=== PATIENT | female | born 1935 | race Caucasian/White ===

== ENCOUNTER 2016-09-25 11:18 | Emergency (ER) | payer MEDICARE, MEDICAID ==
--- NOTE | 2016-09-25 12:18 | ED Physician Chart ---
Chief Complaint/HPI - Patient Information Date Seen:: 09/25/16 Time Seen:: 12:34 Chief Complaint:: FALL WITH HEAD, LT SHOULDER, ARM AND ELBOW INJURY. History of Present Illness:: Patient was walking up stairs when she lost her balance and fell backwards striking the back of her head and sustaining injury to the left shoulder, left arm and left elbow regions. There was no loss of consciousness. The patient rates the severity of the head injury as mild and has 8/10 pain in the left shoulder region. Any movement of the left upper extremity causes increased pain. Allergies:: Allergies Allergy/AdvReac Type Severity Reaction Status Date / Time No Known Allergies Allergy Verified 05/24/16 10:44 Review of Systems - Review of Systems General/Constitutional: No fever, No chills, No weakness, No diaphoresis, No edema Skin: No skin lesions, No rash Head: No headache Eyes: No loss of vision, No diplopia ENT: No earache, No sore throat Neck: No neck pain, No stiffness, No mass noted Cardio Vascular: No chest pain, No edema Pulmonary: No SOB, No cough, No sputum, No wheezing GI: No nausea, No vomiting, No diarrhea, No pain G/U: No dysuria, No hematuria, No nacturia Manager Linux: No abnormal vaginal bleed Musculoskeletal: No back pain, No muscle pain Endocrine: No polyuria, No polydipsia Psychiatric: Prior psych history, No suicidal ideation Hematopoietic: No bruising, No lymphadenopathy Neurological: No syncope, No focal symptoms, No weakness, No paresthesia, No seizure, No dizziness, No confusion Family Medical History - Family Member Mother History Unknown: Yes Ethnicity: Living Status: Hx Family Cancer: Yes Physical Exam - Physical Examination General/Constitutional: Awake, Well-developed, well-nourished, Alert Other Gen/Cons comments:: Patient is in moderate distress from injuries to her left upper extremity. No gross deformities to be the shoulder or the elbow were obvious. Head: Atraumatic Eyes: Lids, conjuctiva normal, PERRL, EOMI Skin: Nl inspection, No skin lesions, No ecchymosis ENMT: External ears, nose nl, Nasal exam nl, Lips, teeth, gums nl, Oropharynx nl , Tonsils nl Neck: Full ROM w/o pain, No nuchal rigidity Other Neck comments:: There was mild tenderness on palpation over the mid C-spine. Respiratory: Nl effort/Exclusion, Clear to Auscultation, No Wheeze/Rhonchi/Rales Cardio Vascular: No murmur, gallop, rubs, NL S1 S2 Other Cardio Vascular comments:: Patient has adequate pulses in all four extremities. This includes the left upper extremity. GI: No tenderness/rebounding/guarding, No organomegaly, No hernia, Normal BS's, Nondistended, No McBurney tenderness : No CVA tenderness Other Extremities comments:: Patient's extremity injuries were isolated to the left upper extremity. There was significant tenderness on palpation over the shoulder and proximal humerus. Patient also had significant tenderness to palpation over the olecranon process. Patient was able to wiggle her fingers and lightly order detailer my fingers. Full range of motion in the major joints of the right upper extremity in both lower extremities. Neuro/Psych: Alert/oriented, Mood normal, No focal deficits Misc: Normal back, No paraspinal tenderness Other Misc comments:: no tenderness on palpation over any of the thoracic or lumbar spinal region. Labs/Radiology/EKG Results - Lab Results Results: CT scan of the head and neck were negative for any acute traumatic injury. To view x-ray study of the left shoulder shows minimally displaced fracture just below the humeral neck. 3 view x-ray of the elbow shows a significantly displaced electron fracture. Assessment - Assessment General Assessment: CASE SUMMARY: this 81-year-old female lost her balance walking upstairs and fell backward striking her occipital portion of the head and sustaining significant injury to her left upper extremity. There was no loss of consciousness at the time of the fall. Because of the patient's age CT scans of both ahead in the neck were obtained and were negative for any acute traumatic findings. Plain films of the left upper extremity showed a nondisplaced fracture of the proximal humoral shaft just below the neck. There was also a significantly displaced olecranon fracture in the left upper extremity. Pain was addressed with IV morphine. The patient had a shoulder immobilizer applied and a PM splint to stabilize the elbow. Patient was discharged with a prescription for Ponce with the usual precautions. Patient was advised to follow up with her primary care position on Tuesday in order to obtain orthopedic consultation. Indications for return to the emergency department were discussed with the patient's family. Patient was discharged in stable condition. MDM DDX for fall down stairs: NOT IC Bleed based on negative CT Scan of the head. NOT C-spine fracture base on neg CT scan of neck. NO open fractures based on examination. NO Hip fx based on history and physical exam. ED Septic Shock - . Is Septic Shock (SBP<90, OR Lactate>4 mmol\L) present?: No Reassessment (Disposition) - Reassessment Reassessment Condition:: Improved - Diagnosis Diagnosis:: 1. MECHANICAL FALL DOWN STAIRS. MINIMALLY DISPLACED FX OF THE LEFT PROXIMAL HUMERAL SHAFT. DISPLACED OLECRONON FX. ED Discharge Plan - Patient Disposition Admit/Discharge/Transfer: PT DISCHARGED HOME Condition at Disposition: Improved Instructions: Elbow Fracture, Distal Humerus with Rehab-Sports[facility] Additional Instructions: Follow up with Dr. Mann on Tuesday for further evaluation w/ CD of x-rays. If worse, return to Emergency Room. Accepting Physician: Zack Mann [Active] -
[2016-09-25] MEDS ORDERED: Morphine Sulfate 2 mg/mL 1mL Syr ONE (12:52)
[2016-09-25 13:15] LABS: % BASOPHILS 0.3 % (0.0-2.0); % EOSINOPHILS 0.9 % (0.0-5.0); % LYMPHOCYTES 15.5 % (20.0-50.0); % MONOCYTES 9.7 % (2.0-10.0); % NEUTROPHILS 73.6 % (40.0-80.0); HEMATOCRIT 27.4 % (35.0-45.0); HEMOGLOBIN 9.6 gm/dL (11.7-16.1); MEAN CELL VOLUME 88.7 fl (81-100); MEAN CORPUSCULAR HGB CONC 34.9 pg (28.0-36.0); MEAN PLATELET VOLUME 6.3 fl; NEUTROPHILE ABSOLUTE 4.4 Th/cmm (1.8-8.0); RED BLOOD COUNT 3.09 Mil/cmm (3.80-5.20); RED CELL DISTRIBUTION WIDTH 13.8 % (11.5-20.0)
[2016-09-25 13:21] LABS: PLATELET COUNT 257 Th/cmm (150-400)
[2016-09-25 13:33] LABS: ALB/GLOB RATIO 1.1 (1.0-1.8); ALKALINE PHOSPHATASE 55 U/L (34-104); ANION GAP 8.2 (7.0-16.0); BILIRUBIN,TOTAL 0.2 mg/dL (0.3-1.0); BUN - UREA NITROGEN 42 mg/dL (7-25); CALCIUM SERUM 9.1 mg/dL (8.6-10.3); CARBON DIOXIDE 18.6 mEq/L (21.0-31.0); CHLORIDE 110 mEq/L (98-107); CREATININE - SERUM 1.4 mg/dL (0.6-1.2); GLUCOSE 76 mg/dL (70-105); POTASSIUM SERUM 3.8 mEq/L (3.5-5.1); SGOT 21 U/L (13-39); SGPT/ALT 11 U/L (7-52); SODIUM SERUM 133 mEq/L (136-145)
--- NOTE | 2016-09-26 11:06 | Diagnostic Imaging Report ---
CT scan of the brain without intravenous contrast HISTORY: Headache, trauma Total DLP equals 611 CTDI equals 30.8 Axial sections were obtained from the base of the skull to the vertex. There is prominence/enlargement of the ventricular system size. Associated enlargement of cerebral sulci and subarachnoid cisterns. Findings are consistent with changes of generalized cerebral atrophy. No acute parenchymal abnormalities. No acute cerebral hemorrhage. Hypodensity is seen within the supratentorial white matter regions without mass effect. The findings may be associated with chronic small vessel ischemic disease. No extra-axial masses or abnormal fluid collections. IMPRESSION: 1. No acute abnormalities 2. Cerebral atrophy 3. Supratentorial white matter changes that may reflect chronic small vessel ischemic disease 4. Mucosal thickening through the ethmoid sinuses
--- NOTE | 2016-09-26 11:07 | Diagnostic Imaging Report ---
CT scan cervical spine HISTORY: Pain, trauma Total DLP equals 364 CTDI equals 18.5 Generalized osteopenia. There are diffuse degenerative changes with hypertrophic spur formation noted about the endplates of all vertebrae. Findings are more pronounced at the C5-6 and C6-7 levels. Slight retrolisthesis of C4 relative to C5. No acute abnormalities. No fractures. The margins of the cervical spinal cord cannot be clearly visualized. The prevertebral soft tissues appear normal. IMPRESSION: 1. No acute abnormalities 2. Diffuse degenerative changes
--- NOTE | 2016-09-26 11:28 | Diagnostic Imaging Report ---
Left humerus (3 views, portable) HISTORY: Pain, trauma Cortical irregularity that appears to be related to a minimally displaced fracture involving the proximal humeral shaft extending into the region of the humeral head. There is partial visualization of what appears to be displaced fracture of the olecranon process. IMPRESSION: 1. Findings consistent with minimally displaced fracture of the proximal humerus along with partial visualization of a displaced fracture of the olecranon process
--- NOTE | 2016-09-26 11:29 | Diagnostic Imaging Report ---
Left shoulder (2 views, portable) HISTORY: Pain On the internal rotation view, there appears to be cortical irregularity associated with a minimally displaced fracture of the proximal humerus. Additional views or CT scan would confirm. Hypertrophic degenerative changes noted about the acromioclavicular joint. IMPRESSION: 1. Findings consistent with a minimally displaced fracture of the proximal humeral shaft extending into the humeral neck region. If necessary, a CT scan would provide additional detail.
--- NOTE | 2016-09-27 12:20 | Diagnostic Imaging Report ---
Left elbow (3 views) HISTORY: Pain, trauma The exam demonstrates a displaced fracture of the olecranon process. IMPRESSION: 1. Displaced fracture of the olecranon process
== END 2016-09-25 15:50 | disposition home or self-care (01) ==
LOC: ER 11:18
DX: S42.212A Unspecified displaced fracture of surgical neck of left humerus, initial encounter for closed fracture (principal); S52.022A Displaced fracture of olecranon process without intraarticular extension of left ulna, initial encounter for closed fracture; W10.8XXA Fall (on) (from) other stairs and steps, initial encounter; Y93.01 Activity, walking, marching and hiking; Y92.89 Other specified places as the place of occurrence of the external cause; Y99.8 Other external cause status
CPT/HCPCS: 99285; 70450; 29105; 96374; 96375; 73030; 73060; 73080; 72125; 36415; 85025; 80053; J2270; J2405

== ENCOUNTER 2018-01-04 20:06 | Inpatient (IN) | payer MEDICARE, MEDICAID ==
[2018-01-04] MEDS ORDERED: cefTRIAXone 1 GM in Sodium Chloride 0.9% 50 ML IV ONE (20:17)
[2018-01-04] MEDS ORDERED: Sodium Chloride 0.9% 1,000 ML IV ONE (20:17)
--- NOTE | 2018-01-04 20:25 | ED Physician Chart ---
ED Chief Complaint/HPI - Patient Information Date Seen:: 01/04/18 Time Seen:: 20:10 Chief Complaint:: Abdominal Pain History of Present Illness:: onset x 3 days of intermittent, crampy epigastric pain; pt denies trauma, H/As, S/T, C/P, SOB, cough, A/N/V/D/C, fever, chills, or urinary s/s; pt also admits to facial redness x 3 days; pt's last tetanus shot: ,<5 years; UTD Allergies:: Allergies Allergy/AdvReac Type Severity Reaction Status Date / Time No Known Allergies Allergy Verified 05/24/16 10:44 Historian:: Patient, Family Member Review:: Nurse's Note Reviewed ED Review of Systems - Review of Systems General/Constitutional: No fever, No chills, No weight loss, No weakness, No diaphoresis, No edema, No loss of appetite Skin: No skin lesions, No rash, No bruising Head: No headache, No light-headedness Eyes: No loss of vision, No pain, No diplopia ENT: No earache, No nasal drainage, No sore throat, No tinnitus Neck: No neck pain, No swelling, No thyromegaly, No stiffness, No mass noted Cardio Vascular: No chest pain, No palpitations, No PND, No orthopnea, No edema Pulmonary: No SOB, No cough, No sputum, No wheezing GI: Nausea, Vomiting, Diarrhea, Pain, No melena, No hematochezia, No constipation, No hematemesis G/U: No dysuria, No frequency, No hematuria, No nacturia 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, No abnormal vaginal bleed, No contraction Musculoskeletal: No bone or joint pain, No back pain, No muscle pain Endocrine: No polyuria, No polydipsia Psychiatric: No prior psych history, No depression, No anxiety, No suicidal ideation, No homicidal ideation, No auditory hallucination, No visual hallucination Hematopoietic: No bruising, No lymphadenopathy Allergic/Immuno: No urticaria, No angioedema Neurological: No syncope, No focal symptoms, No weakness, No paresthesia, No headache, No seizure, No dizziness, No confusion, No vertigo ED Past Medical History - Past Medical History Obtainable: Yes Past Medical History: HTN, ESRD, Thyroid disorder Family History: HTN Social History: Non Smoker, No Alcohol, No Drug Use, Surgical History: None Psychiatricy History: None Medication: Reviewed Family Medical History - Family Member Mother History Unknown: Yes Ethnicity: Living Status: Hx Family Cancer: Yes ED Physical Exam - Physical Examination General/Constitutional: Awake, Well-developed, well-nourished, Alert, No distress, GCS 15, Non-toxic appearing, Ambulatory Head: Atraumatic Eyes: Lids, conjuctiva normal, PERRL, EOMI Skin: Nl inspection, No rash, No skin lesions, No ecchymosis, Well hydrated, No lymphadenopathy Other Skin comments:: + Facial Cellulitis ENMT: External ears, nose nl, TM canals nl, Nasal exam nl, Lips, teeth, gums nl , Oropharynx nl, Tonsils nl Neck: Nontender, Full ROM w/o pain, No JVD, No nuchal rigidity, No bruit, No mass, No stridor Respiratory: Nl effort/Exclusion, Clear to Auscultation, No Wheeze/Rhonchi/Rales Cardio Vascular: RRR, No murmur, gallop, rubs, NL S1 S2, Carotid/Femoral/Distal pulses equal bilaterally GI: No tenderness/rebounding/guarding, No organomegaly, No hernia, Normal BS's, Nondistended, No mass/bruits, No McBurney tenderness : No CVA tenderness Extremities: No tenderness or effusion, Full ROM, normal strength in all extremities, No edema, Normal digits & nails Neuro/Psych: Alert/oriented, DTR's symmetric, Normal sensory exam, Normal motor strength, Judgement/insight normal, Mood normal, Normal gait, No focal deficits Misc: Normal back, No paraspinal tenderness ED Labs/Radiology/EKG Results - Lab Results Comments:: H/H: 8.9/26.6; + Anemia; Na+: 130; BUN: 40; U/A: + Pyuria - Radiology Results Comments:: CXR: Patchy Infiltrates suggestive of ILD vs PNA - EKG Interpretations EKG Time:: 20:22 Rate & Rhythm: 96; NSR Comments:: non-specific st-t changes; PVCs; SA ED Septic Shock - . Is Septic Shock (SBP<90, OR Lactate>4 mmol\L) present?: No ED Reassessment (Disposition) - Reassessment Reassessment Condition:: Improved - Diagnosis Diagnosis:: Dx: Facial Cellulitis; Abdominal Pain; Dehydration; Hyponatremia; UTI; PNA; ILD ; Anemia - Aftercare/Follow up Instructions Aftercare/Follow-Up Instructions:: Counseled pt regarding lab results/diagnosis & need follow up, Counseled pt & family regarding lab results/diagnosis & need follow up - Patient Disposition Discharge/Transfer:: Acute Care w/in this hosp Accepting Physician:: Dr. Philip Time Called:: 2129 Time Responded:: 21:30 Admitted to:: Med/Surg Spoke to:: Dr. Philip Admitting Medical Physician:: Dr. Philip Condition at Disposition:: Stable, Improved
[2018-01-04 20:49] LABS: % BASOPHILS 0.9 % (0.0-2.0); % EOSINOPHILS 2.3 % (0.0-5.0); % LYMPHOCYTES 38.3 % (20.0-50.0); % MONOCYTES 10.6 % (2.0-10.0); % NEUTROPHILS 47.9 % (40.0-80.0); EOSINOPHILE ABSOLUTE 0.1 Th/cmm (0.1-0.4); HEMATOCRIT 26.6 % (41.0-60); HEMOGLOBIN 8.9 gm/dL (12-16); LYMPHOCYTE ABSOLUTE 2.1 Th/cmm (1.5-3.0); MEAN CELL VOLUME 83.1 fl (81-100); MEAN CORPUSCULAR HEMOGLOBIN 27.7 pg (27.0-31.0); MEAN CORPUSCULAR HGB CONC 33.3 pg (28.0-36.0); MEAN PLATELET VOLUME 6.7 fl; MONOCYTE ABSOLUTE 0.6 Th/cmm (0.3-1.0); NEUTROPHILE ABSOLUTE 2.7 Th/cmm (1.8-8.0); PLATELET COUNT 276 Th/cmm (150-400); RED BLOOD COUNT 3.21 Mil/cmm (3.80-5.20); RED CELL DISTRIBUTION WIDTH 15.9 % (11.5-20.0); WHITE BLOOD COUNT 5.5 Th/cmm (4.8-10.8)
[2018-01-04 20:56] LABS: INR 0.98 (0.5-1.4); PROTHROMBIN TIME (TEST) 10.2 SECONDS (9.5-11.5)
[2018-01-04 20:59] LABS: URINE MICROSCOPIC INDICATED? YES; URINE SOURCE CLEAN C
[2018-01-04 21:02] LABS: ALB/GLOB RATIO 1.1 (1.0-1.8); ALBUMIN 3.8 gm/dL (3.7-5.3); ALKALINE PHOSPHATASE 65 U/L (34-104); ANION GAP 15.7 (7.0-16.0); BILIRUBIN,TOTAL 0.3 mg/dL (0.3-1.0); BUN - UREA NITROGEN 40 mg/dL (7-25); CALCIUM SERUM 8.9 mg/dL (8.6-10.3); CARBON DIOXIDE 14.9 mEq/L (21.0-31.0); CHLORIDE 104 mEq/L (98-107); CHOLESTEROL 115 mg/dL (<200); CREATININE - SERUM 1.5 mg/dL (0.6-1.2); CREATININE KINASE 165 U/L (30-223); GLUCOSE 104 mg/dL (70-105); HDL -HIGH DENSITY LIPOPROTEIN 44 mg/dL (23-92); POTASSIUM SERUM 4.6 mEq/L (3.5-5.1); SGOT 16 U/L (13-39); SGPT/ALT 7 U/L (7-52); SODIUM SERUM 130 mEq/L (136-145); TOTAL PROTEIN,SERUM 7.2 gm/dL (6.0-8.3); TRIGLYCERIDES 68 mg/dL (<150)
[2018-01-04 21:02] LABS: URINE BILIRUBIN NEGATIVE (NEGATIVE); URINE BLOOD NEGATIVE (NEGATIVE); URINE GLUCOSE (UA) NEGATIVE (NEGATIVE); URINE KETONE NEGATIVE (NEGATIVE); URINE LEUKOCYTE ESTERASE TRACE (NEGATIVE); URINE NITRATE NEGATIVE (NEGATIVE); URINE PH 5.5 (4.6 - 8.0); URINE PROTEIN NEGATIVE (NEGATIVE); URINE UROBILINOGEN 0.2 E.U./dL (0.2 - 1.0)
[2018-01-04 21:03] LABS: AMYLASE SERUM 61 U/L (29-103); LIPASE 34 U/L (11-82)
[2018-01-04 21:03] LABS: URINE CLARITY CLEAR (CLEAR); URINE COLOR STRAW
[2018-01-04 21:04] LABS: URINE BACTERIA NONE SEEN /hpf (NONE SEEN); URINE EPITHELIAL CELLS NONE SEEN /lpf (FEW); URINE RBC NONE SEEN /hpf (0-5)
[2018-01-04] MEDS ORDERED: Sodium Chloride 0.9% 1,000 ML IV SCH (22:00)
[2018-01-05 03:27] VITALS: BP 130/65
--- NOTE | 2018-01-05 06:09 | History and Physical ---
History of Present Illness - HPI Chief Complaint: Abdominal Pain HPI: 82 y/o female who presents to [facility] for 3 day history for Abdominal Pain noted at the [facility] facility. Patient was sent for further evaluation and treatment. While in the ER, the ER physician states, "pt denies trauma, H/As, S/T, C/P, SOB, cough, A/N/V/D/C, fever, chills, or urinary s/s; pt also admits to facial redness x 3 days; pt's last tetanus shot: ,<5 years; UTD" Initial Labwork revealed ... WBC 5.5 H/H 8.9/26.6 plat 276 Na 130 K4.6 Bun/Cr 40/1.5 glu 104 ED Past Medical History - Past Medical History Obtainable: Yes Past Medical History: HTN, ESRD?, Thyroid disorder Family History: HTN Social History: Non Smoker, No Alcohol, No Drug Use, Surgical History: None Psychiatricy History: None Medication: Reviewed Family Medical History - Family Member Mother History Unknown: Yes Ethnicity: Living Status: Hx Family Cancer: Yes Patient was subsequently admitted for further evaluation and treatment. Vital Signs: Last Vital Signs Temp 99.2 F 01/05/18 04:00 Pulse 82 01/05/18 04:00 Resp 20 01/05/18 04:00 BP 136/61 01/05/18 04:00 Pulse Ox 98 01/05/18 04:00 Past Medical History Cardiovascular: Report: HTN Pulmonary: Report: No Pertinent Hx NEWS VIDEO EDITOR: Report: No Pertinent Hx GI: Report: No Pertinent Hx Psych: Report: No Pertinent Hx Musculoskeletal: Report: No Pertinent Hx Rheumatologic: Report: No pertinent Hx Infectious Disease: Report: No Pertinent Hx Renal/: Report: No Pertinent Hx Endocrine: Report: Hypothyroidism Dermatology: Report: No Pertinent Hx - Past Surgical History Past Surgical History: No pertinent Hx Family Medical History - Family Member Mother History Unknown: Yes Ethnicity: Living Status: Unknown Hx Family Cancer: Yes Hx Family Hypertension: Yes Social History Smoke: No Alcohol: None Drugs: None Lives: Alone - Medications Home Medications: Home Medication Medication Instructions Recorded Type Levothyroxine [Synthroid] 25 mcg PO QDAC 04/05/16 History Solifenacin Succinate [Vesicare] 5 mg PO HS 04/05/16 History Olmesartan [Benicar] 20 mg PO DAILY 05/24/16 History Sodium Chloride 1 gm PO DAILY 05/24/16 History amLODIPine Besylate [Norvasc] 5 mg PO DAILY 05/24/16 History Pantoprazole [Protonix] 40 mg PO DAILY 09/25/16 History - Allergies Allergies/Adverse Reactions: Allergies Allergy/AdvReac Type Severity Reaction Status Date / Time No Known Allergies Allergy Verified 05/24/16 10:44 Review of Systems - Review of Systems Constitutional: Report: No Significant Eyes: Report: No Significant ENT: Report: No Significant Respiratory: Report: No Significant Cardiovascular: Report: No Significant Gastrointestinal: Report: Abdominal Pain Genitourinary: Report: No Significant Musculoskeletal: Report: No Significant Skin: Report: No Significant Neurological: Report: No Significant Physical Exam - Physical Exam HEENT: Report: Ears Nose Throat within normal limits, Pharnyx within normal limits Neck: Report: Within normal limits Cardiovascular Systems: Report: +s1/s2 noted, Regular, Rate and Rhythm Respiratory: Report: Breath Sounds are within normal limits Abdomen: Report: Non-tender to palpation Back: Report: Inspection of back is within normal limits. Extremities: Report: Non-tender to palpation. Skin: Report: Color of skin is within normal limits Neuro/Psych: Report: Mood affect is within normal limits - Assessment Assessment: Abdominal Pain Facial Celluitis dehydration hyponatremia UTI PNA Anemia r/o GIB - Plan Plan: GI consult ... Dr. Whatley Nephrology consult ... repeat CBC,CMP resume home meds continue IV fluids Stool Occult PPI IV
[2018-01-05 06:11] LABS: % BASOPHILS 0.7 % (0.0-2.0); % EOSINOPHILS 2.8 % (0.0-5.0); % LYMPHOCYTES 31.9 % (20.0-50.0); % MONOCYTES 12.3 % (2.0-10.0); % NEUTROPHILS 52.3 % (40.0-80.0); EOSINOPHILE ABSOLUTE 0.1 Th/cmm (0.1-0.4); HEMATOCRIT 24.3 % (41.0-60); HEMOGLOBIN 8.1 gm/dL (12-16); LYMPHOCYTE ABSOLUTE 1.4 Th/cmm (1.5-3.0); MEAN CELL VOLUME 82.5 fl (81-100); MEAN CORPUSCULAR HEMOGLOBIN 27.6 pg (27.0-31.0); MEAN CORPUSCULAR HGB CONC 33.5 pg (28.0-36.0); MEAN PLATELET VOLUME 6.9 fl; MONOCYTE ABSOLUTE 0.5 Th/cmm (0.3-1.0); NEUTROPHILE ABSOLUTE 2.3 Th/cmm (1.8-8.0); PLATELET COUNT 259 Th/cmm (150-400); RED BLOOD COUNT 2.95 Mil/cmm (3.80-5.20); RED CELL DISTRIBUTION WIDTH 15.5 % (11.5-20.0)
[2018-01-05 06:21] LABS: WHITE BLOOD COUNT 4.3 Th/cmm (4.8-10.8)
[2018-01-05 06:28] LABS: ALB/GLOB RATIO 1.1 (1.0-1.8); ALBUMIN 3.2 gm/dL (3.7-5.3); ALKALINE PHOSPHATASE 54 U/L (34-104); ANION GAP 12.7 (7.0-16.0); BILIRUBIN,TOTAL 0.3 mg/dL (0.3-1.0); BUN - UREA NITROGEN 32 mg/dL (7-25); CALCIUM SERUM 8.5 mg/dL (8.6-10.3); CARBON DIOXIDE 15.9 mEq/L (21.0-31.0); CHLORIDE 112 mEq/L (98-107); CREATININE - SERUM 1.3 mg/dL (0.6-1.2); GLUCOSE 79 mg/dL (70-105); POTASSIUM SERUM 4.6 mEq/L (3.5-5.1); SGOT 15 U/L (13-39); SGPT/ALT 5 U/L (7-52); SODIUM SERUM 136 mEq/L (136-145)
[2018-01-05] MEDS: Levothyroxine 0.025 Mg Tab PO SCH (06:38)
[2018-01-05] MEDS: D5-0.9%NS 1,000 ML IV SCH (06:40)
--- NOTE | 2018-01-05 07:38 | Diagnostic Imaging Report ---
CHEST X-RAY: AP view INDICATION: pain COMPARISON: 08/09/2016 FINDINGS: Multiple pulmonary mass lesions are noted. No effusions. Heart size normal. Atherosclerosis is noted. Degenerative changes of the spine and shoulders are noted. IMPRESSION: Multiple pulmonary mass lesions most likely due to metastatic disease. Superimposed infectious process cannot be excluded. Please correlate with patient's clinical findings. CT chest would provide additional detail and assessment. Atherosclerotic vascular disease.
[2018-01-05] MEDS ORDERED: VTE Chemical Prophylaxis Screen/Admission MC PRN (08:15)
[2018-01-05] MEDS ORDERED: Pantoprazole 40 mg EC Tab PO SCH (09:00)
[2018-01-05] MEDS ORDERED: IOHEXOL 300mgI/mL 100 ML VIAL PO ONE (13:52)
--- NOTE | 2018-01-05 14:55 | Diagnostic Imaging Report ---
CT Chest with IV contrast HISTORY: Mass COMPARISON: Chest x-ray on 01/04/2018. Technique: Axial images were obtained from the base of the neck to the upper abdomen following administration of IV contrast. Coronal reconstructions were made. Total DLP 154, CTD I 4.9 Findings: No evidence of mediastinal lymphadenopathy. Heart size is normal. Mild atherosclerosis is noted. No evidence of an aortic aneurysm. A descending aorta measures up to 3 cm. The lung devries demonstrate numerous bilateral pulmonary nodules the largest within the left lung base measuring 2 cm. Atelectatic and hypoventilatory lung changes are also noted. No pleural effusions. Degenerative changes of the spine are noted. Osteopenia is noted. IMPRESSION: Numerous bilateral pulmonary nodules consistent with metastatic disease. Origin is uncertain. Clinical correlation and follow-up is recommended. Mild atherosclerosis.
--- NOTE | 2018-01-05 15:01 | Diagnostic Imaging Report ---
CT abdomen and pelvis with intravenous contrast Indication: Abdominal pain Comparison: CT chest the same day demonstrating numerous pulmonary nodules, Technique: Axial images were obtained from the lung bases to the bilateral proximal femurs with IV and oral contrast. Coronal reconstructions were made. total DLP: 415, CTDI9.5 FINDINGS: Subcentimeter low-density lesions of the liver are noted to small to characterize. No radiopaque gallstones identified. No focal splenic or pancreatic lesions. No focal adrenal lesions. Subcentimeter low-density lesion of the kidneys are noted to small to characterize. No hydronephrosis. Calcifications of the uterus are noted measuring up to 2 cm consistent with fibroid changes. Oral contrast seen within multiple bowel loops. There is ill-defined soft tissue density/mass along the right lower quadrant in the region of the cecum. This area measures 3.2 x 3 cm. Appendix is not visualized. There is are mildly prominent right lower quadrant lymph nodes. There is mild dilatation of the distal small bowel. Calcified right lower quadrant lymph nodes are noted. Mild inflammatory changes in right lower quadrant are noted. No free fluid or free air. Degenerative changes spine are noted. Osteopenia is noted. IMPRESSION: Ill-defined soft tissue density/probable mass lesion of the right lower quadrant in the region of the cecum. The appendix is also not visualized in this region. Mildly prominent right lower quadrant lymph nodes are noted. Distal small bowel stasis is also noted along the terminal ileum. There may be a mass lesion of the right lower quadrant and possibly an occult colonic mass/colonic malignancy. An appendiceal mass is considered less likely. Please correlate with clinical findings. Inflammatory processes also such as appendicitis also considered much less likely. Few prominent right lower quadrant lymph nodes. Neoplastic etiology cannot be excluded. Tiny low-density lesions of the liver too small to characterize. Tiny low-density left renal lesions, probably cysts. Uterine fibroid noted. Atherosclerotic vascular disease.
--- NOTE | 2018-01-05 19:35 | Consultation ---
DATE OF CONSULTATION: 01/05/2018 TYPE OF CONSULTATION: GASTROENTEROLOGY REQUESTING PHYSICIAN: Aaron Doherty D.O. REASON FOR CONSULTATION: Anemia and abdominal pain. HISTORY OF PRESENT ILLNESS: An 82-year-old female with history of chronic kidney disease, hypertension, hypothyroidism and possible gallstones, admitted for a 3-day history of epigastric pain. Chest x-ray here showed a lung nodule suggestive of metastatic disease. She denies lower abdominal pain. She does have some constipation. She denies nausea or vomiting. She has epigastric discomfort with radiation up to her chest. She had an endoscopy done in April of last year that was unremarkable. She sees Dr. Collins Washington our associate in clinic and she is due to see him again in March. It is unknown when her last colonoscopy was. She denies melena or hematochezia. PAST MEDICAL HISTORY: As above. MEDICATIONS: Here are Norvasc, Synthroid, Benicar, oxybutynin, and Protonix. ALLERGIES: No known drug allergies. SOCIAL HISTORY: No recent tobacco, alcohol, or drugs. FAMILY HISTORY: Noncontributory. REVIEW OF SYSTEMS: A comprehensive 12-point review of systems conducted and is only positive for those signs and symptoms present in the history of present illness. PHYSICAL EXAMINATION: VITAL SIGNS: Temperature of 97.4, blood pressure is 140/69, pulse is 85, respirations 18, O2 sat 97%. GENERAL: The patient is well-developed, well-nourished, thin female in no acute distress. HEENT: Sclerae nonicteric. Oropharynx is clear. CARDIOVASCULAR: Regular rate and rhythm. LUNGS: Clear to auscultation bilaterally. ABDOMEN: Soft, mild epigastric tenderness to palpation without rebound or guarding. No hepatosplenomegaly is appreciated. EXTREMITIES: No clubbing, cyanosis or edema. RECTAL: Deferred. LABORATORY/IMAGING DATA: WBC 4.3, hemoglobin 8.1, platelet count 259. Coagulation profile is normal. Creatinine is 1.3. Liver enzymes are normal. Albumin is 3.2. Urinalysis essentially clear. IMPRESSION: 1. Epigastric abdominal pain, rule out gastroesophageal reflux disease, gastritis, peptic ulcer disease, occult neoplasm, constipation, etc. The patient's last endoscopy was last April, reportedly negative. Unknown when last colonoscopy was. 2. Anemia, likely chronic. 3. Chest x-ray showing possible lung nodules. 4. History of chronic kidney disease, hypertension and hypothyroidism. 5. Possible history of gallstones. RECOMMENDATIONS: 1. Check CT of the chest, abdomen and pelvis. 2. Check anemia labs. 3. Check stool OB. 4. Protonix. 5. May need endoscopy and/or colonoscopy if the patient is iron deficient and/or stool is OB positive. Thank you Dr. Doherty for involving us in the care of your patient. If you have any further questions, please call us. JOB# [id number]
[2018-01-05] MEDS ORDERED: Non-Formulary Item 1 EA (Solifenacin Succinate [Vesicare] 5 MG) PO SCH (21:00)
[2018-01-05] MEDS: cefTRIAXone 1 GM in Sodium Chloride 0.9% 50 ML IV SCH (22:09)
--- NOTE | 2018-01-05 23:18 | Consultation ---
DATE OF CONSULTATION: 01/05/2018 ATTENDING: Aaron Doherty DO HEALTH MANAGER: Rogers Lowe M.D. REASON FOR CONSULTATION: Worsening kidney function, electrolyte imbalance and fluid management. HISTORY OF PRESENT ILLNESS: This is an 82-year-old female with past medical history of chronic kidney disease, who came in because of abdominal pain. Three days prior to admission, the patient developed abdominal pain. She did not eat at a restaurant or foods that were brought from outside. A few hours prior to admission, her abdominal pain became intolerable and she was brought to the Emergency Room. Her white count was 5.5 with a temperature of 98.5. Chest x-ray revealed multiple pulmonary nodules. This was confirmed by CT scan of the chest. She also had an abdominal/pelvic CT scan, which revealed right lower quadrant (cecal area) mass lesion, possibly occult colonic malignancy; a small liver lesion; and a small renal cyst. She was admitted with a sodium of 130 and a BUN/creatinine of 40/1.5. Her sodium improved to 136 with a BUN/creatinine of 32/1.3 after hydration. She did not have any nausea and vomiting, diarrhea, dysuria nor fevers/chills. PAST MEDICAL HISTORY: 1. Chronic kidney disease. 2. Essential hypertension. 3. Hypothyroidism. 4. Anemia of chronic disease. CURRENT MEDICATIONS: She is currently on amlodipine, ceftriaxone, levothyroxine, Benicar, Zofran, oxybutynin, pantoprazole, tamsulosin. ALLERGIES: No known drug allergies. SOCIAL AND FAMILY HISTORY: I was not able to obtain from the patient because of problems with communication. REVIEW OF SYSTEMS: Again, I was not able to decipher directly from the patient because of problems with communication and also poor mentation. PHYSICAL EXAMINATION: GENERAL: The patient is awake, unable to answer my questions, but not in any form of distress, denied any further abdominal pain. VITAL SIGNS: Blood pressure is 130/65, pulse 94, temperature is 98.8 degrees. SKIN: Poor turgor, warm, no rash, no jaundice appreciated. HEENT: Head normocephalic, atraumatic. Eyes: Extraocular muscles intact. Pupils equal, round, reactive to light and accommodates. Anicteric sclerae. Pale conjunctivae. Nose, midline nasal septum. Mouth: Dry mucosa with poor dentition. NECK: Supple, no adenopathy, no thyromegaly, no bruits. Trachea palpated in the midline. CHEST AND CVS: S1, S2. No rub, murmur nor gallop appreciated. Point of maximal impulse fifth intercostal space, left midclavicular line. No abdominal or femoral bruits appreciated. LUNGS: Equal expansion, no use of accessory muscles. No supraclavicular retractions. Decreased breath sounds, but clear to auscultation without any wheeze. Breast symmetrical without any discharge. ABDOMEN: Globular, soft, positive for bowel sounds. No tenderness on palpation. No rebound, no guarding. No bruits either diastolic or systolic. RECTAL: Lax sphincter tone. GENITOURINARY: Normal appearing female genitalia. MUSCULOSKELETAL: No effusions present in her joints with limited range of motion. EXTREMITIES: No evidence of edema, cyanosis nor clubbing with palpable femoral, popliteal and dorsalis pedis pulses. NEUROLOGIC: The patient is awake, able to respond to some of my inquiries, she was not able to follow my neuro commands, so I was not able to pursue further my neuro exam. LABORATORY DATA: Did reveal white count 4.3, hemoglobin 8.1, hematocrit 24.3, platelets 259, polys 52.3%. Sodium 136, potassium 3.6, chloride 112, CO2 of 15.9, BUN 32, creatinine 1.3, glucose 79, calcium 8.5. Troponin 0.02. BNP 197, albumin 3.2. IMPRESSION: 1. Acute kidney injury on chronic kidney disease. 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 Acute kidney injury in this case is initially prerenal. The patient's oral intake had diminished dramatically because of her abdominal pain. She was not able to replenish both sensible and insensible fluid losses. She was immediately started on IV fluids upon admission. Her kidney function improved as well as sodium after her initiation on hydration. Her prerenal azotemia may have progressed to acute tubular injury, which is now responding to IV fluids. 2. Hyponatremia. In this case, could also be due to increased sodium loss compared to free water loss. She responded well with sodium replacement as IV fluids. 3. Multiple pulmonary nodules, possible metastasis. 4. 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 5. Anemia secondary to gastrointestinal loss. 6. Essential hypertension with chronic kidney disease. 7. Hypothyroidism. 8. Anion gap metabolic acidosis. PLAN: 1. Continue IV fluids of D5 NS. 2. Urine sodium, eosinophils and creatinine. 3. Serum osmolality, uric acid. 4. Urine microalbumin to creatinine ratio. 5. Follow up stool for occult blood. 6. CEA. 7. Sodium bicarbonate. Thank you, Dr. Doherty for this consult. I will follow the patient closely with you. JOB# [id number]
[2018-01-06 06:28] LABS: % BASOPHILS 0.5 % (0.0-2.0); % EOSINOPHILS 3.3 % (0.0-5.0); % LYMPHOCYTES 32.9 % (20.0-50.0); % NEUTROPHILS 51.3 % (40.0-80.0); EOSINOPHILE ABSOLUTE 0.2 Th/cmm (0.1-0.4); HEMATOCRIT 26.4 % (41.0-60); HEMOGLOBIN 8.8 gm/dL (12-16); LYMPHOCYTE ABSOLUTE 1.8 Th/cmm (1.5-3.0); MEAN CORPUSCULAR HEMOGLOBIN 27.6 pg (27.0-31.0); MEAN CORPUSCULAR HGB CONC 33.3 pg (28.0-36.0); MEAN PLATELET VOLUME 6.6 fl; MONOCYTE ABSOLUTE 0.6 Th/cmm (0.3-1.0); NEUTROPHILE ABSOLUTE 2.8 Th/cmm (1.8-8.0); PLATELET COUNT 278 Th/cmm (150-400); RED BLOOD COUNT 3.18 Mil/cmm (3.80-5.20); RED CELL DISTRIBUTION WIDTH 15.5 % (11.5-20.0); WHITE BLOOD COUNT 5.4 Th/cmm (4.8-10.8)
[2018-01-06 06:30] LABS: AMYLASE SERUM 45 U/L (29-103); ANION GAP 13.9 (7.0-16.0); BUN - UREA NITROGEN 22 mg/dL (7-25); CALCIUM SERUM 8.5 mg/dL (8.6-10.3); CARBON DIOXIDE 15.2 mEq/L (21.0-31.0); CHLORIDE 107 mEq/L (98-107); CREATININE - SERUM 1.2 mg/dL (0.6-1.2); GLUCOSE 87 mg/dL (70-105); LIPASE 24 U/L (11-82); MAGNESIUM 1.6 mg/dL (1.9-2.7); PHOSPHOROUS 4.1 mg/dL (2.5-5.0); POTASSIUM SERUM 4.1 mEq/L (3.5-5.1); SODIUM SERUM 132 mEq/L (136-145); URIC ACID 6.5 mg/dL (2.3-6.6)
[2018-01-06] MEDS: Levothyroxine 0.025 Mg Tab PO SCH (06:53)
[2018-01-06] MEDS: D5-0.9%NS 1,000 ML IV SCH (06:54)
[2018-01-06 07:28] LABS: EOSINOPHIL SMEAR SOURCE URINE; EOSINOPHILS SMEAR COUNT NONE SEEN (NONE SEEN)
--- NOTE | 2018-01-06 13:38 | Consultation ---
DATE OF CONSULTATION: 01/05/2018 REFERRING PHYSICIAN: Aaron Doherty D.O. This is a consultation for Dr. Terrence Almendarez, covering him. HISTORY OF PRESENT ILLNESS: This is an 82-year-old female who presented with some abdominal pain. The patient denies fever or chills. No shortness of breath. No history of lung problems. We were called for consultation for abnormal CT of the chest. PAST MEDICAL HISTORY: Hypertension, hypothyroidism. SOCIAL HISTORY: Denies smoking, drinking. PHYSICAL EXAMINATION: GENERAL: Awake, alert, not in acute distress. VITAL SIGNS: Temperature is 98.6, pulse 72, respiration 18, blood pressure is 122/60, saturation 98%. HEENT: Atraumatic, normocephalic. Pupils react to light and accommodation. Ears, nose and throat normal. NECK: Supple. No JVD. CHEST: There is no wheezing, no crackles. Fair entry bilaterally. HEART: Regular rhythm. ABDOMEN: Soft. EXTREMITIES: No edema. LABORATORY DATA AND DIAGNOSTIC STUDIES: WBC is 4.3, hemoglobin 8.1, hematocrit 24.3, platelets are 259. Sodium 136, potassium 4.6, BUN is 32, creatinine 1.3. The CT abdomen showed a cecal mass. She has multiple lung nodules. IMPRESSION: An 82-year-old female, most likely with colon cancer with metastasis to the lung. PLAN: Pulmonary burks, the patient is to have a GI evaluation and a colonoscopy and biopsy and further workup accordingly, maybe a PET scan as an outpatient. Thank you very much for this consultation. We will follow the patient with you. JOB# [id number]
[2018-01-06] MEDS ORDERED: Magnesium Citrate 1.75 GM/300 mL Bottle PO ONE (14:06)
--- NOTE | 2018-01-06 15:08 | General Progress Note ---
Subjective - Review of Systems Service Date: 01/06/18 Subjective: still constipated but less abd pain Objective - Results Result Diagrams: 01/06/18 06:01 01/06/18 06:01 Recent Labs: Laboratory Last Values WBC 5.4 Th/cmm (4.8-10.8) 01/06/18 06:01 RBC 3.18 Mil/cmm (3.80-5.20) L 01/06/18 06:01 Hgb 8.8 gm/dL (12-16) L 01/06/18 06:01 Hct 26.4 % (41.0-60) L 01/06/18 06:01 MCV 83.0 fl (81-100) 01/06/18 06:01 MCH 27.6 pg (27.0-31.0) 01/06/18 06:01 MCHC Differential 33.3 pg (28.0-36.0) 01/06/18 06:01 RDW 15.5 % (11.5-20.0) 01/06/18 06:01 Plt Count 278 Th/cmm (150-400) 01/06/18 06:01 MPV 6.6 fl 01/06/18 06:01 Neutrophils % 51.3 % (40.0-80.0) 01/06/18 06:01 Lymphocytes % 32.9 % (20.0-50.0) 01/06/18 06:01 Monocytes % 12.0 % (2.0-10.0) H 01/06/18 06:01 Eosinophils % 3.3 % (0.0-5.0) 01/06/18 06:01 Basophils % 0.5 % (0.0-2.0) 01/06/18 06:01 Eos Smear Source URINE 01/06/18 05:25 Eos Smear Total Cells NONE SEEN (NONE SEEN) 01/06/18 05:25 PT 10.2 SECONDS (9.5-11.5) 01/04/18 20:35 INR 0.98 (0.5-1.4) 01/04/18 20:35 PTT (Actin FS) 25.1 SECONDS (26.0-38.0) L 01/06/18 06:01 Sodium 132 mEq/L (136-145) L 01/06/18 06:01 Potassium 4.1 mEq/L (3.5-5.1) 01/06/18 06:01 Chloride 107 mEq/L (98-107) 01/06/18 06:01 Carbon Dioxide 15.2 mEq/L (21.0-31.0) L 01/06/18 06:01 Anion Gap 13.9 (7.0-16.0) 01/06/18 06:01 BUN 22 mg/dL (7-25) 01/06/18 06:01 Creatinine 1.2 mg/dL (0.6-1.2) 01/06/18 06:01 Est GFR ( Amer) TNP 01/06/18 06:01 Est GFR (Non-Af Amer) TNP 01/06/18 06:01 BUN/Creatinine Ratio 18.3 01/06/18 06:01 Glucose 87 mg/dL (70-105) 01/06/18 06:01 Whole Bld Lactic Acid 1.72 mmol/L (0.60-1.99) 01/04/18 20:35 Uric Acid 6.5 mg/dL (2.3-6.6) 01/06/18 06:01 Calcium 8.5 mg/dL (8.6-10.3) L 01/06/18 06:01 Phosphorus 4.1 mg/dL (2.5-5.0) 01/06/18 06:01 Magnesium 1.6 mg/dL (1.9-2.7) L 01/06/18 06:01 Total Bilirubin 0.3 mg/dL (0.3-1.0) 01/05/18 05:36 AST 15 U/L (13-39) 01/05/18 05:36 ALT 5 U/L (7-52) L 01/05/18 05:36 Alkaline Phosphatase 54 U/L (34-104) 01/05/18 05:36 Creatine Kinase 165 U/L (30-223) 01/04/18 20:35 Troponin I 0.02 ng/mL (0.01-0.05) 01/04/18 20:35 B-Natriuretic Peptide 197.0 pg/mL (5.0-100.0) H 01/04/18 20:35 Total Protein 6.0 gm/dL (6.0-8.3) 01/05/18 05:36 Albumin 3.2 gm/dL (3.7-5.3) L 01/05/18 05:36 Globulin 2.8 gm/dL 01/05/18 05:36 Albumin/Globulin Ratio 1.1 (1.0-1.8) 01/05/18 05:36 Triglycerides 68 mg/dL (<150) 01/04/18 20:35 Cholesterol 115 mg/dL (<200) 01/04/18 20:35 LDL Cholesterol Direct 56 mg/dL (75-193) L 01/04/18 20:35 HDL Cholesterol 44 mg/dL (23-92) 01/04/18 20:35 Amylase 45 U/L (29-103) 01/06/18 06:01 Lipase 24 U/L (11-82) 01/06/18 06:01 TSH 4.28 uIU/ml (0.34-5.60) 01/05/18 05:36 Urine Source CLEAN C 01/04/18 20:20 Urine Color STRAW 01/04/18 20:20 Urine Clarity CLEAR (CLEAR) 01/04/18 20:20 Urine pH 5.5 (4.6 - 8.0) 01/04/18 20:20 Ur Specific [place] 1.015 (1.005-1.030) 01/04/18 20:20 Urine Protein NEGATIVE mg/dL (NEGATIVE) 01/04/18 20:20 Urine Glucose (UA) NEGATIVE mg/dL (NEGATIVE) 01/04/18 20:20 Urine Ketones NEGATIVE mg/dL (NEGATIVE) 01/04/18 20:20 Urine Blood NEGATIVE (NEGATIVE) 01/04/18 20:20 Urine Nitrate NEGATIVE (NEGATIVE) 01/04/18 20:20 Urine Bilirubin NEGATIVE (NEGATIVE) 01/04/18 20:20 Urine Urobilinogen 0.2 E.U./dL (0.2 - 1.0) 01/04/18 20:20 Ur Leukocyte Esterase TRACE (NEGATIVE) H 01/04/18 20:20 Urine RBC NONE SEEN /hpf (0-5) 01/04/18 20:20 Urine WBC 2-5 /hpf (0-5) 01/04/18 20:20 Ur Epithelial Cells NONE SEEN /lpf (FEW) 01/04/18 20:20 Urine Bacteria NONE SEEN /hpf (NONE SEEN) 01/04/18 20:20 Ur Random Sodium 99 mmol/L 01/06/18 05:25 Urine Creatinine 42.0 mg/dl (28.0-217.0) 01/06/18 05:25 - Physical Exam Vitals and I&O: Vital Signs Temp 97.7 F 01/06/18 11:23 Pulse 90 01/06/18 14:24 Resp 18 01/06/18 11:23 BP 120/70 01/06/18 14:24 Pulse Ox 99 01/06/18 11:23 Intake & Output 01/05/18 01/06/18 01/06/18 18:59 06:59 18:59 Intake Total 800 1000 Balance 800 1000 Weight (lbs) 58.06 kg 59.012 kg 59.012 kg Intake: Intake, IV Amount 1000 D5-0.9%Ns 1,000 ml @ 50 1000 mls/hr IV .Q20H [facility] Rx#: [id number] Oral 800 Other: # Voids 3 Weight Source Bedscale Bedscale Bedscale Active Medications: Current Medications Amlodipine Besylate (Norvasc) 5 mg PO DAILY ANTHONY Stop: 03/06/18 08:59 Last Admin: 01/06/18 09:00 Dose: 5 mg Ceftriaxone Sodium 1 gm/ (Sodium Chloride) 50 mls @ 100 mls/hr IV Q24HR ANTHONY Stop: 03/06/18 20:59 Last Admin: 01/05/18 22:09 Dose: 100 mls/hr Dextrose/Sodium Chloride (D5-0.9%Ns) 1,000 mls @ 50 mls/hr IV .Q20H ANTHONY Stop: 03/06/18 04:59 Last Admin: 01/06/18 06:54 Dose: 50 mls/hr Levothyroxine Sodium (Synthroid) 0.025 mg PO QDAC ANTHONY Stop: 03/06/18 07:29 Last Admin: 01/06/18 06:53 Dose: 0.025 mg Losartan Potassium (Cozaar) 100 mg PO DAILY ANTHONY Stop: 03/07/18 10:59 Last Admin: 01/06/18 14:24 Dose: 100 mg Miscellaneous (Vte Chemical Prophylaxis Screen/ Admission) 1 ea MC PRN PRN PRN Reason: PROTOCOL Stop: 03/06/18 08:14 Oxybutynin Chloride (Ditropan) 5 mg PO BID ANTHONY Stop: 03/06/18 16:59 Last Admin: 01/06/18 09:00 Dose: 5 mg Pantoprazole Sodium (Protonix) 40 mg IVP DAILY ANTHONY Stop: 03/06/18 08:59 Last Admin: 01/06/18 09:00 Dose: 40 mg Sodium Bicarbonate (Sodium Bicarbonate) 650 mg PO BID ANTHONY PRN Reason: Protocol Stop: 03/06/18 19:44 Last Admin: 01/06/18 09:00 Dose: 650 mg General: Alert, Cooperative, Mild distress HEENT: Atraumatic, PERRLA, EOMI, Mucous membr. moist/pink Neck: Supple, +2 carotid pulse wo bruit Cardiovascular: Regular rate, Normal S1, Normal S2 Lungs: Other (few rhonchi) Abdomen: Bowel sounds, Soft Extremities: no Edema Neurological: Sensation intact Skin: no Rash Psych/Mental Status: Mood NL Assessment/Plan - Assessment Assessment: PAULA on CKD Hyponatremia Multiple pulm nodules Right Lower Quad Mass Anemia of CKD Ess Htn Hypothyroid - Plan Plan: Lab - Result Diagrams 01/06/18 06:01 01/06/18 06:01 Current Medications Amlodipine Besylate (Norvasc) 5 mg PO DAILY ANTHONY Stop: 03/06/18 08:59 Last Admin: 01/06/18 09:00 Dose: 5 mg Ceftriaxone Sodium 1 gm/ (Sodium Chloride) 50 mls @ 100 mls/hr IV Q24HR ANTHONY Stop: 03/06/18 20:59 Last Admin: 01/05/18 22:09 Dose: 100 mls/hr Dextrose/Sodium Chloride (D5-0.9%Ns) 1,000 mls @ 50 mls/hr IV .Q20H ANTHONY Stop: 03/06/18 04:59 Last Admin: 01/06/18 06:54 Dose: 50 mls/hr Levothyroxine Sodium (Synthroid) 0.025 mg PO QDAC ANTHONY Stop: 03/06/18 07:29 Last Admin: 01/06/18 06:53 Dose: 0.025 mg Losartan Potassium (Cozaar) 100 mg PO DAILY ANTHONY Stop: 03/07/18 10:59 Last Admin: 01/06/18 14:24 Dose: 100 mg Miscellaneous (Vte Chemical Prophylaxis Screen/ Admission) 1 ea [facility] PRN PRN PRN Reason: PROTOCOL Stop: 03/06/18 08:14 Oxybutynin Chloride (Ditropan) 5 mg PO BID ANTHONY Stop: 03/06/18 16:59 Last Admin: 01/06/18 09:00 Dose: 5 mg Pantoprazole Sodium (Protonix) 40 mg IVP DAILY ANTHONY Stop: 03/06/18 08:59 Last Admin: 01/06/18 09:00 Dose: 40 mg Sodium Bicarbonate (Sodium Bicarbonate) 650 mg PO BID ANTHONY PRN Reason: Protocol Stop: 03/06/18 19:44 Last Admin: 01/06/18 09:00 Dose: 650 mg Lab - Result Diagrams 01/06/18 06:01 01/06/18 06:01 Kidney fnc better Na stable @ 132 Increase NaHC03 replace Mg agree w/ Laxatives Nutritional Asmnt/Malnutr-PDOC - Dietary Evaluation Malnutrition Findings (Please click <Entered> for more info): Nutritional Asmnt/Malnutrition Start: 01/05/18 14: 24 Text: Status: Complete Freq: Document 01/05/18 14:24 LCHENG (Rec: 01/05/18 14:55 [email or web address] [email or web address]) Nutritional Asmnt/Malnutrition Patient General Information Nutritional Screening High Risk Diagnosis dehydration, anemia, UTI, facial cellulitis Pertinent Medical Hx/Surgical Hx HTN, ESRD, thyroid disorder Subjective Information Pt seen lying in bed, awake and pleasant. Family at bedside feeding pt lunch. Family is able to speak little [place], denied pt has chewing/swallowing problem, stated pt eating ok. Pt has teeth noted. Per EMR, pt consumed 100% of breakfast in the morning. Current Diet Order/ Nutrition Support regular Pertinent Medications D5-0.9%ns, synthorid, protonix Pertinent Labs 01/05 cl 112, BUN 32, Cr 1.3, Ca 8.5 Nutritional Hx/Data Height 1.52 m Height (Calculated Centimeters) 152.4 Current Weight (lbs) 58.06 kg Weight (Calculated Kilograms) 58.1 Weight (Calculated Grams) 52461.8 [place] Body Weight 100 Body Mass Index (BMI) 25.0 Weight Status Approriate GI Symptoms GI Symptoms None Last BM not indicated Difficult in: None Skin Integrity/Comment: face reddened Current %PO Good (75-100%) Estimated Nutritional Goals BEE in Kcals: Using Current wt Calories/Kcals/Kg 25-30 Kcals Calculated 7718-7282 Protein: Using Current wt Protein g/k monitor renal labs Protein Calculated 58 Fluid: ml 1450-1740ml (1ml/kcal) Nutritional Problem 1. Problem Problem altered nutrition related labs Etiology electrolytes imbalance and hx of ESRD Signs/Symptoms: cl 112, BUN 32, Cr 1.3, Ca 8.5 Malnutrition Alert Protein-Calorie Malnutrition N/A Is there a minimum of two criteria No selected? Query Text:Check all the applicable criteria. A minimum of two criteria are recommended for diagnosis of either severe or non-severe malnutrition. Intervention/Recommendation Comments 1. Continue with regular diet as ordered. Assist pt with meals as needed. 2. If BUN/Cr not improved, will consider renal diet. 2. Monitor PO intake, wt, labs and skin integrity 3. F/U as moderate risk in 3-5 days, 01/08-01/10 Expected Outcomes/Goals Expected Outcomes/Goals 1. PO intake to meet at least 75% of nutritional needs. 2. Wt stability, skin to remain intact, labs to approach WNL.
[2018-01-06] MEDS ORDERED: Mag Sulfate 2gm/50mL Premix 2 GM/50 ML BAG IV ONE (15:11)
--- NOTE | 2018-01-06 20:39 | General Progress Note ---
Subjective - Review of Systems Service Date: 01/06/18 Subjective: patient seen and examined chart reviewed patient doing fine no new concern reported Objective - Results Result Diagrams: 01/06/18 06:01 01/06/18 06:01 Recent Labs: Laboratory Last Values WBC 5.4 Th/cmm (4.8-10.8) 01/06/18 06:01 RBC 3.18 Mil/cmm (3.80-5.20) L 01/06/18 06:01 Hgb 8.8 gm/dL (12-16) L 01/06/18 06:01 Hct 26.4 % (41.0-60) L 01/06/18 06:01 MCV 83.0 fl (81-100) 01/06/18 06:01 MCH 27.6 pg (27.0-31.0) 01/06/18 06:01 MCHC Differential 33.3 pg (28.0-36.0) 01/06/18 06:01 RDW 15.5 % (11.5-20.0) 01/06/18 06:01 Plt Count 278 Th/cmm (150-400) 01/06/18 06:01 MPV 6.6 fl 01/06/18 06:01 Neutrophils % 51.3 % (40.0-80.0) 01/06/18 06:01 Lymphocytes % 32.9 % (20.0-50.0) 01/06/18 06:01 Monocytes % 12.0 % (2.0-10.0) H 01/06/18 06:01 Eosinophils % 3.3 % (0.0-5.0) 01/06/18 06:01 Basophils % 0.5 % (0.0-2.0) 01/06/18 06:01 Eos Smear Source URINE 01/06/18 05:25 Eos Smear Total Cells NONE SEEN (NONE SEEN) 01/06/18 05:25 PT 10.2 SECONDS (9.5-11.5) 01/04/18 20:35 INR 0.98 (0.5-1.4) 01/04/18 20:35 PTT (Actin FS) 25.1 SECONDS (26.0-38.0) L 01/06/18 06:01 Sodium 132 mEq/L (136-145) L 01/06/18 06:01 Potassium 4.1 mEq/L (3.5-5.1) 01/06/18 06:01 Chloride 107 mEq/L (98-107) 01/06/18 06:01 Carbon Dioxide 15.2 mEq/L (21.0-31.0) L 01/06/18 06:01 Anion Gap 13.9 (7.0-16.0) 01/06/18 06:01 BUN 22 mg/dL (7-25) 01/06/18 06:01 Creatinine 1.2 mg/dL (0.6-1.2) 01/06/18 06:01 Est GFR ( Amer) TNP 01/06/18 06:01 Est GFR (Non-Af Amer) TNP 01/06/18 06:01 BUN/Creatinine Ratio 18.3 01/06/18 06:01 Glucose 87 mg/dL (70-105) 01/06/18 06:01 Whole Bld Lactic Acid 1.72 mmol/L (0.60-1.99) 01/04/18 20:35 Uric Acid 6.5 mg/dL (2.3-6.6) 01/06/18 06:01 Calcium 8.5 mg/dL (8.6-10.3) L 01/06/18 06:01 Phosphorus 4.1 mg/dL (2.5-5.0) 01/06/18 06:01 Magnesium 1.6 mg/dL (1.9-2.7) L 01/06/18 06:01 Total Bilirubin 0.3 mg/dL (0.3-1.0) 01/05/18 05:36 AST 15 U/L (13-39) 01/05/18 05:36 ALT 5 U/L (7-52) L 01/05/18 05:36 Alkaline Phosphatase 54 U/L (34-104) 01/05/18 05:36 Creatine Kinase 165 U/L (30-223) 01/04/18 20:35 Troponin I 0.02 ng/mL (0.01-0.05) 01/04/18 20:35 B-Natriuretic Peptide 197.0 pg/mL (5.0-100.0) H 01/04/18 20:35 Total Protein 6.0 gm/dL (6.0-8.3) 01/05/18 05:36 Albumin 3.2 gm/dL (3.7-5.3) L 01/05/18 05:36 Globulin 2.8 gm/dL 01/05/18 05:36 Albumin/Globulin Ratio 1.1 (1.0-1.8) 01/05/18 05:36 Triglycerides 68 mg/dL (<150) 01/04/18 20:35 Cholesterol 115 mg/dL (<200) 01/04/18 20:35 LDL Cholesterol Direct 56 mg/dL (75-193) L 01/04/18 20:35 HDL Cholesterol 44 mg/dL (23-92) 01/04/18 20:35 Amylase 45 U/L (29-103) 01/06/18 06:01 Lipase 24 U/L (11-82) 01/06/18 06:01 TSH 4.28 uIU/ml (0.34-5.60) 01/05/18 05:36 Urine Source CLEAN C 01/04/18 20:20 Urine Color STRAW 01/04/18 20:20 Urine Clarity CLEAR (CLEAR) 01/04/18 20:20 Urine pH 5.5 (4.6 - 8.0) 01/04/18 20:20 Ur Specific [place] 1.015 (1.005-1.030) 01/04/18 20:20 Urine Protein NEGATIVE mg/dL (NEGATIVE) 01/04/18 20:20 Urine Glucose (UA) NEGATIVE mg/dL (NEGATIVE) 01/04/18 20:20 Urine Ketones NEGATIVE mg/dL (NEGATIVE) 01/04/18 20:20 Urine Blood NEGATIVE (NEGATIVE) 01/04/18 20:20 Urine Nitrate NEGATIVE (NEGATIVE) 01/04/18 20:20 Urine Bilirubin NEGATIVE (NEGATIVE) 01/04/18 20:20 Urine Urobilinogen 0.2 E.U./dL (0.2 - 1.0) 01/04/18 20:20 Ur Leukocyte Esterase TRACE (NEGATIVE) H 01/04/18 20:20 Urine RBC NONE SEEN /hpf (0-5) 01/04/18 20:20 Urine WBC 2-5 /hpf (0-5) 01/04/18 20:20 Ur Epithelial Cells NONE SEEN /lpf (FEW) 01/04/18 20:20 Urine Bacteria NONE SEEN /hpf (NONE SEEN) 01/04/18 20:20 Ur Random Sodium 99 mmol/L 01/06/18 05:25 Urine Creatinine 42.0 mg/dl (28.0-217.0) 01/06/18 05:25 - Physical Exam Vitals and I&O: Vital Signs Temp 97.4 F 01/06/18 20:00 Pulse 84 01/06/18 20:00 Resp 18 01/06/18 20:00 BP 126/60 01/06/18 20:00 Pulse Ox 100 01/06/18 20:00 Intake & Output 01/06/18 01/06/18 01/07/18 06:59 18:59 06:59 Intake Total 1000 600 Balance 1000 600 Weight (lbs) 59.012 kg 58.967 kg Intake: Intake, IV Amount 1000 D5-0.9%Ns 1,000 ml @ 50 1000 mls/hr IV .Q20H [facility] Rx#: [id number] Oral 600 Other: # Voids 4 # Bowel Movements 1 Weight Source Bedscale Bedscale Active Medications: Current Medications Amlodipine Besylate (Norvasc) 5 mg PO DAILY ANTHONY Stop: 03/06/18 08:59 Last Admin: 01/06/18 09:00 Dose: 5 mg Ceftriaxone Sodium 1 gm/ (Sodium Chloride) 50 mls @ 100 mls/hr IV Q24HR ANTHONY Stop: 03/06/18 20:59 Last Admin: 01/05/18 22:09 Dose: 100 mls/hr Dextrose/Sodium Chloride (D5-0.9%Ns) 1,000 mls @ 50 mls/hr IV .Q20H ANTHONY Stop: 03/06/18 04:59 Last Admin: 01/06/18 06:54 Dose: 50 mls/hr Levothyroxine Sodium (Synthroid) 0.025 mg PO QDAC ANTHONY Stop: 03/06/18 07:29 Last Admin: 01/06/18 06:53 Dose: 0.025 mg Losartan Potassium (Cozaar) 100 mg PO DAILY ANTHONY Stop: 03/07/18 10:59 Last Admin: 01/06/18 14:24 Dose: 100 mg Miscellaneous (Vte Chemical Prophylaxis Screen/ Admission) [address] [facility] PRN PRN PRN Reason: PROTOCOL Stop: 03/06/18 08:14 Oxybutynin Chloride (Ditropan) 5 mg PO BID ANTHONY Stop: 03/06/18 16:59 Last Admin: 01/06/18 16:12 Dose: 5 mg Pantoprazole Sodium (Protonix) 40 mg IVP DAILY ANTHONY Stop: 03/06/18 08:59 Last Admin: 01/06/18 09:00 Dose: 40 mg Sodium Bicarbonate (Sodium Bicarbonate) 650 mg PO TID ANTHONY PRN Reason: Protocol Stop: 03/07/18 15:14 Last Admin: 01/06/18 16:11 Dose: 650 mg General: Alert, Cooperative Neck: Supple Cardiovascular: Regular rate Lungs: Clear to auscultation Abdomen: Bowel sounds, Soft, no Tender, no Distended Extremities: no Edema Neurological: Sensation intact Skin: no Rash Psych/Mental Status: Mood NL Assessment/Plan - Assessment Assessment: Colonic mass r/o malignancy Chronic hyponatremia Acute on CKD better Chronic constipation HTN CAD - Plan Plan: Case discussed with GI. Plan is to have colonoscopy further evaluation on Mass Laxative Monitor lytes and renal function Daughter was explained through new zealander interpretor She verbalized understanding Plan of care discussed with nursing staff Nutritional Asmnt/Malnutr-PDOC - Dietary Evaluation Malnutrition Findings (Please click <Entered> for more info): Nutritional Asmnt/Malnutrition Start: 01/05/18 14: 24 Text: Status: Complete Freq: Document 01/05/18 14:24 DANIEL (Rec: 01/05/18 14:55 GEORGE [email or web address]) Nutritional Asmnt/Malnutrition Patient General Information Nutritional Screening High Risk Diagnosis dehydration, anemia, UTI, facial cellulitis Pertinent Medical Hx/Surgical Hx HTN, ESRD, thyroid disorder Subjective Information Pt seen lying in bed, awake and pleasant. Family at bedside feeding pt lunch. Family is able to speak little [place], denied pt has chewing/swallowing problem, stated pt eating ok. Pt has teeth noted. Per EMR, pt consumed 100% of breakfast in the morning. Current Diet Order/ Nutrition Support regular Pertinent Medications D5-0.9%ns, synthorid, protonix Pertinent Labs 01/05 cl 112, BUN 32, Cr 1.3, Ca 8.5 Nutritional Hx/Data Height 1.52 m Height (Calculated Centimeters) 152.4 Current Weight (lbs) 58.06 kg Weight (Calculated Kilograms) 58.1 Weight (Calculated Grams) 16601.8 [place] Body Weight 100 Body Mass Index (BMI) 25.0 Weight Status Approriate GI Symptoms GI Symptoms None Last BM not indicated Difficult in: None Skin Integrity/Comment: face reddened Current %PO Good (75-100%) Estimated Nutritional Goals BEE in Kcals: Using Current wt Calories/Kcals/Kg 25-30 Kcals Calculated 4700-9691 Protein: Using Current wt Protein g/k monitor renal labs Protein Calculated 58 Fluid: ml 1450-1740ml (1ml/kcal) Nutritional Problem 1. Problem Problem altered nutrition related labs Etiology electrolytes imbalance and hx of ESRD Signs/Symptoms: cl 112, BUN 32, Cr 1.3, Ca 8.5 Malnutrition Alert Protein-Calorie Malnutrition N/A Is there a minimum of two criteria No selected? Query Text:Check all the applicable criteria. A minimum of two criteria are recommended for diagnosis of either severe or non-severe malnutrition. Intervention/Recommendation Comments 1. Continue with regular diet as ordered. Assist pt with meals as needed. 2. If BUN/Cr not improved, will consider renal diet. 2. Monitor PO intake, wt, labs and skin integrity 3. F/U as moderate risk in 3-5 days, 01/08-01/10 Expected Outcomes/Goals Expected Outcomes/Goals 1. PO intake to meet at least 75% of nutritional needs. 2. Wt stability, skin to remain intact, labs to approach WNL.
[2018-01-06] MEDS: cefTRIAXone 1 GM in Sodium Chloride 0.9% 50 ML IV SCH (21:42)
[2018-01-07] MEDS: D5-0.9%NS 1,000 ML IV SCH ×2 (05:39→21:42)
[2018-01-07 06:39] LABS: % EOSINOPHILS 3.6 % (0.0-5.0); % LYMPHOCYTES 28.8 % (20.0-50.0); % MONOCYTES 11.9 % (2.0-10.0); % NEUTROPHILS 54.7 % (40.0-80.0); EOSINOPHILE ABSOLUTE 0.2 Th/cmm (0.1-0.4); HEMATOCRIT 26.6 % (41.0-60); HEMOGLOBIN 8.9 gm/dL (12-16); LYMPHOCYTE ABSOLUTE 1.3 Th/cmm (1.5-3.0); MEAN CELL VOLUME 83.2 fl (81-100); MEAN CORPUSCULAR HEMOGLOBIN 27.8 pg (27.0-31.0); MEAN CORPUSCULAR HGB CONC 33.5 pg (28.0-36.0); MEAN PLATELET VOLUME 6.6 fl; MONOCYTE ABSOLUTE 0.5 Th/cmm (0.3-1.0); NEUTROPHILE ABSOLUTE 2.5 Th/cmm (1.8-8.0); PLATELET COUNT 273 Th/cmm (150-400); RED BLOOD COUNT 3.19 Mil/cmm (3.80-5.20); RED CELL DISTRIBUTION WIDTH 15.4 % (11.5-20.0); WHITE BLOOD COUNT 4.5 Th/cmm (4.8-10.8)
[2018-01-07 06:51] LABS: ANION GAP 10.8 (7.0-16.0); BUN - UREA NITROGEN 20 mg/dL (7-25); CALCIUM SERUM 8.3 mg/dL (8.6-10.3); CARBON DIOXIDE 20.9 mEq/L (21.0-31.0); CHLORIDE 108 mEq/L (98-107); CREATININE - SERUM 1.1 mg/dL (0.6-1.2); GLUCOSE 81 mg/dL (70-105); MAGNESIUM 2.5 mg/dL (1.9-2.7); POTASSIUM SERUM 3.7 mEq/L (3.5-5.1); SODIUM SERUM 136 mEq/L (136-145)
[2018-01-07] MEDS: Levothyroxine 0.025 Mg Tab PO SCH (06:59)
[2018-01-07] MEDS ORDERED: Magnesium Citrate 1.75 GM/300 mL Bottle PO ONE (08:12)
[2018-01-07] MEDS ORDERED: Albuterol/Ipratropium Neb 3 ML AERS HHN ONE (14:11)
[2018-01-07] MEDS: Albuterol/Ipratropium Neb 3 ML AERS HHN SCH ×2 (14:19→18:58)
--- NOTE | 2018-01-07 16:37 | Progress Notes ---
DATE: 01/07/2018 [facility], room #9, bed C. PHYSICAL EXAMINATION: GENERAL: The patient is conscious, alert, sitting up in a bed. Tolerating food well. No complaint of chest pain, shortness of breath, nausea, vomiting or diarrhea. VITAL SIGNS: Pulse 76, blood pressure 128/64, respirations 18, oxygen saturation 99, temperature 97.4. Yesterday's intake 1600, output not available. HEART: Regular. LUNGS: Good air entry. ABDOMEN: Soft. EXTREMITIES: No edema. LABORATORY DATA: Hemoglobin 8.9. Sodium improved to 136 from 132, potassium normal at 3.7, CO2 improved to 20.9 from 14.9, BUN improved from 40 to 20. Creatinine improved from 1.5-1.1, calcium 8.3. ASSESSMENT: 1. Hyponatremia, improving. 2. Acute kidney injury, improving. 3. Acidosis, improving. 4. Hypertension. 5. Coronary artery disease. 6. Colonic tumor, rule out malignancy. PLAN: Continue current treatment. GI workup is in progress. Most probably colonoscopy on Tuesday. Discussed with nursing staff. JOB# [id number]
--- NOTE | 2018-01-07 18:49 | Progress Notes ---
DATE: 01/07/2018 SUBJECTIVE: An 82-year-old female. This is a cross coverage for Dr. Mann. The patient is seen and examined. The patient is lying in the bed. [employer]'s note has been reviewed on today's. The patient has no new complaint. PHYSICAL EXAMINATION: VITAL SIGNS: See nurse's note. HEENT: Poor dentition. NECK: Supple, no JVD. HEART: Regular. CHEST: Lungs equal in expansion, no expiratory wheezing. ABDOMEN: Soft. No guarding, no rigidity. Bowel sounds are present. No palpable mass. EXTREMITIES: No edema. NEUROLOGIC: Limited and nonfocal. CLINICAL IMPRESSION: 1. Hyponatremia secondary to syndrome of inappropriate antidiuretic hormone. 2. Colonic mass, most likely colon cancer. 3. Acute on chronic kidney disease. 4. Constipation. 5. Coronary artery disease. 6. Hypertension. PLAN: 1. Pain management. 2. Symptoms management. 3. Medication management. 4. General nursing care. 5. Follow lab. 6. Follow consult recommendation. 7. Chronic disease management. 8. Care plan reviewed and discussed. JOB# [id number]
[2018-01-07] MEDS: cefTRIAXone 1 GM in Sodium Chloride 0.9% 50 ML IV SCH (21:35)
[2018-01-08] MEDS: Albuterol/Ipratropium Neb 3 ML AERS HHN SCH ×4 (00:12→18:40)
[2018-01-08] MEDS: Levothyroxine 0.025 Mg Tab PO SCH (06:40)
[2018-01-08 06:53] LABS: % BASOPHILS 0.8 % (0.0-2.0); % EOSINOPHILS 1.7 % (0.0-5.0); % LYMPHOCYTES 23.2 % (20.0-50.0); % MONOCYTES 12.1 % (2.0-10.0); % NEUTROPHILS 62.2 % (40.0-80.0); EOSINOPHILE ABSOLUTE 0.1 Th/cmm (0.1-0.4); HEMATOCRIT 25.4 % (41.0-60); HEMOGLOBIN 8.5 gm/dL (12-16); LYMPHOCYTE ABSOLUTE 1.1 Th/cmm (1.5-3.0); MEAN CELL VOLUME 83.2 fl (81-100); MEAN CORPUSCULAR HEMOGLOBIN 27.7 pg (27.0-31.0); MEAN CORPUSCULAR HGB CONC 33.3 pg (28.0-36.0); MEAN PLATELET VOLUME 6.8 fl; MONOCYTE ABSOLUTE 0.6 Th/cmm (0.3-1.0); PLATELET COUNT 259 Th/cmm (150-400); RED BLOOD COUNT 3.05 Mil/cmm (3.80-5.20); RED CELL DISTRIBUTION WIDTH 15.7 % (11.5-20.0); WHITE BLOOD COUNT 4.8 Th/cmm (4.8-10.8)
[2018-01-08 07:03] LABS: INR 1.05 (0.5-1.4); PROTHROMBIN TIME (TEST) 10.9 SECONDS (9.5-11.5)
[2018-01-08 07:06] LABS: ANION GAP 10.3 (7.0-16.0); BUN - UREA NITROGEN 14 mg/dL (7-25); CALCIUM SERUM 8.3 mg/dL (8.6-10.3); CARBON DIOXIDE 21.2 mEq/L (21.0-31.0); CHLORIDE 108 mEq/L (98-107); GLUCOSE 91 mg/dL (70-105); POTASSIUM SERUM 3.5 mEq/L (3.5-5.1); SODIUM SERUM 136 mEq/L (136-145)
[2018-01-08] MEDS: D5-0.9%NS 1,000 ML IV SCH (18:36)
--- NOTE | 2018-01-08 22:12 | Progress Notes ---
DATE: 01/08/2018 Room 9. Bed [facility]. The patient is essentially same conscious, alert. Pulse 94, blood pressure 133/52, respirations 20. Intake 1650 yesterday. HEART: Regular. LUNGS: Good air entry. ABDOMEN: Soft. EXTREMITIES: No edema. LABORATORY DATA: WBC 4.8, hemoglobin 8.5. Sodium 136, potassium 3.5, chloride 108, CO2 of 21, BUN 14, creatinine 1.0, calcium 8.3. ASSESSMENT: 1. Acute kidney injury, improving and stable. 2. Hyponatremia, improving. 3. Acidosis, improving. 4. Hypertension, stable. 5. Rule out colonic tumor. PLAN: Continue current treatment. Repeat CMP and CBC 2 days from now. JOB# [id number]
[2018-01-08] MEDS: cefTRIAXone 1 GM in Sodium Chloride 0.9% 50 ML IV SCH (22:15)
--- NOTE | 2018-01-08 23:25 | Progress Notes ---
DATE: SUBJECTIVE: The patient is an 82-year-old female patient seen and examined. The patient is lying in the bed. The patient is extremely cold. The patient's family is at bedside. Hemoglobin is remaining stable. The patient will be followed by the pre sales technical consultant. PHYSICAL EXAMINATION: VITAL SIGNS: See nurse's note. HEENT: No facial asymmetry. NECK: Supple, no JVD. HEART: Regular. CHEST AND LUNGS: Equal in expansion, no wheezing, no crackles. ABDOMEN: Soft. No guarding. No rigidity. Bowel sounds are present. EXTREMITIES: No edema. NEUROLOGIC: Nonfocal. CLINICAL IMPRESSION: 1. Colonic mass and abdominal pain. Workup under progress. 2. Acute on chronic kidney disease, improved. 3. Coronary artery disease. 4. Hypertension. 5. Degenerative joint disease. PLAN: 1. Colonoscopy as plan. 2. General nursing care. 3. Follow lab. 4. Follow pre sales technical consultant's recommendation. 5. Chronic disease management. 6. Care plan reviewed and discussed. JOB# [id number]
[2018-01-09] MEDS: Albuterol/Ipratropium Neb 3 ML AERS HHN SCH ×4 (01:05→19:09)
[2018-01-09 05:50] LABS: % BASOPHILS 0.9 % (0.0-2.0); % EOSINOPHILS 2.8 % (0.0-5.0); % LYMPHOCYTES 26.3 % (20.0-50.0); % MONOCYTES 13.7 % (2.0-10.0); % NEUTROPHILS 56.3 % (40.0-80.0); EOSINOPHILE ABSOLUTE 0.1 Th/cmm (0.1-0.4); HEMATOCRIT 23.7 % (41.0-60); LYMPHOCYTE ABSOLUTE 1.3 Th/cmm (1.5-3.0); MEAN CELL VOLUME 84.2 fl (81-100); MEAN CORPUSCULAR HEMOGLOBIN 28.4 pg (27.0-31.0); MEAN CORPUSCULAR HGB CONC 33.7 pg (28.0-36.0); MEAN PLATELET VOLUME 6.6 fl; MONOCYTE ABSOLUTE 0.7 Th/cmm (0.3-1.0); NEUTROPHILE ABSOLUTE 2.7 Th/cmm (1.8-8.0); PLATELET COUNT 246 Th/cmm (150-400); RED BLOOD COUNT 2.81 Mil/cmm (3.80-5.20); RED CELL DISTRIBUTION WIDTH 16.1 % (11.5-20.0); WHITE BLOOD COUNT 4.8 Th/cmm (4.8-10.8)
[2018-01-09 05:54] LABS: INR 1.07 (0.5-1.4); PROTHROMBIN TIME (TEST) 11.1 SECONDS (9.5-11.5)
[2018-01-09 05:57] LABS: ALB/GLOB RATIO 1.2 (1.0-1.8); ALBUMIN 3.2 gm/dL (3.7-5.3); ALKALINE PHOSPHATASE 52 U/L (34-104); BILIRUBIN,TOTAL 0.3 mg/dL (0.3-1.0); BUN - UREA NITROGEN 7 mg/dL (7-25); CALCIUM SERUM 8.1 mg/dL (8.6-10.3); CARBON DIOXIDE 19.7 mEq/L (21.0-31.0); CHLORIDE 108 mEq/L (98-107); CREATININE - SERUM 0.9 mg/dL (0.6-1.2); GLUCOSE 90 mg/dL (70-105); POTASSIUM SERUM 3.7 mEq/L (3.5-5.1); SGOT 16 U/L (13-39); SGPT/ALT 8 U/L (7-52); SODIUM SERUM 135 mEq/L (136-145); TOTAL PROTEIN,SERUM 5.9 gm/dL (6.0-8.3)
[2018-01-09] MEDS: Levothyroxine 0.025 Mg Tab PO SCH (06:32)
[2018-01-09] MEDS ORDERED: Propofol 10 mg/mL 20mL Vial **SURGERY USE ONLY IV ONE (10:40)
[2018-01-09] MEDS: D5-0.9%NS 1,000 ML IV SCH (13:34)
--- NOTE | 2018-01-09 14:48 | General Progress Note ---
Subjective - Review of Systems Service Date: 01/09/18 Subjective: still constipated but less abd pain Objective - Results Result Diagrams: 01/09/18 04:54 01/09/18 04:54 Recent Labs: Laboratory Last Values WBC 4.8 Th/cmm (4.8-10.8) 01/09/18 04:54 RBC 2.81 Mil/cmm (3.80-5.20) L 01/09/18 04:54 Hgb 8.0 gm/dL (12-16) L 01/09/18 04:54 Hct 23.7 % (41.0-60) L 01/09/18 04:54 MCV 84.2 fl (81-100) 01/09/18 04:54 MCH 28.4 pg (27.0-31.0) 01/09/18 04:54 MCHC Differential 33.7 pg (28.0-36.0) 01/09/18 04:54 RDW 16.1 % (11.5-20.0) 01/09/18 04:54 Plt Count 246 Th/cmm (150-400) 01/09/18 04:54 MPV 6.6 fl 01/09/18 04:54 Neutrophils % 56.3 % (40.0-80.0) 01/09/18 04:54 Lymphocytes % 26.3 % (20.0-50.0) 01/09/18 04:54 Monocytes % 13.7 % (2.0-10.0) H 01/09/18 04:54 Eosinophils % 2.8 % (0.0-5.0) 01/09/18 04:54 Basophils % 0.9 % (0.0-2.0) 01/09/18 04:54 Eos Smear Source URINE 01/06/18 05:25 Eos Smear Total Cells NONE SEEN (NONE SEEN) 01/06/18 05:25 PT 11.1 SECONDS (9.5-11.5) 01/09/18 04:54 INR 1.07 (0.5-1.4) 01/09/18 04:54 PTT (Actin FS) 25.1 SECONDS (26.0-38.0) L 01/09/18 04:54 Sodium 135 mEq/L (136-145) L 01/09/18 04:54 Potassium 3.7 mEq/L (3.5-5.1) 01/09/18 04:54 Chloride 108 mEq/L (98-107) H 01/09/18 04:54 Carbon Dioxide 19.7 mEq/L (21.0-31.0) L 01/09/18 04:54 Anion Gap 11.0 (7.0-16.0) 01/09/18 04:54 BUN 7 mg/dL (7-25) 01/09/18 04:54 Creatinine 0.9 mg/dL (0.6-1.2) 01/09/18 04:54 Est GFR ( Amer) TNP 01/09/18 04:54 Est GFR (Non-Af Amer) TNP 01/09/18 04:54 BUN/Creatinine Ratio 7.8 01/09/18 04:54 Glucose 90 mg/dL (70-105) 01/09/18 04:54 Whole Bld Lactic Acid 1.72 mmol/L (0.60-1.99) 01/04/18 20:35 Uric Acid 6.5 mg/dL (2.3-6.6) 01/06/18 06:01 Calcium 8.1 mg/dL (8.6-10.3) L 01/09/18 04:54 Phosphorus 4.1 mg/dL (2.5-5.0) 01/06/18 06:01 Magnesium 2.5 mg/dL (1.9-2.7) 01/07/18 06:02 Total Bilirubin 0.3 mg/dL (0.3-1.0) 01/09/18 04:54 AST 16 U/L (13-39) 01/09/18 04:54 ALT 8 U/L (7-52) 01/09/18 04:54 Alkaline Phosphatase 52 U/L (34-104) 01/09/18 04:54 Creatine Kinase 165 U/L (30-223) 01/04/18 20:35 Troponin I 0.02 ng/mL (0.01-0.05) 01/04/18 20:35 B-Natriuretic Peptide 197.0 pg/mL (5.0-100.0) H 01/04/18 20:35 Total Protein 5.9 gm/dL (6.0-8.3) L 01/09/18 04:54 Albumin 3.2 gm/dL (3.7-5.3) L 01/09/18 04:54 Globulin 2.7 gm/dL 01/09/18 04:54 Albumin/Globulin Ratio 1.2 (1.0-1.8) 01/09/18 04:54 Triglycerides 68 mg/dL (<150) 01/04/18 20:35 Cholesterol 115 mg/dL (<200) 01/04/18 20:35 LDL Cholesterol Direct 56 mg/dL (75-193) L 01/04/18 20:35 HDL Cholesterol 44 mg/dL (23-92) 01/04/18 20:35 Amylase 45 U/L (29-103) 01/06/18 06:01 Lipase 24 U/L (11-82) 01/06/18 06:01 Carcinoembryonic Ag SEE REF. LAB REPORT 01/06/18 06:01 TSH 4.28 uIU/ml (0.34-5.60) 01/05/18 05:36 Urine Source CLEAN C 01/04/18 20:20 Urine Color STRAW 01/04/18 20:20 Urine Clarity CLEAR (CLEAR) 01/04/18 20:20 Urine pH 5.5 (4.6 - 8.0) 01/04/18 20:20 Ur Specific [place] 1.015 (1.005-1.030) 01/04/18 20:20 Urine Protein NEGATIVE mg/dL (NEGATIVE) 01/04/18 20:20 Urine Glucose (UA) NEGATIVE mg/dL (NEGATIVE) 01/04/18 20:20 Urine Ketones NEGATIVE mg/dL (NEGATIVE) 01/04/18 20:20 Urine Blood NEGATIVE (NEGATIVE) 01/04/18 20:20 Urine Nitrate NEGATIVE (NEGATIVE) 01/04/18 20:20 Urine Bilirubin NEGATIVE (NEGATIVE) 01/04/18 20:20 Urine Urobilinogen 0.2 E.U./dL (0.2 - 1.0) 01/04/18 20:20 Ur Leukocyte Esterase TRACE (NEGATIVE) H 01/04/18 20:20 Urine RBC NONE SEEN /hpf (0-5) 01/04/18 20:20 Urine WBC 2-5 /hpf (0-5) 01/04/18 20:20 Ur Epithelial Cells NONE SEEN /lpf (FEW) 01/04/18 20:20 Urine Bacteria NONE SEEN /hpf (NONE SEEN) 01/04/18 20:20 Ur Random Sodium 99 mmol/L 01/06/18 05:25 Urine Creatinine 42.0 mg/dl (28.0-217.0) 01/06/18 05:25 Stool Occult Blood NEGATIVE (NEGATIVE) 01/07/18 17:25 - Physical Exam Vitals and I&O: Vital Signs Temp 97.5 F 01/09/18 12:43 Pulse 90 01/09/18 13:55 Resp 18 01/09/18 13:55 BP 139/55 01/09/18 12:43 Pulse Ox 96 01/09/18 13:55 Intake & Output 01/08/18 01/09/18 01/09/18 18:59 06:59 18:59 Intake Total 1000 2200 948.333 Balance 1000 2200 948.333 Weight (lbs) 61.235 kg Intake: Intake, IV Amount 1000 948.333 D5-0.9%Ns 1,000 ml @ 50 1000 948.333 mls/hr IV .Q20H [facility] Rx#: [id number] Oral 2200 Other: # Voids 10 # Bowel Movements 20 Stool Characteristics Liquid Weight Source Bedscale Active Medications: Current Medications Albuterol/Ipratropium (Duoneb Neb) 3 ml HHN Q6HRT ANTHONY Stop: 03/08/18 18:59 Last Admin: 01/09/18 13:50 Dose: 3 ml Amlodipine Besylate (Norvasc) 5 mg PO DAILY ANTHONY Stop: 03/06/18 08:59 Last Admin: 01/09/18 09:02 Dose: Not Given Ceftriaxone Sodium 1 gm/ (Sodium Chloride) 50 mls @ 100 mls/hr IV Q24HR ANTHONY Stop: 03/06/18 20:59 Last Admin: 01/08/18 22:15 Dose: 100 mls/hr Dextrose/Sodium Chloride (D5-0.9%Ns) 1,000 mls @ 50 mls/hr IV .Q20H ANTHONY Stop: 03/06/18 04:59 Last Admin: 01/09/18 13:34 Dose: 50 mls/hr Levothyroxine Sodium (Synthroid) 0.025 mg PO QDAC ANTHONY Stop: 03/06/18 07:29 Last Admin: 01/09/18 06:32 Dose: Not Given Losartan Potassium (Cozaar) 100 mg PO DAILY ANTHONY Stop: 03/07/18 10:59 Last Admin: 01/09/18 09:03 Dose: Not Given Miscellaneous (Vte Chemical Prophylaxis Screen/ Admission) 1 [facility] PRN PRN PRN Reason: PROTOCOL Stop: 03/06/18 08:14 Oxybutynin Chloride (Ditropan) 5 mg PO BID ANTHONY Stop: 03/06/18 16:59 Last Admin: 01/09/18 09:04 Dose: Not Given Pantoprazole Sodium (Protonix) 40 mg IVP DAILY ANTHONY Stop: 03/06/18 08:59 Last Admin: 01/09/18 11:36 Dose: 40 mg Sodium Bicarbonate (Sodium Bicarbonate) 650 mg PO TID ANTHONY PRN Reason: Protocol Stop: 03/07/18 15:14 Last Admin: 01/09/18 11:36 Dose: 650 mg Zolpidem Tartrate (Ambien) 5 mg PO HS PRN PRN Reason: Insomnia Stop: 03/07/18 21:11 Last Admin: 01/07/18 21:35 Dose: 5 mg General: Alert, Cooperative, Mild distress HEENT: Atraumatic, PERRLA, EOMI, Mucous membr. moist/pink Neck: Supple, +2 carotid pulse wo bruit Cardiovascular: Regular rate, Normal S1, Normal S2 Lungs: Clear to auscultation Abdomen: Bowel sounds, Soft, no Tender, no Distended Extremities: no Edema Neurological: Sensation intact Skin: no Rash Psych/Mental Status: Mood NL Assessment/Plan - Assessment Assessment: PAULA on CKD Hyponatremia Multiple pulm nodules Right Lower Quad Mass Anemia of CKD Ess Htn Hypothyroid Ascending colon mass - Plan Plan: Lab - Result Diagrams 01/06/18 06:01 01/06/18 06:01 Current Medications Amlodipine Besylate (Norvasc) 5 mg PO DAILY ANTHONY Stop: 03/06/18 08:59 Last Admin: 01/06/18 09:00 Dose: 5 mg Ceftriaxone Sodium 1 gm/ (Sodium Chloride) 50 mls @ 100 mls/hr IV Q24HR ANTHONY Stop: 03/06/18 20:59 Last Admin: 01/05/18 22:09 Dose: 100 mls/hr Dextrose/Sodium Chloride (D5-0.9%Ns) 1,000 mls @ 50 mls/hr IV .Q20H ANTHONY Stop: 03/06/18 04:59 Last Admin: 01/06/18 06:54 Dose: 50 mls/hr Levothyroxine Sodium (Synthroid) 0.025 mg PO QDAC ANTHONY Stop: 03/06/18 07:29 Last Admin: 01/06/18 06:53 Dose: 0.025 mg Losartan Potassium (Cozaar) 100 mg PO DAILY ANTHONY Stop: 03/07/18 10:59 Last Admin: 01/06/18 14:24 Dose: 100 mg Miscellaneous (Vte Chemical Prophylaxis Screen/ Admission) 1 e[facility] PRN PRN PRN Reason: PROTOCOL Stop: 03/06/18 08:14 Oxybutynin Chloride (Ditropan) 5 mg PO BID ANTHONY Stop: 03/06/18 16:59 Last Admin: 01/06/18 09:00 Dose: 5 mg Pantoprazole Sodium (Protonix) 40 mg IVP DAILY ANTHONY Stop: 03/06/18 08:59 Last Admin: 01/06/18 09:00 Dose: 40 mg Sodium Bicarbonate (Sodium Bicarbonate) 650 mg PO BID ANTHONY PRN Reason: Protocol Stop: 03/06/18 19:44 Last Admin: 01/06/18 09:00 Dose: 650 mg Lab - Result Diagrams 01/09/18 04:54 01/09/18 04:54 Kidney fnc better Na stable @ 135 Increase NaHC03 replace Mg agree w/ Laxatives colonoscopy revealed asc mass, polyps, hemorrhoids simethicone for gas Nutritional Asmnt/Malnutr-PDOC - Dietary Evaluation Malnutrition Findings (Please click <Entered> for more info): Nutritional Asmnt/Malnutrition Start: 01/05/18 14: 24 Text: Status: Complete Freq: Document 01/05/18 14:24 LCHENG (Rec: 01/05/18 14:55 LCHEN [email or web address]) Nutritional Asmnt/Malnutrition Patient General Information Nutritional Screening High Risk Diagnosis dehydration, anemia, UTI, facial cellulitis Pertinent Medical Hx/Surgical Hx HTN, ESRD, thyroid disorder Subjective Information Pt seen lying in bed, awake and pleasant. Family at bedside feeding pt lunch. Family is able to speak little [place], denied pt has chewing/swallowing problem, stated pt eating ok. Pt has teeth noted. Per EMR, pt consumed 100% of breakfast in the morning. Current Diet Order/ Nutrition Support regular Pertinent Medications D5-0.9%ns, synthorid, protonix Pertinent Labs 01/05 cl 112, BUN 32, Cr 1.3, Ca 8.5 Nutritional Hx/Data Height 1.52 m Height (Calculated Centimeters) 152.4 Current Weight (lbs) 58.06 kg Weight (Calculated Kilograms) 58.1 Weight (Calculated Grams) 60210.8 [place] Body Weight 100 Body Mass Index (BMI) 25.0 Weight Status Approriate GI Symptoms GI Symptoms None Last BM not indicated Difficult in: None Skin Integrity/Comment: face reddened Current %PO Good (75-100%) Estimated Nutritional Goals BEE in Kcals: Using Current wt Calories/Kcals/Kg 25-30 Kcals Calculated 6166-3200 Protein: Using Current wt Protein g/k monitor renal labs Protein Calculated 58 Fluid: ml 1450-1740ml (1ml/kcal) Nutritional Problem 1. Problem Problem altered nutrition related labs Etiology electrolytes imbalance and hx of ESRD Signs/Symptoms: cl 112, BUN 32, Cr 1.3, Ca 8.5 Malnutrition Alert Protein-Calorie Malnutrition N/A Is there a minimum of two criteria No selected? Query Text:Check all the applicable criteria. A minimum of two criteria are recommended for diagnosis of either severe or non-severe malnutrition. Intervention/Recommendation Comments 1. Continue with regular diet as ordered. Assist pt with meals as needed. 2. If BUN/Cr not improved, will consider renal diet. 2. Monitor PO intake, wt, labs and skin integrity 3. F/U as moderate risk in 3-5 days, 01/08-01/10 Expected Outcomes/Goals Expected Outcomes/Goals 1. PO intake to meet at least 75% of nutritional needs. 2. Wt stability, skin to remain intact, labs to approach WNL.
--- NOTE | 2018-01-09 18:37 | Operative Report ---
DATE OF SURGERY: 01/09/2018 PROCEDURE: Colonoscopy with biopsy and submucosal injection. PREOPERATIVE DIAGNOSES: Cecal mass noted on CT imaging along with anemia and elevated CEA level. POSTPROCEDURE DIAGNOSES: 1. A 3-cm soft friable proximal ascending colon mass with overlying mucus suspicious for malignancy, status post biopsy and tattoo injection. 2. Three other colon polyps excised as described below. 3. Hemorrhoids. INDICATIONS: An 82-year-old female with anemia and constipation, undergoing a colonoscopy for further evaluation. She had a CT that showed a possible right colonic/cecal mass. CEA was elevated to 23. CONSENT: Informed consent was obtained from the patient and her daughter prior to procedure after detailed explanation of risks, benefits, and alternatives including, but not limited to infection, bleeding, perforation, and . SEDATION: Monitored anesthesia care per Dr. Parra. DESCRIPTION OF PROCEDURE AND FINDINGS: The procedure took place as an inpatient in the GI suite of [facility]. The patient was kept in a left lateral decubitus position. Adequate sedation was achieved by Dr. Parra. Rectal examination revealed normal sphincter tone with no rectal masses. An Olympus colonoscope was advanced via the patient's anus and into the rectum with ease. It was advanced up to the cecum, which was visualized by the landmarks of ileocecal valve and appendiceal orifice. The quality of the bowel preparation was good. The scope was then slowly withdrawn and underlying colonic mucosa examined in greater detail. The approximate scope withdrawal time from cecum to anus was about 20 minutes. A 3-cm soft friable-appearing mass with overlying mucus was identified in the proximal ascending colon, about 2-3 cm from the ileocecal valve. This was suspicious for at least an advanced adenomatous polyp and most likely a malignancy given clinical setting. Biopsies were obtained from this mass and submitted for histopathology. The mass was also marked by submucosal injection of Anai ink tattoo injection using a sclerotherapy needle. An additional 6-mm distal ascending colon polyp was removed with biopsy forceps in a separate jar. Two other 5 and 8 mm proximal transverse colon polyps near the hepatic flexure were excised with biopsy forceps. Retroflexion in the rectum revealed small internal hemorrhoids. No colitis or mass lesions or diverticula were identified. The patient tolerated the procedure well and no complications are anticipated. RECOMMENDATIONS: 1. Follow biopsy results. 2. Clear liquid diet. 3. Surgical consultation for evaluation of right hemicolectomy. 4. Oncology evaluation as well. Thank you Dr. Zack Mann for involving us in the care of the patient. If you have any further questions, please call us. JOB# [id number]
--- NOTE | 2018-01-09 21:28 | General Progress Note ---
Subjective - Review of Systems Service Date: 01/09/18 Subjective: patient seen and examined chart reviewed patient s/p colonoscopy per GI report found to have sigmoid mass Objective - Results Result Diagrams: 01/09/18 04:54 01/09/18 04:54 Recent Labs: Laboratory Last Values WBC 4.8 Th/cmm (4.8-10.8) 01/09/18 04:54 RBC 2.81 Mil/cmm (3.80-5.20) L 01/09/18 04:54 Hgb 8.0 gm/dL (12-16) L 01/09/18 04:54 Hct 23.7 % (41.0-60) L 01/09/18 04:54 MCV 84.2 fl (81-100) 01/09/18 04:54 MCH 28.4 pg (27.0-31.0) 01/09/18 04:54 MCHC Differential 33.7 pg (28.0-36.0) 01/09/18 04:54 RDW 16.1 % (11.5-20.0) 01/09/18 04:54 Plt Count 246 Th/cmm (150-400) 01/09/18 04:54 MPV 6.6 fl 01/09/18 04:54 Neutrophils % 56.3 % (40.0-80.0) 01/09/18 04:54 Lymphocytes % 26.3 % (20.0-50.0) 01/09/18 04:54 Monocytes % 13.7 % (2.0-10.0) H 01/09/18 04:54 Eosinophils % 2.8 % (0.0-5.0) 01/09/18 04:54 Basophils % 0.9 % (0.0-2.0) 01/09/18 04:54 Eos Smear Source URINE 01/06/18 05:25 Eos Smear Total Cells NONE SEEN (NONE SEEN) 01/06/18 05:25 PT 11.1 SECONDS (9.5-11.5) 01/09/18 04:54 INR 1.07 (0.5-1.4) 01/09/18 04:54 PTT (Actin FS) 25.1 SECONDS (26.0-38.0) L 01/09/18 04:54 Sodium 135 mEq/L (136-145) L 01/09/18 04:54 Potassium 3.7 mEq/L (3.5-5.1) 01/09/18 04:54 Chloride 108 mEq/L (98-107) H 01/09/18 04:54 Carbon Dioxide 19.7 mEq/L (21.0-31.0) L 01/09/18 04:54 Anion Gap 11.0 (7.0-16.0) 01/09/18 04:54 BUN 7 mg/dL (7-25) 01/09/18 04:54 Creatinine 0.9 mg/dL (0.6-1.2) 01/09/18 04:54 Est GFR ( Amer) TNP 01/09/18 04:54 Est GFR (Non-Af Amer) TNP 01/09/18 04:54 BUN/Creatinine Ratio 7.8 01/09/18 04:54 Glucose 90 mg/dL (70-105) 01/09/18 04:54 Whole Bld Lactic Acid 1.72 mmol/L (0.60-1.99) 01/04/18 20:35 Uric Acid 6.5 mg/dL (2.3-6.6) 01/06/18 06:01 Calcium 8.1 mg/dL (8.6-10.3) L 01/09/18 04:54 Phosphorus 4.1 mg/dL (2.5-5.0) 01/06/18 06:01 Magnesium 2.5 mg/dL (1.9-2.7) 01/07/18 06:02 Total Bilirubin 0.3 mg/dL (0.3-1.0) 01/09/18 04:54 AST 16 U/L (13-39) 01/09/18 04:54 ALT 8 U/L (7-52) 01/09/18 04:54 Alkaline Phosphatase 52 U/L (34-104) 01/09/18 04:54 Creatine Kinase 165 U/L (30-223) 01/04/18 20:35 Troponin I 0.02 ng/mL (0.01-0.05) 01/04/18 20:35 B-Natriuretic Peptide 197.0 pg/mL (5.0-100.0) H 01/04/18 20:35 Total Protein 5.9 gm/dL (6.0-8.3) L 01/09/18 04:54 Albumin 3.2 gm/dL (3.7-5.3) L 01/09/18 04:54 Globulin 2.7 gm/dL 01/09/18 04:54 Albumin/Globulin Ratio 1.2 (1.0-1.8) 01/09/18 04:54 Triglycerides 68 mg/dL (<150) 01/04/18 20:35 Cholesterol 115 mg/dL (<200) 01/04/18 20:35 LDL Cholesterol Direct 56 mg/dL (75-193) L 01/04/18 20:35 HDL Cholesterol 44 mg/dL (23-92) 01/04/18 20:35 Amylase 45 U/L (29-103) 01/06/18 06:01 Lipase 24 U/L (11-82) 01/06/18 06:01 Carcinoembryonic Ag SEE REF. LAB REPORT 01/06/18 06:01 TSH 4.28 uIU/ml (0.34-5.60) 01/05/18 05:36 Urine Source CLEAN C 01/04/18 20:20 Urine Color STRAW 01/04/18 20:20 Urine Clarity CLEAR (CLEAR) 01/04/18 20:20 Urine pH 5.5 (4.6 - 8.0) 01/04/18 20:20 Ur Specific [place] 1.015 (1.005-1.030) 01/04/18 20:20 Urine Protein NEGATIVE mg/dL (NEGATIVE) 01/04/18 20:20 Urine Glucose (UA) NEGATIVE mg/dL (NEGATIVE) 01/04/18 20:20 Urine Ketones NEGATIVE mg/dL (NEGATIVE) 01/04/18 20:20 Urine Blood NEGATIVE (NEGATIVE) 01/04/18 20:20 Urine Nitrate NEGATIVE (NEGATIVE) 01/04/18 20:20 Urine Bilirubin NEGATIVE (NEGATIVE) 01/04/18 20:20 Urine Urobilinogen 0.2 E.U./dL (0.2 - 1.0) 01/04/18 20:20 Ur Leukocyte Esterase TRACE (NEGATIVE) H 01/04/18 20:20 Urine RBC NONE SEEN /hpf (0-5) 01/04/18 20:20 Urine WBC 2-5 /hpf (0-5) 01/04/18 20:20 Ur Epithelial Cells NONE SEEN /lpf (FEW) 01/04/18 20:20 Urine Bacteria NONE SEEN /hpf (NONE SEEN) 01/04/18 20:20 Ur Random Sodium 99 mmol/L 01/06/18 05:25 Urine Creatinine 42.0 mg/dl (28.0-217.0) 01/06/18 05:25 Stool Occult Blood NEGATIVE (NEGATIVE) 01/07/18 17:25 - Physical Exam Vitals and I&O: Vital Signs Temp 98.3 F 01/09/18 20:00 Pulse 75 01/09/18 20:00 Resp 18 01/09/18 20:00 BP 115/65 01/09/18 20:00 Pulse Ox 98 01/09/18 20:00 Intake & Output 01/09/18 01/09/18 01/10/18 06:59 18:59 06:59 Intake Total 2200 948.333 Balance 2200 948.333 Weight (lbs) 61.235 kg Intake: Intake, IV Amount 948.333 D5-0.9%Ns 1,000 ml @ 50 948.333 mls/hr IV .Q20H [facility] Rx#: [id number] Oral 2200 Other: # Voids 10 # Bowel Movements 20 Stool Characteristics Liquid Weight Source Bedscale Active Medications: Current Medications Albuterol/Ipratropium (Duoneb Neb) 3 ml HHN Q6HRT [facility] Stop: 03/08/18 18:59 Last Admin: 01/09/18 19:09 Dose: 3 ml Amlodipine Besylate (Norvasc) 5 mg PO DAILY ANTHONY Stop: 03/06/18 08:59 Last Admin: 01/09/18 09:02 Dose: Not Given Benzocaine/Menthol (Cepacol) 1 cooper MM Q4HR PRN PRN Reason: Sore Throat Stop: 03/10/18 15:50 Ceftriaxone Sodium 1 gm/ (Sodium Chloride) 50 mls @ 100 mls/hr IV Q24HR ANTHONY Stop: 03/06/18 20:59 Last Admin: 01/08/18 22:15 Dose: 100 mls/hr Levothyroxine Sodium (Synthroid) 0.025 mg PO QDAC ANTHONY Stop: 03/06/18 07:29 Last Admin: 01/09/18 06:32 Dose: Not Given Losartan Potassium (Cozaar) 100 mg PO DAILY ANTHONY Stop: 03/07/18 10:59 Last Admin: 01/09/18 09:03 Dose: Not Given Miscellaneous (Vte Chemical Prophylaxis Screen/ Admission) 1 ea MC PRN PRN PRN Reason: PROTOCOL Stop: 03/06/18 08:14 Oxybutynin Chloride (Ditropan) 5 mg PO BID ANTHONY Stop: 03/06/18 16:59 Last Admin: 01/09/18 16:40 Dose: 5 mg Pantoprazole Sodium (Protonix) 40 mg IVP DAILY ANTHONY Stop: 03/06/18 08:59 Last Admin: 01/09/18 11:36 Dose: 40 mg Simethicone (Mylicon) 80 mg PO QID PRN PRN Reason: Gas Stop: 03/10/18 14:48 Last Admin: 01/09/18 15:47 Dose: 80 mg Sodium Bicarbonate (Sodium Bicarbonate) 650 mg PO TID ANTHONY PRN Reason: Protocol Stop: 03/07/18 15:14 Last Admin: 01/09/18 15:47 Dose: 650 mg Tramadol HCl (Ultram) 50 mg PO Q6HR PRN PRN Reason: Pain (Moderate) Stop: 03/10/18 15:51 Zolpidem Tartrate (Ambien) 5 mg PO HS PRN PRN Reason: Insomnia Stop: 03/07/18 21:11 Last Admin: 01/07/18 21:35 Dose: 5 mg General: Alert Cardiovascular: Regular rate Lungs: Clear to auscultation Abdomen: Bowel sounds, Soft, no Tender, no Distended Extremities: no Edema Neurological: Sensation intact Skin: no Rash Psych/Mental Status: Mood NL Assessment/Plan - Assessment Assessment: Colonic mass r/o malignancy Chronic hyponatremia Acute on CKD better Chronic constipation HTN CAD - Plan Plan: Case discussed with GI. Surgery consulted Follow up on colon mass pathology I explained patient through british speaking office staff re: colonoscopy findings Plan of care discussed with nursing staff Nutritional Asmnt/Malnutr-PDOC - Dietary Evaluation Malnutrition Findings (Please click <Entered> for more info): Nutritional Asmnt/Malnutrition Start: 01/05/18 14: 24 Text: Status: Complete Freq: Document 01/05/18 14:24 DANIEL (Rec: 01/05/18 14:55 LCGEORGE [email or web address]) Nutritional Asmnt/Malnutrition Patient General Information Nutritional Screening High Risk Diagnosis dehydration, anemia, UTI, facial cellulitis Pertinent Medical Hx/Surgical Hx HTN, ESRD, thyroid disorder Subjective Information Pt seen lying in bed, awake and pleasant. Family at bedside feeding pt lunch. Family is able to speak little Mongolian, denied pt has chewing/swallowing problem, stated pt eating ok. Pt has teeth noted. Per EMR, pt consumed 100% of breakfast in the morning. Current Diet Order/ Nutrition Support regular Pertinent Medications D5-0.9%ns, synthorid, protonix Pertinent Labs 01/05 cl 112, BUN 32, Cr 1.3, Ca 8.5 Nutritional Hx/Data Height 1.52 m Height (Calculated Centimeters) 152.4 Current Weight (lbs) 58.06 kg Weight (Calculated Kilograms) 58.1 Weight (Calculated Grams) 41563.8 [place] Body Weight 100 Body Mass Index (BMI) 25.0 Weight Status Approriate GI Symptoms GI Symptoms None Last BM not indicated Difficult in: None Skin Integrity/Comment: face reddened Current %PO Good (75-100%) Estimated Nutritional Goals BEE in Kcals: Using Current wt Calories/Kcals/Kg 25-30 Kcals Calculated 2113-9862 Protein: Using Current wt Protein g/k monitor renal labs Protein Calculated 58 Fluid: ml 1450-1740ml (1ml/kcal) Nutritional Problem 1. Problem Problem altered nutrition related labs Etiology electrolytes imbalance and hx of ESRD Signs/Symptoms: cl 112, BUN 32, Cr 1.3, Ca 8.5 Malnutrition Alert Protein-Calorie Malnutrition N/A Is there a minimum of two criteria No selected? Query Text:Check all the applicable criteria. A minimum of two criteria are recommended for diagnosis of either severe or non-severe malnutrition. Intervention/Recommendation Comments 1. Continue with regular diet as ordered. Assist pt with meals as needed. 2. If BUN/Cr not improved, will consider renal diet. 2. Monitor PO intake, wt, labs and skin integrity 3. F/U as moderate risk in 3-5 days, 01/08-01/10 Expected Outcomes/Goals Expected Outcomes/Goals 1. PO intake to meet at least 75% of nutritional needs. 2. Wt stability, skin to remain intact, labs to approach WNL.
[2018-01-09] MEDS: cefTRIAXone 1 GM in Sodium Chloride 0.9% 50 ML IV SCH (21:42)
[2018-01-10] MEDS: Albuterol/Ipratropium Neb 3 ML AERS HHN SCH ×4 (00:13→18:45)
--- NOTE | 2018-01-10 02:53 | Progress Notes ---
DATE: 01/04/2018 PULMONARY PROGRESS NOTE PROBLEM LIST: 1. Pulmonary nodule. 2. Suspect CA of GI tract. Colonoscopy was done this morning. SYMPTOMS: Nil, feeling okay. No specific new symptoms. PHYSICAL EXAMINATION: VITAL SIGNS: The patient's recorded vitals: Temperature is 97.5, blood pressure 139/55, saturation is 98%. NECK: Veins not visualized. CHEST: Shows diminished air entry with occasional secretory noise. HEART: Regular. ABDOMEN: Soft, nontender. EXTREMITIES: Shows no peripheral edema. ASSESSMENT: The patient is clinically stable, pulmonary nodule, probably mets, most likely. PLANS AND SUGGESTIONS: We will go ahead and continue current treatment. We will await for the biopsy from the colon and see how it goes and go from there. JOB# [id number]
[2018-01-10 06:11] LABS: % BASOPHILS 0.7 % (0.0-2.0); % EOSINOPHILS 2.3 % (0.0-5.0); % LYMPHOCYTES 26.2 % (20.0-50.0); % MONOCYTES 11.1 % (2.0-10.0); % NEUTROPHILS 59.7 % (40.0-80.0); EOSINOPHILE ABSOLUTE 0.1 Th/cmm (0.1-0.4); HEMATOCRIT 22.7 % (41.0-60); LYMPHOCYTE ABSOLUTE 1.4 Th/cmm (1.5-3.0); MEAN CORPUSCULAR HEMOGLOBIN 27.8 pg (27.0-31.0); MEAN CORPUSCULAR HGB CONC 33.5 pg (28.0-36.0); MEAN PLATELET VOLUME 6.6 fl; MONOCYTE ABSOLUTE 0.6 Th/cmm (0.3-1.0); NEUTROPHILE ABSOLUTE 3.3 Th/cmm (1.8-8.0); PLATELET COUNT 218 Th/cmm (150-400); RED BLOOD COUNT 2.74 Mil/cmm (3.80-5.20); RED CELL DISTRIBUTION WIDTH 16.2 % (11.5-20.0)
[2018-01-10 06:15] LABS: ANION GAP 11.1 (7.0-16.0); BUN - UREA NITROGEN 8 mg/dL (7-25); CARBON DIOXIDE 18.6 mEq/L (21.0-31.0); CHLORIDE 106 mEq/L (98-107); CREATININE - SERUM 1.1 mg/dL (0.6-1.2); GLUCOSE 85 mg/dL (70-105); POTASSIUM SERUM 3.7 mEq/L (3.5-5.1); SODIUM SERUM 132 mEq/L (136-145)
[2018-01-10 06:17] LABS: WHITE BLOOD COUNT 5.4 Th/cmm (4.8-10.8)
[2018-01-10] MEDS: Levothyroxine 0.025 Mg Tab PO SCH (07:59)
--- NOTE | 2018-01-10 08:59 | Consultation ---
DATE OF CONSULTATION: SURGICAL CONSULTATION REASON FOR CONSULTATION: Cecal mass. Thank you for referring this patient to me. HISTORY OF PRESENT ILLNESS: This is an 82-year-old female admitted from the care home because of abdominal pain. The patient has had multiple consults; 1. By Pulmonary because of pulmonary lesions suspicious of metastatic disease. 2. By Nephrology because of chronic renal failure. 3. By GI doctor because of CT scan showing a mass in the right lower quadrant and colonoscopy was done and this showed a 3 cm mass in the ascending colon, very suspicious for malignancy. The daughter who speaks only Korean, was seen today with nurse foreign language interpreter and the possibility of surgery was discussed in view of the chronic anemia requiring transfusions and the abnormal cecal mass on CT scan and colonoscopy and the possibility of metastatic disease in the lung. The patient has hypertension and thyroid disease in addition. She is at poor risk for surgery, but blood loss has been persistent, requiring transfusion. LABORATORY DATA: Today 01/10/2018, the laboratory studies showed the hemoglobin down again to 7.6 and a transfusion for 2 units has been ordered. Platelet count is normal at 218. BUN is 8 with creatinine of 1.1. The decision of the daughter is to await for the pathology report and if malignant to proceed with surgery. She is high risk for complication in view of age and co-morbidities, possibility of infection from a colon resection as well. [facility]# [id number]
--- NOTE | 2018-01-10 09:39 | Pathology Report ---
[id number] Collection date: 01/09/2018 Surgeon: Dr. Wei Monet Specimen Description: 1. Ascending colon mass 2. Ascending colon polyps 3. Transverse colon polyps Gross Description: Part I: Received in formalin are multiple gaona soft tissue fragments ranging from 0.1 to 0.2 cm in greatest dimension. Totally submitted in one cassette labeled A. Gross Description: Part II: Received in formalin is a single gaona soft tissue fragment measuring 0.2 cm in greatest dimension. Totally submitted in one cassette labeled B. Gross Description: Part III: Received in formalin are multiple gaona soft tissue fragments ranging from 0.1 to 0.2 cm in greatest dimension. Totally submitted in one cassette labeled C. Microscopic Description: Part I: The histologic sections show villous adenoma with areas of high grade dysplasia and focal adenocarcinoma. The villous projections are lined by high grade dysplastic cells showing nuclear enlargement and stratification. Several areas also show infiltrative appearing atypical glands that are consistent with invasive adenocarcinoma. Diagnosis: Part I: Adenocarcinoma, ascending colon. Microscopic Description: Part II: The histologic sections show colon mucosa with adenomatous glandular changes present consisting of nuclear enlargement and stratification, with mostly tubules formed consistent with tubular adenoma. Diagnosis: Part II:Tubular adenoma, ascending colon. Microscopic Description: Part III: The histologic sections show fragments of colon mucosa with adenomatous glandular changes present consisting of nuclear enlargement and stratification, with mostly tubules formed consistent with tubular adenoma. Diagnosis: Part III: Tubular adenoma, transverse colon. COMMENT: The ascending colon mass appears to be an invasive adenocarcinoma arising within a villous adenoma. The depth of invasion and extent of this tumor cannot be determined based on these relatively superficial biopsies. Recommend entire lesion be removed for further evaluation. These findings are discussed with Dr. Bere Ruiz on 01/10/2018. JOB# [id number] [facility]
--- NOTE | 2018-01-10 10:01 | General Progress Note ---
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 - patient is high surgical risk due to age and comorbidities Hb down to 7.6 Gm today, to have 2 units PRBC family to decide Objective - Results Result Diagrams: 01/10/18 05:10 01/10/18 05:10 Recent Labs: Laboratory Last Values WBC 5.4 Th/cmm (4.8-10.8) 01/10/18 05:10 RBC 2.74 Mil/cmm (3.80-5.20) L 01/10/18 05:10 Hgb 7.6 gm/dL (12-16) L* 01/10/18 05:10 Hct 22.7 % (41.0-60) L 01/10/18 05:10 MCV 83.0 fl (81-100) 01/10/18 05:10 MCH 27.8 pg (27.0-31.0) 01/10/18 05:10 MCHC Differential 33.5 pg (28.0-36.0) 01/10/18 05:10 RDW 16.2 % (11.5-20.0) 01/10/18 05:10 Plt Count 218 Th/cmm (150-400) 01/10/18 05:10 MPV 6.6 fl 01/10/18 05:10 Neutrophils % 59.7 % (40.0-80.0) 01/10/18 05:10 Lymphocytes % 26.2 % (20.0-50.0) 01/10/18 05:10 Monocytes % 11.1 % (2.0-10.0) H 01/10/18 05:10 Eosinophils % 2.3 % (0.0-5.0) 01/10/18 05:10 Basophils % 0.7 % (0.0-2.0) 01/10/18 05:10 Eos Smear Source URINE 01/06/18 05:25 Eos Smear Total Cells NONE SEEN (NONE SEEN) 01/06/18 05:25 PT 11.1 SECONDS (9.5-11.5) 01/09/18 04:54 INR 1.07 (0.5-1.4) 01/09/18 04:54 PTT (Actin FS) 25.1 SECONDS (26.0-38.0) L 01/09/18 04:54 Sodium 132 mEq/L (136-145) L 01/10/18 05:10 Potassium 3.7 mEq/L (3.5-5.1) 01/10/18 05:10 Chloride 106 mEq/L (98-107) 01/10/18 05:10 Carbon Dioxide 18.6 mEq/L (21.0-31.0) L 01/10/18 05:10 Anion Gap 11.1 (7.0-16.0) 01/10/18 05:10 BUN 8 mg/dL (7-25) 01/10/18 05:10 Creatinine 1.1 mg/dL (0.6-1.2) 01/10/18 05:10 Est GFR ( Amer) TNP 01/10/18 05:10 Est GFR (Non-Af Amer) TNP 01/10/18 05:10 BUN/Creatinine Ratio 7.3 01/10/18 05:10 Glucose 85 mg/dL (70-105) 01/10/18 05:10 Plasma/Ser Osmolality 289 01/07/18 06:02 Whole Bld Lactic Acid 1.72 mmol/L (0.60-1.99) 01/04/18 20:35 Uric Acid 6.5 mg/dL (2.3-6.6) 01/06/18 06:01 Calcium 8.0 mg/dL (8.6-10.3) L 01/10/18 05:10 Phosphorus 4.1 mg/dL (2.5-5.0) 01/06/18 06:01 Magnesium 2.5 mg/dL (1.9-2.7) 01/07/18 06:02 Total Bilirubin 0.3 mg/dL (0.3-1.0) 01/09/18 04:54 AST 16 U/L (13-39) 01/09/18 04:54 ALT 8 U/L (7-52) 01/09/18 04:54 Alkaline Phosphatase 52 U/L (34-104) 01/09/18 04:54 Creatine Kinase 165 U/L (30-223) 01/04/18 20:35 Troponin I 0.02 ng/mL (0.01-0.05) 01/04/18 20:35 B-Natriuretic Peptide 197.0 pg/mL (5.0-100.0) H 01/04/18 20:35 Total Protein 5.9 gm/dL (6.0-8.3) L 01/09/18 04:54 Albumin 3.2 gm/dL (3.7-5.3) L 01/09/18 04:54 Globulin 2.7 gm/dL 01/09/18 04:54 Albumin/Globulin Ratio 1.2 (1.0-1.8) 01/09/18 04:54 Triglycerides 68 mg/dL (<150) 01/04/18 20:35 Cholesterol 115 mg/dL (<200) 01/04/18 20:35 LDL Cholesterol Direct 56 mg/dL (75-193) L 01/04/18 20:35 HDL Cholesterol 44 mg/dL (23-92) 01/04/18 20:35 Amylase 45 U/L (29-103) 01/06/18 06:01 Lipase 24 U/L (11-82) 01/06/18 06:01 Carcinoembryonic Ag SEE REF. LAB REPORT 01/06/18 06:01 TSH 4.28 uIU/ml (0.34-5.60) 01/05/18 05:36 Urine Source CLEAN C 01/04/18 20:20 Urine Color STRAW 01/04/18 20:20 Urine Clarity CLEAR (CLEAR) 01/04/18 20:20 Urine pH 5.5 (4.6 - 8.0) 01/04/18 20:20 Ur Specific [place] 1.015 (1.005-1.030) 01/04/18 20:20 Urine Protein NEGATIVE mg/dL (NEGATIVE) 01/04/18 20:20 Urine Glucose (UA) NEGATIVE mg/dL (NEGATIVE) 01/04/18 20:20 Urine Ketones NEGATIVE mg/dL (NEGATIVE) 01/04/18 20:20 Urine Blood NEGATIVE (NEGATIVE) 01/04/18 20:20 Urine Nitrate NEGATIVE (NEGATIVE) 01/04/18 20:20 Urine Bilirubin NEGATIVE (NEGATIVE) 01/04/18 20:20 Urine Urobilinogen 0.2 E.U./dL (0.2 - 1.0) 01/04/18 20:20 Ur Leukocyte Esterase TRACE (NEGATIVE) H 01/04/18 20:20 Urine RBC NONE SEEN /hpf (0-5) 01/04/18 20:20 Urine WBC 2-5 /hpf (0-5) 01/04/18 20:20 Ur Epithelial Cells NONE SEEN /lpf (FEW) 01/04/18 20:20 Urine Bacteria NONE SEEN /hpf (NONE SEEN) 01/04/18 20:20 Ur Random Sodium 99 mmol/L 01/06/18 05:25 Urine Creatinine 42.0 mg/dl (28.0-217.0) 01/06/18 05:25 Stool Occult Blood NEGATIVE (NEGATIVE) 01/07/18 17:25 Blood Type O POSITIVE 01/10/18 07:20 Antibody Screen POSITIVE 01/10/18 07:20 Crossmatch See Detail 01/10/18 07:20 - Physical Exam Vitals and I&O: Vital Signs Temp 97.4 F 01/10/18 07:45 Pulse 89 01/10/18 09:49 Resp 17 01/10/18 07:45 BP 100/47 01/10/18 09:49 Pulse Ox 97 01/10/18 07:45 Intake & Output 01/09/18 01/10/18 01/10/18 18:59 06:59 18:59 Intake Total 948.333 150 Balance 948.333 150 Weight (lbs) 61.235 kg Intake: Intake, IV Amount 948.333 D5-0.9%Ns 1,000 ml @ 50 948.333 mls/hr IV .Q20H [facility] Rx#: [id number] Oral 150 Other: # Voids 3 # Bowel Movements 0 Weight Source Bedscale Active Medications: Current Medications Albuterol/Ipratropium (Duoneb Neb) 3 ml HHN Q6HRT ANTHONY Stop: 03/08/18 18:59 Last Admin: 01/10/18 07:30 Dose: 3 ml Amlodipine Besylate (Norvasc) 5 mg PO DAILY ANTHONY Stop: 03/06/18 08:59 Last Admin: 01/10/18 09:49 Dose: Not Given Benzocaine/Menthol (Cepacol) 1 cooper MM Q4HR PRN PRN Reason: Sore Throat Stop: 03/10/18 15:50 Ceftriaxone Sodium 1 gm/ (Sodium Chloride) 50 mls @ 100 mls/hr IV Q24HR ANTHONY Stop: 03/06/18 20:59 Last Admin: 01/09/18 21:42 Dose: 100 mls/hr Levothyroxine Sodium (Synthroid) 0.025 mg PO QDAC [facility] Stop: 03/06/18 07:29 Last Admin: 01/10/18 07:59 Dose: 0.025 mg Losartan Potassium (Cozaar) 100 mg PO DAILY ANTHONY Stop: 03/07/18 10:59 Last Admin: 01/10/18 09:48 Dose: Not Given Miscellaneous (Vte Chemical Prophylaxis Screen/ Admission) 1 ea MC PRN PRN PRN Reason: PROTOCOL Stop: 03/06/18 08:14 Oxybutynin Chloride (Ditropan) 5 mg PO BID ANTHONY Stop: 03/06/18 16:59 Last Admin: 01/10/18 09:44 Dose: 5 mg Pantoprazole Sodium (Protonix) 40 mg IVP DAILY [facility] Stop: 03/06/18 08:59 Last Admin: 01/09/18 11:36 Dose: 40 mg Simethicone (Mylicon) 80 mg PO QID PRN PRN Reason: Gas Stop: 03/10/18 14:48 Last Admin: 01/09/18 15:47 Dose: 80 mg Sodium Bicarbonate (Sodium Bicarbonate) 650 mg PO TID ANTHONY PRN Reason: Protocol Stop: 03/07/18 15:14 Last Admin: 01/10/18 09:44 Dose: 650 mg Tramadol HCl (Ultram) 50 mg PO Q6HR PRN PRN Reason: Pain (Moderate) Stop: 03/10/18 15:51 Last Admin: 01/09/18 21:43 Dose: 50 mg Zolpidem Tartrate (Ambien) 5 mg PO HS PRN PRN Reason: Insomnia Stop: 03/07/18 21:11 Last Admin: 01/07/18 21:35 Dose: 5 mg General: Alert HEENT: Atraumatic, PERRLA, EOMI, Mucous membr. moist/pink Neck: Supple, +2 carotid pulse wo bruit Cardiovascular: Regular rate Lungs: Clear to auscultation Abdomen: Bowel sounds, Soft, no Tender, no Distended Extremities: no Edema Neurological: Sensation intact Skin: no Rash Psych/Mental Status: Mood NL Nutritional Asmnt/Malnutr-PDOC - Dietary Evaluation Malnutrition Findings (Please click <Entered> for more info): Nutritional Asmnt/Malnutrition Start: 01/05/18 14: 24 Text: Status: Complete Freq: Document 01/05/18 14:24 DANIEL (Rec: 01/05/18 14:55 DANIEL [email or web address]) Nutritional Asmnt/Malnutrition Patient General Information Nutritional Screening High Risk Diagnosis dehydration, anemia, UTI, facial cellulitis Pertinent Medical Hx/Surgical Hx HTN, ESRD, thyroid disorder Subjective Information Pt seen lying in bed, awake and pleasant. Family at bedside feeding pt lunch. Family is able to speak little [place]ic, denied pt has chewing/swallowing problem, stated pt eating ok. Pt has teeth noted. Per EMR, pt consumed 100% of breakfast in the morning. Current Diet Order/ Nutrition Support regular Pertinent Medications D5-0.9%ns, synthorid, protonix Pertinent Labs 01/05 cl 112, BUN 32, Cr 1.3, Ca 8.5 Nutritional Hx/Data Height 1.52 m Height (Calculated Centimeters) 152.4 Current Weight (lbs) 58.06 kg Weight (Calculated Kilograms) 58.1 Weight (Calculated Grams) [address]8440.8 [place] Body Weight 100 Body Mass Index (BMI) 25.0 Weight Status Approriate GI Symptoms GI Symptoms None Last BM not indicated Difficult in: None Skin Integrity/Comment: face reddened Current %PO Good (75-100%) Estimated Nutritional Goals BEE in Kcals: Using Current wt Calories/Kcals/Kg 25-30 Kcals Calculated 8111-4529 Protein: Using Current wt Protein g/k monitor renal labs Protein Calculated 58 Fluid: ml 1450-1740ml (1ml/kcal) Nutritional Problem 1. Problem Problem altered nutrition related labs Etiology electrolytes imbalance and hx of ESRD Signs/Symptoms: cl 112, BUN 32, Cr 1.3, Ca 8.5 Malnutrition Alert Protein-Calorie Malnutrition N/A Is there a minimum of two criteria No selected? Query Text:Check all the applicable criteria. A minimum of two criteria are recommended for diagnosis of either severe or non-severe malnutrition. Intervention/Recommendation Comments 1. Continue with regular diet as ordered. Assist pt with meals as needed. 2. If BUN/Cr not improved, will consider renal diet. 2. Monitor PO intake, wt, labs and skin integrity 3. F/U as moderate risk in 3-5 days, 01/08-01/10 Expected Outcomes/Goals Expected Outcomes/Goals 1. PO intake to meet at least 75% of nutritional needs. 2. Wt stability, skin to remain intact, labs to approach WNL.
--- NOTE | 2018-01-10 13:14 | GI Progress Note ---
Subjective - Review of Systems Subjective: NO EVENTS Objective - Results Result Diagrams: 01/10/18 05:10 01/10/18 05:10 Recent Labs: Laboratory Last Values WBC 5.4 Th/cmm (4.8-10.8) 01/10/18 05:10 RBC 2.74 Mil/cmm (3.80-5.20) L 01/10/18 05:10 Hgb 7.6 gm/dL (12-16) L* 01/10/18 05:10 Hct 22.7 % (41.0-60) L 01/10/18 05:10 MCV 83.0 fl (81-100) 01/10/18 05:10 MCH 27.8 pg (27.0-31.0) 01/10/18 05:10 MCHC Differential 33.5 pg (28.0-36.0) 01/10/18 05:10 RDW 16.2 % (11.5-20.0) 01/10/18 05:10 Plt Count 218 Th/cmm (150-400) 01/10/18 05:10 MPV 6.6 fl 01/10/18 05:10 Neutrophils % 59.7 % (40.0-80.0) 01/10/18 05:10 Lymphocytes % 26.2 % (20.0-50.0) 01/10/18 05:10 Monocytes % 11.1 % (2.0-10.0) H 01/10/18 05:10 Eosinophils % 2.3 % (0.0-5.0) 01/10/18 05:10 Basophils % 0.7 % (0.0-2.0) 01/10/18 05:10 Eos Smear Source URINE 01/06/18 05:25 Eos Smear Total Cells NONE SEEN (NONE SEEN) 01/06/18 05:25 PT 11.1 SECONDS (9.5-11.5) 01/09/18 04:54 INR 1.07 (0.5-1.4) 01/09/18 04:54 PTT (Actin FS) 25.1 SECONDS (26.0-38.0) L 01/09/18 04:54 Sodium 132 mEq/L (136-145) L 01/10/18 05:10 Potassium 3.7 mEq/L (3.5-5.1) 01/10/18 05:10 Chloride 106 mEq/L (98-107) 01/10/18 05:10 Carbon Dioxide 18.6 mEq/L (21.0-31.0) L 01/10/18 05:10 Anion Gap 11.1 (7.0-16.0) 01/10/18 05:10 BUN 8 mg/dL (7-25) 01/10/18 05:10 Creatinine 1.1 mg/dL (0.6-1.2) 01/10/18 05:10 Est GFR ( Amer) TNP 01/10/18 05:10 Est GFR (Non-Af Amer) TNP 01/10/18 05:10 BUN/Creatinine Ratio 7.3 01/10/18 05:10 Glucose 85 mg/dL (70-105) 01/10/18 05:10 Plasma/Ser Osmolality 289 01/07/18 06:02 Whole Bld Lactic Acid 1.72 mmol/L (0.60-1.99) 01/04/18 20:35 Uric Acid 6.5 mg/dL (2.3-6.6) 01/06/18 06:01 Calcium 8.0 mg/dL (8.6-10.3) L 01/10/18 05:10 Phosphorus 4.1 mg/dL (2.5-5.0) 01/06/18 06:01 Magnesium 2.5 mg/dL (1.9-2.7) 01/07/18 06:02 Total Bilirubin 0.3 mg/dL (0.3-1.0) 01/09/18 04:54 AST 16 U/L (13-39) 01/09/18 04:54 ALT 8 U/L (7-52) 01/09/18 04:54 Alkaline Phosphatase 52 U/L (34-104) 01/09/18 04:54 Creatine Kinase 165 U/L (30-223) 01/04/18 20:35 Troponin I 0.02 ng/mL (0.01-0.05) 01/04/18 20:35 B-Natriuretic Peptide 197.0 pg/mL (5.0-100.0) H 01/04/18 20:35 Total Protein 5.9 gm/dL (6.0-8.3) L 01/09/18 04:54 Albumin 3.2 gm/dL (3.7-5.3) L 01/09/18 04:54 Globulin 2.7 gm/dL 01/09/18 04:54 Albumin/Globulin Ratio 1.2 (1.0-1.8) 01/09/18 04:54 Triglycerides 68 mg/dL (<150) 01/04/18 20:35 Cholesterol 115 mg/dL (<200) 01/04/18 20:35 LDL Cholesterol Direct 56 mg/dL (75-193) L 01/04/18 20:35 HDL Cholesterol 44 mg/dL (23-92) 01/04/18 20:35 Amylase 45 U/L (29-103) 01/06/18 06:01 Lipase 24 U/L (11-82) 01/06/18 06:01 Carcinoembryonic Ag SEE REF. LAB REPORT 01/06/18 06:01 TSH 4.28 uIU/ml (0.34-5.60) 01/05/18 05:36 Urine Source CLEAN C 01/04/18 20:20 Urine Color STRAW 01/04/18 20:20 Urine Clarity CLEAR (CLEAR) 01/04/18 20:20 Urine pH 5.5 (4.6 - 8.0) 01/04/18 20:20 Ur Specific [place] 1.015 (1.005-1.030) 01/04/18 20:20 Urine Protein NEGATIVE mg/dL (NEGATIVE) 01/04/18 20:20 Urine Glucose (UA) NEGATIVE mg/dL (NEGATIVE) 01/04/18 20:20 Urine Ketones NEGATIVE mg/dL (NEGATIVE) 01/04/18 20:20 Urine Blood NEGATIVE (NEGATIVE) 01/04/18 20:20 Urine Nitrate NEGATIVE (NEGATIVE) 01/04/18 20:20 Urine Bilirubin NEGATIVE (NEGATIVE) 01/04/18 20:20 Urine Urobilinogen 0.2 E.U./dL (0.2 - 1.0) 01/04/18 20:20 Ur Leukocyte Esterase TRACE (NEGATIVE) H 01/04/18 20:20 Urine RBC NONE SEEN /hpf (0-5) 01/04/18 20:20 Urine WBC 2-5 /hpf (0-5) 01/04/18 20:20 Ur Epithelial Cells NONE SEEN /lpf (FEW) 01/04/18 20:20 Urine Bacteria NONE SEEN /hpf (NONE SEEN) 01/04/18 20:20 Ur Random Sodium 99 mmol/L 01/06/18 05:25 Urine Creatinine 42.0 mg/dl (28.0-217.0) 01/06/18 05:25 Stool Occult Blood NEGATIVE (NEGATIVE) 01/07/18 17:25 Blood Type O POSITIVE 01/10/18 07:20 Antibody Screen POSITIVE 01/10/18 07:20 Crossmatch See Detail 01/10/18 07:20 - Physical Exam Vitals and I&O: Vital Signs Temp 98.2 F 01/10/18 11:58 Pulse 77 01/10/18 11:58 Resp 18 01/10/18 11:58 BP 122/61 01/10/18 11:58 Pulse Ox 98 01/10/18 11:58 Intake & Output 01/09/18 01/10/18 01/10/18 18:59 06:59 18:59 Intake Total 948.333 150 Balance 948.333 150 Weight (lbs) 61.235 kg Intake: Intake, IV Amount 948.333 D5-0.9%Ns 1,000 ml @ 50 948.333 mls/hr IV .Q20H [facility] Rx#: [id number] Oral 150 Other: # Voids 3 # Bowel Movements 0 Weight Source Bedscale Active Medications: Current Medications Albuterol/Ipratropium (Duoneb Neb) 3 ml HHN Q6HRT [facility] Stop: 03/08/18 18:59 Last Admin: 01/10/18 07:30 Dose: 3 ml Amlodipine Besylate (Norvasc) 5 mg PO DAILY ANTHONY Stop: 03/06/18 08:59 Last Admin: 01/10/18 09:49 Dose: Not Given Benzocaine/Menthol (Cepacol) 1 cooper MM Q4HR PRN PRN Reason: Sore Throat Stop: 03/10/18 15:50 Ceftriaxone Sodium 1 gm/ (Sodium Chloride) 50 mls @ 100 mls/hr IV Q24HR ANTHONY Stop: 03/06/18 20:59 Last Admin: 01/09/18 21:42 Dose: 100 mls/hr Levothyroxine Sodium (Synthroid) 0.025 mg PO QDAC ANTHONY Stop: 03/06/18 07:29 Last Admin: 01/10/18 07:59 Dose: 0.025 mg Losartan Potassium (Cozaar) 100 mg PO DAILY ANTHONY Stop: 03/07/18 10:59 Last Admin: 01/10/18 09:48 Dose: Not Given Miscellaneous (Vte Chemical Prophylaxis Screen/ Admission) 1 ea MC PRN PRN PRN Reason: PROTOCOL Stop: 03/06/18 08:14 Oxybutynin Chloride (Ditropan) 5 mg PO BID ANTHONY Stop: 03/06/18 16:59 Last Admin: 01/10/18 09:44 Dose: 5 mg Pantoprazole Sodium (Protonix) 40 mg IVP DAILY ANTHONY Stop: 03/06/18 08:59 Last Admin: 01/10/18 10:52 Dose: 40 mg Simethicone (Mylicon) 80 mg PO QID PRN PRN Reason: Gas Stop: 03/10/18 14:48 Last Admin: 01/09/18 15:47 Dose: 80 mg Sodium Bicarbonate (Sodium Bicarbonate) 650 mg PO TID ANTHONY PRN Reason: Protocol Stop: 03/07/18 15:14 Last Admin: 01/10/18 09:44 Dose: 650 mg Tramadol HCl (Ultram) 50 mg PO Q6HR PRN PRN Reason: Pain (Moderate) Stop: 03/10/18 15:51 Last Admin: 01/09/18 21:43 Dose: 50 mg Zolpidem Tartrate (Ambien) 5 mg PO HS PRN PRN Reason: Insomnia Stop: 03/07/18 21:11 Last Admin: 01/07/18 21:35 Dose: 5 mg General: Alert HEENT: Atraumatic, PERRLA, EOMI, Mucous membr. moist/pink Neck: Supple, +2 carotid pulse wo bruit Cardiovascular: Regular rate Lungs: Clear to auscultation Abdomen: Bowel sounds, Soft, no Tender, no Distended Extremities: no Edema Neurological: Sensation intact Skin: no Rash Psych/Mental Status: Mood NL - Procedures Procedures: Procedures Procedure Code Date COLONOSCOPY AND BIOPSY 69584 01/04/18 EXCISION OF ASCENDING COLON, ENDO, DIAGN [id number] 01/04/18 Assessment/Plan - Assessment Assessment: 82 YO FEMALE WITH COLON MASS 1.AWAIT BX 2.SURGERY PENDING 3.CONT SUPP CARE
--- NOTE | 2018-01-10 14:28 | General Progress Note ---
Subjective - Review of Systems Service Date: 01/10/18 Subjective: still constipated but less abd pain Objective - Results Result Diagrams: 01/10/18 05:10 01/10/18 05:10 Recent Labs: Laboratory Last Values WBC 5.4 Th/cmm (4.8-10.8) 01/10/18 05:10 RBC 2.74 Mil/cmm (3.80-5.20) L 01/10/18 05:10 Hgb 7.6 gm/dL (12-16) L* 01/10/18 05:10 Hct 22.7 % (41.0-60) L 01/10/18 05:10 MCV 83.0 fl (81-100) 01/10/18 05:10 MCH 27.8 pg (27.0-31.0) 01/10/18 05:10 MCHC Differential 33.5 pg (28.0-36.0) 01/10/18 05:10 RDW 16.2 % (11.5-20.0) 01/10/18 05:10 Plt Count 218 Th/cmm (150-400) 01/10/18 05:10 MPV 6.6 fl 01/10/18 05:10 Neutrophils % 59.7 % (40.0-80.0) 01/10/18 05:10 Lymphocytes % 26.2 % (20.0-50.0) 01/10/18 05:10 Monocytes % 11.1 % (2.0-10.0) H 01/10/18 05:10 Eosinophils % 2.3 % (0.0-5.0) 01/10/18 05:10 Basophils % 0.7 % (0.0-2.0) 01/10/18 05:10 Eos Smear Source URINE 01/06/18 05:25 Eos Smear Total Cells NONE SEEN (NONE SEEN) 01/06/18 05:25 PT 11.1 SECONDS (9.5-11.5) 01/09/18 04:54 INR 1.07 (0.5-1.4) 01/09/18 04:54 PTT (Actin FS) 25.1 SECONDS (26.0-38.0) L 01/09/18 04:54 Sodium 132 mEq/L (136-145) L 01/10/18 05:10 Potassium 3.7 mEq/L (3.5-5.1) 01/10/18 05:10 Chloride 106 mEq/L (98-107) 01/10/18 05:10 Carbon Dioxide 18.6 mEq/L (21.0-31.0) L 01/10/18 05:10 Anion Gap 11.1 (7.0-16.0) 01/10/18 05:10 BUN 8 mg/dL (7-25) 01/10/18 05:10 Creatinine 1.1 mg/dL (0.6-1.2) 01/10/18 05:10 Est GFR ( Amer) TNP 01/10/18 05:10 Est GFR (Non-Af Amer) TNP 01/10/18 05:10 BUN/Creatinine Ratio 7.3 01/10/18 05:10 Glucose 85 mg/dL (70-105) 01/10/18 05:10 Plasma/Ser Osmolality 289 01/07/18 06:02 Whole Bld Lactic Acid 1.72 mmol/L (0.60-1.99) 01/04/18 20:35 Uric Acid 6.5 mg/dL (2.3-6.6) 01/06/18 06:01 Calcium 8.0 mg/dL (8.6-10.3) L 01/10/18 05:10 Phosphorus 4.1 mg/dL (2.5-5.0) 01/06/18 06:01 Magnesium 2.5 mg/dL (1.9-2.7) 01/07/18 06:02 Total Bilirubin 0.3 mg/dL (0.3-1.0) 01/09/18 04:54 AST 16 U/L (13-39) 01/09/18 04:54 ALT 8 U/L (7-52) 01/09/18 04:54 Alkaline Phosphatase 52 U/L (34-104) 01/09/18 04:54 Creatine Kinase 165 U/L (30-223) 01/04/18 20:35 Troponin I 0.02 ng/mL (0.01-0.05) 01/04/18 20:35 B-Natriuretic Peptide 197.0 pg/mL (5.0-100.0) H 01/04/18 20:35 Total Protein 5.9 gm/dL (6.0-8.3) L 01/09/18 04:54 Albumin 3.2 gm/dL (3.7-5.3) L 01/09/18 04:54 Globulin 2.7 gm/dL 01/09/18 04:54 Albumin/Globulin Ratio 1.2 (1.0-1.8) 01/09/18 04:54 Triglycerides 68 mg/dL (<150) 01/04/18 20:35 Cholesterol 115 mg/dL (<200) 01/04/18 20:35 LDL Cholesterol Direct 56 mg/dL (75-193) L 01/04/18 20:35 HDL Cholesterol 44 mg/dL (23-92) 01/04/18 20:35 Amylase 45 U/L (29-103) 01/06/18 06:01 Lipase 24 U/L (11-82) 01/06/18 06:01 Carcinoembryonic Ag SEE REF. LAB REPORT 01/06/18 06:01 TSH 4.28 uIU/ml (0.34-5.60) 01/05/18 05:36 Urine Source CLEAN C 01/04/18 20:20 Urine Color STRAW 01/04/18 20:20 Urine Clarity CLEAR (CLEAR) 01/04/18 20:20 Urine pH 5.5 (4.6 - 8.0) 01/04/18 20:20 Ur Specific [place] 1.015 (1.005-1.030) 01/04/18 20:20 Urine Protein NEGATIVE mg/dL (NEGATIVE) 01/04/18 20:20 Urine Glucose (UA) NEGATIVE mg/dL (NEGATIVE) 01/04/18 20:20 Urine Ketones NEGATIVE mg/dL (NEGATIVE) 01/04/18 20:20 Urine Blood NEGATIVE (NEGATIVE) 01/04/18 20:20 Urine Nitrate NEGATIVE (NEGATIVE) 01/04/18 20:20 Urine Bilirubin NEGATIVE (NEGATIVE) 01/04/18 20:20 Urine Urobilinogen 0.2 E.U./dL (0.2 - 1.0) 01/04/18 20:20 Ur Leukocyte Esterase TRACE (NEGATIVE) H 01/04/18 20:20 Urine RBC NONE SEEN /hpf (0-5) 01/04/18 20:20 Urine WBC 2-5 /hpf (0-5) 01/04/18 20:20 Ur Epithelial Cells NONE SEEN /lpf (FEW) 01/04/18 20:20 Urine Bacteria NONE SEEN /hpf (NONE SEEN) 01/04/18 20:20 Ur Random Sodium 99 mmol/L 01/06/18 05:25 Urine Creatinine 42.0 mg/dl (28.0-217.0) 01/06/18 05:25 Stool Occult Blood NEGATIVE (NEGATIVE) 01/07/18 17:25 Blood Type O POSITIVE 01/10/18 07:20 Antibody Screen POSITIVE 01/10/18 07:20 Crossmatch See Detail 01/10/18 07:20 - Physical Exam Vitals and I&O: Vital Signs Temp 98.2 F 01/10/18 11:58 Pulse 77 01/10/18 11:58 Resp 18 01/10/18 11:58 BP 122/61 01/10/18 11:58 Pulse Ox 98 01/10/18 11:58 Intake & Output 01/09/18 01/10/18 01/10/18 18:59 06:59 18:59 Intake Total 948.333 150 Balance 948.333 150 Weight (lbs) 61.235 kg Intake: Intake, IV Amount 948.333 D5-0.9%Ns 1,000 ml @ 50 948.333 mls/hr IV .Q20H [facility] Rx#: [id number] Oral 150 Other: # Voids 3 # Bowel Movements 0 Weight Source Bedscale Active Medications: Current Medications Albuterol/Ipratropium (Duoneb Neb) 3 ml HHN Q6HRT ANTHONY Stop: 03/08/18 18:59 Last Admin: 01/10/18 07:30 Dose: 3 ml Amlodipine Besylate (Norvasc) 5 mg PO DAILY ANTHONY Stop: 03/06/18 08:59 Last Admin: 01/10/18 09:49 Dose: Not Given Benzocaine/Menthol (Cepacol) 1 cooper MM Q4HR PRN PRN Reason: Sore Throat Stop: 03/10/18 15:50 Ceftriaxone Sodium 1 gm/ (Sodium Chloride) 50 mls @ 100 mls/hr IV Q24HR ANTHONY Stop: 03/06/18 20:59 Last Admin: 01/09/18 21:42 Dose: 100 mls/hr Levothyroxine Sodium (Synthroid) 0.025 mg PO QDAC ANTHONY Stop: 03/06/18 07:29 Last Admin: 01/10/18 07:59 Dose: 0.025 mg Losartan Potassium (Cozaar) 100 mg PO DAILY [facility] Stop: 03/07/18 10:59 Last Admin: 01/10/18 09:48 Dose: Not Given Miscellaneous (Vte Chemical Prophylaxis Screen/ Admission) 1 ea MC PRN PRN PRN Reason: PROTOCOL Stop: 03/06/18 08:14 Oxybutynin Chloride (Ditropan) 5 mg PO BID ANTHONY Stop: 03/06/18 16:59 Last Admin: 01/10/18 09:44 Dose: 5 mg Pantoprazole Sodium (Protonix) 40 mg IVP DAILY ANTHONY Stop: 03/06/18 08:59 Last Admin: 01/10/18 10:52 Dose: 40 mg Simethicone (Mylicon) 80 mg PO QID PRN PRN Reason: Gas Stop: 03/10/18 14:48 Last Admin: 01/09/18 15:47 Dose: 80 mg Sodium Bicarbonate (Sodium Bicarbonate) 650 mg PO TID ANTHONY PRN Reason: Protocol Stop: 03/07/18 15:14 Last Admin: 01/10/18 09:44 Dose: 650 mg Tramadol HCl (Ultram) 50 mg PO Q6HR PRN PRN Reason: Pain (Moderate) Stop: 03/10/18 15:51 Last Admin: 01/09/18 21:43 Dose: 50 mg Zolpidem Tartrate (Ambien) 5 mg PO HS PRN PRN Reason: Insomnia Stop: 03/07/18 21:11 Last Admin: 01/07/18 21:35 Dose: 5 mg General: Alert HEENT: Atraumatic, PERRLA, EOMI, Mucous membr. moist/pink Neck: Supple, +2 carotid pulse wo bruit Cardiovascular: Regular rate, Normal S1, Normal S2 Lungs: Clear to auscultation Abdomen: Bowel sounds, Soft, no Tender, no Distended Extremities: no Edema Neurological: Sensation intact Skin: no Rash Psych/Mental Status: Mood NL - Procedures Procedures: Procedures Procedure Code Date COLONOSCOPY AND BIOPSY 97152 01/04/18 EXCISION OF ASCENDING COLON, ENDO, DIAGN [id number] 01/04/18 Assessment/Plan - Assessment Assessment: PAULA on CKD Hyponatremia Multiple pulm nodules Right Lower Quad Mass Anemia of CKD Ess Htn Hypothyroid Ascending colon mass - Plan Plan: Lab - Result Diagrams 01/06/18 06:01 01/06/18 06:01 Current Medications Amlodipine Besylate (Norvasc) 5 mg PO DAILY ANTHONY Stop: 03/06/18 08:59 Last Admin: 01/06/18 09:00 Dose: 5 mg Ceftriaxone Sodium 1 gm/ (Sodium Chloride) 50 mls @ 100 mls/hr IV Q24HR ANTHONY Stop: 03/06/18 20:59 Last Admin: 01/05/18 22:09 Dose: 100 mls/hr Dextrose/Sodium Chloride (D5-0.9%Ns) 1,000 mls @ 50 mls/hr IV .Q20H ANTHONY Stop: 03/06/18 04:59 Last Admin: 01/06/18 06:54 Dose: 50 mls/hr Levothyroxine Sodium (Synthroid) 0.025 mg PO QDAC ANTHONY Stop: 03/06/18 07:29 Last Admin: 01/06/18 06:53 Dose: 0.025 mg Losartan Potassium (Cozaar) 100 mg PO DAILY ANTHONY Stop: 03/07/18 10:59 Last Admin: 01/06/18 14:24 Dose: 100 mg Miscellaneous (Vte Chemical Prophylaxis Screen/ Admission) 1 ea MC PRN PRN PRN Reason: PROTOCOL Stop: 03/06/18 08:14 Oxybutynin Chloride (Ditropan) 5 mg PO BID ANTHONY Stop: 03/06/18 16:59 Last Admin: 01/06/18 09:00 Dose: 5 mg Pantoprazole Sodium (Protonix) 40 mg IVP DAILY ANTHONY Stop: 03/06/18 08:59 Last Admin: 01/06/18 09:00 Dose: 40 mg Sodium Bicarbonate (Sodium Bicarbonate) 650 mg PO BID ANTHONY PRN Reason: Protocol Stop: 03/06/18 19:44 Last Admin: 01/06/18 09:00 Dose: 650 mg Lab - Result Diagrams 01/10/18 05:10 01/10/18 05:10 Kidney fnc better Na stable @ 132, DC IVF Increase NaHC03 replace Mg agree w/ Laxatives colonoscopy revealed asc mass, polyps, hemorrhoids simethicone for gas Hgb/Hct down to 7.6/22.7, for transfusion Nutritional Asmnt/Malnutr-PDOC - Dietary Evaluation Malnutrition Findings (Please click <Entered> for more info): Nutritional Asmnt/Malnutrition Start: 01/05/18 14: 24 Text: Status: Complete Freq: Document 01/05/18 14:24 KRISHAN (Rec: 01/05/18 14:55 KRISHAN [email or web address]) Nutritional Asmnt/Malnutrition Patient General Information Nutritional Screening High Risk Diagnosis dehydration, anemia, UTI, facial cellulitis Pertinent Medical Hx/Surgical Hx HTN, ESRD, thyroid disorder Subjective Information Pt seen lying in bed, awake and pleasant. Family at bedside feeding pt lunch. Family is able to speak little German, denied pt has chewing/swallowing problem, stated pt eating ok. Pt has teeth noted. Per EMR, pt consumed 100% of breakfast in the morning. Current Diet Order/ Nutrition Support regular Pertinent Medications D5-0.9%ns, synthorid, protonix Pertinent Labs 01/05 cl 112, BUN 32, Cr 1.3, Ca 8.5 Nutritional Hx/Data Height 1.52 m Height (Calculated Centimeters) 152.4 Current Weight (lbs) 58.06 kg Weight (Calculated Kilograms) 58.1 Weight (Calculated Grams) 81129.8 [place] Body Weight 100 Body Mass Index (BMI) 25.0 Weight Status Approriate GI Symptoms GI Symptoms None Last BM not indicated Difficult in: None Skin Integrity/Comment: face reddened Current %PO Good (75-100%) Estimated Nutritional Goals BEE in Kcals: Using Current wt Calories/Kcals/Kg 25-30 Kcals Calculated 3258-4021 Protein: Using Current wt Protein g/k monitor renal labs Protein Calculated 58 Fluid: ml 1450-1740ml (1ml/kcal) Nutritional Problem 1. Problem Problem altered nutrition related labs Etiology electrolytes imbalance and hx of ESRD Signs/Symptoms: cl 112, BUN 32, Cr 1.3, Ca 8.5 Malnutrition Alert Protein-Calorie Malnutrition N/A Is there a minimum of two criteria No selected? Query Text:Check all the applicable criteria. A minimum of two criteria are recommended for diagnosis of either severe or non-severe malnutrition. Intervention/Recommendation Comments 1. Continue with regular diet as ordered. Assist pt with meals as needed. 2. If BUN/Cr not improved, will consider renal diet. 2. Monitor PO intake, wt, labs and skin integrity 3. F/U as moderate risk in 3-5 days, 01/08-01/10 Expected Outcomes/Goals Expected Outcomes/Goals 1. PO intake to meet at least 75% of nutritional needs. 2. Wt stability, skin to remain intact, labs to approach WNL.
--- NOTE | 2018-01-10 14:34 | General Progress Note ---
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0) 01/10/18 05:10 Lymphocytes % 26.2 % (20.0-50.0) 01/10/18 05:10 Monocytes % 11.1 % (2.0-10.0) H 01/10/18 05:10 Eosinophils % 2.3 % (0.0-5.0) 01/10/18 05:10 Basophils % 0.7 % (0.0-2.0) 01/10/18 05:10 Eos Smear Source URINE 01/06/18 05:25 Eos Smear Total Cells NONE SEEN (NONE SEEN) 01/06/18 05:25 PT 11.1 SECONDS (9.5-11.5) 01/09/18 04:54 INR 1.07 (0.5-1.4) 01/09/18 04:54 PTT (Actin FS) 25.1 SECONDS (26.0-38.0) L 01/09/18 04:54 Sodium 132 mEq/L (136-145) L 01/10/18 05:10 Potassium 3.7 mEq/L (3.5-5.1) 01/10/18 05:10 Chloride 106 mEq/L (98-107) 01/10/18 05:10 Carbon Dioxide 18.6 mEq/L (21.0-31.0) L 01/10/18 05:10 Anion Gap 11.1 (7.0-16.0) 01/10/18 05:10 BUN 8 mg/dL (7-25) 01/10/18 05:10 Creatinine 1.1 mg/dL (0.6-1.2) 01/10/18 05:10 Est GFR ( Amer) TNP 01/10/18 05:10 Est GFR (Non-Af Amer) TNP 01/10/18 05:10 BUN/Creatinine Ratio 7.3 01/10/18 05:10 Glucose 85 mg/dL (70-105) 01/10/18 05:10 Plasma/Ser Osmolality 289 01/07/18 06:02 Whole Bld Lactic Acid 1.72 mmol/L (0.60-1.99) 01/04/18 20:35 Uric Acid 6.5 mg/dL (2.3-6.6) 01/06/18 06:01 Calcium 8.0 mg/dL (8.6-10.3) L 01/10/18 05:10 Phosphorus 4.1 mg/dL (2.5-5.0) 01/06/18 06:01 Magnesium 2.5 mg/dL (1.9-2.7) 01/07/18 06:02 Total Bilirubin 0.3 mg/dL (0.3-1.0) 01/09/18 04:54 AST 16 U/L (13-39) 01/09/18 04:54 ALT 8 U/L (7-52) 01/09/18 04:54 Alkaline Phosphatase 52 U/L (34-104) 01/09/18 04:54 Creatine Kinase 165 U/L (30-223) 01/04/18 20:35 Troponin I 0.02 ng/mL (0.01-0.05) 01/04/18 20:35 B-Natriuretic Peptide 197.0 pg/mL (5.0-100.0) H 01/04/18 20:35 Total Protein 5.9 gm/dL (6.0-8.3) L 01/09/18 04:54 Albumin 3.2 gm/dL (3.7-5.3) L 01/09/18 04:54 Globulin 2.7 gm/dL 01/09/18 04:54 Albumin/Globulin Ratio 1.2 (1.0-1.8) 01/09/18 04:54 Triglycerides 68 mg/dL (<150) 01/04/18 20:35 Cholesterol 115 mg/dL (<200) 01/04/18 20:35 LDL Cholesterol Direct 56 mg/dL (75-193) L 01/04/18 20:35 HDL Cholesterol 44 mg/dL (23-92) 01/04/18 20:35 Amylase 45 U/L (29-103) 01/06/18 06:01 Lipase 24 U/L (11-82) 01/06/18 06:01 Carcinoembryonic Ag SEE REF. LAB REPORT 01/06/18 06:01 TSH 4.28 uIU/ml (0.34-5.60) 01/05/18 05:36 Urine Source CLEAN C 01/04/18 20:20 Urine Color STRAW 01/04/18 20:20 Urine Clarity CLEAR (CLEAR) 01/04/18 20:20 Urine pH 5.5 (4.6 - 8.0) 01/04/18 20:20 Ur Specific [place] 1.015 (1.005-1.030) 01/04/18 20:20 Urine Protein NEGATIVE mg/dL (NEGATIVE) 01/04/18 20:20 Urine Glucose (UA) NEGATIVE mg/dL (NEGATIVE) 01/04/18 20:20 Urine Ketones NEGATIVE mg/dL (NEGATIVE) 01/04/18 20:20 Urine Blood NEGATIVE (NEGATIVE) 01/04/18 20:20 Urine Nitrate NEGATIVE (NEGATIVE) 01/04/18 20:20 Urine Bilirubin NEGATIVE (NEGATIVE) 01/04/18 20:20 Urine Urobilinogen 0.2 E.U./dL (0.2 - 1.0) 01/04/18 20:20 Ur Leukocyte Esterase TRACE (NEGATIVE) H 01/04/18 20:20 Urine RBC NONE SEEN /hpf (0-5) 01/04/18 20:20 Urine WBC 2-5 /hpf (0-5) 01/04/18 20:20 Ur Epithelial Cells NONE SEEN /lpf (FEW) 01/04/18 20:20 Urine Bacteria NONE SEEN /hpf (NONE SEEN) 01/04/18 20:20 Ur Random Sodium 99 mmol/L 01/06/18 05:25 Urine Creatinine 42.0 mg/dl (28.0-217.0) 01/06/18 05:25 Stool Occult Blood NEGATIVE (NEGATIVE) 01/07/18 17:25 Blood Type O POSITIVE 01/10/18 07:20 Antibody Screen POSITIVE 01/10/18 07:20 Crossmatch See Detail 01/10/18 07:20 - Physical Exam Vitals and I&O: Vital Signs Temp 98.2 F 01/10/18 11:58 Pulse 77 01/10/18 11:58 Resp 18 01/10/18 11:58 BP 122/61 01/10/18 11:58 Pulse Ox 98 01/10/18 11:58 Intake & Output 01/09/18 01/10/18 01/10/18 18:59 06:59 18:59 Intake Total 948.333 150 Balance 948.333 150 Weight (lbs) 61.235 kg Intake: Intake, IV Amount 948.333 D5-0.9%Ns 1,000 ml @ 50 948.333 mls/hr IV .Q20H [facility] Rx#: [id number] Oral 150 Other: # Voids 3 # Bowel Movements 0 Weight Source Bedscale Active Medications: Current Medications Albuterol/Ipratropium (Duoneb Neb) 3 ml HHN Q6HRT [facility] Stop: 03/08/18 18:59 Last Admin: 01/10/18 07:30 Dose: 3 ml Amlodipine Besylate (Norvasc) 5 mg PO DAILY [facility] Stop: 03/06/18 08:59 Last Admin: 01/10/18 09:49 Dose: Not Given Benzocaine/Menthol (Cepacol) 1 cooper MM Q4HR PRN PRN Reason: Sore Throat Stop: 03/10/18 15:50 Ceftriaxone Sodium 1 gm/ (Sodium Chloride) 50 mls @ 100 mls/hr IV Q24HR [facility] Stop: 03/06/18 20:59 Last Admin: 01/09/18 21:42 Dose: 100 mls/hr Levothyroxine Sodium (Synthroid) 0.025 mg PO QDAC ANTHONY Stop: 03/06/18 07:29 Last Admin: 01/10/18 07:59 Dose: 0.025 mg Losartan Potassium (Cozaar) 100 mg PO DAILY ANTHONY Stop: 03/07/18 10:59 Last Admin: 01/10/18 09:48 Dose: Not Given Miscellaneous (Vte Chemical Prophylaxis Screen/ Admission) 1 ea MC PRN PRN PRN Reason: PROTOCOL Stop: 03/06/18 08:14 Oxybutynin Chloride (Ditropan) 5 mg PO BID ANTHONY Stop: 03/06/18 16:59 Last Admin: 01/10/18 09:44 Dose: 5 mg Pantoprazole Sodium (Protonix) 40 mg IVP DAILY [facility] Stop: 03/06/18 08:59 Last Admin: 01/10/18 10:52 Dose: 40 mg Simethicone (Mylicon) 80 mg PO QID PRN PRN Reason: Gas Stop: 03/10/18 14:48 Last Admin: 01/09/18 15:47 Dose: 80 mg Sodium Bicarbonate (Sodium Bicarbonate) 650 mg PO TID ANTHONY PRN Reason: Protocol Stop: 03/07/18 15:14 Last Admin: 01/10/18 09:44 Dose: 650 mg Tramadol HCl (Ultram) 50 mg PO Q6HR PRN PRN Reason: Pain (Moderate) Stop: 03/10/18 15:51 Last Admin: 01/09/18 21:43 Dose: 50 mg Zolpidem Tartrate (Ambien) 5 mg PO HS PRN PRN Reason: Insomnia Stop: 03/07/18 21:11 Last Admin: 01/07/18 21:35 Dose: 5 mg General: Alert HEENT: Atraumatic, PERRLA, EOMI, Mucous membr. moist/pink Neck: Supple, +2 carotid pulse wo bruit Cardiovascular: Regular rate, Normal S1, Normal S2 Lungs: Clear to auscultation Abdomen: Bowel sounds, Soft, no Tender, no Distended Extremities: no Edema Neurological: Sensation intact Skin: no Rash Psych/Mental Status: Mood NL - Procedures Procedures: Procedures Procedure Code Date COLONOSCOPY AND BIOPSY 38570 01/04/18 EXCISION OF ASCENDING COLON, ENDO, DIAGN [id number] 01/04/18 Nutritional Asmnt/Malnutr-PDOC - Dietary Evaluation Malnutrition Findings (Please click <Entered> for more info): Nutritional Asmnt/Malnutrition Start: 01/05/18 14: 24 Text: Status: Complete Freq: Document 01/05/18 14:24 LCKRISHANG (Rec: 01/05/18 14:55 LCKRISHANG [email or web address]) Nutritional Asmnt/Malnutrition Patient General Information Nutritional Screening High Risk Diagnosis dehydration, anemia, UTI, facial cellulitis Pertinent Medical Hx/Surgical Hx HTN, ESRD, thyroid disorder Subjective Information Pt seen lying in bed, awake and pleasant. Family at bedside feeding pt lunch. Family is able to speak little German, denied pt has chewing/swallowing problem, stated pt eating ok. Pt has teeth noted. Per EMR, pt consumed 100% of breakfast in the morning. Current Diet Order/ Nutrition Support regular Pertinent Medications D5-0.9%ns, synthorid, protonix Pertinent Labs 01/05 cl 112, BUN 32, Cr 1.3, Ca 8.5 Nutritional Hx/Data Height 1.52 m Height (Calculated Centimeters) 152.4 Current Weight (lbs) 58.06 kg Weight (Calculated Kilograms) 58.1 Weight (Calculated Grams) 34654.8 [place] Body Weight 100 Body Mass Index (BMI) 25.0 Weight Status Approriate GI Symptoms GI Symptoms None Last BM not indicated Difficult in: None Skin Integrity/Comment: face reddened Current %PO Good (75-100%) Estimated Nutritional Goals BEE in Kcals: Using Current wt Calories/Kcals/Kg 25-30 Kcals Calculated 8884-2848 Protein: Using Current wt Protein g/k monitor renal labs Protein Calculated 58 Fluid: ml 1450-1740ml (1ml/kcal) Nutritional Problem 1. Problem Problem altered nutrition related labs Etiology electrolytes imbalance and hx of ESRD Signs/Symptoms: cl 112, BUN 32, Cr 1.3, Ca 8.5 Malnutrition Alert Protein-Calorie Malnutrition N/A Is there a minimum of two criteria No selected? Query Text:Check all the applicable criteria. A minimum of two criteria are recommended for diagnosis of either severe or non-severe malnutrition. Intervention/Recommendation Comments 1. Continue with regular diet as ordered. Assist pt with meals as needed. 2. If BUN/Cr not improved, will consider renal diet. 2. Monitor PO intake, wt, labs and skin integrity 3. F/U as moderate risk in 3-5 days, 01/08-01/10 Expected Outcomes/Goals Expected Outcomes/Goals 1. PO intake to meet at least 75% of nutritional needs. 2. Wt stability, skin to remain intact, labs to approach WNL.
--- NOTE | 2018-01-10 21:12 | General Progress Note ---
Subjective - Review of Systems Service Date: 01/10/18 Subjective: patient seen and examined scheduled for colon mass surgery tomorrow Objective - Results Result Diagrams: 01/10/18 05:10 01/10/18 05:10 Recent Labs: Laboratory Last Values WBC 5.4 Th/cmm (4.8-10.8) 01/10/18 05:10 RBC 2.74 Mil/cmm (3.80-5.20) L 01/10/18 05:10 Hgb 7.6 gm/dL (12-16) L* 01/10/18 05:10 Hct 22.7 % (41.0-60) L 01/10/18 05:10 MCV 83.0 fl (81-100) 01/10/18 05:10 MCH 27.8 pg (27.0-31.0) 01/10/18 05:10 MCHC Differential 33.5 pg (28.0-36.0) 01/10/18 05:10 RDW 16.2 % (11.5-20.0) 01/10/18 05:10 Plt Count 218 Th/cmm (150-400) 01/10/18 05:10 MPV 6.6 fl 01/10/18 05:10 Neutrophils % 59.7 % (40.0-80.0) 01/10/18 05:10 Lymphocytes % 26.2 % (20.0-50.0) 01/10/18 05:10 Monocytes % 11.1 % (2.0-10.0) H 01/10/18 05:10 Eosinophils % 2.3 % (0.0-5.0) 01/10/18 05:10 Basophils % 0.7 % (0.0-2.0) 01/10/18 05:10 Eos Smear Source URINE 01/06/18 05:25 Eos Smear Total Cells NONE SEEN (NONE SEEN) 01/06/18 05:25 PT 11.1 SECONDS (9.5-11.5) 01/09/18 04:54 INR 1.07 (0.5-1.4) 01/09/18 04:54 PTT (Actin FS) 25.1 SECONDS (26.0-38.0) L 01/09/18 04:54 Sodium 132 mEq/L (136-145) L 01/10/18 05:10 Potassium 3.7 mEq/L (3.5-5.1) 01/10/18 05:10 Chloride 106 mEq/L (98-107) 01/10/18 05:10 Carbon Dioxide 18.6 mEq/L (21.0-31.0) L 01/10/18 05:10 Anion Gap 11.1 (7.0-16.0) 01/10/18 05:10 BUN 8 mg/dL (7-25) 01/10/18 05:10 Creatinine 1.1 mg/dL (0.6-1.2) 01/10/18 05:10 Est GFR ( Amer) TNP 01/10/18 05:10 Est GFR (Non-Af Amer) TNP 01/10/18 05:10 BUN/Creatinine Ratio 7.3 01/10/18 05:10 Glucose 85 mg/dL (70-105) 01/10/18 05:10 Plasma/Ser Osmolality 289 01/07/18 06:02 Whole Bld Lactic Acid 1.72 mmol/L (0.60-1.99) 01/04/18 20:35 Uric Acid 6.5 mg/dL (2.3-6.6) 01/06/18 06:01 Calcium 8.0 mg/dL (8.6-10.3) L 01/10/18 05:10 Phosphorus 4.1 mg/dL (2.5-5.0) 01/06/18 06:01 Magnesium 2.5 mg/dL (1.9-2.7) 01/07/18 06:02 Total Bilirubin 0.3 mg/dL (0.3-1.0) 01/09/18 04:54 AST 16 U/L (13-39) 01/09/18 04:54 ALT 8 U/L (7-52) 01/09/18 04:54 Alkaline Phosphatase 52 U/L (34-104) 01/09/18 04:54 Creatine Kinase 165 U/L (30-223) 01/04/18 20:35 Troponin I 0.02 ng/mL (0.01-0.05) 01/04/18 20:35 B-Natriuretic Peptide 197.0 pg/mL (5.0-100.0) H 01/04/18 20:35 Total Protein 5.9 gm/dL (6.0-8.3) L 01/09/18 04:54 Albumin 3.2 gm/dL (3.7-5.3) L 01/09/18 04:54 Globulin 2.7 gm/dL 01/09/18 04:54 Albumin/Globulin Ratio 1.2 (1.0-1.8) 01/09/18 04:54 Triglycerides 68 mg/dL (<150) 01/04/18 20:35 Cholesterol 115 mg/dL (<200) 01/04/18 20:35 LDL Cholesterol Direct 56 mg/dL (75-193) L 01/04/18 20:35 HDL Cholesterol 44 mg/dL (23-92) 01/04/18 20:35 Amylase 45 U/L (29-103) 01/06/18 06:01 Lipase 24 U/L (11-82) 01/06/18 06:01 Carcinoembryonic Ag SEE REF. LAB REPORT 01/06/18 06:01 TSH 4.28 uIU/ml (0.34-5.60) 01/05/18 05:36 Urine Source CLEAN C 01/04/18 20:20 Urine Color STRAW 01/04/18 20:20 Urine Clarity CLEAR (CLEAR) 01/04/18 20:20 Urine pH 5.5 (4.6 - 8.0) 01/04/18 20:20 Ur Specific [place] 1.015 (1.005-1.030) 01/04/18 20:20 Urine Protein NEGATIVE mg/dL (NEGATIVE) 01/04/18 20:20 Urine Glucose (UA) NEGATIVE mg/dL (NEGATIVE) 01/04/18 20:20 Urine Ketones NEGATIVE mg/dL (NEGATIVE) 01/04/18 20:20 Urine Blood NEGATIVE (NEGATIVE) 01/04/18 20:20 Urine Nitrate NEGATIVE (NEGATIVE) 01/04/18 20:20 Urine Bilirubin NEGATIVE (NEGATIVE) 01/04/18 20:20 Urine Urobilinogen 0.2 E.U./dL (0.2 - 1.0) 01/04/18 20:20 Ur Leukocyte Esterase TRACE (NEGATIVE) H 01/04/18 20:20 Urine RBC NONE SEEN /hpf (0-5) 01/04/18 20:20 Urine WBC 2-5 /hpf (0-5) 01/04/18 20:20 Ur Epithelial Cells NONE SEEN /lpf (FEW) 01/04/18 20:20 Urine Bacteria NONE SEEN /hpf (NONE SEEN) 01/04/18 20:20 Ur Random Sodium 99 mmol/L 01/06/18 05:25 Urine Creatinine 42.0 mg/dl (28.0-217.0) 01/06/18 05:25 Stool Occult Blood NEGATIVE (NEGATIVE) 01/07/18 17:25 Blood Type O POSITIVE 01/10/18 07:20 Antibody Screen POSITIVE 01/10/18 07:20 Crossmatch See Detail 01/10/18 07:20 - Physical Exam Vitals and I&O: Vital Signs Temp 98.2 F 01/10/18 20:00 Pulse 108 01/10/18 20:00 Resp 18 01/10/18 20:00 BP 130/68 01/10/18 20:00 Pulse Ox 97 01/10/18 20:00 Intake & Output 01/10/18 01/10/18 01/11/18 06:59 18:59 06:59 Intake Total 150 700 Balance 150 700 Weight (lbs) 61.235 kg 61.235 kg Intake: Oral 150 600 Blood Product 100 Other: # Voids 3 4 # Bowel Movements 0 0 Weight Source Bedscale Bedscale Active Medications: Current Medications Albuterol/Ipratropium (Duoneb Neb) 3 ml HHN Q6HRT [facility] Stop: 03/08/18 18:59 Last Admin: 01/10/18 18:45 Dose: 3 ml Amlodipine Besylate (Norvasc) 5 mg PO DAILY [facility] Stop: 03/06/18 08:59 Last Admin: 01/10/18 09:49 Dose: Not Given Benzocaine/Menthol (Cepacol) 1 cooper MM Q4HR PRN PRN Reason: Sore Throat Stop: 03/10/18 15:50 Ceftriaxone Sodium 1 gm/ (Sodium Chloride) 50 mls @ 100 mls/hr IV Q24HR [facility] Stop: 03/06/18 20:59 Last Admin: 01/09/18 21:42 Dose: 100 mls/hr Dextrose/Sodium Chloride (D5-0.45ns) 1,000 mls @ 60 mls/hr IV .[id number] [facility] Stop: 01/11/18 00:00 Levothyroxine Sodium (Synthroid) 0.025 mg PO QDAC [facility] Stop: 03/06/18 07:29 Last Admin: 01/10/18 07:59 Dose: 0.025 mg Losartan Potassium (Cozaar) 100 mg PO DAILY [facility] Stop: 03/07/18 10:59 Last Admin: 01/10/18 09:48 Dose: Not Given Metronidazole (Flagyl) 500 mg PO BID [facility] Stop: 01/17/18 16:59 Last Admin: 01/10/18 16:55 Dose: 500 mg Miscellaneous (Vte Chemical Prophylaxis Screen/ Admission) 1 ea [facility] PRN PRN PRN Reason: PROTOCOL Stop: 03/06/18 08:14 Oxybutynin Chloride (Ditropan) 5 mg PO BID [facility] Stop: 03/06/18 16:59 Last Admin: 01/10/18 16:55 Dose: 5 mg Pantoprazole Sodium (Protonix) 40 mg IVP DAILY [facility] Stop: 03/06/18 08:59 Last Admin: 01/10/18 10:52 Dose: 40 mg Simethicone (Mylicon) 80 mg PO QID PRN PRN Reason: Gas Stop: 03/10/18 14:48 Last Admin: 01/09/18 15:47 Dose: 80 mg Sodium Bicarbonate (Sodium Bicarbonate) 650 mg PO TID [facility] PRN Reason: Protocol Stop: 03/07/18 15:14 Last Admin: 01/10/18 14:34 Dose: Not Given Tramadol HCl (Ultram) 50 mg PO Q6HR PRN PRN Reason: Pain (Moderate) Stop: 03/10/18 15:51 Last Admin: 01/09/18 21:43 Dose: 50 mg Zolpidem Tartrate (Ambien) 5 mg PO HS PRN PRN Reason: Insomnia Stop: 03/07/18 21:11 Last Admin: 01/07/18 21:35 Dose: 5 mg General: Alert Cardiovascular: Regular rate Lungs: Clear to auscultation Abdomen: Bowel sounds, Soft, no Tender, no Distended Extremities: no Edema Neurological: Sensation intact Skin: no Rash Psych/Mental Status: Mood NL - Procedures Procedures: Procedures Procedure Code Date COLONOSCOPY AND BIOPSY 78647 01/04/18 EXCISION OF ASCENDING COLON, ENDO, DIAGN [id number] 01/04/18 Assessment/Plan - Assessment Assessment: 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 Lung nodule most likely metastatic disease Chronic hyponatremia Acute on CKD better Chronic constipation HTN CAD UTI - Plan Plan: Surgery tomorrow Follow up on colon mass pathology I updated family re: plan of care they understood well PRBC for pre op Rocephine Nutritional Asmnt/Malnutr-PDOC - Dietary Evaluation Malnutrition Findings (Please click <Entered> for more info): Nutritional Asmnt/Malnutrition Start: 01/05/18 14: 24 Text: Status: Complete Freq: Document 01/05/18 14:24 HEN (Rec: 01/05/18 14:55 LCHENG [email or web address]) Nutritional Asmnt/Malnutrition Patient General Information Nutritional Screening High Risk Diagnosis dehydration, anemia, UTI, facial cellulitis Pertinent Medical Hx/Surgical Hx HTN, ESRD, thyroid disorder Subjective Information Pt seen lying in bed, awake and pleasant. Family at bedside feeding pt lunch. Family is able to speak little Kyrgyz, denied pt has chewing/swallowing problem, stated pt eating ok. Pt has teeth noted. Per EMR, pt consumed 100% of breakfast in the morning. Current Diet Order/ Nutrition Support regular Pertinent Medications D5-0.9%ns, synthorid, protonix Pertinent Labs 01/05 cl 112, BUN 32, Cr 1.3, Ca 8.5 Nutritional Hx/Data Height 1.52 m Height (Calculated Centimeters) 152.4 Current Weight (lbs) 58.06 kg Weight (Calculated Kilograms) 58.1 Weight (Calculated Grams) 34220.8 [place] Body Weight 100 Body Mass Index (BMI) 25.0 Weight Status Approriate GI Symptoms GI Symptoms None Last BM not indicated Difficult in: None Skin Integrity/Comment: face reddened Current %PO Good (75-100%) Estimated Nutritional Goals BEE in Kcals: Using Current wt Calories/Kcals/Kg 25-30 Kcals Calculated 4463-2397 Protein: Using Current wt Protein g/k monitor renal labs Protein Calculated 58 Fluid: ml 1450-1740ml (1ml/kcal) Nutritional Problem 1. Problem Problem altered nutrition related labs Etiology electrolytes imbalance and hx of ESRD Signs/Symptoms: cl 112, BUN 32, Cr 1.3, Ca 8.5 Malnutrition Alert Protein-Calorie Malnutrition N/A Is there a minimum of two criteria No selected? Query Text:Check all the applicable criteria. A minimum of two criteria are recommended for diagnosis of either severe or non-severe malnutrition. Intervention/Recommendation Comments 1. Continue with regular diet as ordered. Assist pt with meals as needed. 2. If BUN/Cr not improved, will consider renal diet. 2. Monitor PO intake, wt, labs and skin integrity 3. F/U as moderate risk in 3-5 days, 01/08-01/10 Expected Outcomes/Goals Expected Outcomes/Goals 1. PO intake to meet at least 75% of nutritional needs. 2. Wt stability, skin to remain intact, labs to approach WNL.
[2018-01-10 21:39] LABS: HEMOGLOBIN 9.8 gm/dL (12-16)
[2018-01-10 21:40] LABS: HEMATOCRIT 28.9 % (41.0-60)
[2018-01-10] MEDS: D5-0.45NS 1,000 ML IV SCH (22:12)
[2018-01-10] MEDS: cefTRIAXone 1 GM in Sodium Chloride 0.9% 50 ML IV SCH (22:26)
[2018-01-11] MEDS: Albuterol/Ipratropium Neb 3 ML AERS HHN SCH ×4 (01:39→18:43)
--- NOTE | 2018-01-11 03:58 | Progress Notes ---
DATE: 01/10/2018 PULMONARY PROGRESS NOTE PROBLEMS: 1. Abnormal chest x-ray. 2. Suspect malignancy in the colon. SYMPTOMS: Nil. Too much not verbal today. No respiratory distress, etc. PHYSICAL EXAMINATION: VITAL SIGNS: The patient's recorded vitals: T-max 97.2, respiration is 17, saturation 98% on room air. ENT: Shows no new changes. CHEST: Shows diminished air entry. No other adventitious breath sounds. HEART: Regular. ABDOMEN: Soft, nontender. LABORATORY DATA: White count is 5.4, hemoglobin drops 7.6. Electrolytes are okay. ASSESSMENT: The patient is clinically status quo, not significantly changed or improved. PLANS AND SUGGESTIONS: We will go ahead and continue current treatment. We will follow through other studies in the next few days' time and if indicated most likely this is mets and go from there. JOB# [id number]
[2018-01-11 05:31] LABS: % MONOCYTES 12.2 % (2.0-10.0); EOSINOPHILE ABSOLUTE 0.2 Th/cmm (0.1-0.4); HEMOGLOBIN 9.4 gm/dL (12-16); LYMPHOCYTE ABSOLUTE 1.2 Th/cmm (1.5-3.0); MEAN PLATELET VOLUME 6.4 fl; MONOCYTE ABSOLUTE 0.5 Th/cmm (0.3-1.0); WHITE BLOOD COUNT 4.4 Th/cmm (4.8-10.8)
[2018-01-11 05:35] LABS: % BASOPHILS 1.2 % (0.0-2.0); % EOSINOPHILS 4.7 % (0.0-5.0); % LYMPHOCYTES 27.4 % (20.0-50.0); % NEUTROPHILS 54.5 % (40.0-80.0); BASOPHILE ABSOLUTE 0.1 Th/cumm (0-0.2); HEMATOCRIT 27.7 % (41.0-60); MEAN CORPUSCULAR HEMOGLOBIN 28.2 pg (27.0-31.0); NEUTROPHILE ABSOLUTE 2.4 Th/cmm (1.8-8.0); PLATELET COUNT 218 Th/cmm (150-400); RED BLOOD COUNT 3.34 Mil/cmm (3.80-5.20); RED CELL DISTRIBUTION WIDTH 15.4 % (11.5-20.0)
[2018-01-11 05:49] LABS: ANION GAP 11.6 (7.0-16.0); BUN - UREA NITROGEN 8 mg/dL (7-25); CALCIUM SERUM 8.3 mg/dL (8.6-10.3); CARBON DIOXIDE 18.9 mEq/L (21.0-31.0); CHLORIDE 106 mEq/L (98-107); CREATININE - SERUM 1.1 mg/dL (0.6-1.2); GLUCOSE 90 mg/dL (70-105); POTASSIUM SERUM 3.5 mEq/L (3.5-5.1); SODIUM SERUM 133 mEq/L (136-145)
[2018-01-11] MEDS: Levothyroxine 0.025 Mg Tab PO SCH (06:43)
[2018-01-11] MEDS ORDERED: Lidocaine 2% Vial 20 mL Vial ONE (07:19)
[2018-01-11] MEDS ORDERED: Propofol **SURGERY USE ONLY** 20 ML IV ONE (07:19)
[2018-01-11 07:28] LABS: HEMOGLOBIN 7.6 gm/dL (12-16)
[2018-01-11] MEDS ORDERED: Bupivacaine 0.5% W/Ep 10 mL Vial INJ ONE (07:30)
--- NOTE | 2018-01-11 07:37 | GI Progress Note ---
Subjective - Review of Systems Subjective: GOING FOR SURGERY Objective - Results Result Diagrams: 01/11/18 05:05 01/11/18 05:05 Recent Labs: Laboratory Last Values WBC 4.4 Th/cmm (4.8-10.8) L 01/11/18 05:05 RBC 3.34 Mil/cmm (3.80-5.20) L 01/11/18 05:05 Hgb 9.4 gm/dL (12-16) L 01/11/18 05:05 Hct 27.7 % (41.0-60) L 01/11/18 05:05 MCV 83.0 fl (81-100) 01/11/18 05:05 MCH 28.2 pg (27.0-31.0) 01/11/18 05:05 MCHC Differential 34.0 pg (28.0-36.0) 01/11/18 05:05 RDW 15.4 % (11.5-20.0) 01/11/18 05:05 Plt Count 218 Th/cmm (150-400) 01/11/18 05:05 MPV 6.4 fl 01/11/18 05:05 Neutrophils % 54.5 % (40.0-80.0) 01/11/18 05:05 Lymphocytes % 27.4 % (20.0-50.0) 01/11/18 05:05 Monocytes % 12.2 % (2.0-10.0) H 01/11/18 05:05 Eosinophils % 4.7 % (0.0-5.0) 01/11/18 05:05 Basophils % 1.2 % (0.0-2.0) 01/11/18 05:05 Eos Smear Source URINE 01/06/18 05:25 Eos Smear Total Cells NONE SEEN (NONE SEEN) 01/06/18 05:25 PT 11.1 SECONDS (9.5-11.5) 01/09/18 04:54 INR 1.07 (0.5-1.4) 01/09/18 04:54 PTT (Actin FS) 25.1 SECONDS (26.0-38.0) L 01/09/18 04:54 Sodium 133 mEq/L (136-145) L 01/11/18 05:05 Potassium 3.5 mEq/L (3.5-5.1) 01/11/18 05:05 Chloride 106 mEq/L (98-107) 01/11/18 05:05 Carbon Dioxide 18.9 mEq/L (21.0-31.0) L 01/11/18 05:05 Anion Gap 11.6 (7.0-16.0) 01/11/18 05:05 BUN 8 mg/dL (7-25) 01/11/18 05:05 Creatinine 1.1 mg/dL (0.6-1.2) 01/11/18 05:05 Est GFR ( Amer) TNP 01/11/18 05:05 Est GFR (Non-Af Amer) TNP 01/11/18 05:05 BUN/Creatinine Ratio 7.3 01/11/18 05:05 Glucose 90 mg/dL (70-105) 01/11/18 05:05 Plasma/Ser Osmolality 289 01/07/18 06:02 Whole Bld Lactic Acid 1.72 mmol/L (0.60-1.99) 01/04/18 20:35 Uric Acid 6.5 mg/dL (2.3-6.6) 01/06/18 06:01 Calcium 8.3 mg/dL (8.6-10.3) L 01/11/18 05:05 Phosphorus 4.1 mg/dL (2.5-5.0) 01/06/18 06:01 Magnesium 2.5 mg/dL (1.9-2.7) 01/07/18 06:02 Total Bilirubin 0.3 mg/dL (0.3-1.0) 01/09/18 04:54 AST 16 U/L (13-39) 01/09/18 04:54 ALT 8 U/L (7-52) 01/09/18 04:54 Alkaline Phosphatase 52 U/L (34-104) 01/09/18 04:54 Creatine Kinase 165 U/L (30-223) 01/04/18 20:35 Troponin I 0.02 ng/mL (0.01-0.05) 01/04/18 20:35 B-Natriuretic Peptide 197.0 pg/mL (5.0-100.0) H 01/04/18 20:35 Total Protein 5.9 gm/dL (6.0-8.3) L 01/09/18 04:54 Albumin 3.2 gm/dL (3.7-5.3) L 01/09/18 04:54 Globulin 2.7 gm/dL 01/09/18 04:54 Albumin/Globulin Ratio 1.2 (1.0-1.8) 01/09/18 04:54 Triglycerides 68 mg/dL (<150) 01/04/18 20:35 Cholesterol 115 mg/dL (<200) 01/04/18 20:35 LDL Cholesterol Direct 56 mg/dL (75-193) L 01/04/18 20:35 HDL Cholesterol 44 mg/dL (23-92) 01/04/18 20:35 Amylase 45 U/L (29-103) 01/06/18 06:01 Lipase 24 U/L (11-82) 01/06/18 06:01 Carcinoembryonic Ag SEE REF. LAB REPORT 01/06/18 06:01 TSH 4.28 uIU/ml (0.34-5.60) 01/05/18 05:36 Urine Source CLEAN C 01/04/18 20:20 Urine Color STRAW 01/04/18 20:20 Urine Clarity CLEAR (CLEAR) 01/04/18 20:20 Urine pH 5.5 (4.6 - 8.0) 01/04/18 20:20 Ur Specific [place] 1.015 (1.005-1.030) 01/04/18 20:20 Urine Protein NEGATIVE mg/dL (NEGATIVE) 01/04/18 20:20 Urine Glucose (UA) NEGATIVE mg/dL (NEGATIVE) 01/04/18 20:20 Urine Ketones NEGATIVE mg/dL (NEGATIVE) 01/04/18 20:20 Urine Blood NEGATIVE (NEGATIVE) 01/04/18 20:20 Urine Nitrate NEGATIVE (NEGATIVE) 01/04/18 20:20 Urine Bilirubin NEGATIVE (NEGATIVE) 01/04/18 20:20 Urine Urobilinogen 0.2 E.U./dL (0.2 - 1.0) 01/04/18 20:20 Ur Leukocyte Esterase TRACE (NEGATIVE) H 01/04/18 20:20 Urine RBC NONE SEEN /hpf (0-5) 01/04/18 20:20 Urine WBC 2-5 /hpf (0-5) 01/04/18 20:20 Ur Epithelial Cells NONE SEEN /lpf (FEW) 01/04/18 20:20 Urine Bacteria NONE SEEN /hpf (NONE SEEN) 01/04/18 20:20 Ur Random Sodium 99 mmol/L 01/06/18 05:25 Urine Creatinine 42.0 mg/dl (28.0-217.0) 01/06/18 05:25 Stool Occult Blood NEGATIVE (NEGATIVE) 01/07/18 17:25 Blood Type O POSITIVE 01/10/18 07:20 Antibody Screen POSITIVE 01/10/18 07:20 Antibody Identification Anti-C Anti-e 01/10/18 07:20 Antibody Identification Anti-C Anti-e 01/10/18 07:20 Crossmatch See Detail 01/10/18 07:20 - Physical Exam Vitals and I&O: Vital Signs Temp 97.2 F 01/11/18 04:00 Pulse 88 01/11/18 04:00 Resp 18 01/11/18 04:00 BP 143/71 01/11/18 04:00 Pulse Ox 97 01/11/18 04:00 Intake & Output 01/10/18 01/11/18 01/11/18 18:59 06:59 18:59 Intake Total 700 150 Balance 700 150 Weight (lbs) 61.235 kg 58.967 kg Intake: Oral 600 150 Blood Product 100 Other: # Voids 4 3 # Bowel Movements 0 0 Weight Source Bedscale Bedscale Active Medications: Current Medications Albuterol/Ipratropium (Duoneb Neb) 3 ml HHN Q6HRT [facility] Stop: 03/08/18 18:59 Last Admin: 01/11/18 07:26 Dose: Not Given Amlodipine Besylate (Norvasc) 5 mg PO DAILY [facility] Stop: 03/06/18 08:59 Last Admin: 01/10/18 09:49 Dose: Not Given Benzocaine/Menthol (Cepacol) 1 cooper MM Q4HR PRN PRN Reason: Sore Throat Stop: 03/10/18 15:50 Ceftriaxone Sodium 1 gm/ (Sodium Chloride) 50 mls @ 100 mls/hr IV Q24HR [facility] Stop: 03/06/18 20:59 Last Admin: 01/10/18 22:26 Dose: 100 mls/hr Levothyroxine Sodium (Synthroid) 0.025 mg PO QDAC [facility] Stop: 03/06/18 07:29 Last Admin: 01/11/18 06:43 Dose: Not Given Losartan Potassium (Cozaar) 100 mg PO DAILY [facility] Stop: 03/07/18 10:59 Last Admin: 01/10/18 09:48 Dose: Not Given Metronidazole (Flagyl) 500 mg PO BID [facility] Stop: 01/17/18 16:59 Last Admin: 01/10/18 16:55 Dose: 500 mg Miscellaneous (Vte Chemical Prophylaxis Screen/ Admission) 1 ea [facility] PRN PRN PRN Reason: PROTOCOL Stop: 03/06/18 08:14 Oxybutynin Chloride (Ditropan) 5 mg PO BID [facility] Stop: 03/06/18 16:59 Last Admin: 01/10/18 16:55 Dose: 5 mg Pantoprazole Sodium (Protonix) 40 mg IVP DAILY [facility] Stop: 03/06/18 08:59 Last Admin: 01/10/18 10:52 Dose: 40 mg Simethicone (Mylicon) 80 mg PO QID PRN PRN Reason: Gas Stop: 03/10/18 14:48 Last Admin: 01/09/18 15:47 Dose: 80 mg Sodium Bicarbonate (Sodium Bicarbonate) 650 mg PO TID [facility] PRN Reason: Protocol Stop: 03/07/18 15:14 Last Admin: 01/10/18 21:58 Dose: 650 mg Tramadol HCl (Ultram) 50 mg PO Q6HR PRN PRN Reason: Pain (Moderate) Stop: 03/10/18 15:51 Last Admin: 01/09/18 21:43 Dose: 50 mg Zolpidem Tartrate (Ambien) 5 mg PO HS PRN PRN Reason: Insomnia Stop: 03/07/18 21:11 Last Admin: 01/10/18 21:58 Dose: 5 mg General: Alert HEENT: Atraumatic, PERRLA, EOMI, Mucous membr. moist/pink Neck: Supple, +2 carotid pulse wo bruit Cardiovascular: Regular rate Lungs: Clear to auscultation Abdomen: Bowel sounds, Soft, no Tender, no Distended Extremities: no Edema Neurological: Sensation intact Skin: no Rash Psych/Mental Status: Mood NL - Procedures Procedures: Procedures Procedure Code Date COLONOSCOPY AND BIOPSY 17940 01/04/18 EXCISION OF ASCENDING COLON, ENDO, DIAGN [id number] 01/04/18 Assessment/Plan - Assessment Assessment: 82 YO FEMALE WITH COLON MASS 1.SURGERY TODAY 2.CONT SUPP CARE
[2018-01-11] MEDS ORDERED: HYDROmorphone 2 mg/mL 1mL Vial ONE (07:40)
[2018-01-11] MEDS ORDERED: metroNIDAZOLE 500mg/NS 100mL 500 MG/100 ML BAG IV ONE (07:48)
[2018-01-11] MEDS ORDERED: Labetalol 5 mg/mL 20 mL Vial ONE (07:59)
[2018-01-11] MEDS ORDERED: Neostigmine 10mg/10mL Vial ONE (08:34)
[2018-01-11] MEDS ORDERED: HYDROmorphone 1 mg/mL 1mL Syr IVP PRN (08:50)
[2018-01-11] MEDS ORDERED: HYDROmorphone 1 mg/mL 1mL Syr ONE (10:15)
[2018-01-11] MEDS: metroNIDAZOLE 500mg/NS 100mL 500 MG in Premix Fluid 1 BAG IV SCH ×2 (11:04→17:04)
[2018-01-11] MEDS: D5-0.45NS 1,000 ML IV SCH ×2 (11:08→12:58)
[2018-01-11] MEDS: Morphine Sulfate 4 mg/mL 1mL Syr IVP PRN ×3 (14:06→23:11)
--- NOTE | 2018-01-11 14:54 | Operative Report ---
DATE OF SURGERY: PREOPERATIVE DIAGNOSES: 1. Adenocarcinoma of the cecum. 2. Hypertension. 3. Chronic blood loss. POSTOPERATIVE DIAGNOSES: 1. Adenocarcinoma of the cecum. 2. Hypertension. 3. Chronic blood loss. OPERATION DONE: Right hemicolectomy, mobilization of the hepatic flexure. SURGEON: Sanket Ruiz MD SENIOR PROPERTY ACCOUNTANT: Nahomy Fuentes ANESTHESIA: General. ANESTHESIOLOGIST: Moises. INDICATIONS FOR SURGERY: The patient with chronic bleeding requiring transfusion. Colonoscopy showed a mass in the cecum, which on pathology was adenocarcinoma. OPERATIVE FINDINGS: A large mass in the cecum with question of possible lymph node metastasis. No liver mets palpated. ESTIMATED BLOOD LOSS: 50 mL. DESCRIPTION OF PROCEDURE: The patient was given general anesthesia. The abdomen was prepped with Betadine and draped in appropriate manner. An incision was made at the midline. Bleeders were electrocoagulated. The abdominal incision was carried all the way down into the peritoneum and a retractor was applied. Exploration of the abdominal cavity was done. No liver metastasis was noted. There were some nodes however at the mesentery and also at the base farther down. The pelvis was free of metastasis. No other pathology was noted. The gallbladder did not feel to have any stones. The gastrocolic omentum was divided with Impact EnSeal device to separate this from the transverse colon. The dissection of the transverse colon was carried to the ascending colon and lateral gutter freeing the colon from its attachments. The colon was then transected with a AGUSTINA instrument. The mesentery was transected utilizing the Impact instrument all the way down to the ileocecal region. A AGUSTINA instrument was then used to transect the distal ileum. [id number] anastomosis with AGUSTINA instrument was used and the open end was closed with a AGUSTINA instrument. The staple line was reinforced with running suture of 3-0 silk extending into the mesentery, which was closed with the same suture. Inspection for hemostasis was done, this was confirmed to be good. Sponge count was made and it was correct. A Bipin-Rodríguez drain was left in the right lateral gutter and the abdominal incision was closed with running suture of #1 PDS and the skin was closed with subcuticular suture of 4-0 Vicryl. Marcaine with epinephrine was injected into the operative site. The patient tolerated the procedure well. [facility]# [id number] FREDRICK
[2018-01-11 16:19] LABS: FERRITIN 17 ng/mL (15-150); FOLIC ACID 14.5 ng/mL (>3.0); IRON LC 43 ug/dL (27-139); TIBC (LC) 254 ug/dL (250-450); UIBC 211 ug/dL (118-369)
--- NOTE | 2018-01-11 18:25 | General Progress Note ---
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 patient doing fine c/o post op pain Objective - Results Result Diagrams: 01/11/18 05:05 01/11/18 05:05 Recent Labs: Laboratory Last Values WBC 4.4 Th/cmm (4.8-10.8) L 01/11/18 05:05 RBC 3.34 Mil/cmm (3.80-5.20) L 01/11/18 05:05 Hgb 9.4 gm/dL (12-16) L 01/11/18 05:05 Hct 27.7 % (41.0-60) L 01/11/18 05:05 MCV 83.0 fl (81-100) 01/11/18 05:05 MCH 28.2 pg (27.0-31.0) 01/11/18 05:05 MCHC Differential 34.0 pg (28.0-36.0) 01/11/18 05:05 RDW 15.4 % (11.5-20.0) 01/11/18 05:05 Plt Count 218 Th/cmm (150-400) 01/11/18 05:05 MPV 6.4 fl 01/11/18 05:05 Neutrophils % 54.5 % (40.0-80.0) 01/11/18 05:05 Lymphocytes % 27.4 % (20.0-50.0) 01/11/18 05:05 Monocytes % 12.2 % (2.0-10.0) H 01/11/18 05:05 Eosinophils % 4.7 % (0.0-5.0) 01/11/18 05:05 Basophils % 1.2 % (0.0-2.0) 01/11/18 05:05 Eos Smear Source URINE 01/06/18 05:25 Eos Smear Total Cells NONE SEEN (NONE SEEN) 01/06/18 05:25 PT 11.1 SECONDS (9.5-11.5) 01/09/18 04:54 INR 1.07 (0.5-1.4) 01/09/18 04:54 PTT (Actin FS) 25.1 SECONDS (26.0-38.0) L 01/09/18 04:54 Sodium 133 mEq/L (136-145) L 01/11/18 05:05 Potassium 3.5 mEq/L (3.5-5.1) 01/11/18 05:05 Chloride 106 mEq/L (98-107) 01/11/18 05:05 Carbon Dioxide 18.9 mEq/L (21.0-31.0) L 01/11/18 05:05 Anion Gap 11.6 (7.0-16.0) 01/11/18 05:05 BUN 8 mg/dL (7-25) 01/11/18 05:05 Creatinine 1.1 mg/dL (0.6-1.2) 01/11/18 05:05 Est GFR ( Amer) TNP 01/11/18 05:05 Est GFR (Non-Af Amer) TNP 01/11/18 05:05 BUN/Creatinine Ratio 7.3 01/11/18 05:05 Glucose 90 mg/dL (70-105) 01/11/18 05:05 Plasma/Ser Osmolality 289 mOsmol/kg (280-301) 01/07/18 06:02 Whole Bld Lactic Acid 1.72 mmol/L (0.60-1.99) 01/04/18 20:35 Uric Acid 6.5 mg/dL (2.3-6.6) 01/06/18 06:01 Calcium 8.3 mg/dL (8.6-10.3) L 01/11/18 05:05 Phosphorus 4.1 mg/dL (2.5-5.0) 01/06/18 06:01 Magnesium 2.5 mg/dL (1.9-2.7) 01/07/18 06:02 Iron 43 ug/dL (27-139) 01/05/18 05:36 TIBC 254 ug/dL (250-450) 01/05/18 05:36 Iron Saturation 17 % (15-55) 01/05/18 05:36 Unsaturated IBC 211 ug/dL (118-369) 01/05/18 05:36 Ferritin 17 ng/mL (15-150) 01/05/18 05:36 Total Bilirubin 0.3 mg/dL (0.3-1.0) 01/09/18 04:54 AST 16 U/L (13-39) 01/09/18 04:54 ALT 8 U/L (7-52) 01/09/18 04:54 Alkaline Phosphatase 52 U/L (34-104) 01/09/18 04:54 Creatine Kinase 165 U/L (30-223) 01/04/18 20:35 Troponin I 0.02 ng/mL (0.01-0.05) 01/04/18 20:35 B-Natriuretic Peptide 197.0 pg/mL (5.0-100.0) H 01/04/18 20:35 Total Protein 5.9 gm/dL (6.0-8.3) L 01/09/18 04:54 Albumin 3.2 gm/dL (3.7-5.3) L 01/09/18 04:54 Globulin 2.7 gm/dL 01/09/18 04:54 Albumin/Globulin Ratio 1.2 (1.0-1.8) 01/09/18 04:54 Triglycerides 68 mg/dL (<150) 01/04/18 20:35 Cholesterol 115 mg/dL (<200) 01/04/18 20:35 LDL Cholesterol Direct 56 mg/dL (75-193) L 01/04/18 20:35 HDL Cholesterol 44 mg/dL (23-92) 01/04/18 20:35 Amylase 45 U/L (29-103) 01/06/18 06:01 Lipase 24 U/L (11-82) 01/06/18 06:01 Carcinoembryonic Ag 26.2 ng/mL (0.0-4.7) H 01/06/18 06:01 Vitamin B12 304 pg/mL (232-1245) 01/05/18 05:36 Folic Acid 14.5 ng/mL (>3.0) 01/05/18 05:36 TSH 4.28 uIU/ml (0.34-5.60) 01/05/18 05:36 Urine Source CLEAN C 01/04/18 20:20 Urine Color STRAW 01/04/18 20:20 Urine Clarity CLEAR (CLEAR) 01/04/18 20:20 Urine pH 5.5 (4.6 - 8.0) 01/04/18 20:20 Ur Specific [place] 1.015 (1.005-1.030) 01/04/18 20:20 Urine Protein NEGATIVE mg/dL (NEGATIVE) 01/04/18 20:20 Urine Glucose (UA) NEGATIVE mg/dL (NEGATIVE) 01/04/18 20:20 Urine Ketones NEGATIVE mg/dL (NEGATIVE) 01/04/18 20:20 Urine Blood NEGATIVE (NEGATIVE) 01/04/18 20:20 Urine Nitrate NEGATIVE (NEGATIVE) 01/04/18 20:20 Urine Bilirubin NEGATIVE (NEGATIVE) 01/04/18 20:20 Urine Urobilinogen 0.2 E.U./dL (0.2 - 1.0) 01/04/18 20:20 Ur Leukocyte Esterase TRACE (NEGATIVE) H 01/04/18 20:20 Urine RBC NONE SEEN /hpf (0-5) 01/04/18 20:20 Urine WBC 2-5 /hpf (0-5) 01/04/18 20:20 Ur Epithelial Cells NONE SEEN /lpf (FEW) 01/04/18 20:20 Urine Bacteria NONE SEEN /hpf (NONE SEEN) 01/04/18 20:20 Ur Random Sodium 99 mmol/L 01/06/18 05:25 Urine Creatinine 42.0 mg/dl (28.0-217.0) 01/06/18 05:25 Stool Occult Blood NEGATIVE (NEGATIVE) 01/07/18 17:25 Blood Type O POSITIVE 01/10/18 07:20 Antibody Screen POSITIVE 01/10/18 07:20 Antibody Identification Anti-C Anti-e 01/10/18 07:20 Antibody Identification Anti-C Anti-e 01/10/18 07:20 Crossmatch See Detail 01/10/18 07:20 - Physical Exam Vitals and I&O: Vital Signs Temp 96.3 F 01/11/18 15:42 Pulse 81 01/11/18 15:42 Resp 19 01/11/18 15:42 BP 84/39 01/11/18 15:42 Pulse Ox 100 01/11/18 15:42 Intake & Output 01/10/18 01/11/18 01/11/18 18:59 06:59 18:59 Intake Total 700 150 876 Balance 700 150 876 Weight (lbs) 61.235 kg 58.967 kg Intake: Intake, IV Amount 876 D5-0.45NS 1,000 ml @ 60 776 mls/hr IV .[id number] [facility] Rx #:[id number] metroNIDAZOLE 500mg/NS 100 100mL 500 mg In Premix Fluid 1 bag @ 100 mls/hr IV Q8H [facility] Rx#:[id number] Oral 600 150 Blood Product 100 Other: # Voids 4 3 # Bowel Movements 0 0 Weight Source Bedscale Bedscale Active Medications: Current Medications Albuterol/Ipratropium (Duoneb Neb) 3 ml HHN Q6HRT ANTHONY Stop: 03/08/18 18:59 Last Admin: 01/11/18 13:11 Dose: 3 ml Amlodipine Besylate (Norvasc) 5 mg PO DAILY ANTHONY Stop: 03/06/18 08:59 Last Admin: 01/11/18 10:20 Dose: Not Given Benzocaine/Menthol (Cepacol) 1 cooper MM Q4HR PRN PRN Reason: Sore Throat Stop: 03/10/18 15:50 Metronidazole 500 mg/ (Miscellaneous) 100 mls @ 100 mls/hr IV Q8H ANTHONY Stop: 03/12/18 09:59 Last Admin: 01/11/18 17:04 Dose: 100 mls/hr Dextrose/Sodium Chloride (D5-0.45ns) 1,000 mls @ 70 mls/hr IV .[id number] [facility] Stop: 03/12/18 12:56 Last Admin: 01/11/18 12:58 Dose: 70 mls/hr Levothyroxine Sodium (Synthroid) 0.025 mg PO QDAC [facility] Stop: 03/06/18 07:29 Last Admin: 01/11/18 06:43 Dose: Not Given Losartan Potassium (Cozaar) 100 mg PO DAILY [facility] Stop: 03/07/18 10:59 Last Admin: 01/11/18 10:21 Dose: Not Given Metronidazole (Flagyl) 500 mg PO BID [facility] Stop: 01/17/18 16:59 Last Admin: 01/11/18 17:06 Dose: Not Given Miscellaneous (Vte Chemical Prophylaxis Screen/ Admission) 1 ea MC PRN PRN PRN Reason: PROTOCOL Stop: 03/06/18 08:14 Morphine Sulfate (Morphine) 2 mg IVP Q4HR PRN PRN Reason: Abdominal Pain Stop: 03/12/18 08:37 Last Admin: 01/11/18 14:06 Dose: 2 mg Oxybutynin Chloride (Ditropan) 5 mg PO BID [facility] Stop: 03/06/18 16:59 Last Admin: 01/11/18 16:17 Dose: Not Given Pantoprazole Sodium (Protonix) 40 mg IVP DAILY ANTHONY Stop: 03/06/18 08:59 Last Admin: 01/11/18 11:04 Dose: 40 mg Simethicone (Mylicon) 80 mg PO QID PRN PRN Reason: Gas Stop: 03/10/18 14:48 Last Admin: 01/09/18 15:47 Dose: 80 mg Sodium Bicarbonate (Sodium Bicarbonate) 650 mg PO TID ANTHONY PRN Reason: Protocol Stop: 03/07/18 15:14 Last Admin: 01/11/18 14:07 Dose: Not Given Tramadol HCl (Ultram) 50 mg PO Q6HR PRN PRN Reason: Pain (Moderate) Stop: 03/10/18 15:51 Last Admin: 01/09/18 21:43 Dose: 50 mg Zolpidem Tartrate (Ambien) 5 mg PO HS PRN PRN Reason: Insomnia Stop: 03/07/18 21:11 Last Admin: 01/10/18 21:58 Dose: 5 mg General: Alert Cardiovascular: Regular rate Lungs: Clear to auscultation Abdomen: Soft, no Tender, no Distended Extremities: no Edema Neurological: Sensation intact Skin: no Rash Psych/Mental Status: Mood NL - Procedures Procedures: Procedures Procedure Code Date COLONOSCOPY AND BIOPSY 91795 01/04/18 EXCISION OF ASCENDING COLON, ENDO, DIAGN [id number] 01/04/18 PARTIAL REMOVAL OF COLON 39750 01/04/18 RESECTION OF RIGHT LARGE INTESTINE, OPEN APPROACH [id number] 01/04/18 Assessment/Plan - Assessment Assessment: 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 Lung nodule most likely metastatic disease Chronic hyponatremia Acute on CKD better Chronic constipation HTN CAD UTI - Plan Plan: Post op day #0 Morphine prn Follow up on colon mass pathology I updated family re: plan of care they understood well PRBC for pre op Rocephine Nutritional Asmnt/Malnutr-PDOC - Dietary Evaluation Malnutrition Findings (Please click <Entered> for more info): Nutritional Asmnt/Malnutrition Start: 01/05/18 14: 24 Text: Status: Complete Freq: Document 01/05/18 14:24 LCHENG (Rec: 01/05/18 14:55 LCHENG [email or web address]) Nutritional Asmnt/Malnutrition Patient General Information Nutritional Screening High Risk Diagnosis dehydration, anemia, UTI, facial cellulitis Pertinent Medical Hx/Surgical Hx HTN, ESRD, thyroid disorder Subjective Information Pt seen lying in bed, awake and pleasant. Family at bedside feeding pt lunch. Family is able to speak little Syrian, denied pt has chewing/swallowing problem, stated pt eating ok. Pt has teeth noted. Per EMR, pt consumed 100% of breakfast in the morning. Current Diet Order/ Nutrition Support regular Pertinent Medications D5-0.9%ns, synthorid, protonix Pertinent Labs 01/05 cl 112, BUN 32, Cr 1.3, Ca 8.5 Nutritional Hx/Data Height 1.52 m Height (Calculated Centimeters) 152.4 Current Weight (lbs) 58.06 kg Weight (Calculated Kilograms) 58.1 Weight (Calculated Grams) 16774.8 [place] Body Weight 100 Body Mass Index (BMI) 25.0 Weight Status Approriate GI Symptoms GI Symptoms None Last BM not indicated Difficult in: None Skin Integrity/Comment: face reddened Current %PO Good (75-100%) Estimated Nutritional Goals BEE in Kcals: Using Current wt Calories/Kcals/Kg 25-30 Kcals Calculated 2543-9870 Protein: Using Current wt Protein g/k monitor renal labs Protein Calculated 58 Fluid: ml 1450-1740ml (1ml/kcal) Nutritional Problem 1. Problem Problem altered nutrition related labs Etiology electrolytes imbalance and hx of ESRD Signs/Symptoms: cl 112, BUN 32, Cr 1.3, Ca 8.5 Malnutrition Alert Protein-Calorie Malnutrition N/A Is there a minimum of two criteria No selected? Query Text:Check all the applicable criteria. A minimum of two criteria are recommended for diagnosis of either severe or non-severe malnutrition. Intervention/Recommendation Comments 1. Continue with regular diet as ordered. Assist pt with meals as needed. 2. If BUN/Cr not improved, will consider renal diet. 2. Monitor PO intake, wt, labs and skin integrity 3. F/U as moderate risk in 3-5 days, 01/08-01/10 Expected Outcomes/Goals Expected Outcomes/Goals 1. PO intake to meet at least 75% of nutritional needs. 2. Wt stability, skin to remain intact, labs to approach WNL.
--- NOTE | 2018-01-11 22:48 | Progress Notes ---
DATE: 01/11/2018 PULMONARY PROGRESS NOTE PROBLEM LIST: 1. Pulmonary nodule, most likely this is secondary to metastasis. 2. 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 SYMPTOMS: Nil, feeling okay, offers no specific new symptoms. PHYSICAL EXAMINATION: VITAL SIGNS: The patient's recorded temperature is 98, blood pressure 144/78, saturation 97 on 3 liters per minute. NECK: Veins not visualized. CHEST: Shows diminished air entry, otherwise no much adventitious breath sound. HEART: Regular. LABORATORY DATA: The patient's white count is 14.4, hemoglobin 9.4 after transfusion. ASSESSMENT: The patient appears to be clinically stable. The patient's biopsy report is pending and possibly surgical intervention, etc. and go from there. JOB# [id number]
[2018-01-12] MEDS: Albuterol/Ipratropium Neb 3 ML AERS HHN SCH ×4 (00:26→19:14)
[2018-01-12] MEDS: metroNIDAZOLE 500mg/NS 100mL 500 MG in Premix Fluid 1 BAG IV SCH ×3 (02:10→17:07)
[2018-01-12] MEDS: D5-0.45NS 1,000 ML IV SCH ×2 (04:47→17:03)
[2018-01-12] MEDS: Levothyroxine 0.025 Mg Tab PO SCH (09:04)
--- NOTE | 2018-01-12 09:06 | General Progress Note ---
Subjective - Review of Systems Service Date: 01/12/18 Events since last encounter: VS stable minimal NAZIA drainage may have ice chips on Zosyn and Flagyl labs ordered Objective - Results Result Diagrams: 01/11/18 05:05 01/11/18 05:05 Recent Labs: Laboratory Last Values WBC 4.4 Th/cmm (4.8-10.8) L 01/11/18 05:05 RBC 3.34 Mil/cmm (3.80-5.20) L 01/11/18 05:05 Hgb 9.4 gm/dL (12-16) L 01/11/18 05:05 Hct 27.7 % (41.0-60) L 01/11/18 05:05 MCV 83.0 fl (81-100) 01/11/18 05:05 MCH 28.2 pg (27.0-31.0) 01/11/18 05:05 MCHC Differential 34.0 pg (28.0-36.0) 01/11/18 05:05 RDW 15.4 % (11.5-20.0) 01/11/18 05:05 Plt Count 218 Th/cmm (150-400) 01/11/18 05:05 MPV 6.4 fl 01/11/18 05:05 Neutrophils % 54.5 % (40.0-80.0) 01/11/18 05:05 Lymphocytes % 27.4 % (20.0-50.0) 01/11/18 05:05 Monocytes % 12.2 % (2.0-10.0) H 01/11/18 05:05 Eosinophils % 4.7 % (0.0-5.0) 01/11/18 05:05 Basophils % 1.2 % (0.0-2.0) 01/11/18 05:05 Eos Smear Source URINE 01/06/18 05:25 Eos Smear Total Cells NONE SEEN (NONE SEEN) 01/06/18 05:25 PT 11.1 SECONDS (9.5-11.5) 01/09/18 04:54 INR 1.07 (0.5-1.4) 01/09/18 04:54 PTT (Actin FS) 25.1 SECONDS (26.0-38.0) L 01/09/18 04:54 Sodium 133 mEq/L (136-145) L 01/11/18 05:05 Potassium 3.5 mEq/L (3.5-5.1) 01/11/18 05:05 Chloride 106 mEq/L (98-107) 01/11/18 05:05 Carbon Dioxide 18.9 mEq/L (21.0-31.0) L 01/11/18 05:05 Anion Gap 11.6 (7.0-16.0) 01/11/18 05:05 BUN 8 mg/dL (7-25) 01/11/18 05:05 Creatinine 1.1 mg/dL (0.6-1.2) 01/11/18 05:05 Est GFR ( Amer) TNP 01/11/18 05:05 Est GFR (Non-Af Amer) TNP 01/11/18 05:05 BUN/Creatinine Ratio 7.3 01/11/18 05:05 Glucose 90 mg/dL (70-105) 01/11/18 05:05 Plasma/Ser Osmolality 289 mOsmol/kg (280-301) 01/07/18 06:02 Whole Bld Lactic Acid 1.72 mmol/L (0.60-1.99) 01/04/18 20:35 Uric Acid 6.5 mg/dL (2.3-6.6) 01/06/18 06:01 Calcium 8.3 mg/dL (8.6-10.3) L 01/11/18 05:05 Phosphorus 4.1 mg/dL (2.5-5.0) 01/06/18 06:01 Magnesium 2.5 mg/dL (1.9-2.7) 01/07/18 06:02 Iron 43 ug/dL (27-139) 01/05/18 05:36 TIBC 254 ug/dL (250-450) 01/05/18 05:36 Iron Saturation 17 % (15-55) 01/05/18 05:36 Unsaturated IBC 211 ug/dL (118-369) 01/05/18 05:36 Ferritin 17 ng/mL (15-150) 01/05/18 05:36 Total Bilirubin 0.3 mg/dL (0.3-1.0) 01/09/18 04:54 AST 16 U/L (13-39) 01/09/18 04:54 ALT 8 U/L (7-52) 01/09/18 04:54 Alkaline Phosphatase 52 U/L (34-104) 01/09/18 04:54 Creatine Kinase 165 U/L (30-223) 01/04/18 20:35 Troponin I 0.02 ng/mL (0.01-0.05) 01/04/18 20:35 B-Natriuretic Peptide 197.0 pg/mL (5.0-100.0) H 01/04/18 20:35 Total Protein 5.9 gm/dL (6.0-8.3) L 01/09/18 04:54 Albumin 3.2 gm/dL (3.7-5.3) L 01/09/18 04:54 Globulin 2.7 gm/dL 01/09/18 04:54 Albumin/Globulin Ratio 1.2 (1.0-1.8) 01/09/18 04:54 Triglycerides 68 mg/dL (<150) 01/04/18 20:35 Cholesterol 115 mg/dL (<200) 01/04/18 20:35 LDL Cholesterol Direct 56 mg/dL (75-193) L 01/04/18 20:35 HDL Cholesterol 44 mg/dL (23-92) 01/04/18 20:35 Amylase 45 U/L (29-103) 01/06/18 06:01 Lipase 24 U/L (11-82) 01/06/18 06:01 Carcinoembryonic Ag 26.2 ng/mL (0.0-4.7) H 01/06/18 06:01 Vitamin B12 304 pg/mL (232-1245) 01/05/18 05:36 Folic Acid 14.5 ng/mL (>3.0) 01/05/18 05:36 TSH 4.28 uIU/ml (0.34-5.60) 01/05/18 05:36 Urine Source CLEAN C 01/04/18 20:20 Urine Color STRAW 01/04/18 20:20 Urine Clarity CLEAR (CLEAR) 01/04/18 20:20 Urine pH 5.5 (4.6 - 8.0) 01/04/18 20:20 Ur Specific [place] 1.015 (1.005-1.030) 01/04/18 20:20 Urine Protein NEGATIVE mg/dL (NEGATIVE) 04/25/18 20:20 Urine Glucose (UA) NEGATIVE mg/dL (NEGATIVE) 01/04/18 20:20 Urine Ketones NEGATIVE mg/dL (NEGATIVE) 01/04/18 20:20 Urine Blood NEGATIVE (NEGATIVE) 01/04/18 20:20 Urine Nitrate NEGATIVE (NEGATIVE) 01/04/18 20:20 Urine Bilirubin NEGATIVE (NEGATIVE) 01/04/18 20:20 Urine Urobilinogen 0.2 E.U./dL (0.2 - 1.0) 01/04/18 20:20 Ur Leukocyte Esterase TRACE (NEGATIVE) H 01/04/18 20:20 Urine RBC NONE SEEN /hpf (0-5) 01/04/18 20:20 Urine WBC 2-5 /hpf (0-5) 01/04/18 20:20 Ur Epithelial Cells NONE SEEN /lpf (FEW) 01/04/18 20:20 Urine Bacteria NONE SEEN /hpf (NONE SEEN) 01/04/18 20:20 Ur Random Sodium 99 mmol/L 01/06/18 05:25 Urine Creatinine 42.0 mg/dl (28.0-217.0) 01/06/18 05:25 Stool Occult Blood NEGATIVE (NEGATIVE) 01/07/18 17:25 Blood Type O POSITIVE 01/10/18 07:20 Antibody Screen POSITIVE 01/10/18 07:20 Antibody Identification Anti-C Anti-e 01/10/18 07:20 Antibody Identification Anti-C Anti-e 01/10/18 07:20 Crossmatch See Detail 01/10/18 07:20 - Physical Exam Vitals and I&O: Vital Signs Temp 97.8 F 01/12/18 07:50 Pulse 99 01/12/18 07:50 Resp 18 01/12/18 07:50 BP 104/42 01/12/18 07:50 Pulse Ox 99 01/12/18 07:50 Intake & Output 01/11/18 01/12/18 01/12/18 18:59 06:59 18:59 Intake Total 976 1000 Output Total 25 Balance 976 975 Weight (lbs) 63.73 kg Intake: Intake, IV Amount 976 1000 D5-0.45NS 1,000 ml @ 60 776 mls/hr IV .[id number] [facility] Rx #:[id number] D5-0.45NS 1,000 ml @ 70 1000 mls/hr IV .[id number] [facility] [place] Rx #:[id number] metroNIDAZOLE 500mg/NS 200 100mL 500 mg In Premix Fluid 1 bag @ 100 mls/hr IV Q8H [facility] [place] Rx#:[id number] Output: Urine 25 Other: Weight Source Bedscale Active Medications: Current Medications Albuterol/Ipratropium (Duoneb Neb) 3 ml HHN Q6HRT [facility] [place] Stop: 03/08/18 18:59 Last Admin: 01/12/18 07:04 Dose: 3 ml Amlodipine Besylate (Norvasc) 5 mg PO DAILY [facility] [place] Stop: 03/06/18 08:59 Last Admin: 01/11/18 10:20 Dose: Not Given Benzocaine/Menthol (Cepacol) 1 cooper MM Q4HR PRN PRN Reason: Sore Throat Stop: 03/10/18 15:50 Metronidazole 500 mg/ (Miscellaneous) 100 mls @ 100 mls/hr IV Q8H [facility] [place] Stop: 03/12/18 09:59 Last Admin: 01/12/18 02:10 Dose: 100 mls/hr Dextrose/Sodium Chloride (D5-0.45ns) 1,000 mls @ 70 mls/hr IV .[id number] [facility] [place] Stop: 03/12/18 12:56 Last Admin: 01/12/18 04:47 Dose: 70 mls/hr Ketorolac Tromethamine (Toradol) 15 mg IVP Q6HR PRN PRN Reason: Pain (Severe) Stop: 03/13/18 04:32 Last Admin: 01/12/18 04:47 Dose: 15 mg Levothyroxine Sodium (Synthroid) 0.025 mg PO QDAC [facility] [place] Stop: 03/06/18 07:29 Last Admin: 01/12/18 09:04 Dose: Not Given Losartan Potassium (Cozaar) 100 mg PO DAILY [facility] [place] Stop: 03/07/18 10:59 Last Admin: 01/11/18 10:21 Dose: Not Given Metronidazole (Flagyl) 500 mg PO BID [facility] [place] Stop: 01/17/18 16:59 Last Admin: 01/11/18 17:06 Dose: Not Given Miscellaneous (Vte Chemical Prophylaxis Screen/ Admission) 1 ea MC PRN PRN PRN Reason: PROTOCOL Stop: 03/06/18 08:14 Morphine Sulfate (Morphine) 2 mg IVP Q4HR PRN PRN Reason: Abdominal Pain Stop: 03/12/18 08:37 Last Admin: 01/11/18 23:11 Dose: 2 mg Oxybutynin Chloride (Ditropan) 5 mg PO BID [facility] [place] Stop: 03/06/18 16:59 Last Admin: 01/11/18 16:17 Dose: Not Given Pantoprazole Sodium (Protonix) 40 mg IVP DAILY [facility] [place] Stop: 03/06/18 08:59 Last Admin: 01/11/18 11:04 Dose: 40 mg Simethicone (Mylicon) 80 mg PO QID PRN PRN Reason: Gas Stop: 03/10/18 14:48 Last Admin: 01/09/18 15:47 Dose: 80 mg Sodium Bicarbonate (Sodium Bicarbonate) 650 mg PO TID ANTHONY PRN Reason: Protocol Stop: 03/07/18 15:14 Last Admin: 01/12/18 00:56 Dose: Not Given Tramadol HCl (Ultram) 50 mg PO Q6HR PRN PRN Reason: Pain (Moderate) Stop: 03/10/18 15:51 Last Admin: 01/09/18 21:43 Dose: 50 mg Zolpidem Tartrate (Ambien) 5 mg PO HS PRN PRN Reason: Insomnia Stop: 03/07/18 21:11 Last Admin: 01/10/18 21:58 Dose: 5 mg General: Alert HEENT: Atraumatic, PERRLA, EOMI, Mucous membr. moist/pink Neck: Supple, +2 carotid pulse wo bruit Cardiovascular: Regular rate Lungs: Clear to auscultation Abdomen: Soft, no Tender, no Distended Extremities: no Edema Neurological: Sensation intact Skin: no Rash Psych/Mental Status: Mood NL - Procedures Procedures: Procedures Procedure Code Date COLONOSCOPY AND BIOPSY 76127 01/04/18 EXCISION OF ASCENDING COLON, ENDO, DIAGN [id number] 01/04/18 PARTIAL REMOVAL OF COLON 17194 01/04/18 RESECTION OF RIGHT LARGE INTESTINE, OPEN APPROACH [id number] 01/04/18 Nutritional Asmnt/Malnutr-PDOC - Dietary Evaluation Malnutrition Findings (Please click <Entered> for more info): Nutritional Asmnt/Malnutrition Start: 01/05/18 14: 24 Text: Status: Complete Freq: Document 01/05/18 14:24 LCHENG (Rec: 01/05/18 14:55 [facility] [email or web address]) Nutritional Asmnt/Malnutrition Patient General Information Nutritional Screening High Risk Diagnosis dehydration, anemia, UTI, facial cellulitis Pertinent Medical Hx/Surgical Hx HTN, ESRD, thyroid disorder Subjective Information Pt seen lying in bed, awake and pleasant. Family at bedside feeding pt lunch. Family is able to speak little Tajik, denied pt has chewing/swallowing problem, stated pt eating ok. Pt has teeth noted. Per EMR, pt consumed 100% of breakfast in the morning. Current Diet Order/ Nutrition Support regular Pertinent Medications D5-0.9%ns, synthorid, protonix Pertinent Labs 01/05 cl 112, BUN 32, Cr 1.3, Ca 8.5 Nutritional Hx/Data Height 1.52 m Height (Calculated Centimeters) 152.4 Current Weight (lbs) 58.06 kg Weight (Calculated Kilograms) 58.1 Weight (Calculated Grams) 61308.8 [place] Body Weight 100 Body Mass Index (BMI) 25.0 Weight Status Approriate GI Symptoms GI Symptoms None Last BM not indicated Difficult in: None Skin Integrity/Comment: face reddened Current %PO Good (75-100%) Estimated Nutritional Goals BEE in Kcals: Using Current wt Calories/Kcals/Kg 25-30 Kcals Calculated 6945-5219 Protein: Using Current wt Protein g/k monitor renal labs Protein Calculated 58 Fluid: ml 1450-1740ml (1ml/kcal) Nutritional Problem 1. Problem Problem altered nutrition related labs Etiology electrolytes imbalance and hx of ESRD Signs/Symptoms: cl 112, BUN 32, Cr 1.3, Ca 8.5 Malnutrition Alert Protein-Calorie Malnutrition N/A Is there a minimum of two criteria No selected? Query Text:Check all the applicable criteria. A minimum of two criteria are recommended for diagnosis of either severe or non-severe malnutrition. Intervention/Recommendation Comments 1. Continue with regular diet as ordered. Assist pt with meals as needed. 2. If BUN/Cr not improved, will consider renal diet. 2. Monitor PO intake, wt, labs and skin integrity 3. F/U as moderate risk in 3-5 days, 01/08-01/10 Expected Outcomes/Goals Expected Outcomes/Goals 1. PO intake to meet at least 75% of nutritional needs. 2. Wt stability, skin to remain intact, labs to approach WNL.
[2018-01-12 09:36] LABS: % EOSINOPHILS 0.1 % (0.0-5.0); % MONOCYTES 3.3 % (2.0-10.0); % NEUTROPHILS 87.6 % (40.0-80.0); HEMATOCRIT 29.1 % (41.0-60); HEMOGLOBIN 9.8 gm/dL (12-16); LYMPHOCYTE ABSOLUTE 0.6 Th/cmm (1.5-3.0); MEAN CELL VOLUME 83.9 fl (81-100); MEAN CORPUSCULAR HEMOGLOBIN 28.2 pg (27.0-31.0); MEAN CORPUSCULAR HGB CONC 33.6 pg (28.0-36.0); MEAN PLATELET VOLUME 6.9 fl; MONOCYTE ABSOLUTE 0.2 Th/cmm (0.3-1.0); NEUTROPHILE ABSOLUTE 6.1 Th/cmm (1.8-8.0); PLATELET COUNT 161 Th/cmm (150-400); RED BLOOD COUNT 3.47 Mil/cmm (3.80-5.20); RED CELL DISTRIBUTION WIDTH 15.8 % (11.5-20.0); WHITE BLOOD COUNT 6.9 Th/cmm (4.8-10.8)
[2018-01-12 09:40] LABS: ALB/GLOB RATIO 1.1 (1.0-1.8); ALBUMIN 2.6 gm/dL (3.7-5.3); ALKALINE PHOSPHATASE 34 U/L (34-104); ANION GAP 14.4 (7.0-16.0); BILIRUBIN,TOTAL 0.4 mg/dL (0.3-1.0); BUN - UREA NITROGEN 23 mg/dL (7-25); CALCIUM SERUM 7.6 mg/dL (8.6-10.3); CARBON DIOXIDE 14.5 mEq/L (21.0-31.0); CHLORIDE 103 mEq/L (98-107); CREATININE - SERUM 2.9 mg/dL (0.6-1.2); GLUCOSE 158 mg/dL (70-105); POTASSIUM SERUM 3.9 mEq/L (3.5-5.1); SGOT 46 U/L (13-39); SGPT/ALT 35 U/L (7-52); SODIUM SERUM 128 mEq/L (136-145); TOTAL PROTEIN,SERUM 4.9 gm/dL (6.0-8.3)
[2018-01-12] MEDS ORDERED: Sodium Chloride 0.9% 500 ML IV ONE (11:29)
--- NOTE | 2018-01-12 14:04 | GI Progress Note ---
Subjective - Review of Systems Subjective: HAD SURGERY Objective - Results Result Diagrams: 01/12/18 09:20 01/12/18 09:20 Recent Labs: Laboratory Last Values WBC 6.9 Th/cmm (4.8-10.8) 01/12/18 09:20 RBC 3.47 Mil/cmm (3.80-5.20) L 01/12/18 09:20 Hgb 9.8 gm/dL (12-16) L 01/12/18 09:20 Hct 29.1 % (41.0-60) L 01/12/18 09:20 MCV 83.9 fl (81-100) 01/12/18 09:20 MCH 28.2 pg (27.0-31.0) 01/12/18 09:20 MCHC Differential 33.6 pg (28.0-36.0) 01/12/18 09:20 RDW 15.8 % (11.5-20.0) 01/12/18 09:20 Plt Count 161 Th/cmm (150-400) 01/12/18 09:20 MPV 6.9 fl 01/12/18 09:20 Neutrophils % 87.6 % (40.0-80.0) H 01/12/18 09:20 Lymphocytes % 9.0 % (20.0-50.0) L 01/12/18 09:20 Monocytes % 3.3 % (2.0-10.0) 01/12/18 09:20 Eosinophils % 0.1 % (0.0-5.0) 01/12/18 09:20 Basophils % 0.0 % (0.0-2.0) 01/12/18 09:20 Eos Smear Source URINE 01/06/18 05:25 Eos Smear Total Cells NONE SEEN (NONE SEEN) 01/06/18 05:25 PT 11.1 SECONDS (9.5-11.5) 01/09/18 04:54 INR 1.07 (0.5-1.4) 01/09/18 04:54 PTT (Actin FS) 25.1 SECONDS (26.0-38.0) L 01/09/18 04:54 Sodium 128 mEq/L (136-145) L 01/12/18 09:20 Potassium 3.9 mEq/L (3.5-5.1) 01/12/18 09:20 Chloride 103 mEq/L (98-107) 01/12/18 09:20 Carbon Dioxide 14.5 mEq/L (21.0-31.0) L 01/12/18 09:20 Anion Gap 14.4 (7.0-16.0) 01/12/18 09:20 BUN 23 mg/dL (7-25) 01/12/18 09:20 Creatinine 2.9 mg/dL (0.6-1.2) H 01/12/18 09:20 Est GFR ( Amer) TNP 01/12/18 09:20 Est GFR (Non-Af Amer) TNP 01/12/18 09:20 BUN/Creatinine Ratio 7.9 01/12/18 09:20 Glucose 158 mg/dL (70-105) H 01/12/18 09:20 Plasma/Ser Osmolality 289 mOsmol/kg (280-301) 01/07/18 06:02 Whole Bld Lactic Acid 1.72 mmol/L (0.60-1.99) 01/04/18 20:35 Uric Acid 6.5 mg/dL (2.3-6.6) 01/06/18 06:01 Calcium 7.6 mg/dL (8.6-10.3) L 01/12/18 09:20 Phosphorus 4.1 mg/dL (2.5-5.0) 01/06/18 06:01 Magnesium 2.5 mg/dL (1.9-2.7) 01/07/18 06:02 Iron 43 ug/dL (27-139) 01/05/18 05:36 TIBC 254 ug/dL (250-450) 01/05/18 05:36 Iron Saturation 17 % (15-55) 01/05/18 05:36 Unsaturated IBC 211 ug/dL (118-369) 01/05/18 05:36 Ferritin 17 ng/mL (15-150) 01/05/18 05:36 Total Bilirubin 0.4 mg/dL (0.3-1.0) 01/12/18 09:20 AST 46 U/L (13-39) H 01/12/18 09:20 ALT 35 U/L (7-52) 01/12/18 09:20 Alkaline Phosphatase 34 U/L (34-104) 01/12/18 09:20 Creatine Kinase 165 U/L (30-223) 01/04/18 20:35 Troponin I 0.02 ng/mL (0.01-0.05) 01/04/18 20:35 B-Natriuretic Peptide 197.0 pg/mL (5.0-100.0) H 01/04/18 20:35 Total Protein 4.9 gm/dL (6.0-8.3) L 01/12/18 09:20 Albumin 2.6 gm/dL (3.7-5.3) L 01/12/18 09:20 Globulin 2.3 gm/dL 01/12/18 09:20 Albumin/Globulin Ratio 1.1 (1.0-1.8) 01/12/18 09:20 Triglycerides 68 mg/dL (<150) 01/04/18 20:35 Cholesterol 115 mg/dL (<200) 01/04/18 20:35 LDL Cholesterol Direct 56 mg/dL (75-193) L 01/04/18 20:35 HDL Cholesterol 44 mg/dL (23-92) 01/04/18 20:35 Amylase 45 U/L (29-103) 01/06/18 06:01 Lipase 24 U/L (11-82) 01/06/18 06:01 Carcinoembryonic Ag 26.2 ng/mL (0.0-4.7) H 01/06/18 06:01 Vitamin B12 304 pg/mL (232-1245) 01/05/18 05:36 Folic Acid 14.5 ng/mL (>3.0) 01/05/18 05:36 TSH 4.28 uIU/ml (0.34-5.60) 01/05/18 05:36 Urine Source CLEAN C 01/04/18 20:20 Urine Color STRAW 01/04/18 20:20 Urine Clarity CLEAR (CLEAR) 01/04/18 20:20 Urine pH 5.5 (4.6 - 8.0) 01/04/18 20:20 Ur Specific [place] 1.015 (1.005-1.030) 01/04/18 20:20 Urine Protein NEGATIVE mg/dL (NEGATIVE) 01/04/18 20:20 Urine Glucose (UA) NEGATIVE mg/dL (NEGATIVE) 01/04/18 20:20 Urine Ketones NEGATIVE mg/dL (NEGATIVE) 01/04/18 20:20 Urine Blood NEGATIVE (NEGATIVE) 01/04/18 20:20 Urine Nitrate NEGATIVE (NEGATIVE) 01/04/18 20:20 Urine Bilirubin NEGATIVE (NEGATIVE) 01/04/18 20:20 Urine Urobilinogen 0.2 E.U./dL (0.2 - 1.0) 01/04/18 20:20 Ur Leukocyte Esterase TRACE (NEGATIVE) H 01/04/18 20:20 Urine RBC NONE SEEN /hpf (0-5) 01/04/18 20:20 Urine WBC 2-5 /hpf (0-5) 01/04/18 20:20 Ur Epithelial Cells NONE SEEN /lpf (FEW) 01/04/18 20:20 Urine Bacteria NONE SEEN /hpf (NONE SEEN) 01/04/18 20:20 Ur Random Sodium 99 mmol/L 01/06/18 05:25 Urine Creatinine 42.0 mg/dl (28.0-217.0) 01/06/18 05:25 Stool Occult Blood NEGATIVE (NEGATIVE) 01/07/18 17:25 Blood Type O POSITIVE 01/10/18 07:20 Antibody Screen POSITIVE 01/10/18 07:20 Antibody Identification Anti-C Anti-e 01/10/18 07:20 Antibody Identification Anti-C Anti-e 01/10/18 07:20 Crossmatch See Detail 01/10/18 07:20 - Physical Exam Vitals and I&O: Vital Signs Temp 97.8 F 01/12/18 07:50 Pulse 99 01/12/18 07:50 Resp 18 01/12/18 07:50 BP 104/42 01/12/18 07:50 Pulse Ox 99 01/12/18 07:50 Intake & Output 01/11/18 01/12/18 01/12/18 18:59 06:59 18:59 Intake Total 976 1100 Output Total 25 Balance 976 1075 Weight (lbs) 63.73 kg Intake: Intake, IV Amount 976 1100 D5-0.45NS 1,000 ml @ 60 776 mls/hr IV .[id number] [facility] Rx #:[id number] D5-0.45NS 1,000 ml @ 70 1000 mls/hr IV .[id number] [facility] Rx #:[id number] metroNIDAZOLE 500mg/NS 200 100 100mL 500 mg In Premix Fluid 1 bag @ 100 mls/hr IV Q8H [facility] Rx#:[id number] Output: Urine 25 Other: Weight Source Bedscale Active Medications: Current Medications Albuterol/Ipratropium (Duoneb Neb) 3 ml HHN Q6HRT [facility] Stop: 03/08/18 18:59 Last Admin: 01/12/18 07:04 Dose: 3 ml Amlodipine Besylate (Norvasc) 5 mg PO DAILY [facility] Stop: 03/06/18 08:59 Last Admin: 01/12/18 09:06 Dose: Not Given Benzocaine/Menthol (Cepacol) 1 cooper MM Q4HR PRN PRN Reason: Sore Throat Stop: 03/10/18 15:50 Metronidazole 500 mg/ (Miscellaneous) 100 mls @ 100 mls/hr IV Q8H [facility] Stop: 03/12/18 09:59 Last Admin: 01/12/18 09:05 Dose: 100 mls/hr Dextrose/Sodium Chloride (D5-0.45ns) 1,000 mls @ 70 mls/hr IV .[id number] [facility] Stop: 03/12/18 12:56 Last Admin: 01/12/18 04:47 Dose: 70 mls/hr Piperacillin Sod/Tazobactam (Sod 3.375 gm/ Dextrose) 50 mls @ 100 mls/hr IV Q8H [facility] Stop: 03/13/18 09:14 Last Admin: 01/12/18 10:46 Dose: 100 mls/hr Ketorolac Tromethamine (Toradol) 15 mg IVP Q6HR PRN PRN Reason: Pain (Severe) Stop: 03/13/18 04:32 Last Admin: 01/12/18 09:05 Dose: 15 mg Levothyroxine Sodium (Synthroid) 0.025 mg PO QDAC [facility] Stop: 03/06/18 07:29 Last Admin: 01/12/18 09:04 Dose: Not Given Losartan Potassium (Cozaar) 100 mg PO DAILY [facility] Stop: 03/07/18 10:59 Last Admin: 01/12/18 09:06 Dose: Not Given Metronidazole (Flagyl) 500 mg PO BID [facility] Stop: 01/17/18 16:59 Last Admin: 01/12/18 09:06 Dose: Not Given Miscellaneous (Vte Chemical Prophylaxis Screen/ Admission) 1 ea MC PRN PRN PRN Reason: PROTOCOL Stop: 03/06/18 08:14 Morphine Sulfate (Morphine) 2 mg IVP Q4HR PRN PRN Reason: Abdominal Pain Stop: 03/12/18 08:37 Last Admin: 01/11/18 23:11 Dose: 2 mg Oxybutynin Chloride (Ditropan) 5 mg PO BID [facility] Stop: 03/06/18 16:59 Last Admin: 01/12/18 09:06 Dose: Not Given Pantoprazole Sodium (Protonix) 40 mg IVP DAILY [facility] Stop: 03/06/18 08:59 Last Admin: 01/12/18 09:05 Dose: 40 mg Simethicone (Mylicon) 80 mg PO QID PRN PRN Reason: Gas Stop: 03/10/18 14:48 Last Admin: 01/09/18 15:47 Dose: 80 mg Sodium Bicarbonate (Sodium Bicarbonate) 650 mg PO TID [facility] PRN Reason: Protocol Stop: 03/07/18 15:14 Last Admin: 01/12/18 13:37 Dose: Not Given Tramadol HCl (Ultram) 50 mg PO Q6HR PRN PRN Reason: Pain (Moderate) Stop: 03/10/18 15:51 Last Admin: 01/09/18 21:43 Dose: 50 mg Zolpidem Tartrate (Ambien) 5 mg PO HS PRN PRN Reason: Insomnia Stop: 03/07/18 21:11 Last Admin: 01/10/18 21:58 Dose: 5 mg General: Alert HEENT: Atraumatic, PERRLA, EOMI, Mucous membr. moist/pink Neck: Supple, +2 carotid pulse wo bruit Cardiovascular: Regular rate Lungs: Clear to auscultation Abdomen: Soft, no Tender, no Distended Extremities: no Edema Neurological: Sensation intact Skin: no Rash Psych/Mental Status: Mood NL - Procedures Procedures: Procedures Procedure Code Date COLONOSCOPY AND BIOPSY 35177 01/04/18 EXCISION OF ASCENDING COLON, ENDO, DIAGN [id number] 01/04/18 PARTIAL REMOVAL OF COLON 85226 01/04/18 RESECTION OF RIGHT LARGE INTESTINE, OPEN APPROACH [id number] 01/04/18 Assessment/Plan - Assessment Assessment: 82 YO FEMALE WITH COLON MASS S/P SURGERY 1.CONT POST OP CARE
--- NOTE | 2018-01-12 20:58 | General Progress Note ---
Subjective - Review of Systems Service Date: 01/12/18 Subjective: patient seen and examined s/p right hemicolectomy and removal of cecal mass patient doing fine c/o post op pain Objective - Results Result Diagrams: 01/12/18 09:20 01/12/18 09:20 Recent Labs: Laboratory Last Values WBC 6.9 Th/cmm (4.8-10.8) 01/12/18 09:20 RBC 3.47 Mil/cmm (3.80-5.20) L 01/12/18 09:20 Hgb 9.8 gm/dL (12-16) L 01/12/18 09:20 Hct 29.1 % (41.0-60) L 01/12/18 09:20 MCV 83.9 fl (81-100) 01/12/18 09:20 MCH 28.2 pg (27.0-31.0) 01/12/18 09:20 MCHC Differential 33.6 pg (28.0-36.0) 01/12/18 09:20 RDW 15.8 % (11.5-20.0) 01/12/18 09:20 Plt Count 161 Th/cmm (150-400) 01/12/18 09:20 MPV 6.9 fl 01/12/18 09:20 Neutrophils % 87.6 % (40.0-80.0) H 01/12/18 09:20 Lymphocytes % 9.0 % (20.0-50.0) L 01/12/18 09:20 Monocytes % 3.3 % (2.0-10.0) 01/12/18 09:20 Eosinophils % 0.1 % (0.0-5.0) 01/12/18 09:20 Basophils % 0.0 % (0.0-2.0) 01/12/18 09:20 Eos Smear Source URINE 01/06/18 05:25 Eos Smear Total Cells NONE SEEN (NONE SEEN) 01/06/18 05:25 PT 11.1 SECONDS (9.5-11.5) 01/09/18 04:54 INR 1.07 (0.5-1.4) 01/09/18 04:54 PTT (Actin FS) 25.1 SECONDS (26.0-38.0) L 01/09/18 04:54 Sodium 128 mEq/L (136-145) L 01/12/18 09:20 Potassium 3.9 mEq/L (3.5-5.1) 01/12/18 09:20 Chloride 103 mEq/L (98-107) 01/12/18 09:20 Carbon Dioxide 14.5 mEq/L (21.0-31.0) L 01/12/18 09:20 Anion Gap 14.4 (7.0-16.0) 01/12/18 09:20 BUN 23 mg/dL (7-25) 01/12/18 09:20 Creatinine 2.9 mg/dL (0.6-1.2) H 01/12/18 09:20 Est GFR ( Amer) TNP 01/12/18 09:20 Est GFR (Non-Af Amer) TNP 01/12/18 09:20 BUN/Creatinine Ratio 7.9 01/12/18 09:20 Glucose 158 mg/dL (70-105) H 01/12/18 09:20 Plasma/Ser Osmolality 289 mOsmol/kg (280-301) 01/07/18 06:02 Whole Bld Lactic Acid 1.72 mmol/L (0.60-1.99) 01/04/18 20:35 Uric Acid 6.5 mg/dL (2.3-6.6) 01/06/18 06:01 Calcium 7.6 mg/dL (8.6-10.3) L 01/12/18 09:20 Phosphorus 4.1 mg/dL (2.5-5.0) 01/06/18 06:01 Magnesium 2.5 mg/dL (1.9-2.7) 01/07/18 06:02 Iron 43 ug/dL (27-139) 01/05/18 05:36 TIBC 254 ug/dL (250-450) 01/05/18 05:36 Iron Saturation 17 % (15-55) 01/05/18 05:36 Unsaturated IBC 211 ug/dL (118-369) 01/05/18 05:36 Ferritin 17 ng/mL (15-150) 01/05/18 05:36 Total Bilirubin 0.4 mg/dL (0.3-1.0) 01/12/18 09:20 AST 46 U/L (13-39) H 01/12/18 09:20 ALT 35 U/L (7-52) 01/12/18 09:20 Alkaline Phosphatase 34 U/L (34-104) 01/12/18 09:20 Creatine Kinase 165 U/L (30-223) 01/04/18 20:35 Troponin I 0.02 ng/mL (0.01-0.05) 01/04/18 20:35 B-Natriuretic Peptide 197.0 pg/mL (5.0-100.0) H 01/04/18 20:35 Total Protein 4.9 gm/dL (6.0-8.3) L 01/12/18 09:20 Albumin 2.6 gm/dL (3.7-5.3) L 01/12/18 09:20 Globulin 2.3 gm/dL 01/12/18 09:20 Albumin/Globulin Ratio 1.1 (1.0-1.8) 01/12/18 09:20 Triglycerides 68 mg/dL (<150) 01/04/18 20:35 Cholesterol 115 mg/dL (<200) 01/04/18 20:35 LDL Cholesterol Direct 56 mg/dL (75-193) L 01/04/18 20:35 HDL Cholesterol 44 mg/dL (23-92) 01/04/18 20:35 Amylase 45 U/L (29-103) 01/06/18 06:01 Lipase 24 U/L (11-82) 01/06/18 06:01 Carcinoembryonic Ag 26.2 ng/mL (0.0-4.7) H 01/06/18 06:01 Vitamin B12 304 pg/mL (232-1245) 01/05/18 05:36 Folic Acid 14.5 ng/mL (>3.0) 01/05/18 05:36 TSH 4.28 uIU/ml (0.34-5.60) 01/05/18 05:36 Urine Source CLEAN C 01/04/18 20:20 Urine Color STRAW 01/04/18 20:20 Urine Clarity CLEAR (CLEAR) 01/04/18 20:20 Urine pH 5.5 (4.6 - 8.0) 01/04/18 20:20 Ur Specific [place] 1.015 (1.005-1.030) 01/04/18 20:20 Urine Protein NEGATIVE mg/dL (NEGATIVE) 01/04/18 20:20 Urine Glucose (UA) NEGATIVE mg/dL (NEGATIVE) 01/04/18 20:20 Urine Ketones NEGATIVE mg/dL (NEGATIVE) 01/04/18 20:20 Urine Blood NEGATIVE (NEGATIVE) 01/04/18 20:20 Urine Nitrate NEGATIVE (NEGATIVE) 01/04/18 20:20 Urine Bilirubin NEGATIVE (NEGATIVE) 01/04/18 20:20 Urine Urobilinogen 0.2 E.U./dL (0.2 - 1.0) 01/04/18 20:20 Ur Leukocyte Esterase TRACE (NEGATIVE) H 01/04/18 20:20 Urine RBC NONE SEEN /hpf (0-5) 01/04/18 20:20 Urine WBC 2-5 /hpf (0-5) 01/04/18 20:20 Ur Epithelial Cells NONE SEEN /lpf (FEW) 01/04/18 20:20 Urine Bacteria NONE SEEN /hpf (NONE SEEN) 01/04/18 20:20 Ur Random Sodium 99 mmol/L 01/06/18 05:25 Urine Creatinine 42.0 mg/dl (28.0-217.0) 01/06/18 05:25 Stool Occult Blood NEGATIVE (NEGATIVE) 01/07/18 17:25 Blood Type O POSITIVE 01/10/18 07:20 Antibody Screen POSITIVE 01/10/18 07:20 Antibody Identification Anti-C Anti-e 01/10/18 07:20 Antibody Identification Anti-C Anti-e 01/10/18 07:20 Crossmatch See Detail 01/10/18 07:20 - Physical Exam Vitals and I&O: Vital Signs Temp 98.4 F 01/12/18 16:00 Pulse 103 01/12/18 19:14 Resp 18 01/12/18 19:14 BP 90/49 01/12/18 16:00 Pulse Ox 98 01/12/18 19:14 Intake & Output 01/12/18 01/12/18 01/13/18 06:59 18:59 06:59 Intake Total 1100 1803.167 Output Total 25 110 Balance 1075 1693.167 Weight (lbs) 63.73 kg 63.639 kg Intake: Intake, IV Amount 1100 1753.167 D5-0.45NS 1,000 ml @ 70 1000 953.167 mls/hr IV .[id number] [facility] Rx #:[id number] Piperacillin Sodium/ 100 Tazobact 3.375 gm In Dextrose 5% 50 ml @ 100 mls/hr IV Q8H [facility] Rx#: [id number] metroNIDAZOLE 500mg/NS 100 200.000 100mL 500 mg In Premix Fluid 1 bag @ 100 mls/hr IV Q8H [facility] Rx#:[id number] Oral 50 Output: Urine 25 110 Other: # Bowel Movements 0 Weight Source Bedscale Bedscale Active Medications: Current Medications Albuterol/Ipratropium (Duoneb Neb) 3 ml HHN Q6HRT [facility] Stop: 03/08/18 18:59 Last Admin: 01/12/18 19:14 Dose: 3 ml Amlodipine Besylate (Norvasc) 5 mg PO DAILY [facility] Stop: 03/06/18 08:59 Last Admin: 01/12/18 09:06 Dose: Not Given Benzocaine/Menthol (Cepacol) 1 cooper MM Q4HR PRN PRN Reason: Sore Throat Stop: 03/10/18 15:50 Metronidazole 500 mg/ (Miscellaneous) 100 mls @ 100 mls/hr IV Q8H [facility] Stop: 03/12/18 09:59 Last Infusion: 01/12/18 18:24 Dose: Infused Dextrose/Sodium Chloride (D5-0.45ns) 1,000 mls @ 70 mls/hr IV .[id number] [facility] Stop: 03/12/18 12:56 Last Infusion: 01/12/18 18:24 Dose: 70 mls/hr Piperacillin Sod/Tazobactam (Sod 3.375 gm/ Dextrose) 50 mls @ 100 mls/hr IV Q8H [facility] Stop: 03/13/18 09:14 Last Infusion: 01/12/18 18:00 Dose: Infused Ketorolac Tromethamine (Toradol) 15 mg IVP Q6HR PRN PRN Reason: Pain (Severe) Stop: 03/13/18 04:32 Last Admin: 01/12/18 17:01 Dose: 15 mg Levothyroxine Sodium (Synthroid) 0.025 mg PO QDAC [facility] Stop: 03/06/18 07:29 Last Admin: 01/12/18 09:04 Dose: Not Given Losartan Potassium (Cozaar) 100 mg PO DAILY [facility] Stop: 03/07/18 10:59 Last Admin: 01/12/18 09:06 Dose: Not Given Metronidazole (Flagyl) 500 mg PO BID [facility] Stop: 01/17/18 16:59 Last Admin: 01/12/18 17:16 Dose: Not Given Miscellaneous (Vte Chemical Prophylaxis Screen/ Admission) 1 ea [facility] PRN PRN PRN Reason: PROTOCOL Stop: 03/06/18 08:14 Morphine Sulfate (Morphine) 2 mg IVP Q4HR PRN PRN Reason: Abdominal Pain Stop: 03/12/18 08:37 Last Admin: 01/11/18 23:11 Dose: 2 mg Oxybutynin Chloride (Ditropan) 5 mg PO BID [facility] Stop: 03/06/18 16:59 Last Admin: 01/12/18 17:16 Dose: Not Given Pantoprazole Sodium (Protonix) 40 mg IVP DAILY [facility] Stop: 03/06/18 08:59 Last Admin: 01/12/18 09:05 Dose: 40 mg Simethicone (Mylicon) 80 mg PO QID PRN PRN Reason: Gas Stop: 03/10/18 14:48 Last Admin: 01/09/18 15:47 Dose: 80 mg Sodium Bicarbonate (Sodium Bicarbonate) 650 mg PO TID [facility] PRN Reason: Protocol Stop: 03/07/18 15:14 Last Admin: 01/12/18 20:54 Dose: Not Given Tramadol HCl (Ultram) 50 mg PO Q6HR PRN PRN Reason: Pain (Moderate) Stop: 03/10/18 15:51 Last Admin: 01/09/18 21:43 Dose: 50 mg Zolpidem Tartrate (Ambien) 5 mg PO HS PRN PRN Reason: Insomnia Stop: 03/07/18 21:11 Last Admin: 01/10/18 21:58 Dose: 5 mg General: Alert HEENT: Mucous membr. moist/pink Cardiovascular: Regular rate Lungs: Clear to auscultation Abdomen: Soft, no Tender, no Distended Extremities: no Edema Neurological: Sensation intact Skin: no Rash Psych/Mental Status: Mood NL - Procedures Procedures: Procedures Procedure Code Date COLONOSCOPY AND BIOPSY 23746 01/04/18 EXCISION OF ASCENDING COLON, ENDO, DIAGN [id number] 01/04/18 PARTIAL REMOVAL OF COLON 03150 01/04/18 RESECTION OF RIGHT LARGE INTESTINE, OPEN APPROACH [id number] 01/04/18 Assessment/Plan - Assessment Assessment: 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 Lung nodule most likely metastatic disease Chronic hyponatremia Acute on CKD better Chronic constipation HTN CAD UTI SEPTIC SHOCK - Plan Plan: IV fluids resuscitation Ice chips per surgery Toradol prn Morphine prn Follow up on colon mass pathology I updated family re: plan of care they understood well PRBC for pre op Zosyn SNIF DC plan discussed with family they agreed Nutritional Asmnt/Malnutr-PDOC - Dietary Evaluation Malnutrition Findings (Please click <Entered> for more info): Nutritional Asmnt/Malnutrition Start: 01/05/18 14: 24 Text: Status: Complete Freq: Document 01/05/18 14:24 DANIEL (Rec: 01/05/18 14:55 [facility] Nutritional Asmnt/Malnutrition Patient General Information Nutritional Screening High Risk Diagnosis dehydration, anemia, UTI, facial cellulitis Pertinent Medical Hx/Surgical Hx HTN, ESRD, thyroid disorder Subjective Information Pt seen lying in bed, awake and pleasant. Family at bedside feeding pt lunch. Family is able to speak little Nepali, denied pt has chewing/swallowing problem, stated pt eating ok. Pt has teeth noted. Per EMR, pt consumed 100% of breakfast in the morning. Current Diet Order/ Nutrition Support regular Pertinent Medications D5-0.9%ns, synthorid, protonix Pertinent Labs 01/05 cl 112, BUN 32, Cr 1.3, Ca 8.5 Nutritional Hx/Data Height 1.52 m Height (Calculated Centimeters) 152.4 Current Weight (lbs) 58.06 kg Weight (Calculated Kilograms) 58.1 Weight (Calculated Grams) 18846.8 [place] Body Weight 100 Body Mass Index (BMI) 25.0 Weight Status Approriate GI Symptoms GI Symptoms None Last BM not indicated Difficult in: None Skin Integrity/Comment: face reddened Current %PO Good (75-100%) Estimated Nutritional Goals BEE in Kcals: Using Current wt Calories/Kcals/Kg 25-30 Kcals Calculated 5001-0447 Protein: Using Current wt Protein g/k monitor renal labs Protein Calculated 58 Fluid: ml 1450-1740ml (1ml/kcal) Nutritional Problem 1. Problem Problem altered nutrition related labs Etiology electrolytes imbalance and hx of ESRD Signs/Symptoms: cl 112, BUN 32, Cr 1.3, Ca 8.5 Malnutrition Alert Protein-Calorie Malnutrition N/A Is there a minimum of two criteria No selected? Query Text:Check all the applicable criteria. A minimum of two criteria are recommended for diagnosis of either severe or non-severe malnutrition. Intervention/Recommendation Comments 1. Continue with regular diet as ordered. Assist pt with meals as needed. 2. If BUN/Cr not improved, will consider renal diet. 2. Monitor PO intake, wt, labs and skin integrity 3. F/U as moderate risk in 3-5 days, 01/08-01/10 Expected Outcomes/Goals Expected Outcomes/Goals 1. PO intake to meet at least 75% of nutritional needs. 2. Wt stability, skin to remain intact, labs to approach WNL.
[2018-01-13] MEDS: Albuterol/Ipratropium Neb 3 ML AERS HHN SCH ×4 (00:53→18:58)
--- NOTE | 2018-01-13 01:49 | Progress Notes ---
DATE: 01/12/2018 PROBLEM LIST: 1. Pulmonary nodule. 2. Status post abdominal surgery with a colon lesion resected. SYMPTOMS: Nil. The patient is awake. Complains of some pain at the surgical site, but otherwise no specific new symptomatology. No coughing or chest pain. PHYSICAL EXAMINATION: VITAL SIGNS: T-max 99.6, heart rate is 90s, blood pressure 104/44, saturation 99% on 3 liters per minute. NECK: Veins not visualized. CHEST: Shows diminished air entry with occasional rhonchi. HEART: Regular. ABDOMEN: Slightly tender with surgical scar. EXTREMITIES: Shows no peripheral edema. LABORATORY DATA: White count of 6.9, hemoglobin 9.8. The patient's sodium is 128 and creatinine is slightly up 2.9 compared to few days ago. ASSESSMENT: 1. The patient clinically and respiratory burks appears to be stable, improving, status post colon surgery. 2. Pulmonary nodule, most likely related to metastasis, most likely status post abdominal surgery. 3. Electrolyte imbalance. PLANS AND SUGGESTIONS: We will continue current respiratory care, inhalation treatment. Recheck the electrolytes, etc. and go from there. JOB# [id number]
[2018-01-13] MEDS: metroNIDAZOLE 500mg/NS 100mL 500 MG in Premix Fluid 1 BAG IV SCH ×3 (02:31→17:01)
[2018-01-13] MEDS: Levothyroxine 0.025 Mg Tab PO SCH (06:35)
--- NOTE | 2018-01-13 11:12 | General Progress Note ---
Subjective - Review of Systems Service Date: 01/13/18 Events since last encounter: POD#2 ABDOMEN, FLAT AND SOFT NO FLATUS/BM YET LABS OK STAY ON ICE CHIPS Objective - Results Result Diagrams: 01/12/18 09:20 01/12/18 09:20 Recent Labs: Laboratory Last Values WBC 6.9 Th/cmm (4.8-10.8) 01/12/18 09:20 RBC 3.47 Mil/cmm (3.80-5.20) L 01/12/18 09:20 Hgb 9.8 gm/dL (12-16) L 01/12/18 09:20 Hct 29.1 % (41.0-60) L 01/12/18 09:20 MCV 83.9 fl (81-100) 01/12/18 09:20 MCH 28.2 pg (27.0-31.0) 01/12/18 09:20 MCHC Differential 33.6 pg (28.0-36.0) 01/12/18 09:20 RDW 15.8 % (11.5-20.0) 01/12/18 09:20 Plt Count 161 Th/cmm (150-400) 01/12/18 09:20 MPV 6.9 fl 01/12/18 09:20 Neutrophils % 87.6 % (40.0-80.0) H 01/12/18 09:20 Lymphocytes % 9.0 % (20.0-50.0) L 01/12/18 09:20 Monocytes % 3.3 % (2.0-10.0) 01/12/18 09:20 Eosinophils % 0.1 % (0.0-5.0) 01/12/18 09:20 Basophils % 0.0 % (0.0-2.0) 01/12/18 09:20 Eos Smear Source URINE 01/06/18 05:25 Eos Smear Total Cells NONE SEEN (NONE SEEN) 01/06/18 05:25 PT 11.1 SECONDS (9.5-11.5) 01/09/18 04:54 INR 1.07 (0.5-1.4) 01/09/18 04:54 PTT (Actin FS) 25.1 SECONDS (26.0-38.0) L 01/09/18 04:54 Sodium 128 mEq/L (136-145) L 01/12/18 09:20 Potassium 3.9 mEq/L (3.5-5.1) 01/12/18 09:20 Chloride 103 mEq/L (98-107) 01/12/18 09:20 Carbon Dioxide 14.5 mEq/L (21.0-31.0) L 01/12/18 09:20 Anion Gap 14.4 (7.0-16.0) 01/12/18 09:20 BUN 23 mg/dL (7-25) 01/12/18 09:20 Creatinine 2.9 mg/dL (0.6-1.2) H 01/12/18 09:20 Est GFR ( Amer) TNP 01/12/18 09:20 Est GFR (Non-Af Amer) TNP 01/12/18 09:20 BUN/Creatinine Ratio 7.9 01/12/18 09:20 Glucose 158 mg/dL (70-105) H 01/12/18 09:20 Plasma/Ser Osmolality 289 mOsmol/kg (280-301) 01/07/18 06:02 Whole Bld Lactic Acid 1.72 mmol/L (0.60-1.99) 01/04/18 20:35 Uric Acid 6.5 mg/dL (2.3-6.6) 01/06/18 06:01 Calcium 7.6 mg/dL (8.6-10.3) L 01/12/18 09:20 Phosphorus 4.1 mg/dL (2.5-5.0) 01/06/18 06:01 Magnesium 2.5 mg/dL (1.9-2.7) 01/07/18 06:02 Iron 43 ug/dL (27-139) 01/05/18 05:36 TIBC 254 ug/dL (250-450) 01/05/18 05:36 Iron Saturation 17 % (15-55) 01/05/18 05:36 Unsaturated IBC 211 ug/dL (118-369) 01/05/18 05:36 Ferritin 17 ng/mL (15-150) 01/05/18 05:36 Total Bilirubin 0.4 mg/dL (0.3-1.0) 01/12/18 09:20 AST 46 U/L (13-39) H 01/12/18 09:20 ALT 35 U/L (7-52) 01/12/18 09:20 Alkaline Phosphatase 34 U/L (34-104) 01/12/18 09:20 Creatine Kinase 165 U/L (30-223) 01/04/18 20:35 Troponin I 0.02 ng/mL (0.01-0.05) 01/04/18 20:35 B-Natriuretic Peptide 197.0 pg/mL (5.0-100.0) H 01/04/18 20:35 Total Protein 4.9 gm/dL (6.0-8.3) L 01/12/18 09:20 Albumin 2.6 gm/dL (3.7-5.3) L 01/12/18 09:20 Globulin 2.3 gm/dL 01/12/18 09:20 Albumin/Globulin Ratio 1.1 (1.0-1.8) 01/12/18 09:20 Triglycerides 68 mg/dL (<150) 01/04/18 20:35 Cholesterol 115 mg/dL (<200) 01/04/18 20:35 LDL Cholesterol Direct 56 mg/dL (75-193) L 01/04/18 20:35 HDL Cholesterol 44 mg/dL (23-92) 01/04/18 20:35 Amylase 45 U/L (29-103) 01/06/18 06:01 Lipase 24 U/L (11-82) 01/06/18 06:01 Carcinoembryonic Ag 26.2 ng/mL (0.0-4.7) H 01/06/18 06:01 Vitamin B12 304 pg/mL (232-1245) 01/05/18 05:36 Folic Acid 14.5 ng/mL (>3.0) 01/05/18 05:36 TSH 4.28 uIU/ml (0.34-5.60) 01/05/18 05:36 Urine Source CLEAN C 01/04/18 20:20 Urine Color STRAW 01/04/18 20:20 Urine Clarity CLEAR (CLEAR) 01/04/18 20:20 Urine pH 5.5 (4.6 - 8.0) 01/04/18 20:20 Ur Specific [place] 1.015 (1.005-1.030) 01/04/18 20:20 Urine Protein NEGATIVE mg/dL (NEGATIVE) 01/04/18 20:20 Urine Glucose (UA) NEGATIVE mg/dL (NEGATIVE) 01/04/18 20:20 Urine Ketones NEGATIVE mg/dL (NEGATIVE) 01/04/18 20:20 Urine Blood NEGATIVE (NEGATIVE) 01/04/18 20:20 Urine Nitrate NEGATIVE (NEGATIVE) 01/04/18 20:20 Urine Bilirubin NEGATIVE (NEGATIVE) 01/04/18 20:20 Urine Urobilinogen 0.2 E.U./dL (0.2 - 1.0) 01/04/18 20:20 Ur Leukocyte Esterase TRACE (NEGATIVE) H 01/04/18 20:20 Urine RBC NONE SEEN /hpf (0-5) 01/04/18 20:20 Urine WBC 2-5 /hpf (0-5) 01/04/18 20:20 Ur Epithelial Cells NONE SEEN /lpf (FEW) 01/04/18 20:20 Urine Bacteria NONE SEEN /hpf (NONE SEEN) 01/04/18 20:20 Ur Random Sodium 99 mmol/L 01/06/18 05:25 Urine Creatinine 42.0 mg/dl (28.0-217.0) 01/06/18 05:25 Stool Occult Blood NEGATIVE (NEGATIVE) 01/07/18 17:25 Blood Type O POSITIVE 01/10/18 07:20 Antibody Screen POSITIVE 01/10/18 07:20 Antibody Identification Anti-C Anti-e 01/10/18 07:20 Antibody Identification Anti-C Anti-e 01/10/18 07:20 Crossmatch See Detail 01/10/18 07:20 - Physical Exam Vitals and I&O: Vital Signs Temp 97.9 F 01/13/18 07:54 Pulse 104 01/13/18 07:54 Resp 19 01/13/18 07:54 BP 112/40 01/13/18 07:54 Pulse Ox 99 01/13/18 07:54 Intake & Output 01/12/18 01/13/18 01/13/18 18:59 06:59 18:59 Intake Total 1803.167 150 Output Total 110 150 Balance 1693.167 0 Weight (lbs) 63.639 kg 63.73 kg Intake: Intake, IV Amount 1753.167 150 D5-0.45NS 1,000 ml @ 70 953.167 mls/hr IV .[id number] [facility] Rx #:[id number] Piperacillin Sodium/ 100 50 Tazobact 3.375 gm In Dextrose 5% 50 ml @ 100 mls/hr IV Q8H [facility] Rx#: [id number] metroNIDAZOLE 500mg/NS 200.000 100 100mL 500 mg In Premix Fluid 1 bag @ 100 mls/hr IV Q8H [facility] Rx#:[id number] Oral 50 0 Output: Urine 110 150 Other: # Bowel Movements 0 0 Weight Source Bedscale Bedscale Active Medications: Current Medications Albuterol/Ipratropium (Duoneb Neb) 3 ml HHN Q6HRT [facility] Stop: 03/08/18 18:59 Last Admin: 01/13/18 07:20 Dose: 3 ml Amlodipine Besylate (Norvasc) 5 mg PO DAILY [facility] Stop: 03/06/18 08:59 Last Admin: 01/13/18 10:09 Dose: Not Given Benzocaine/Menthol (Cepacol) 1 cooper MM Q4HR PRN PRN Reason: Sore Throat Stop: 03/10/18 15:50 Metronidazole 500 mg/ (Miscellaneous) 100 mls @ 100 mls/hr IV Q8H [facility] Stop: 03/12/18 09:59 Last Admin: 01/13/18 10:08 Dose: 100 mls/hr Dextrose/Sodium Chloride (D5-0.45ns) 1,000 mls @ 70 mls/hr IV .[id number] [facility] Stop: 03/12/18 12:56 Last Infusion: 01/12/18 18:24 Dose: 70 mls/hr Piperacillin Sod/Tazobactam (Sod 3.375 gm/ Dextrose) 50 mls @ 100 mls/hr IV Q8H [facility] Stop: 03/13/18 09:14 Last Admin: 01/13/18 10:08 Dose: 100 mls/hr Ketorolac Tromethamine (Toradol) 15 mg IVP Q6HR PRN PRN Reason: Pain (Severe) Stop: 03/13/18 04:32 Last Admin: 01/13/18 10:09 Dose: 15 mg Levothyroxine Sodium (Synthroid) 0.025 mg PO QDAC [facility] Stop: 03/06/18 07:29 Last Admin: 01/13/18 06:35 Dose: Not Given Losartan Potassium (Cozaar) 100 mg PO DAILY [facility] Stop: 03/07/18 10:59 Last Admin: 01/13/18 10:09 Dose: Not Given Metronidazole (Flagyl) 500 mg PO BID [facility] Stop: 01/17/18 16:59 Last Admin: 01/13/18 10:09 Dose: Not Given Miscellaneous (Vte Chemical Prophylaxis Screen/ Admission) 1 ea MC PRN PRN PRN Reason: PROTOCOL Stop: 03/06/18 08:14 Morphine Sulfate (Morphine) 2 mg IVP Q4HR PRN PRN Reason: Abdominal Pain Stop: 03/12/18 08:37 Last Admin: 01/11/18 23:11 Dose: 2 mg Oxybutynin Chloride (Ditropan) 5 mg PO BID [facility] Stop: 03/06/18 16:59 Last Admin: 01/13/18 10:09 Dose: Not Given Pantoprazole Sodium (Protonix) 40 mg IVP DAILY [facility] Stop: 03/06/18 08:59 Last Admin: 01/13/18 10:09 Dose: 40 mg Simethicone (Mylicon) 80 mg PO QID PRN PRN Reason: Gas Stop: 03/10/18 14:48 Last Admin: 01/09/18 15:47 Dose: 80 mg Sodium Bicarbonate (Sodium Bicarbonate) 650 mg PO TID ANTHONY PRN Reason: Protocol Stop: 03/07/18 15:14 Last Admin: 01/12/18 20:54 Dose: Not Given Tramadol HCl (Ultram) 50 mg PO Q6HR PRN PRN Reason: Pain (Moderate) Stop: 03/10/18 15:51 Last Admin: 01/09/18 21:43 Dose: 50 mg Zolpidem Tartrate (Ambien) 5 mg PO HS PRN PRN Reason: Insomnia Stop: 03/07/18 21:11 Last Admin: 01/10/18 21:58 Dose: 5 mg General: Alert HEENT: Mucous membr. moist/pink Neck: Supple, +2 carotid pulse wo bruit Cardiovascular: Regular rate Lungs: Clear to auscultation Abdomen: Soft, no Tender, no Distended Extremities: no Edema Neurological: Sensation intact Skin: no Rash Psych/Mental Status: Mood NL - Procedures Procedures: Procedures Procedure Code Date COLONOSCOPY AND BIOPSY 07705 01/04/18 EXCISION OF ASCENDING COLON, ENDO, DIAGN [id number] 01/04/18 PARTIAL REMOVAL OF COLON 62991 01/04/18 RESECTION OF RIGHT LARGE INTESTINE, OPEN APPROACH [id number] 01/04/18 Nutritional Asmnt/Malnutr-PDOC - Dietary Evaluation Malnutrition Findings (Please click <Entered> for more info): Nutritional Asmnt/Malnutrition Start: 01/05/18 14: 24 Text: Status: Complete Freq: Document 01/05/18 14:24 CLARY (Rec: 01/05/18 14:55 LCHENG [email or web address]) Nutritional Asmnt/Malnutrition Patient General Information Nutritional Screening High Risk Diagnosis dehydration, anemia, UTI, facial cellulitis Pertinent Medical Hx/Surgical Hx HTN, ESRD, thyroid disorder Subjective Information Pt seen lying in bed, awake and pleasant. Family at bedside feeding pt lunch. Family is able to speak little Qatari, denied pt has chewing/swallowing problem, stated pt eating ok. Pt has teeth noted. Per EMR, pt consumed 100% of breakfast in the morning. Current Diet Order/ Nutrition Support regular Pertinent Medications D5-0.9%ns, synthorid, protonix Pertinent Labs 01/05 cl 112, BUN 32, Cr 1.3, Ca 8.5 Nutritional Hx/Data Height 1.52 m Height (Calculated Centimeters) 152.4 Current Weight (lbs) 58.06 kg Weight (Calculated Kilograms) 58.1 Weight (Calculated Grams) 58188.8 [place] Body Weight 100 Body Mass Index (BMI) 25.0 Weight Status Approriate GI Symptoms GI Symptoms None Last BM not indicated Difficult in: None Skin Integrity/Comment: face reddened Current %PO Good (75-100%) Estimated Nutritional Goals BEE in Kcals: Using Current wt Calories/Kcals/Kg 25-30 Kcals Calculated 7687-4355 Protein: Using Current wt Protein g/k monitor renal labs Protein Calculated 58 Fluid: ml 1450-1740ml (1ml/kcal) Nutritional Problem 1. Problem Problem altered nutrition related labs Etiology electrolytes imbalance and hx of ESRD Signs/Symptoms: cl 112, BUN 32, Cr 1.3, Ca 8.5 Malnutrition Alert Protein-Calorie Malnutrition N/A Is there a minimum of two criteria No selected? Query Text:Check all the applicable criteria. A minimum of two criteria are recommended for diagnosis of either severe or non-severe malnutrition. Intervention/Recommendation Comments 1. Continue with regular diet as ordered. Assist pt with meals as needed. 2. If BUN/Cr not improved, will consider renal diet. 2. Monitor PO intake, wt, labs and skin integrity 3. F/U as moderate risk in 3-5 days, 01/08-01/10 Expected Outcomes/Goals Expected Outcomes/Goals 1. PO intake to meet at least 75% of nutritional needs. 2. Wt stability, skin to remain intact, labs to approach WNL.
[2018-01-13] MEDS: D5-0.45NS 1,000 ML IV SCH (17:00)
--- NOTE | 2018-01-13 21:52 | General Progress Note ---
Subjective - Review of Systems Service Date: 01/13/18 Subjective: patient seen and examined feels better surgery started patient on diet tolerating fine still post op pain requiring IV pain meds Objective - Results Result Diagrams: 01/12/18 09:20 01/12/18 09:20 Recent Labs: Laboratory Last Values WBC 6.9 Th/cmm (4.8-10.8) 01/12/18 09:20 RBC 3.47 Mil/cmm (3.80-5.20) L 01/12/18 09:20 Hgb 9.8 gm/dL (12-16) L 01/12/18 09:20 Hct 29.1 % (41.0-60) L 01/12/18 09:20 MCV 83.9 fl (81-100) 01/12/18 09:20 MCH 28.2 pg (27.0-31.0) 01/12/18 09:20 MCHC Differential 33.6 pg (28.0-36.0) 01/12/18 09:20 RDW 15.8 % (11.5-20.0) 01/12/18 09:20 Plt Count 161 Th/cmm (150-400) 01/12/18 09:20 MPV 6.9 fl 01/12/18 09:20 Neutrophils % 87.6 % (40.0-80.0) H 01/12/18 09:20 Lymphocytes % 9.0 % (20.0-50.0) L 01/12/18 09:20 Monocytes % 3.3 % (2.0-10.0) 01/12/18 09:20 Eosinophils % 0.1 % (0.0-5.0) 01/12/18 09:20 Basophils % 0.0 % (0.0-2.0) 01/12/18 09:20 Eos Smear Source URINE 01/06/18 05:25 Eos Smear Total Cells NONE SEEN (NONE SEEN) 01/06/18 05:25 PT 11.1 SECONDS (9.5-11.5) 01/09/18 04:54 INR 1.07 (0.5-1.4) 01/09/18 04:54 PTT (Actin FS) 25.1 SECONDS (26.0-38.0) L 01/09/18 04:54 Sodium 128 mEq/L (136-145) L 01/12/18 09:20 Potassium 3.9 mEq/L (3.5-5.1) 01/12/18 09:20 Chloride 103 mEq/L (98-107) 01/12/18 09:20 Carbon Dioxide 14.5 mEq/L (21.0-31.0) L 01/12/18 09:20 Anion Gap 14.4 (7.0-16.0) 01/12/18 09:20 BUN 23 mg/dL (7-25) 01/12/18 09:20 Creatinine 2.9 mg/dL (0.6-1.2) H 01/12/18 09:20 Est GFR ( Amer) TNP 01/12/18 09:20 Est GFR (Non-Af Amer) TNP 01/12/18 09:20 BUN/Creatinine Ratio 7.9 01/12/18 09:20 Glucose 158 mg/dL (70-105) H 01/12/18 09:20 Plasma/Ser Osmolality 289 mOsmol/kg (280-301) 01/07/18 06:02 Whole Bld Lactic Acid 1.72 mmol/L (0.60-1.99) 01/04/18 20:35 Uric Acid 6.5 mg/dL (2.3-6.6) 01/06/18 06:01 Calcium 7.6 mg/dL (8.6-10.3) L 01/12/18 09:20 Phosphorus 4.1 mg/dL (2.5-5.0) 01/06/18 06:01 Magnesium 2.5 mg/dL (1.9-2.7) 01/07/18 06:02 Iron 43 ug/dL (27-139) 01/05/18 05:36 TIBC 254 ug/dL (250-450) 01/05/18 05:36 Iron Saturation 17 % (15-55) 01/05/18 05:36 Unsaturated IBC 211 ug/dL (118-369) 01/05/18 05:36 Ferritin 17 ng/mL (15-150) 01/05/18 05:36 Total Bilirubin 0.4 mg/dL (0.3-1.0) 01/12/18 09:20 AST 46 U/L (13-39) H 01/12/18 09:20 ALT 35 U/L (7-52) 01/12/18 09:20 Alkaline Phosphatase 34 U/L (34-104) 01/12/18 09:20 Creatine Kinase 165 U/L (30-223) 01/04/18 20:35 Troponin I 0.02 ng/mL (0.01-0.05) 01/04/18 20:35 B-Natriuretic Peptide 197.0 pg/mL (5.0-100.0) H 01/04/18 20:35 Total Protein 4.9 gm/dL (6.0-8.3) L 01/12/18 09:20 Albumin 2.6 gm/dL (3.7-5.3) L 01/12/18 09:20 Globulin 2.3 gm/dL 01/12/18 09:20 Albumin/Globulin Ratio 1.1 (1.0-1.8) 01/12/18 09:20 Triglycerides 68 mg/dL (<150) 01/04/18 20:35 Cholesterol 115 mg/dL (<200) 01/04/18 20:35 LDL Cholesterol Direct 56 mg/dL (75-193) L 01/04/18 20:35 HDL Cholesterol 44 mg/dL (23-92) 01/04/18 20:35 Amylase 45 U/L (29-103) 01/06/18 06:01 Lipase 24 U/L (11-82) 01/06/18 06:01 Carcinoembryonic Ag 26.2 ng/mL (0.0-4.7) H 01/06/18 06:01 Vitamin B12 304 pg/mL (232-1245) 01/05/18 05:36 Folic Acid 14.5 ng/mL (>3.0) 01/05/18 05:36 TSH 4.28 uIU/ml (0.34-5.60) 01/05/18 05:36 Urine Source CLEAN C 01/04/18 20:20 Urine Color STRAW 01/04/18 20:20 Urine Clarity CLEAR (CLEAR) 01/04/18 20:20 Urine pH 5.5 (4.6 - 8.0) 01/04/18 20:20 Ur Specific [place] 1.015 (1.005-1.030) 01/04/18 20:20 Urine Protein NEGATIVE mg/dL (NEGATIVE) 01/04/18 20:20 Urine Glucose (UA) NEGATIVE mg/dL (NEGATIVE) 01/04/18 20:20 Urine Ketones NEGATIVE mg/dL (NEGATIVE) 01/04/18 20:20 Urine Blood NEGATIVE (NEGATIVE) 01/04/18 20:20 Urine Nitrate NEGATIVE (NEGATIVE) 01/04/18 20:20 Urine Bilirubin NEGATIVE (NEGATIVE) 01/04/18 20:20 Urine Urobilinogen 0.2 E.U./dL (0.2 - 1.0) 01/04/18 20:20 Ur Leukocyte Esterase TRACE (NEGATIVE) H 01/04/18 20:20 Urine RBC NONE SEEN /hpf (0-5) 01/04/18 20:20 Urine WBC 2-5 /hpf (0-5) 01/04/18 20:20 Ur Epithelial Cells NONE SEEN /lpf (FEW) 01/04/18 20:20 Urine Bacteria NONE SEEN /hpf (NONE SEEN) 01/04/18 20:20 Ur Random Sodium 99 mmol/L 01/06/18 05:25 Urine Creatinine 42.0 mg/dl (28.0-217.0) 01/06/18 05:25 Stool Occult Blood NEGATIVE (NEGATIVE) 01/07/18 17:25 Blood Type O POSITIVE 01/10/18 07:20 Antibody Screen POSITIVE 01/10/18 07:20 Antibody Identification Anti-C Anti-e 01/10/18 07:20 Antibody Identification Anti-C Anti-e 01/10/18 07:20 Crossmatch See Detail 01/10/18 07:20 - Physical Exam Vitals and I&O: Vital Signs Temp 98 F 01/13/18 20:00 Pulse 106 01/13/18 20:00 Resp 18 01/13/18 20:00 BP 125/61 01/13/18 20:00 Pulse Ox 97 01/13/18 20:00 Intake & Output 01/13/18 01/13/18 01/14/18 06:59 18:59 06:59 Intake Total 150 1055.5 200 Output Total 150 150 Balance 0 1055.5 50 Weight (lbs) 63.73 kg 63.73 kg Intake: Intake, IV Amount 150 1055.5 D5-0.45NS 1,000 ml @ 70 905.5 mls/hr IV .[id number] [facility] Rx #:[id number] Piperacillin Sodium/ 50 50 Tazobact 3.375 gm In Dextrose 5% 50 ml @ 100 mls/hr IV Q8H [facility] Rx#: [id number] metroNIDAZOLE 500mg/NS 100 100 100mL 500 mg In Premix Fluid 1 bag @ 100 mls/hr IV Q8H [facility] Rx#:[id number] Oral 0 200 Output: Urine 150 150 Other: # Bowel Movements 0 0 Weight Source Bedscale Bedscale Active Medications: Current Medications Albuterol/Ipratropium (Duoneb Neb) 3 ml HHN Q6HRT [facility] Stop: 03/08/18 18:59 Last Admin: 01/13/18 18:58 Dose: 3 ml Amlodipine Besylate (Norvasc) 5 mg PO DAILY [facility] Stop: 03/06/18 08:59 Last Admin: 01/13/18 10:09 Dose: Not Given Benzocaine/Menthol (Cepacol) 1 cooper MM Q4HR PRN PRN Reason: Sore Throat Stop: 03/10/18 15:50 Metronidazole 500 mg/ (Miscellaneous) 100 mls @ 100 mls/hr IV Q8H [facility] Stop: 03/12/18 09:59 Last Admin: 01/13/18 17:01 Dose: 100 mls/hr Piperacillin Sod/Tazobactam (Sod 3.375 gm/ Dextrose) 50 mls @ 100 mls/hr IV Q8H [facility] Stop: 03/13/18 09:14 Last Admin: 01/13/18 17:01 Dose: 100 mls/hr Dextrose/Sodium Chloride (D5-0.45ns) 1,000 mls @ 100 mls/hr IV .Q10H [facility] Stop: 03/14/18 17:35 Ketorolac Tromethamine (Toradol) 15 mg IVP Q6HR PRN PRN Reason: Pain (Severe) Stop: 03/13/18 04:32 Last Admin: 01/13/18 10:09 Dose: 15 mg Levothyroxine Sodium (Synthroid) 0.025 mg PO QDAC [facility] Stop: 03/06/18 07:29 Last Admin: 01/13/18 06:35 Dose: Not Given Losartan Potassium (Cozaar) 100 mg PO DAILY [facility] Stop: 03/07/18 10:59 Last Admin: 01/13/18 10:09 Dose: Not Given Metronidazole (Flagyl) 500 mg PO BID [facility] Stop: 01/17/18 16:59 Last Admin: 01/13/18 17:01 Dose: Not Given Miscellaneous (Vte Chemical Prophylaxis Screen/ Admission) 1 ea MC PRN PRN PRN Reason: PROTOCOL Stop: 03/06/18 08:14 Morphine Sulfate (Morphine) 2 mg IVP Q4HR PRN PRN Reason: Abdominal Pain Stop: 03/12/18 08:37 Last Admin: 01/11/18 23:11 Dose: 2 mg Oxybutynin Chloride (Ditropan) 5 mg PO BID [facility] Stop: 03/06/18 16:59 Last Admin: 01/13/18 17:02 Dose: Not Given Pantoprazole Sodium (Protonix) 40 mg IVP DAILY [facility] Stop: 03/06/18 08:59 Last Admin: 01/13/18 10:09 Dose: 40 mg Simethicone (Mylicon) 80 mg PO QID PRN PRN Reason: Gas Stop: 03/10/18 14:48 Last Admin: 01/09/18 15:47 Dose: 80 mg Sodium Bicarbonate (Sodium Bicarbonate) 650 mg PO TID ANTHONY PRN Reason: Protocol Stop: 03/07/18 15:14 Last Admin: 01/13/18 20:06 Dose: 650 mg Tramadol HCl (Ultram) 50 mg PO Q6HR PRN PRN Reason: Pain (Moderate) Stop: 03/10/18 15:51 Last Admin: 01/09/18 21:43 Dose: 50 mg Zolpidem Tartrate (Ambien) 5 mg PO HS PRN PRN Reason: Insomnia Stop: 03/07/18 21:11 Last Admin: 01/10/18 21:58 Dose: 5 mg General: Alert Cardiovascular: Regular rate Lungs: Clear to auscultation Abdomen: Soft, Tender, no Distended Extremities: no Edema Neurological: Sensation intact Skin: no Rash Psych/Mental Status: Mood NL - Procedures Procedures: Procedures Procedure Code Date COLONOSCOPY AND BIOPSY 60854 01/04/18 EXCISION OF ASCENDING COLON, ENDO, DIAGN [id number] 01/04/18 PARTIAL REMOVAL OF COLON 55067 01/04/18 RESECTION OF RIGHT LARGE INTESTINE, OPEN APPROACH [id number] 01/04/18 Assessment/Plan - Assessment Assessment: 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 Lung nodule most likely metastatic disease Chronic hyponatremia Acute on CKD better Chronic constipation HTN CAD UTI SEPTIC SHOCK - Plan Plan: IV fluids resuscitation Diet per surgery Morphine prn Follow up on colon mass pathology I updated family re: plan of care they understood well PRBC for pre op Zosyn SNIF DC plan discussed with family they agreed Nutritional Asmnt/Malnutr-PDOC - Dietary Evaluation Malnutrition Findings (Please click <Entered> for more info): Nutritional Asmnt/Malnutrition Start: 01/05/18 14: 24 Text: Status: Complete Freq: Document 01/05/18 14:24 HEN (Rec: 01/05/18 14:55 LCHENG [email or web address]) Nutritional Asmnt/Malnutrition Patient General Information Nutritional Screening High Risk Diagnosis dehydration, anemia, UTI, facial cellulitis Pertinent Medical Hx/Surgical Hx HTN, ESRD, thyroid disorder Subjective Information Pt seen lying in bed, awake and pleasant. Family at bedside feeding pt lunch. Family is able to speak little [place]an, denied pt has chewing/swallowing problem, stated pt eating ok. Pt has teeth noted. Per EMR, pt consumed 100% of breakfast in the morning. Current Diet Order/ Nutrition Support regular Pertinent Medications D5-0.9%ns, synthorid, protonix Pertinent Labs 01/05 cl 112, BUN 32, Cr 1.3, Ca 8.5 Nutritional Hx/Data Height 1.52 m Height (Calculated Centimeters) 152.4 Current Weight (lbs) 58.06 kg Weight (Calculated Kilograms) 58.1 Weight (Calculated Grams) 54218.8 [place] Body Weight 100 Body Mass Index (BMI) 25.0 Weight Status Approriate GI Symptoms GI Symptoms None Last BM not indicated Difficult in: None Skin Integrity/Comment: face reddened Current %PO Good (75-100%) Estimated Nutritional Goals BEE in Kcals: Using Current wt Calories/Kcals/Kg 25-30 Kcals Calculated 4543-8142 Protein: Using Current wt Protein g/k monitor renal labs Protein Calculated 58 Fluid: ml 1450-1740ml (1ml/kcal) Nutritional Problem 1. Problem Problem altered nutrition related labs Etiology electrolytes imbalance and hx of ESRD Signs/Symptoms: cl 112, BUN 32, Cr 1.3, Ca 8.5 Malnutrition Alert Protein-Calorie Malnutrition N/A Is there a minimum of two criteria No selected? Query Text:Check all the applicable criteria. A minimum of two criteria are recommended for diagnosis of either severe or non-severe malnutrition. Intervention/Recommendation Comments 1. Continue with regular diet as ordered. Assist pt with meals as needed. 2. If BUN/Cr not improved, will consider renal diet. 2. Monitor PO intake, wt, labs and skin integrity 3. F/U as moderate risk in 3-5 days, 01/08-01/10 Expected Outcomes/Goals Expected Outcomes/Goals 1. PO intake to meet at least 75% of nutritional needs. 2. Wt stability, skin to remain intact, labs to approach WNL.
[2018-01-14] MEDS: Albuterol/Ipratropium Neb 3 ML AERS HHN SCH ×4 (00:54→19:36)
[2018-01-14] MEDS: metroNIDAZOLE 500mg/NS 100mL 500 MG in Premix Fluid 1 BAG IV SCH ×2 (01:34→10:07)
--- NOTE | 2018-01-14 03:28 | Progress Notes ---
DATE: 01/13/2018 PULMONARY PROGRESS NOTE PROBLEM LIST: 1. Pulmonary nodule. 2. Status post previous abdominal surgery. 3. Significant disability. 4. Deconditioned. SYMPTOMS: Nil. She says breathing is okay. Pain in the belly is less than before and currently getting breathing treatment, no respiratory distress. PHYSICAL EXAMINATION: VITAL SIGNS: T-max 98.3, blood pressure 121/58, and saturation 99% on 2 liters per minute. NECK: Veins not visualized. CHEST: Shows diminished air entry with occasional secretory noise. HEART: Regular. ABDOMEN: Still slightly distended with minimal tenderness. LABORATORY DATA: The patient's white count is 6.9 and hemoglobin 9.8. Sodium is 128. The patient's ALT is slightly elevated. Albumin is 2.6. ASSESSMENT: The patient clinically doing much better. Respiratory burks, most likely this is mets from the colon, most likely scenario. PLANS AND SUGGESTIONS: We will continue current treatment. We will repeat another chest x-ray in the next few days' time and go from there. JOB# [id number]
[2018-01-14] MEDS: D5-0.45NS 1,000 ML IV SCH ×2 (05:15→16:03)
[2018-01-14 06:11] LABS: HEMATOCRIT 26.3 % (41.0-60); MEAN CORPUSCULAR HEMOGLOBIN 28.3 pg (27.0-31.0); MEAN CORPUSCULAR HGB CONC 34.1 pg (28.0-36.0); MEAN PLATELET VOLUME 7.2 fl; PLATELET COUNT 148 Th/cmm (150-400); RED BLOOD COUNT 3.17 Mil/cmm (3.80-5.20); RED CELL DISTRIBUTION WIDTH 15.7 % (11.5-20.0); WHITE BLOOD COUNT 7.6 Th/cmm (4.8-10.8)
[2018-01-14 06:24] LABS: MANUAL DIFF REQUIRED? YES
[2018-01-14 06:26] LABS: ALBUMIN 2.3 gm/dL (3.7-5.3); ALKALINE PHOSPHATASE 37 U/L (34-104); ANION GAP 11.5 (7.0-16.0); BILIRUBIN,TOTAL 0.5 mg/dL (0.3-1.0); BUN - UREA NITROGEN 29 mg/dL (7-25); CALCIUM SERUM 7.2 mg/dL (8.6-10.3); CARBON DIOXIDE 15.6 mEq/L (21.0-31.0); CHLORIDE 106 mEq/L (98-107); CREATININE - SERUM 2.3 mg/dL (0.6-1.2); GLUCOSE 105 mg/dL (70-105); POTASSIUM SERUM 4.1 mEq/L (3.5-5.1); SGOT 26 U/L (13-39); SGPT/ALT 28 U/L (7-52); SODIUM SERUM 129 mEq/L (136-145); TOTAL PROTEIN,SERUM 4.6 gm/dL (6.0-8.3)
[2018-01-14] MEDS: Levothyroxine 0.025 Mg Tab PO SCH (06:46)
[2018-01-14 07:01] LABS: BAND NEUTROPHILE 1 % (0-10); BASOPHIL 0 % (0-3); EOSINOPHIL 0 % (0-5); LYMPHOCYTE 8 % (20-50); MONOCYTE 2 % (2-10); NEUTROPHILS 89 % (40-80); TOTAL CELLS COUNTED 100
--- NOTE | 2018-01-14 10:33 | General Progress Note ---
Subjective - Review of Systems Service Date: 01/14/18 Events since last encounter: labs ok had BM today, increase diet Objective - Results Result Diagrams: 01/14/18 05:25 01/14/18 05:25 Recent Labs: Laboratory Last Values WBC 7.6 Th/cmm (4.8-10.8) 01/14/18 05:25 RBC 3.17 Mil/cmm (3.80-5.20) L 01/14/18 05:25 Hgb 9.0 gm/dL (12-16) L 01/14/18 05:25 Hct 26.3 % (41.0-60) L 01/14/18 05:25 MCV 83.0 fl (81-100) 01/14/18 05:25 MCH 28.3 pg (27.0-31.0) 01/14/18 05:25 MCHC Differential 34.1 pg (28.0-36.0) 01/14/18 05:25 RDW 15.7 % (11.5-20.0) 01/14/18 05:25 Plt Count 148 Th/cmm (150-400) L 01/14/18 05:25 MPV 7.2 fl 01/14/18 05:25 Neutrophils % 87.6 % (40.0-80.0) H 01/12/18 09:20 Band Neutrophils % 1 % (0-10) 01/14/18 05:25 Lymphocytes % 9.0 % (20.0-50.0) L 01/12/18 09:20 Monocytes % 3.3 % (2.0-10.0) 01/12/18 09:20 Eosinophils % 0.1 % (0.0-5.0) 01/12/18 09:20 Basophils % 0.0 % (0.0-2.0) 01/12/18 09:20 Neutrophils (Manual) 89 % (40-80) H 01/14/18 05:25 Lymphocytes 8 % (20-50) L 01/14/18 05:25 Monocytes 2 % (2-10) 01/14/18 05:25 Eosinophils 0 % (0-5) 01/14/18 05:25 Basophils 0 % (0-3) 01/14/18 05:25 Eos Smear Source URINE 01/06/18 05:25 Eos Smear Total Cells NONE SEEN (NONE SEEN) 01/06/18 05:25 PT 11.1 SECONDS (9.5-11.5) 01/09/18 04:54 INR 1.07 (0.5-1.4) 01/09/18 04:54 PTT (Actin FS) 25.1 SECONDS (26.0-38.0) L 01/09/18 04:54 Sodium 129 mEq/L (136-145) L 01/14/18 05:25 Potassium 4.1 mEq/L (3.5-5.1) 01/14/18 05:25 Chloride 106 mEq/L (98-107) 01/14/18 05:25 Carbon Dioxide 15.6 mEq/L (21.0-31.0) L 01/14/18 05:25 Anion Gap 11.5 (7.0-16.0) 01/14/18 05:25 BUN 29 mg/dL (7-25) H 01/14/18 05:25 Creatinine 2.3 mg/dL (0.6-1.2) H 01/14/18 05:25 Est GFR ( Amer) TNP 01/14/18 05:25 Est GFR (Non-Af Amer) TNP 01/14/18 05:25 BUN/Creatinine Ratio 12.6 01/14/18 05:25 Glucose 105 mg/dL (70-105) 01/14/18 05:25 Plasma/Ser Osmolality 289 mOsmol/kg (280-301) 01/07/18 06:02 Whole Bld Lactic Acid 1.72 mmol/L (0.60-1.99) 01/04/18 20:35 Uric Acid 6.5 mg/dL (2.3-6.6) 01/06/18 06:01 Calcium 7.2 mg/dL (8.6-10.3) L 01/14/18 05:25 Phosphorus 4.1 mg/dL (2.5-5.0) 01/06/18 06:01 Magnesium 2.5 mg/dL (1.9-2.7) 01/07/18 06:02 Iron 43 ug/dL (27-139) 01/05/18 05:36 TIBC 254 ug/dL (250-450) 01/05/18 05:36 Iron Saturation 17 % (15-55) 01/05/18 05:36 Unsaturated IBC 211 ug/dL (118-369) 01/05/18 05:36 Ferritin 17 ng/mL (15-150) 01/05/18 05:36 Total Bilirubin 0.5 mg/dL (0.3-1.0) 01/14/18 05:25 AST 26 U/L (13-39) 01/14/18 05:25 ALT 28 U/L (7-52) 01/14/18 05:25 Alkaline Phosphatase 37 U/L (34-104) 01/14/18 05:25 Creatine Kinase 165 U/L (30-223) 01/04/18 20:35 Troponin I 0.02 ng/mL (0.01-0.05) 01/04/18 20:35 B-Natriuretic Peptide 197.0 pg/mL (5.0-100.0) H 01/04/18 20:35 Total Protein 4.6 gm/dL (6.0-8.3) L 01/14/18 05:25 Albumin 2.3 gm/dL (3.7-5.3) L 01/14/18 05:25 Globulin 2.3 gm/dL 01/14/18 05:25 Albumin/Globulin Ratio 1.0 (1.0-1.8) 01/14/18 05:25 Triglycerides 68 mg/dL (<150) 01/04/18 20:35 Cholesterol 115 mg/dL (<200) 01/04/18 20:35 LDL Cholesterol Direct 56 mg/dL (75-193) L 01/04/18 20:35 HDL Cholesterol 44 mg/dL (23-92) 01/04/18 20:35 Amylase 45 U/L (29-103) 01/06/18 06:01 Lipase 24 U/L (11-82) 01/06/18 06:01 Carcinoembryonic Ag 26.2 ng/mL (0.0-4.7) H 01/06/18 06:01 Vitamin B12 304 pg/mL (232-1245) 01/05/18 05:36 Folic Acid 14.5 ng/mL (>3.0) 01/05/18 05:36 TSH 4.28 uIU/ml (0.34-5.60) 01/05/18 05:36 Urine Source CLEAN C 01/04/18 20:20 Urine Color STRAW 01/04/18 20:20 Urine Clarity CLEAR (CLEAR) 01/04/18 20:20 Urine pH 5.5 (4.6 - 8.0) 01/04/18 20:20 Ur Specific [place] 1.015 (1.005-1.030) 01/04/18 20:20 Urine Protein NEGATIVE mg/dL (NEGATIVE) 01/04/18 20:20 Urine Glucose (UA) NEGATIVE mg/dL (NEGATIVE) 01/04/18 20:20 Urine Ketones NEGATIVE mg/dL (NEGATIVE) 01/04/18 20:20 Urine Blood NEGATIVE (NEGATIVE) 01/04/18 20:20 Urine Nitrate NEGATIVE (NEGATIVE) 01/04/18 20:20 Urine Bilirubin NEGATIVE (NEGATIVE) 01/04/18 20:20 Urine Urobilinogen 0.2 E.U./dL (0.2 - 1.0) 01/04/18 20:20 Ur Leukocyte Esterase TRACE (NEGATIVE) H 01/04/18 20:20 Urine RBC NONE SEEN /hpf (0-5) 01/04/18 20:20 Urine WBC 2-5 /hpf (0-5) 01/04/18 20:20 Ur Epithelial Cells NONE SEEN /lpf (FEW) 01/04/18 20:20 Urine Bacteria NONE SEEN /hpf (NONE SEEN) 01/04/18 20:20 Ur Random Sodium 99 mmol/L 01/06/18 05:25 Urine Creatinine 42.0 mg/dl (28.0-217.0) 01/06/18 05:25 Stool Occult Blood NEGATIVE (NEGATIVE) 01/07/18 17:25 Blood Type O POSITIVE 01/10/18 07:20 Antibody Screen POSITIVE 01/10/18 07:20 Antibody Identification Anti-C Anti-e 01/10/18 07:20 Antibody Identification Anti-C Anti-e 01/10/18 07:20 Crossmatch See Detail 01/10/18 07:20 - Physical Exam Vitals and I&O: Vital Signs Temp 97 F 01/14/18 04:00 Pulse 108 01/14/18 08:17 Resp 18 01/14/18 07:28 BP 103/65 01/14/18 08:17 Pulse Ox 97 01/14/18 07:28 Intake & Output 01/13/18 01/14/1818 18:59 06:59 18:59 Intake Total 1205.5 550 50 Output Total 670 Balance 1205.5 -120 50 Weight (lbs) 63.503 kg Intake: Intake, IV Amount 1205.5 150 50 D5-0.45NS 1,000 ml @ 70 905.5 mls/hr IV .[id number] [facility] Rx #:[id number] Piperacillin Sodium/ 100 50 50 Tazobact 3.375 gm In Dextrose 5% 50 ml @ 100 mls/hr IV Q8H [facility] Rx#: [id number] metroNIDAZOLE 500mg/NS 200 100 100mL 500 mg In Premix Fluid 1 bag @ 100 mls/hr IV Q8H [facility] Rx#:[id number] Oral 400 Output: Drainage 70 NAZIA DRAIN 70 Urine 600 Other: # Bowel Movements 0 Weight Source Bedscale Active Medications: Current Medications Albuterol/Ipratropium (Duoneb Neb) 3 ml HHN Q6HRT [facility] Stop: 03/08/18 18:59 Last Admin: 01/14/18 07:24 Dose: 3 ml Amlodipine Besylate (Norvasc) 5 mg PO DAILY [facility] Stop: 03/06/18 08:59 Last Admin: 01/14/18 08:17 Dose: 5 mg Benzocaine/Menthol (Cepacol) 1 cooper MM Q4HR PRN PRN Reason: Sore Throat Stop: 03/10/18 15:50 Metronidazole 500 mg/ (Miscellaneous) 100 mls @ 100 mls/hr IV Q8H [facility] Stop: 03/12/18 09:59 Last Admin: 01/14/18 10:07 Dose: 100 mls/hr Piperacillin Sod/Tazobactam (Sod 3.375 gm/ Dextrose) 50 mls @ 100 mls/hr IV Q8H [facility] Stop: 03/13/18 09:14 Last Infusion: 01/14/18 10:09 Dose: Infused Dextrose/Sodium Chloride (D5-0.45ns) 1,000 mls @ 100 mls/hr IV .Q10H [facility] Stop: 03/14/18 17:35 Last Admin: 01/14/18 05:15 Dose: 100 mls/hr Ketorolac Tromethamine (Toradol) 15 mg IVP Q6HR PRN PRN Reason: Pain (Severe) Stop: 03/13/18 04:32 Last Admin: 01/14/18 05:15 Dose: 15 mg Levothyroxine Sodium (Synthroid) 0.025 mg PO QDAC [facility] Stop: 03/06/18 07:29 Last Admin: 01/14/18 06:46 Dose: 0.025 mg Losartan Potassium (Cozaar) 100 mg PO DAILY [facility] Stop: 03/07/18 10:59 Last Admin: 01/14/18 08:17 Dose: 100 mg Metronidazole (Flagyl) 500 mg PO BID [facility] Stop: 01/17/18 16:59 Last Admin: 01/14/18 08:17 Dose: 500 mg Miscellaneous (Vte Chemical Prophylaxis Screen/ Admission) 1 ea [facility] PRN PRN PRN Reason: PROTOCOL Stop: 03/06/18 08:14 Morphine Sulfate (Morphine) 2 mg IVP Q4HR PRN PRN Reason: Abdominal Pain Stop: 03/12/18 08:37 Last Admin: 01/11/18 23:11 Dose: 2 mg Oxybutynin Chloride (Ditropan) 5 mg PO BID [facility] Stop: 03/06/18 16:59 Last Admin: 01/14/18 08:16 Dose: 5 mg Pantoprazole Sodium (Protonix) 40 mg IVP DAILY [facility] Stop: 03/06/18 08:59 Last Admin: 01/14/18 08:18 Dose: 40 mg Simethicone (Mylicon) 80 mg PO QID PRN PRN Reason: Gas Stop: 03/10/18 14:48 Last Admin: 01/14/18 05:15 Dose: 80 mg Sodium Bicarbonate (Sodium Bicarbonate) 650 mg PO TID ANTHONY PRN Reason: Protocol Stop: 03/07/18 15:14 Last Admin: 01/14/18 08:17 Dose: 650 mg Tramadol HCl (Ultram) 50 mg PO Q6HR PRN PRN Reason: Pain (Moderate) Stop: 03/10/18 15:51 Last Admin: 01/14/18 02:47 Dose: 50 mg Zolpidem Tartrate (Ambien) 5 mg PO HS PRN PRN Reason: Insomnia Stop: 03/07/18 21:11 Last Admin: 01/10/18 21:58 Dose: 5 mg General: Alert HEENT: Mucous membr. moist/pink Neck: Supple, +2 carotid pulse wo bruit Cardiovascular: Regular rate Lungs: Clear to auscultation Abdomen: Soft, Tender, no Distended Extremities: no Edema Neurological: Sensation intact Skin: no Rash Psych/Mental Status: Mood NL - Procedures Procedures: Procedures Procedure Code Date COLONOSCOPY AND BIOPSY 92150 01/04/18 EXCISION OF ASCENDING COLON, ENDO, DIAGN [id number] 01/04/18 PARTIAL REMOVAL OF COLON 10337 01/04/18 RESECTION OF RIGHT LARGE INTESTINE, OPEN APPROACH [id number] 01/04/18 Nutritional Asmnt/Malnutr-PDOC - Dietary Evaluation Malnutrition Findings (Please click <Entered> for more info): Nutritional Asmnt/Malnutrition Start: 01/05/18 14: 24 Text: Status: Complete Freq: Document 01/05/18 14:24 DANIEL (Rec: 01/05/18 14:55 DANIEL NARESH-FN) Nutritional Asmnt/Malnutrition Patient General Information Nutritional Screening High Risk Diagnosis dehydration, anemia, UTI, facial cellulitis Pertinent Medical Hx/Surgical Hx HTN, ESRD, thyroid disorder Subjective Information Pt seen lying in bed, awake and pleasant. Family at bedside feeding pt lunch. Family is able to speak little Mongolian, denied pt has chewing/swallowing problem, stated pt eating ok. Pt has teeth noted. Per EMR, pt consumed 100% of breakfast in the morning. Current Diet Order/ Nutrition Support regular Pertinent Medications D5-0.9%ns, synthorid, protonix Pertinent Labs 01/05 cl 112, BUN 32, Cr 1.3, Ca 8.5 Nutritional Hx/Data Height 1.52 m Height (Calculated Centimeters) 152.4 Current Weight (lbs) 58.06 kg Weight (Calculated Kilograms) 58.1 Weight (Calculated Grams) 31535.8 [place] Body Weight 100 Body Mass Index (BMI) 25.0 Weight Status Approriate GI Symptoms GI Symptoms None Last BM not indicated Difficult in: None Skin Integrity/Comment: face reddened Current %PO Good (75-100%) Estimated Nutritional Goals BEE in Kcals: Using Current wt Calories/Kcals/Kg 25-30 Kcals Calculated [id number] Protein: Using Current wt Protein g/k monitor renal labs Protein Calculated 58 Fluid: ml 1450-1740ml (1ml/kcal) Nutritional Problem 1. Problem Problem altered nutrition related labs Etiology electrolytes imbalance and hx of ESRD Signs/Symptoms: cl 112, BUN 32, Cr 1.3, Ca 8.5 Malnutrition Alert Protein-Calorie Malnutrition N/A Is there a minimum of two criteria No selected? Query Text:Check all the applicable criteria. A minimum of two criteria are recommended for diagnosis of either severe or non-severe malnutrition. Intervention/Recommendation Comments 1. Continue with regular diet as ordered. Assist pt with meals as needed. 2. If BUN/Cr not improved, will consider renal diet. 2. Monitor PO intake, wt, labs and skin integrity 3. F/U as moderate risk in 3-5 days, 01/08-01/10 Expected Outcomes/Goals Expected Outcomes/Goals 1. PO intake to meet at least 75% of nutritional needs. 2. Wt stability, skin to remain intact, labs to approach WNL.
--- NOTE | 2018-01-14 16:06 | General Progress Note ---
Subjective - Review of Systems Service Date: 01/14/18 Subjective: patient seen and examined feels better tolerating diet well still post op pain family was at the bedside Objective - Results Result Diagrams: 01/14/18 05:25 01/14/18 05:25 Recent Labs: Laboratory Last Values WBC 7.6 Th/cmm (4.8-10.8) 01/14/18 05:25 RBC 3.17 Mil/cmm (3.80-5.20) L 01/14/18 05:25 Hgb 9.0 gm/dL (12-16) L 01/14/18 05:25 Hct 26.3 % (41.0-60) L 01/14/18 05:25 MCV 83.0 fl (81-100) 01/14/18 05:25 MCH 28.3 pg (27.0-31.0) 01/14/18 05:25 MCHC Differential 34.1 pg (28.0-36.0) 01/14/18 05:25 RDW 15.7 % (11.5-20.0) 01/14/18 05:25 Plt Count 148 Th/cmm (150-400) L 01/14/18 05:25 MPV 7.2 fl 01/14/18 05:25 Neutrophils % 87.6 % (40.0-80.0) H 01/12/18 09:20 Band Neutrophils % 1 % (0-10) 01/14/18 05:25 Lymphocytes % 9.0 % (20.0-50.0) L 01/12/18 09:20 Monocytes % 3.3 % (2.0-10.0) 01/12/18 09:20 Eosinophils % 0.1 % (0.0-5.0) 01/12/18 09:20 Basophils % 0.0 % (0.0-2.0) 01/12/18 09:20 Neutrophils (Manual) 89 % (40-80) H 01/14/18 05:25 Lymphocytes 8 % (20-50) L 01/14/18 05:25 Monocytes 2 % (2-10) 01/14/18 05:25 Eosinophils 0 % (0-5) 01/14/18 05:25 Basophils 0 % (0-3) 01/14/18 05:25 Eos Smear Source URINE 01/06/18 05:25 Eos Smear Total Cells NONE SEEN (NONE SEEN) 01/06/18 05:25 PT 11.1 SECONDS (9.5-11.5) 01/09/18 04:54 INR 1.07 (0.5-1.4) 01/09/18 04:54 PTT (Actin FS) 25.1 SECONDS (26.0-38.0) L 01/09/18 04:54 Sodium 129 mEq/L (136-145) L 01/14/18 05:25 Potassium 4.1 mEq/L (3.5-5.1) 01/14/18 05:25 Chloride 106 mEq/L (98-107) 01/14/18 05:25 Carbon Dioxide 15.6 mEq/L (21.0-31.0) L 01/14/18 05:25 Anion Gap 11.5 (7.0-16.0) 01/14/18 05:25 BUN 29 mg/dL (7-25) H 01/14/18 05:25 Creatinine 2.3 mg/dL (0.6-1.2) H 01/14/18 05:25 Est GFR ( Amer) TNP 01/14/18 05:25 Est GFR (Non-Af Amer) TNP 01/14/18 05:25 BUN/Creatinine Ratio 12.6 01/14/18 05:25 Glucose 105 mg/dL (70-105) 01/14/18 05:25 Plasma/Ser Osmolality 289 mOsmol/kg (280-301) 01/07/18 06:02 Whole Bld Lactic Acid 1.72 mmol/L (0.60-1.99) 01/04/18 20:35 Uric Acid 6.5 mg/dL (2.3-6.6) 01/06/18 06:01 Calcium 7.2 mg/dL (8.6-10.3) L 01/14/18 05:25 Phosphorus 4.1 mg/dL (2.5-5.0) 01/06/18 06:01 Magnesium 2.5 mg/dL (1.9-2.7) 01/07/18 06:02 Iron 43 ug/dL (27-139) 01/05/18 05:36 TIBC 254 ug/dL (250-450) 01/05/18 05:36 Iron Saturation 17 % (15-55) 01/05/18 05:36 Unsaturated IBC 211 ug/dL (118-369) 01/05/18 05:36 Ferritin 17 ng/mL (15-150) 01/05/18 05:36 Total Bilirubin 0.5 mg/dL (0.3-1.0) 01/14/18 05:25 AST 26 U/L (13-39) 01/14/18 05:25 ALT 28 U/L (7-52) 01/14/18 05:25 Alkaline Phosphatase 37 U/L (34-104) 01/14/18 05:25 Creatine Kinase 165 U/L (30-223) 01/04/18 20:35 Troponin I 0.02 ng/mL (0.01-0.05) 01/04/18 20:35 B-Natriuretic Peptide 197.0 pg/mL (5.0-100.0) H 01/04/18 20:35 Total Protein 4.6 gm/dL (6.0-8.3) L 01/14/18 05:25 Albumin 2.3 gm/dL (3.7-5.3) L 01/14/18 05:25 Globulin 2.3 gm/dL 01/14/18 05:25 Albumin/Globulin Ratio 1.0 (1.0-1.8) 01/14/18 05:25 Triglycerides 68 mg/dL (<150) 01/04/18 20:35 Cholesterol 115 mg/dL (<200) 01/04/18 20:35 LDL Cholesterol Direct 56 mg/dL (75-193) L 01/04/18 20:35 HDL Cholesterol 44 mg/dL (23-92) 01/04/18 20:35 Amylase 45 U/L (29-103) 01/06/18 06:01 Lipase 24 U/L (11-82) 01/06/18 06:01 Carcinoembryonic Ag 26.2 ng/mL (0.0-4.7) H 01/06/18 06:01 Vitamin B12 304 pg/mL (232-1245) 01/05/18 05:36 Folic Acid 14.5 ng/mL (>3.0) 01/05/18 05:36 TSH 4.28 uIU/ml (0.34-5.60) 01/05/18 05:36 Urine Source CLEAN C 01/04/18 20:20 Urine Color STRAW 01/04/18 20:20 Urine Clarity CLEAR (CLEAR) 01/04/18 20:20 Urine pH 5.5 (4.6 - 8.0) 01/04/18 20:20 Ur Specific [place] 1.015 (1.005-1.030) 01/04/18 20:20 Urine Protein NEGATIVE mg/dL (NEGATIVE) 01/04/18 20:20 Urine Glucose (UA) NEGATIVE mg/dL (NEGATIVE) 01/04/18 20:20 Urine Ketones NEGATIVE mg/dL (NEGATIVE) 01/04/18 20:20 Urine Blood NEGATIVE (NEGATIVE) 01/04/18 20:20 Urine Nitrate NEGATIVE (NEGATIVE) 01/04/18 20:20 Urine Bilirubin NEGATIVE (NEGATIVE) 01/04/18 20:20 Urine Urobilinogen 0.2 E.U./dL (0.2 - 1.0) 01/04/18 20:20 Ur Leukocyte Esterase TRACE (NEGATIVE) H 01/04/18 20:20 Urine RBC NONE SEEN /hpf (0-5) 01/04/18 20:20 Urine WBC 2-5 /hpf (0-5) 01/04/18 20:20 Ur Epithelial Cells NONE SEEN /lpf (FEW) 01/04/18 20:20 Urine Bacteria NONE SEEN /hpf (NONE SEEN) 01/04/18 20:20 Ur Random Sodium 99 mmol/L 01/06/18 05:25 Urine Creatinine 42.0 mg/dl (28.0-217.0) 01/06/18 05:25 Stool Occult Blood NEGATIVE (NEGATIVE) 01/07/18 17:25 Blood Type O POSITIVE 01/10/18 07:20 Antibody Screen POSITIVE 01/10/18 07:20 Antibody Identification Anti-C Anti-e 01/10/18 07:20 Antibody Identification Anti-C Anti-e 01/10/18 07:20 Crossmatch See Detail 01/10/18 07:20 - Physical Exam Vitals and I&O: Vital Signs Temp 98.2 F 01/14/18 12:00 Pulse 116 01/14/18 13:40 Resp 18 01/14/18 13:40 BP 100/51 01/14/18 12:00 Pulse Ox 97 01/14/18 13:40 Intake & Output 01/13/18 01/14/18 01/14/18 18:59 06:59 18:59 Intake Total 1205.5 550 150 Output Total 670 Balance 1205.5 -120 150 Weight (lbs) 63.503 kg Intake: Intake, IV Amount 1205.5 150 150 D5-0.45NS 1,000 ml @ 70 905.5 mls/hr IV .[id number] [facility] Rx #:[id number] Piperacillin Sodium/ 100 50 50 Tazobact 3.375 gm In Dextrose 5% 50 ml @ 100 mls/hr IV Q8H [facility] Rx#: [id number] metroNIDAZOLE 500mg/NS 200 100 100 100mL 500 mg In Premix Fluid 1 bag @ 100 mls/hr IV Q8H [facility] Rx#:[id number] Oral 400 Output: Drainage 70 NAZIA DRAIN 70 Urine 600 Other: # Bowel Movements 0 Stool Characteristics Soft Weight Source Bedscale Active Medications: Current Medications Albuterol/Ipratropium (Duoneb Neb) 3 ml HHN Q6HRT [facility] Stop: 03/08/18 18:59 Last Admin: 01/14/18 13:39 Dose: 3 ml Amlodipine Besylate (Norvasc) 5 mg PO DAILY [facility] Stop: 03/06/18 08:59 Last Admin: 01/14/18 08:17 Dose: 5 mg Benzocaine/Menthol (Cepacol) 1 cooper MM Q4HR PRN PRN Reason: Sore Throat Stop: 03/10/18 15:50 Piperacillin Sod/Tazobactam (Sod 3.375 gm/ Dextrose) 50 mls @ 100 mls/hr IV Q8H [facility] Stop: 03/13/18 09:14 Last Infusion: 01/14/18 10:09 Dose: Infused Dextrose/Sodium Chloride (D5-0.45ns) 1,000 mls @ 100 mls/hr IV .Q10H [facility] Stop: 03/14/18 17:35 Last Admin: 01/14/18 05:15 Dose: 100 mls/hr Levothyroxine Sodium (Synthroid) 0.025 mg PO QDAC [facility] Stop: 03/06/18 07:29 Last Admin: 01/14/18 06:46 Dose: 0.025 mg Losartan Potassium (Cozaar) 100 mg PO DAILY [facility] Stop: 03/07/18 10:59 Last Admin: 01/14/18 08:17 Dose: 100 mg Metronidazole (Flagyl) 500 mg PO BID [facility] Stop: 01/17/18 16:59 Last Admin: 01/14/18 08:17 Dose: 500 mg Miscellaneous (Vte Chemical Prophylaxis Screen/ Admission) 1 ea [facility] PRN PRN PRN Reason: PROTOCOL Stop: 03/06/18 08:14 Morphine Sulfate (Morphine) 2 mg IVP Q4HR PRN PRN Reason: Abdominal Pain Stop: 03/12/18 08:37 Last Admin: 01/11/18 23:11 Dose: 2 mg Oxybutynin Chloride (Ditropan) 5 mg PO BID [facility] Stop: 03/06/18 16:59 Last Admin: 01/14/18 08:16 Dose: 5 mg Pantoprazole Sodium (Protonix) 40 mg IVP DAILY [facility] Stop: 03/06/18 08:59 Last Admin: 01/14/18 08:18 Dose: 40 mg Simethicone (Mylicon) 80 mg PO QID PRN PRN Reason: Gas Stop: 03/10/18 14:48 Last Admin: 01/14/18 05:15 Dose: 80 mg Sodium Bicarbonate (Sodium Bicarbonate) 650 mg PO TID ANTHONY PRN Reason: Protocol Stop: 03/07/18 15:14 Last Admin: 01/14/18 13:50 Dose: 650 mg Tramadol HCl (Ultram) 50 mg PO Q6HR PRN PRN Reason: Pain (Moderate) Stop: 03/10/18 15:51 Last Admin: 01/14/18 02:47 Dose: 50 mg Zolpidem Tartrate (Ambien) 5 mg PO HS PRN PRN Reason: Insomnia Stop: 03/07/18 21:11 Last Admin: 01/10/18 21:58 Dose: 5 mg General: Alert Cardiovascular: Regular rate Lungs: Clear to auscultation Abdomen: Soft, Tender, no Distended Extremities: no Edema Neurological: Sensation intact Skin: no Rash Psych/Mental Status: Mood NL - Procedures Procedures: Procedures Procedure Code Date COLONOSCOPY AND BIOPSY 49552 01/04/18 EXCISION OF ASCENDING COLON, ENDO, DIAGN [id number] 01/04/18 PARTIAL REMOVAL OF COLON 62238 01/04/18 RESECTION OF RIGHT LARGE INTESTINE, OPEN APPROACH [id number] 01/04/18 Assessment/Plan - Assessment Assessment: Adenocarcinoma of colon Lung nodule most likely metastatic disease Chronic hyponatremia Acute on CKD ( creatinine rising 2.9) Chronic constipation HTN CAD UTI SEPTIC SHOCK - Plan Plan: IV fluids resuscitation Advance diet Toradol dc'd Renal Ultrasound Nephrology follow up Morphine prn Follow up on colon mass pathology I updated family re: plan of care they understood well Antibioitcs Encouraged ambulation SNIF DC plan discussed with family they agreed Nutritional Asmnt/Malnutr-PDOC - Dietary Evaluation Malnutrition Findings (Please click <Entered> for more info): Nutritional Asmnt/Malnutrition Start: 01/05/18 14: 24 Text: Status: Complete Freq: Document 01/05/18 14:24 LCKRISHANG (Rec: 01/05/18 14:55 LCHENG NARESH-FN) Nutritional Asmnt/Malnutrition Patient General Information Nutritional Screening High Risk Diagnosis dehydration, anemia, UTI, facial cellulitis Pertinent Medical Hx/Surgical Hx HTN, ESRD, thyroid disorder Subjective Information Pt seen lying in bed, awake and pleasant. Family at bedside feeding pt lunch. Family is able to speak little Divehi, denied pt has chewing/swallowing problem, stated pt eating ok. Pt has teeth noted. Per EMR, pt consumed 100% of breakfast in the morning. Current Diet Order/ Nutrition Support regular Pertinent Medications D5-0.9%ns, synthorid, protonix Pertinent Labs 01/05 cl 112, BUN 32, Cr 1.3, Ca 8.5 Nutritional Hx/Data Height 1.52 m Height (Calculated Centimeters) 152.4 Current Weight (lbs) 58.06 kg Weight (Calculated Kilograms) 58.1 Weight (Calculated Grams) 79739.8 [place] Body Weight 100 Body Mass Index (BMI) 25.0 Weight Status Approriate GI Symptoms GI Symptoms None Last BM not indicated Difficult in: None Skin Integrity/Comment: face reddened Current %PO Good (75-100%) Estimated Nutritional Goals BEE in Kcals: Using Current wt Calories/Kcals/Kg 25-30 Kcals Calculated 6865-9916 Protein: Using Current wt Protein g/k monitor renal labs Protein Calculated 58 Fluid: ml 1450-1740ml (1ml/kcal) Nutritional Problem 1. Problem Problem altered nutrition related labs Etiology electrolytes imbalance and hx of ESRD Signs/Symptoms: cl 112, BUN 32, Cr 1.3, Ca 8.5 Malnutrition Alert Protein-Calorie Malnutrition N/A Is there a minimum of two criteria No selected? Query Text:Check all the applicable criteria. A minimum of two criteria are recommended for diagnosis of either severe or non-severe malnutrition. Intervention/Recommendation Comments 1. Continue with regular diet as ordered. Assist pt with meals as needed. 2. If BUN/Cr not improved, will consider renal diet. 2. Monitor PO intake, wt, labs and skin integrity 3. F/U as moderate risk in 3-5 days, 01/08-01/10 Expected Outcomes/Goals Expected Outcomes/Goals 1. PO intake to meet at least 75% of nutritional needs. 2. Wt stability, skin to remain intact, labs to approach WNL.
--- NOTE | 2018-01-14 17:33 | GI Progress Note ---
Subjective - Review of Systems Service Date: 01/14/18 Events since last encounter: Had BM Subjective: Better Objective - Results Result Diagrams: 01/14/18 05:25 01/14/18 05:25 Recent Labs: Laboratory Last Values WBC 7.6 Th/cmm (4.8-10.8) 01/14/18 05:25 RBC 3.17 Mil/cmm (3.80-5.20) L 01/14/18 05:25 Hgb 9.0 gm/dL (12-16) L 01/14/18 05:25 Hct 26.3 % (41.0-60) L 01/14/18 05:25 MCV 83.0 fl (81-100) 01/14/18 05:25 MCH 28.3 pg (27.0-31.0) 01/14/18 05:25 MCHC Differential 34.1 pg (28.0-36.0) 01/14/18 05:25 RDW 15.7 % (11.5-20.0) 01/14/18 05:25 Plt Count 148 Th/cmm (150-400) L 01/14/18 05:25 MPV 7.2 fl 01/14/18 05:25 Neutrophils % 87.6 % (40.0-80.0) H 01/12/18 09:20 Band Neutrophils % 1 % (0-10) 01/14/18 05:25 Lymphocytes % 9.0 % (20.0-50.0) L 01/12/18 09:20 Monocytes % 3.3 % (2.0-10.0) 01/12/18 09:20 Eosinophils % 0.1 % (0.0-5.0) 01/12/18 09:20 Basophils % 0.0 % (0.0-2.0) 01/12/18 09:20 Neutrophils (Manual) 89 % (40-80) H 01/14/18 05:25 Lymphocytes 8 % (20-50) L 01/14/18 05:25 Monocytes 2 % (2-10) 01/14/18 05:25 Eosinophils 0 % (0-5) 01/14/18 05:25 Basophils 0 % (0-3) 01/14/18 05:25 Eos Smear Source URINE 01/06/18 05:25 Eos Smear Total Cells NONE SEEN (NONE SEEN) 01/06/18 05:25 PT 11.1 SECONDS (9.5-11.5) 01/09/18 04:54 INR 1.07 (0.5-1.4) 01/09/18 04:54 PTT (Actin FS) 25.1 SECONDS (26.0-38.0) L 01/09/18 04:54 Sodium 129 mEq/L (136-145) L 01/14/18 05:25 Potassium 4.1 mEq/L (3.5-5.1) 01/14/18 05:25 Chloride 106 mEq/L (98-107) 01/14/18 05:25 Carbon Dioxide 15.6 mEq/L (21.0-31.0) L 01/14/18 05:25 Anion Gap 11.5 (7.0-16.0) 01/14/18 05:25 BUN 29 mg/dL (7-25) H 01/14/18 05:25 Creatinine 2.3 mg/dL (0.6-1.2) H 01/14/18 05:25 Est GFR ( Amer) TNP 01/14/18 05:25 Est GFR (Non-Af Amer) TNP 01/14/18 05:25 BUN/Creatinine Ratio 12.6 01/14/18 05:25 Glucose 105 mg/dL (70-105) 01/14/18 05:25 Plasma/Ser Osmolality 289 mOsmol/kg (280-301) 01/07/18 06:02 Whole Bld Lactic Acid 1.72 mmol/L (0.60-1.99) 01/04/18 20:35 Uric Acid 6.5 mg/dL (2.3-6.6) 01/06/18 06:01 Calcium 7.2 mg/dL (8.6-10.3) L 01/14/18 05:25 Phosphorus 4.1 mg/dL (2.5-5.0) 01/06/18 06:01 Magnesium 2.5 mg/dL (1.9-2.7) 01/07/18 06:02 Iron 43 ug/dL (27-139) 01/05/18 05:36 TIBC 254 ug/dL (250-450) 01/05/18 05:36 Iron Saturation 17 % (15-55) 01/05/18 05:36 Unsaturated IBC 211 ug/dL (118-369) 01/05/18 05:36 Ferritin 17 ng/mL (15-150) 01/05/18 05:36 Total Bilirubin 0.5 mg/dL (0.3-1.0) 01/14/18 05:25 AST 26 U/L (13-39) 01/14/18 05:25 ALT 28 U/L (7-52) 01/14/18 05:25 Alkaline Phosphatase 37 U/L (34-104) 01/14/18 05:25 Creatine Kinase 165 U/L (30-223) 01/04/18 20:35 Troponin I 0.02 ng/mL (0.01-0.05) 01/04/18 20:35 B-Natriuretic Peptide 197.0 pg/mL (5.0-100.0) H 01/04/18 20:35 Total Protein 4.6 gm/dL (6.0-8.3) L 01/14/18 05:25 Albumin 2.3 gm/dL (3.7-5.3) L 01/14/18 05:25 Globulin 2.3 gm/dL 01/14/18 05:25 Albumin/Globulin Ratio 1.0 (1.0-1.8) 01/14/18 05:25 Triglycerides 68 mg/dL (<150) 01/04/18 20:35 Cholesterol 115 mg/dL (<200) 01/04/18 20:35 LDL Cholesterol Direct 56 mg/dL (75-193) L 01/04/18 20:35 HDL Cholesterol 44 mg/dL (23-92) 01/04/18 20:35 Amylase 45 U/L (29-103) 01/06/18 06:01 Lipase 24 U/L (11-82) 01/06/18 06:01 Carcinoembryonic Ag 26.2 ng/mL (0.0-4.7) H 01/06/18 06:01 Vitamin B12 304 pg/mL (232-1245) 01/05/18 05:36 Folic Acid 14.5 ng/mL (>3.0) 01/05/18 05:36 TSH 4.28 uIU/ml (0.34-5.60) 01/05/18 05:36 Urine Source CLEAN C 01/04/18 20:20 Urine Color STRAW 01/04/18 20:20 Urine Clarity CLEAR (CLEAR) 01/04/18 20:20 Urine pH 5.5 (4.6 - 8.0) 01/04/18 20:20 Ur Specific [place] 1.015 (1.005-1.030) 01/04/18 20:20 Urine Protein NEGATIVE mg/dL (NEGATIVE) 01/04/18 20:20 Urine Glucose (UA) NEGATIVE mg/dL (NEGATIVE) 01/04/18 20:20 Urine Ketones NEGATIVE mg/dL (NEGATIVE) 01/04/18 20:20 Urine Blood NEGATIVE (NEGATIVE) 01/04/18 20:20 Urine Nitrate NEGATIVE (NEGATIVE) 01/04/18 20:20 Urine Bilirubin NEGATIVE (NEGATIVE) 01/04/18 20:20 Urine Urobilinogen 0.2 E.U./dL (0.2 - 1.0) 01/04/18 20:20 Ur Leukocyte Esterase TRACE (NEGATIVE) H 01/04/18 20:20 Urine RBC NONE SEEN /hpf (0-5) 01/04/18 20:20 Urine WBC 2-5 /hpf (0-5) 01/04/18 20:20 Ur Epithelial Cells NONE SEEN /lpf (FEW) 01/04/18 20:20 Urine Bacteria NONE SEEN /hpf (NONE SEEN) 01/04/18 20:20 Ur Random Sodium 99 mmol/L 01/06/18 05:25 Urine Creatinine 42.0 mg/dl (28.0-217.0) 01/06/18 05:25 Stool Occult Blood NEGATIVE (NEGATIVE) 01/07/18 17:25 Blood Type O POSITIVE 01/10/18 07:20 Antibody Screen POSITIVE 01/10/18 07:20 Antibody Identification Anti-C Anti-e 01/10/18 07:20 Antibody Identification Anti-C Anti-e 01/10/18 07:20 Crossmatch See Detail 01/10/18 07:20 - Physical Exam Vitals and I&O: Vital Signs Temp 98.2 F 01/14/18 12:00 Pulse 116 01/14/18 13:40 Resp 18 01/14/18 16:00 BP 100/51 01/14/18 12:00 Pulse Ox 97 01/14/18 13:40 Intake & Output 01/13/18 01/14/18 01/14/18 18:59 06:59 18:59 Intake Total 1205.5 550 1150 Output Total 670 Balance 1205.5 -120 1150 Weight (lbs) 63.503 kg Intake: Intake, IV Amount 1205.5 150 1150 D5-0.45NS 1,000 ml @ 100 1000 mls/hr IV .Q10H [facility] Rx#: [id number] D5-0.45NS 1,000 ml @ 70 905.5 mls/hr IV .[id number] [facility] Rx #:[id number] Piperacillin Sodium/ 100 50 50 Tazobact 3.375 gm In Dextrose 5% 50 ml @ 100 mls/hr IV Q8H [facility] Rx#: [id number] metroNIDAZOLE 500mg/NS 200 100 100 100mL 500 mg In Premix Fluid 1 bag @ 100 mls/hr IV Q8H [facility] Rx#:[id number] Oral 400 Output: Drainage 70 NAZIA DRAIN 70 Urine 600 Other: # Bowel Movements 0 Stool Characteristics Soft Weight Source Bedscale Active Medications: Current Medications Albuterol/Ipratropium (Duoneb Neb) 3 ml HHN Q6HRT [facility] Stop: 03/08/18 18:59 Last Admin: 01/14/18 13:39 Dose: 3 ml Amlodipine Besylate (Norvasc) 5 mg PO DAILY [facility] Stop: 03/06/18 08:59 Last Admin: 01/14/18 08:17 Dose: 5 mg Benzocaine/Menthol (Cepacol) 1 cooper MM Q4HR PRN PRN Reason: Sore Throat Stop: 03/10/18 15:50 Piperacillin Sod/Tazobactam (Sod 3.375 gm/ Dextrose) 50 mls @ 100 mls/hr IV Q8H [facility] Stop: 03/13/18 09:14 Last Admin: 01/14/18 16:15 Dose: 100 mls/hr Dextrose/Sodium Chloride (D5-0.45ns) 1,000 mls @ 100 mls/hr IV .Q10H [facility] Stop: 03/14/18 17:35 Last Admin: 01/14/18 16:03 Dose: 100 mls/hr Levothyroxine Sodium (Synthroid) 0.025 mg PO QDAC [facility] Stop: 03/06/18 07:29 Last Admin: 01/14/18 06:46 Dose: 0.025 mg Losartan Potassium (Cozaar) 100 mg PO DAILY [facility] Stop: 03/07/18 10:59 Last Admin: 01/14/18 08:17 Dose: 100 mg Metronidazole (Flagyl) 500 mg PO BID [facility] Stop: 01/17/18 16:59 Last Admin: 01/14/18 16:03 Dose: 500 mg Miscellaneous (Vte Chemical Prophylaxis Screen/ Admission) 1 ea [facility] PRN PRN PRN Reason: PROTOCOL Stop: 03/06/18 08:14 Morphine Sulfate (Morphine) 2 mg IVP Q4HR PRN PRN Reason: Abdominal Pain Stop: 03/12/18 08:37 Last Admin: 01/11/18 23:11 Dose: 2 mg Oxybutynin Chloride (Ditropan) 5 mg PO BID [facility] Stop: 03/06/18 16:59 Last Admin: 01/14/18 16:03 Dose: 5 mg Pantoprazole Sodium (Protonix) 40 mg IVP DAILY [facility] Stop: 03/06/18 08:59 Last Admin: 01/14/18 08:18 Dose: 40 mg Simethicone (Mylicon) 80 mg PO QID PRN PRN Reason: Gas Stop: 03/10/18 14:48 Last Admin: 01/14/18 05:15 Dose: 80 mg Sodium Bicarbonate (Sodium Bicarbonate) 650 mg PO TID ANTHONY PRN Reason: Protocol Stop: 03/07/18 15:14 Last Admin: 01/14/18 13:50 Dose: 650 mg Tramadol HCl (Ultram) 50 mg PO Q6HR PRN PRN Reason: Pain (Moderate) Stop: 03/10/18 15:51 Last Admin: 01/14/18 02:47 Dose: 50 mg Zolpidem Tartrate (Ambien) 5 mg PO HS PRN PRN Reason: Insomnia Stop: 03/07/18 21:11 Last Admin: 01/10/18 21:58 Dose: 5 mg General: Alert, No acute distress HEENT: Mucous membr. moist/pink Neck: Supple, +2 carotid pulse wo bruit Cardiovascular: Regular rate Lungs: Clear to auscultation Abdomen: Bowel sounds, Soft, Tender, Other (Surgical dressing), no Distended Extremities: no Edema Neurological: Sensation intact Skin: no Rash Psych/Mental Status: Mood NL - Procedures Procedures: Procedures Procedure Code Date COLONOSCOPY AND BIOPSY 89472 01/04/18 EXCISION OF ASCENDING COLON, ENDO, DIAGN [id number] 01/04/18 PARTIAL REMOVAL OF COLON 63722 01/04/18 RESECTION OF RIGHT LARGE INTESTINE, OPEN APPROACH [id number] 01/04/18 Assessment/Plan - Problem List Patient Problems: All Active Problems Colonic mass (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
--- NOTE | 2018-01-15 00:20 | Progress Notes ---
DATE: 01/14/2018 PROBLEM LIST: 1. Pulmonary nodule. 2. 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 3. Questionable asthmatic bronchitis. SYMPTOMS: Nil. She is feeling okay, with chest discomfort on a surgical scar, otherwise unremarkable. PHYSICAL EXAMINATION: GENERAL: Not in any acute distress. VITAL SIGNS: Recorded temperature is 98.5, blood pressure 104/59, saturation is 97%. NECK: Veins not visualized. CHEST: Shows clear with diminished air entry. HEART: Regular. ABDOMEN: Slightly tender surgical scar. Otherwise, unremarkable. ASSESSMENT: The patient is clinically stable, improving, respiratory burks stable. PLANS AND SUGGESTIONS: Continue current supportive care. Await for final histopathology report, etc. from this abdominal surgery. JOB# [id number]
[2018-01-15] MEDS: Albuterol/Ipratropium Neb 3 ML AERS HHN SCH ×4 (01:51→18:41)
[2018-01-15] MEDS: D5-0.45NS 1,000 ML IV SCH ×3 (01:54→22:24)
[2018-01-15] MEDS: Levothyroxine 0.025 Mg Tab PO SCH (06:42)
[2018-01-15 07:11] LABS: ANION GAP 11.5 (7.0-16.0); BUN - UREA NITROGEN 27 mg/dL (7-25); CALCIUM SERUM 7.4 mg/dL (8.6-10.3); CARBON DIOXIDE 14.2 mEq/L (21.0-31.0); CHLORIDE 106 mEq/L (98-107); CREATININE - SERUM 2.1 mg/dL (0.6-1.2); GLUCOSE 100 mg/dL (70-105); POTASSIUM SERUM 3.7 mEq/L (3.5-5.1); SODIUM SERUM 128 mEq/L (136-145)
--- NOTE | 2018-01-15 09:43 | General Progress Note ---
Subjective - Review of Systems Service Date: 01/15/18 Events since last encounter: tolerating feedings loose stools Deepak drain out Objective - Results Result Diagrams: 01/14/18 05:25 01/15/18 05:45 Recent Labs: Laboratory Last Values WBC 7.6 Th/cmm (4.8-10.8) 01/14/18 05:25 RBC 3.17 Mil/cmm (3.80-5.20) L 01/14/18 05:25 Hgb 9.0 gm/dL (12-16) L 01/14/18 05:25 Hct 26.3 % (41.0-60) L 01/14/18 05:25 MCV 83.0 fl (81-100) 01/14/18 05:25 MCH 28.3 pg (27.0-31.0) 01/14/18 05:25 MCHC Differential 34.1 pg (28.0-36.0) 01/14/18 05:25 RDW 15.7 % (11.5-20.0) 01/14/18 05:25 Plt Count 148 Th/cmm (150-400) L 01/14/18 05:25 MPV 7.2 fl 01/14/18 05:25 Neutrophils % 87.6 % (40.0-80.0) H 01/12/18 09:20 Band Neutrophils % 1 % (0-10) 01/14/18 05:25 Lymphocytes % 9.0 % (20.0-50.0) L 01/12/18 09:20 Monocytes % 3.3 % (2.0-10.0) 01/12/18 09:20 Eosinophils % 0.1 % (0.0-5.0) 01/12/18 09:20 Basophils % 0.0 % (0.0-2.0) 01/12/18 09:20 Neutrophils (Manual) 89 % (40-80) H 01/14/18 05:25 Lymphocytes 8 % (20-50) L 01/14/18 05:25 Monocytes 2 % (2-10) 01/14/18 05:25 Eosinophils 0 % (0-5) 01/14/18 05:25 Basophils 0 % (0-3) 01/14/18 05:25 Eos Smear Source URINE 01/06/18 05:25 Eos Smear Total Cells NONE SEEN (NONE SEEN) 01/06/18 05:25 PT 11.1 SECONDS (9.5-11.5) 01/09/18 04:54 INR 1.07 (0.5-1.4) 01/09/18 04:54 PTT (Actin FS) 25.1 SECONDS (26.0-38.0) L 01/09/18 04:54 Sodium 128 mEq/L (136-145) L 01/15/18 05:45 Potassium 3.7 mEq/L (3.5-5.1) 01/15/18 05:45 Chloride 106 mEq/L (98-107) 01/15/18 05:45 Carbon Dioxide 14.2 mEq/L (21.0-31.0) L 01/15/18 05:45 Anion Gap 11.5 (7.0-16.0) 01/15/18 05:45 BUN 27 mg/dL (7-25) H 01/15/18 05:45 Creatinine 2.1 mg/dL (0.6-1.2) H 01/15/18 05:45 Est GFR ( Amer) TNP 01/15/18 05:45 Est GFR (Non-Af Amer) TNP 01/15/18 05:45 BUN/Creatinine Ratio 12.9 01/15/18 05:45 Glucose 100 mg/dL (70-105) 01/15/18 05:45 Plasma/Ser Osmolality 289 mOsmol/kg (280-301) 01/07/18 06:02 Whole Bld Lactic Acid 1.72 mmol/L (0.60-1.99) 01/04/18 20:35 Uric Acid 6.5 mg/dL (2.3-6.6) 01/06/18 06:01 Calcium 7.4 mg/dL (8.6-10.3) L 01/15/18 05:45 Phosphorus 4.1 mg/dL (2.5-5.0) 01/06/18 06:01 Magnesium 2.5 mg/dL (1.9-2.7) 01/07/18 06:02 Iron 43 ug/dL (27-139) 01/05/18 05:36 TIBC 254 ug/dL (250-450) 01/05/18 05:36 Iron Saturation 17 % (15-55) 01/05/18 05:36 Unsaturated IBC 211 ug/dL (118-369) 01/05/18 05:36 Ferritin 17 ng/mL (15-150) 01/05/18 05:36 Total Bilirubin 0.5 mg/dL (0.3-1.0) 01/14/18 05:25 AST 26 U/L (13-39) 01/14/18 05:25 ALT 28 U/L (7-52) 01/14/18 05:25 Alkaline Phosphatase 37 U/L (34-104) 01/14/18 05:25 Creatine Kinase 165 U/L (30-223) 01/04/18 20:35 Troponin I 0.02 ng/mL (0.01-0.05) 01/04/18 20:35 B-Natriuretic Peptide 197.0 pg/mL (5.0-100.0) H 01/04/18 20:35 Total Protein 4.6 gm/dL (6.0-8.3) L 01/14/18 05:25 Albumin 2.3 gm/dL (3.7-5.3) L 01/14/18 05:25 Globulin 2.3 gm/dL 01/14/18 05:25 Albumin/Globulin Ratio 1.0 (1.0-1.8) 01/14/18 05:25 Triglycerides 68 mg/dL (<150) 01/04/18 20:35 Cholesterol 115 mg/dL (<200) 01/04/18 20:35 LDL Cholesterol Direct 56 mg/dL (75-193) L 01/04/18 20:35 HDL Cholesterol 44 mg/dL (23-92) 01/04/18 20:35 Amylase 45 U/L (29-103) 01/06/18 06:01 Lipase 24 U/L (11-82) 01/06/18 06:01 Carcinoembryonic Ag 26.2 ng/mL (0.0-4.7) H 01/06/18 06:01 Vitamin B12 304 pg/mL (232-1245) 01/05/18 05:36 Folic Acid 14.5 ng/mL (>3.0) 01/05/18 05:36 TSH 4.28 uIU/ml (0.34-5.60) 01/05/18 05:36 Urine Source CLEAN C 01/04/18 20:20 Urine Color STRAW 01/04/18 20:20 Urine Clarity CLEAR (CLEAR) 01/04/18 20:20 Urine pH 5.5 (4.6 - 8.0) 01/04/18 20:20 Ur Specific [place] 1.015 (1.005-1.030) 01/04/18 20:20 Urine Protein NEGATIVE mg/dL (NEGATIVE) 01/04/18 20:20 Urine Glucose (UA) NEGATIVE mg/dL (NEGATIVE) 01/04/18 20:20 Urine Ketones NEGATIVE mg/dL (NEGATIVE) 01/04/18 20:20 Urine Blood NEGATIVE (NEGATIVE) 01/04/18 20:20 Urine Nitrate NEGATIVE (NEGATIVE) 01/04/18 20:20 Urine Bilirubin NEGATIVE (NEGATIVE) 01/04/18 20:20 Urine Urobilinogen 0.2 E.U./dL (0.2 - 1.0) 01/04/18 20:20 Ur Leukocyte Esterase TRACE (NEGATIVE) H 01/04/18 20:20 Urine RBC NONE SEEN /hpf (0-5) 01/04/18 20:20 Urine WBC 2-5 /hpf (0-5) 01/04/18 20:20 Ur Epithelial Cells NONE SEEN /lpf (FEW) 01/04/18 20:20 Urine Bacteria NONE SEEN /hpf (NONE SEEN) 01/04/18 20:20 Ur Random Sodium 99 mmol/L 01/06/18 05:25 Urine Creatinine 42.0 mg/dl (28.0-217.0) 01/06/18 05:25 Stool Occult Blood NEGATIVE (NEGATIVE) 01/07/18 17:25 Blood Type O POSITIVE 01/10/18 07:20 Antibody Screen POSITIVE 01/10/18 07:20 Antibody Identification Anti-C Anti-e 01/10/18 07:20 Antibody Identification Anti-C Anti-e 01/10/18 07:20 Crossmatch See Detail 01/10/18 07:20 - Physical Exam Vitals and I&O: Vital Signs Temp 98.0 F 01/15/18 08:33 Pulse 112 01/15/18 08:33 Resp 18 01/15/18 08:33 BP 97/40 01/15/18 08:33 Pulse Ox 96 01/15/18 08:33 Intake & Output 01/14/18 01/15/18 01/15/18 18:59 06:59 18:59 Intake Total 1900 1155 Output Total 340 300 Balance 1560 855 Weight (lbs) 63.503 kg 63.503 kg Intake: Intake, IV Amount 1200 1035 D5-0.45NS 1,000 ml @ 100 1000 985 mls/hr IV .Q10H [facility] Rx#: [id number] Piperacillin Sodium/ 100 50 Tazobact 3.375 gm In Dextrose 5% 50 ml @ 100 mls/hr IV Q8H [facility] Rx#: [id number] metroNIDAZOLE 500mg/NS 100 100mL 500 mg In Premix Fluid 1 bag @ 100 mls/hr IV Q8H [facility] Rx#:[id number] Oral 700 120 Output: Drainage 40 DEEPAK DRAIN 40 Urine 300 300 Other: # Voids 0 # Bowel Movements 2 Stool Characteristics Soft Weight Source Bedscale Bedscale Active Medications: Current Medications Albuterol/Ipratropium (Duoneb Neb) 3 ml HHN Q6HRT [facility] Stop: 03/08/18 18:59 Last Admin: 01/15/18 07:12 Dose: 3 ml Amlodipine Besylate (Norvasc) 5 mg PO DAILY [facility] Stop: 03/06/18 08:59 Last Admin: 01/15/18 08:35 Dose: Not Given Benzocaine/Menthol (Cepacol) 1 cooper MM Q4HR PRN PRN Reason: Sore Throat Stop: 03/10/18 15:50 Piperacillin Sod/Tazobactam (Sod 3.375 gm/ Dextrose) 50 mls @ 100 mls/hr IV Q8H [facility] Stop: 03/13/18 09:14 Last Admin: 01/15/18 08:35 Dose: 100 mls/hr Dextrose/Sodium Chloride (D5-0.45ns) 1,000 mls @ 100 mls/hr IV .Q10H [facility] Stop: 03/14/18 17:35 Last Admin: 01/15/18 01:54 Dose: 100 mls/hr Levothyroxine Sodium (Synthroid) 0.025 mg PO QDAC [facility] Stop: 03/06/18 07:29 Last Admin: 01/15/18 06:42 Dose: 0.025 mg Losartan Potassium (Cozaar) 100 mg PO DAILY [facility] Stop: 03/07/18 10:59 Last Admin: 01/15/18 08:34 Dose: Not Given Metronidazole (Flagyl) 500 mg PO BID [facility] Stop: 01/17/18 16:59 Last Admin: 01/15/18 08:33 Dose: 500 mg Miscellaneous (Vte Chemical Prophylaxis Screen/ Admission) 1 ea [facility] PRN PRN PRN Reason: PROTOCOL Stop: 03/06/18 08:14 Miscellaneous (Clinical Monitoring) 1 ea MC DAILY PRN PRN Reason: RENAL Stop: 03/16/18 08:53 Morphine Sulfate (Morphine) 2 mg IVP Q4HR PRN PRN Reason: Abdominal Pain Stop: 03/12/18 08:37 Last Admin: 01/11/18 23:11 Dose: 2 mg Oxybutynin Chloride (Ditropan) 5 mg PO BID [facility] Stop: 03/06/18 16:59 Last Admin: 01/15/18 08:33 Dose: 5 mg Pantoprazole Sodium (Protonix) 40 mg IVP DAILY [facility] Stop: 03/06/18 08:59 Last Admin: 01/15/18 08:33 Dose: 40 mg Simethicone (Mylicon) 80 mg PO QID PRN PRN Reason: Gas Stop: 03/10/18 14:48 Last Admin: 01/14/18 05:15 Dose: 80 mg Sodium Bicarbonate (Sodium Bicarbonate) 650 mg PO TID ANTHONY PRN Reason: Protocol Stop: 03/07/18 15:14 Last Admin: 01/15/18 08:33 Dose: 650 mg Tramadol HCl (Ultram) 50 mg PO Q6HR PRN PRN Reason: Pain (Moderate) Stop: 03/10/18 15:51 Last Admin: 01/14/18 02:47 Dose: 50 mg Zolpidem Tartrate (Ambien) 5 mg PO HS PRN PRN Reason: Insomnia Stop: 03/07/18 21:11 Last Admin: 01/14/18 20:52 Dose: 5 mg General: Alert, No acute distress HEENT: Mucous membr. moist/pink Neck: Supple, +2 carotid pulse wo bruit Cardiovascular: Regular rate Lungs: Clear to auscultation Abdomen: Bowel sounds, Soft, Tender, Other (Surgical dressing), no Distended Extremities: no Edema Neurological: Sensation intact Skin: no Rash Psych/Mental Status: Mood NL - Procedures Procedures: Procedures Procedure Code Date COLONOSCOPY AND BIOPSY 19504 01/04/18 EXCISION OF ASCENDING COLON, ENDO, DIAGN [id number] 01/04/18 PARTIAL REMOVAL OF COLON 76551 01/04/18 RESECTION OF RIGHT LARGE INTESTINE, OPEN APPROACH [id number] 01/04/18 Assessment/Plan - Problem List Patient Problems: All Active Problems Colonic mass (Acute) K63.9 Nutritional Asmnt/Malnutr-PDOC - Dietary Evaluation Malnutrition Findings (Please click <Entered> for more info): Nutritional Asmnt/Malnutrition Start: 01/05/18 14: 24 Text: Status: Complete Freq: Document 01/05/18 14:24 LCHENG (Rec: 01/05/18 14:55 [email or web address] [email or web address]) Nutritional Asmnt/Malnutrition Patient General Information Nutritional Screening High Risk Diagnosis dehydration, anemia, UTI, facial cellulitis Pertinent Medical Hx/Surgical Hx HTN, ESRD, thyroid disorder Subjective Information Pt seen lying in bed, awake and pleasant. Family at bedside feeding pt lunch. Family is able to speak little Bengali, denied pt has chewing/swallowing problem, stated pt eating ok. Pt has teeth noted. Per EMR, pt consumed 100% of breakfast in the morning. Current Diet Order/ Nutrition Support regular Pertinent Medications D5-0.9%ns, synthorid, protonix Pertinent Labs 01/05 cl 112, BUN 32, Cr 1.3, Ca 8.5 Nutritional Hx/Data Height 1.52 m Height (Calculated Centimeters) 152.4 Current Weight (lbs) 58.06 kg Weight (Calculated Kilograms) 58.1 Weight (Calculated Grams) 11074.8 [place] Body Weight 100 Body Mass Index (BMI) 25.0 Weight Status Approriate GI Symptoms GI Symptoms None Last BM not indicated Difficult in: None Skin Integrity/Comment: face reddened Current %PO Good (75-100%) Estimated Nutritional Goals BEE in Kcals: Using Current wt Calories/Kcals/Kg 25-30 Kcals Calculated 0934-2631 Protein: Using Current wt Protein g/k monitor renal labs Protein Calculated 58 Fluid: ml 1450-1740ml (1ml/kcal) Nutritional Problem 1. Problem Problem altered nutrition related labs Etiology electrolytes imbalance and hx of ESRD Signs/Symptoms: cl 112, BUN 32, Cr 1.3, Ca 8.5 Malnutrition Alert Protein-Calorie Malnutrition N/A Is there a minimum of two criteria No selected? Query Text:Check all the applicable criteria. A minimum of two criteria are recommended for diagnosis of either severe or non-severe malnutrition. Intervention/Recommendation Comments 1. Continue with regular diet as ordered. Assist pt with meals as needed. 2. If BUN/Cr not improved, will consider renal diet. 2. Monitor PO intake, wt, labs and skin integrity 3. F/U as moderate risk in 3-5 days, 01/08-01/10 Expected Outcomes/Goals Expected Outcomes/Goals 1. PO intake to meet at least 75% of nutritional needs. 2. Wt stability, skin to remain intact, labs to approach WNL.
--- NOTE | 2018-01-15 10:34 | GI Progress Note ---
Subjective - Review of Systems Service Date: 01/15/18 Events since last encounter: NAZIA drain is out Subjective: Better wants to go home Some abd pain Objective - Results Result Diagrams: 01/14/18 05:25 01/15/18 05:45 Recent Labs: Laboratory Last Values WBC 7.6 Th/cmm (4.8-10.8) 01/14/18 05:25 RBC 3.17 Mil/cmm (3.80-5.20) L 01/14/18 05:25 Hgb 9.0 gm/dL (12-16) L 01/14/18 05:25 Hct 26.3 % (41.0-60) L 01/14/18 05:25 MCV 83.0 fl (81-100) 01/14/18 05:25 MCH 28.3 pg (27.0-31.0) 01/14/18 05:25 MCHC Differential 34.1 pg (28.0-36.0) 01/14/18 05:25 RDW 15.7 % (11.5-20.0) 01/14/18 05:25 Plt Count 148 Th/cmm (150-400) L 01/14/18 05:25 MPV 7.2 fl 01/14/18 05:25 Neutrophils % 87.6 % (40.0-80.0) H 01/12/18 09:20 Band Neutrophils % 1 % (0-10) 01/14/18 05:25 Lymphocytes % 9.0 % (20.0-50.0) L 01/12/18 09:20 Monocytes % 3.3 % (2.0-10.0) 01/12/18 09:20 Eosinophils % 0.1 % (0.0-5.0) 01/12/18 09:20 Basophils % 0.0 % (0.0-2.0) 01/12/18 09:20 Neutrophils (Manual) 89 % (40-80) H 01/14/18 05:25 Lymphocytes 8 % (20-50) L 01/14/18 05:25 Monocytes 2 % (2-10) 01/14/18 05:25 Eosinophils 0 % (0-5) 01/14/18 05:25 Basophils 0 % (0-3) 01/14/18 05:25 Eos Smear Source URINE 01/06/18 05:25 Eos Smear Total Cells NONE SEEN (NONE SEEN) 01/06/18 05:25 PT 11.1 SECONDS (9.5-11.5) 01/09/18 04:54 INR 1.07 (0.5-1.4) 01/09/18 04:54 PTT (Actin FS) 25.1 SECONDS (26.0-38.0) L 01/09/18 04:54 Sodium 128 mEq/L (136-145) L 01/15/18 05:45 Potassium 3.7 mEq/L (3.5-5.1) 01/15/18 05:45 Chloride 106 mEq/L (98-107) 01/15/18 05:45 Carbon Dioxide 14.2 mEq/L (21.0-31.0) L 01/15/18 05:45 Anion Gap 11.5 (7.0-16.0) 01/15/18 05:45 BUN 27 mg/dL (7-25) H 01/15/18 05:45 Creatinine 2.1 mg/dL (0.6-1.2) H 01/15/18 05:45 Est GFR ( Amer) TNP 01/15/18 05:45 Est GFR (Non-Af Amer) TNP 01/15/18 05:45 BUN/Creatinine Ratio 12.9 01/15/18 05:45 Glucose 100 mg/dL (70-105) 01/15/18 05:45 Plasma/Ser Osmolality 289 mOsmol/kg (280-301) 01/07/18 06:02 Whole Bld Lactic Acid 1.72 mmol/L (0.60-1.99) 01/04/18 20:35 Uric Acid 6.5 mg/dL (2.3-6.6) 01/06/18 06:01 Calcium 7.4 mg/dL (8.6-10.3) L 01/15/18 05:45 Phosphorus 4.1 mg/dL (2.5-5.0) 01/06/18 06:01 Magnesium 2.5 mg/dL (1.9-2.7) 01/07/18 06:02 Iron 43 ug/dL (27-139) 01/05/18 05:36 TIBC 254 ug/dL (250-450) 01/05/18 05:36 Iron Saturation 17 % (15-55) 01/05/18 05:36 Unsaturated IBC 211 ug/dL (118-369) 01/05/18 05:36 Ferritin 17 ng/mL (15-150) 01/05/18 05:36 Total Bilirubin 0.5 mg/dL (0.3-1.0) 01/14/18 05:25 AST 26 U/L (13-39) 01/14/18 05:25 ALT 28 U/L (7-52) 01/14/18 05:25 Alkaline Phosphatase 37 U/L (34-104) 01/14/18 05:25 Creatine Kinase 165 U/L (30-223) 01/04/18 20:35 Troponin I 0.02 ng/mL (0.01-0.05) 01/04/18 20:35 B-Natriuretic Peptide 197.0 pg/mL (5.0-100.0) H 01/04/18 20:35 Total Protein 4.6 gm/dL (6.0-8.3) L 01/14/18 05:25 Albumin 2.3 gm/dL (3.7-5.3) L 01/14/18 05:25 Globulin 2.3 gm/dL 01/14/18 05:25 Albumin/Globulin Ratio 1.0 (1.0-1.8) 01/14/18 05:25 Triglycerides 68 mg/dL (<150) 01/04/18 20:35 Cholesterol 115 mg/dL (<200) 01/04/18 20:35 LDL Cholesterol Direct 56 mg/dL (75-193) L 01/04/18 20:35 HDL Cholesterol 44 mg/dL (23-92) 01/04/18 20:35 Amylase 45 U/L (29-103) 01/06/18 06:01 Lipase 24 U/L (11-82) 01/06/18 06:01 Carcinoembryonic Ag 26.2 ng/mL (0.0-4.7) H 01/06/18 06:01 Vitamin B12 304 pg/mL (232-1245) 01/05/18 05:36 Folic Acid 14.5 ng/mL (>3.0) 01/05/18 05:36 TSH 4.28 uIU/ml (0.34-5.60) 01/05/18 05:36 Urine Source CLEAN C 01/04/18 20:20 Urine Color STRAW 01/04/18 20:20 Urine Clarity CLEAR (CLEAR) 01/04/18 20:20 Urine pH 5.5 (4.6 - 8.0) 01/04/18 20:20 Ur Specific [place] 1.015 (1.005-1.030) 01/04/18 20:20 Urine Protein NEGATIVE mg/dL (NEGATIVE) 01/04/18 20:20 Urine Glucose (UA) NEGATIVE mg/dL (NEGATIVE) 01/04/18 20:20 Urine Ketones NEGATIVE mg/dL (NEGATIVE) 01/04/18 20:20 Urine Blood NEGATIVE (NEGATIVE) 01/04/18 20:20 Urine Nitrate NEGATIVE (NEGATIVE) 01/04/18 20:20 Urine Bilirubin NEGATIVE (NEGATIVE) 01/04/18 20:20 Urine Urobilinogen 0.2 E.U./dL (0.2 - 1.0) 01/04/18 20:20 Ur Leukocyte Esterase TRACE (NEGATIVE) H 01/04/18 20:20 Urine RBC NONE SEEN /hpf (0-5) 01/04/18 20:20 Urine WBC 2-5 /hpf (0-5) 01/04/18 20:20 Ur Epithelial Cells NONE SEEN /lpf (FEW) 01/04/18 20:20 Urine Bacteria NONE SEEN /hpf (NONE SEEN) 01/04/18 20:20 Ur Random Sodium 99 mmol/L 01/06/18 05:25 Urine Creatinine 42.0 mg/dl (28.0-217.0) 01/06/18 05:25 Stool Occult Blood NEGATIVE (NEGATIVE) 01/07/18 17:25 Blood Type O POSITIVE 01/10/18 07:20 Antibody Screen POSITIVE 01/10/18 07:20 Antibody Identification Anti-C Anti-e 01/10/18 07:20 Antibody Identification Anti-C Anti-e 01/10/18 07:20 Crossmatch See Detail 01/10/18 07:20 - Physical Exam Vitals and I&O: Vital Signs Temp 98.0 F 01/15/18 08:33 Pulse 112 01/15/18 08:33 Resp 18 01/15/18 08:33 BP 97/40 01/15/18 08:33 Pulse Ox 96 01/15/18 08:33 Intake & Output 01/14/18 01/15/18 01/15/18 18:59 06:59 18:59 Intake Total 1900 1155 Output Total 340 300 Balance 1560 855 Weight (lbs) 63.503 kg 63.503 kg Intake: Intake, IV Amount 1200 1035 D5-0.45NS 1,000 ml @ 100 1000 985 mls/hr IV .Q10H [facility] Rx#: [id number] Piperacillin Sodium/ 100 50 Tazobact 3.375 gm In Dextrose 5% 50 ml @ 100 mls/hr IV Q8H [facility] Rx#: [id number] metroNIDAZOLE 500mg/NS 100 100mL 500 mg In Premix Fluid 1 bag @ 100 mls/hr IV Q8H [facility] Rx#:[id number] Oral 700 120 Output: Drainage 40 NAZIA DRAIN 40 Urine 300 300 Other: # Voids 0 # Bowel Movements 2 Stool Characteristics Soft Weight Source Bedscale Bedscale Active Medications: Current Medications Albuterol/Ipratropium (Duoneb Neb) 3 ml HHN Q6HRT [facility] Stop: 03/08/18 18:59 Last Admin: 01/15/18 07:12 Dose: 3 ml Amlodipine Besylate (Norvasc) 5 mg PO DAILY [facility] Stop: 03/06/18 08:59 Last Admin: 01/15/18 08:35 Dose: Not Given Benzocaine/Menthol (Cepacol) 1 cooper MM Q4HR PRN PRN Reason: Sore Throat Stop: 03/10/18 15:50 Piperacillin Sod/Tazobactam (Sod 3.375 gm/ Dextrose) 50 mls @ 100 mls/hr IV Q8H [facility] Stop: 03/13/18 09:14 Last Admin: 01/15/18 08:35 Dose: 100 mls/hr Dextrose/Sodium Chloride (D5-0.45ns) 1,000 mls @ 100 mls/hr IV .Q10H [facility] Stop: 03/14/18 17:35 Last Admin: 01/15/18 01:54 Dose: 100 mls/hr Levothyroxine Sodium (Synthroid) 0.025 mg PO QDAC [facility] Stop: 03/06/18 07:29 Last Admin: 01/15/18 06:42 Dose: 0.025 mg Losartan Potassium (Cozaar) 100 mg PO DAILY [facility] Stop: 03/07/18 10:59 Last Admin: 01/15/18 08:34 Dose: Not Given Metronidazole (Flagyl) 500 mg PO BID [facility] Stop: 01/17/18 16:59 Last Admin: 01/15/18 08:33 Dose: 500 mg Miscellaneous (Vte Chemical Prophylaxis Screen/ Admission) 1 ea PRN PRN PRN Reason: PROTOCOL Stop: 03/06/18 08:14 Miscellaneous (Clinical Monitoring) 1 ea DAILY PRN PRN Reason: RENAL Stop: 03/16/18 08:53 Morphine Sulfate (Morphine) 2 mg IVP Q4HR PRN PRN Reason: Abdominal Pain Stop: 03/12/18 08:37 Last Admin: 01/11/18 23:11 Dose: 2 mg Oxybutynin Chloride (Ditropan) 5 mg PO BID [facility] Stop: 03/06/18 16:59 Last Admin: 01/15/18 08:33 Dose: 5 mg Pantoprazole Sodium (Protonix) 40 mg IVP DAILY [facility] Stop: 03/06/18 08:59 Last Admin: 01/15/18 08:33 Dose: 40 mg Simethicone (Mylicon) 80 mg PO QID PRN PRN Reason: Gas Stop: 03/10/18 14:48 Last Admin: 01/14/18 05:15 Dose: 80 mg Sodium Bicarbonate (Sodium Bicarbonate) 650 mg PO TID [facility] PRN Reason: Protocol Stop: 03/07/18 15:14 Last Admin: 01/15/18 08:33 Dose: 650 mg Tramadol HCl (Ultram) 50 mg PO Q6HR PRN PRN Reason: Pain (Moderate) Stop: 03/10/18 15:51 Last Admin: 01/14/18 02:47 Dose: 50 mg Zolpidem Tartrate (Ambien) 5 mg PO HS PRN PRN Reason: Insomnia Stop: 03/07/18 21:11 Last Admin: 01/14/18 20:52 Dose: 5 mg General: Alert, No acute distress HEENT: Mucous membr. moist/pink Neck: Supple, +2 carotid pulse wo bruit Cardiovascular: Regular rate Lungs: Clear to auscultation Abdomen: Bowel sounds, Soft, Tender, Other (Surgical dressing), no Distended Extremities: no Edema Neurological: Sensation intact Skin: no Rash Psych/Mental Status: Mood NL - Procedures Procedures: Procedures Procedure Code Date COLONOSCOPY AND BIOPSY 05854 01/04/18 EXCISION OF ASCENDING COLON, ENDO, DIAGN [id number] 01/04/18 PARTIAL REMOVAL OF COLON 53089 01/04/18 RESECTION OF RIGHT LARGE INTESTINE, OPEN APPROACH [id number] 01/04/18 Assessment/Plan - Problem List Patient Problems: All Active Problems Colonic mass (Acute) K63.9 - Assessment Assessment: Colon mass - Plan Plan: S/P surgery Cont Post op care diet as tolerated
--- NOTE | 2018-01-15 18:25 | General Progress Note ---
Subjective - Review of Systems Service Date: 01/15/18 Subjective: patient seen and examined no new concern reported surgery took NAZIA drain out Objective - Results Result Diagrams: 01/14/18 05:25 01/15/18 05:45 Recent Labs: Laboratory Last Values WBC 7.6 Th/cmm (4.8-10.8) 01/14/18 05:25 RBC 3.17 Mil/cmm (3.80-5.20) L 01/14/18 05:25 Hgb 9.0 gm/dL (12-16) L 01/14/18 05:25 Hct 26.3 % (41.0-60) L 01/14/18 05:25 MCV 83.0 fl (81-100) 01/14/18 05:25 MCH 28.3 pg (27.0-31.0) 01/14/18 05:25 MCHC Differential 34.1 pg (28.0-36.0) 01/14/18 05:25 RDW 15.7 % (11.5-20.0) 01/14/18 05:25 Plt Count 148 Th/cmm (150-400) L 01/14/18 05:25 MPV 7.2 fl 01/14/18 05:25 Neutrophils % 87.6 % (40.0-80.0) H 01/12/18 09:20 Band Neutrophils % 1 % (0-10) 01/14/18 05:25 Lymphocytes % 9.0 % (20.0-50.0) L 01/12/18 09:20 Monocytes % 3.3 % (2.0-10.0) 01/12/18 09:20 Eosinophils % 0.1 % (0.0-5.0) 01/12/18 09:20 Basophils % 0.0 % (0.0-2.0) 01/12/18 09:20 Neutrophils (Manual) 89 % (40-80) H 01/14/18 05:25 Lymphocytes 8 % (20-50) L 01/14/18 05:25 Monocytes 2 % (2-10) 01/14/18 05:25 Eosinophils 0 % (0-5) 01/14/18 05:25 Basophils 0 % (0-3) 01/14/18 05:25 Eos Smear Source URINE 01/06/18 05:25 Eos Smear Total Cells NONE SEEN (NONE SEEN) 01/06/18 05:25 PT 11.1 SECONDS (9.5-11.5) 01/09/18 04:54 INR 1.07 (0.5-1.4) 01/09/18 04:54 PTT (Actin FS) 25.1 SECONDS (26.0-38.0) L 01/09/18 04:54 Sodium 128 mEq/L (136-145) L 01/15/18 05:45 Potassium 3.7 mEq/L (3.5-5.1) 01/15/18 05:45 Chloride 106 mEq/L (98-107) 01/15/18 05:45 Carbon Dioxide 14.2 mEq/L (21.0-31.0) L 01/15/18 05:45 Anion Gap 11.5 (7.0-16.0) 01/15/18 05:45 BUN 27 mg/dL (7-25) H 01/15/18 05:45 Creatinine 2.1 mg/dL (0.6-1.2) H 01/15/18 05:45 Est GFR ( Amer) TNP 01/15/18 05:45 Est GFR (Non-Af Amer) TNP 01/15/18 05:45 BUN/Creatinine Ratio 12.9 01/15/18 05:45 Glucose 100 mg/dL (70-105) 01/15/18 05:45 Plasma/Ser Osmolality 289 mOsmol/kg (280-301) 01/07/18 06:02 Whole Bld Lactic Acid 1.72 mmol/L (0.60-1.99) 01/04/18 20:35 Uric Acid 6.5 mg/dL (2.3-6.6) 01/06/18 06:01 Calcium 7.4 mg/dL (8.6-10.3) L 01/15/18 05:45 Phosphorus 4.1 mg/dL (2.5-5.0) 01/06/18 06:01 Magnesium 2.5 mg/dL (1.9-2.7) 01/07/18 06:02 Iron 43 ug/dL (27-139) 01/05/18 05:36 TIBC 254 ug/dL (250-450) 01/05/18 05:36 Iron Saturation 17 % (15-55) 01/05/18 05:36 Unsaturated IBC 211 ug/dL (118-369) 01/05/18 05:36 Ferritin 17 ng/mL (15-150) 01/05/18 05:36 Total Bilirubin 0.5 mg/dL (0.3-1.0) 01/14/18 05:25 AST 26 U/L (13-39) 01/14/18 05:25 ALT 28 U/L (7-52) 01/14/18 05:25 Alkaline Phosphatase 37 U/L (34-104) 01/14/18 05:25 Creatine Kinase 165 U/L (30-223) 01/04/18 20:35 Troponin I 0.02 ng/mL (0.01-0.05) 01/04/18 20:35 B-Natriuretic Peptide 197.0 pg/mL (5.0-100.0) H 01/04/18 20:35 Total Protein 4.6 gm/dL (6.0-8.3) L 01/14/18 05:25 Albumin 2.3 gm/dL (3.7-5.3) L 01/14/18 05:25 Globulin 2.3 gm/dL 01/14/18 05:25 Albumin/Globulin Ratio 1.0 (1.0-1.8) 01/14/18 05:25 Triglycerides 68 mg/dL (<150) 01/04/18 20:35 Cholesterol 115 mg/dL (<200) 01/04/18 20:35 LDL Cholesterol Direct 56 mg/dL (75-193) L 01/04/18 20:35 HDL Cholesterol 44 mg/dL (23-92) 01/04/18 20:35 Amylase 45 U/L (29-103) 01/06/18 06:01 Lipase 24 U/L (11-82) 01/06/18 06:01 Carcinoembryonic Ag 26.2 ng/mL (0.0-4.7) H 01/06/18 06:01 Vitamin B12 304 pg/mL (232-1245) 01/05/18 05:36 Folic Acid 14.5 ng/mL (>3.0) 01/05/18 05:36 TSH 4.28 uIU/ml (0.34-5.60) 01/05/18 05:36 Urine Source CLEAN C 01/04/18 20:20 Urine Color STRAW 01/04/18 20:20 Urine Clarity CLEAR (CLEAR) 01/04/18 20:20 Urine pH 5.5 (4.6 - 8.0) 01/04/18 20:20 Ur Specific [place] 1.015 (1.005-1.030) 01/04/18 20:20 Urine Protein NEGATIVE mg/dL (NEGATIVE) 01/04/18 20:20 Urine Glucose (UA) NEGATIVE mg/dL (NEGATIVE) 01/04/18 20:20 Urine Ketones NEGATIVE mg/dL (NEGATIVE) 01/04/18 20:20 Urine Blood NEGATIVE (NEGATIVE) 01/04/18 20:20 Urine Nitrate NEGATIVE (NEGATIVE) 01/04/18 20:20 Urine Bilirubin NEGATIVE (NEGATIVE) 01/04/18 20:20 Urine Urobilinogen 0.2 E.U./dL (0.2 - 1.0) 01/04/18 20:20 Ur Leukocyte Esterase TRACE (NEGATIVE) H 01/04/18 20:20 Urine RBC NONE SEEN /hpf (0-5) 01/04/18 20:20 Urine WBC 2-5 /hpf (0-5) 01/04/18 20:20 Ur Epithelial Cells NONE SEEN /lpf (FEW) 01/04/18 20:20 Urine Bacteria NONE SEEN /hpf (NONE SEEN) 01/04/18 20:20 Ur Random Sodium 99 mmol/L 01/06/18 05:25 Urine Creatinine 42.0 mg/dl (28.0-217.0) 01/06/18 05:25 Stool Occult Blood NEGATIVE (NEGATIVE) 01/07/18 17:25 Blood Type O POSITIVE 01/10/18 07:20 Antibody Screen POSITIVE 01/10/18 07:20 Antibody Identification Anti-C Anti-e 01/10/18 07:20 Antibody Identification Anti-C Anti-e 01/10/18 07:20 Crossmatch See Detail 01/10/18 07:20 - Physical Exam Vitals and I&O: Vital Signs Temp 98 F 01/15/18 16:00 Pulse 71 01/15/18 16:00 Resp 18 01/15/18 16:00 BP 94/46 01/15/18 16:00 Pulse Ox 98 01/15/18 16:00 Intake & Output 05/01/2701/15/18 01/15/18 18:59 06:59 18:59 Intake Total 1900 1155 1800 Output Total 340 300 315 Balance 6788 672 8583 Weight (lbs) 63.503 kg 63.503 kg 63.503 kg Intake: Intake, IV Amount 1200 1035 1100 D5-0.45NS 1,000 ml @ 100 0784 055 4286 mls/hr IV .Q10H [facility] Rx#: [id number] Piperacillin Sodium/ 100 50 100 Tazobact 3.375 gm In Dextrose 5% 50 ml @ 100 mls/hr IV Q8H [facility] Rx#: [id number] metroNIDAZOLE 500mg/NS 100 100mL 500 mg In Premix Fluid 1 bag @ 100 mls/hr IV Q8H [facility] Rx#:[id number] Oral 700 120 700 Output: Drainage 40 15 NAZIA DRAIN 40 15 Urine 300 300 300 Other: # Voids 0 # Bowel Movements 2 1 Stool Characteristics Soft Weight Source Bedscale Bedscale Bedscale Active Medications: Current Medications Albuterol/Ipratropium (Duoneb Neb) 3 ml HHN Q6HRT [facility] Stop: 03/08/18 18:59 Last Admin: 01/15/18 13:57 Dose: 3 ml Amlodipine Besylate (Norvasc) 5 mg PO DAILY [facility] Stop: 03/06/18 08:59 Last Admin: 01/15/18 08:35 Dose: Not Given Benzocaine/Menthol (Cepacol) 1 cooper MM Q4HR PRN PRN Reason: Sore Throat Stop: 03/10/18 15:50 Piperacillin Sod/Tazobactam (Sod 3.375 gm/ Dextrose) 50 mls @ 100 mls/hr IV Q8H [facility] Stop: 03/13/18 09:14 Last Infusion: 01/15/18 17:38 Dose: Infused Dextrose/Sodium Chloride (D5-0.45ns) 1,000 mls @ 100 mls/hr IV .Q10H [facility] Stop: 03/14/18 17:35 Last Admin: 01/15/18 12:47 Dose: 100 mls/hr Levothyroxine Sodium (Synthroid) 0.025 mg PO QDAC [facility] Stop: 03/06/18 07:29 Last Admin: 01/15/18 06:42 Dose: 0.025 mg Losartan Potassium (Cozaar) 100 mg PO DAILY [facility] Stop: 03/07/18 10:59 Last Admin: 01/15/18 08:34 Dose: Not Given Metronidazole (Flagyl) 500 mg PO BID [facility] Stop: 01/17/18 16:59 Last Admin: 01/15/18 16:22 Dose: 500 mg Miscellaneous (Vte Chemical Prophylaxis Screen/ Admission) 1 ea MC PRN PRN PRN Reason: PROTOCOL Stop: 03/06/18 08:14 Miscellaneous (Clinical Monitoring) 1 ea MC DAILY PRN PRN Reason: RENAL Stop: 03/16/18 08:53 Morphine Sulfate (Morphine) 2 mg IVP Q4HR PRN PRN Reason: Abdominal Pain Stop: 03/12/18 08:37 Last Admin: 01/11/18 23:11 Dose: 2 mg Oxybutynin Chloride (Ditropan) 5 mg PO BID [facility] Stop: 03/06/18 16:59 Last Admin: 01/15/18 16:22 Dose: 5 mg Pantoprazole Sodium (Protonix) 40 mg IVP DAILY [facility] Stop: 03/06/18 08:59 Last Admin: 01/15/18 08:33 Dose: 40 mg Simethicone (Mylicon) 80 mg PO QID PRN PRN Reason: Gas Stop: 03/10/18 14:48 Last Admin: 01/14/18 05:15 Dose: 80 mg Sodium Bicarbonate (Sodium Bicarbonate) 650 mg PO TID ANTHONY PRN Reason: Protocol Stop: 03/07/18 15:14 Last Admin: 01/15/18 13:07 Dose: 650 mg Tramadol HCl (Ultram) 50 mg PO Q6HR PRN PRN Reason: Pain (Moderate) Stop: 03/10/18 15:51 Last Admin: 01/14/18 02:47 Dose: 50 mg Zolpidem Tartrate (Ambien) 5 mg PO HS PRN PRN Reason: Insomnia Stop: 03/07/18 21:11 Last Admin: 01/14/18 20:52 Dose: 5 mg General: Alert, No acute distress HEENT: Mucous membr. moist/pink Neck: Supple Cardiovascular: Regular rate Lungs: Clear to auscultation Abdomen: Bowel sounds, Soft, no Tender, no Distended Extremities: no Edema Skin: no Rash Psych/Mental Status: Mood NL - Procedures Procedures: Procedures Procedure Code Date COLONOSCOPY AND BIOPSY 80879 01/04/18 EXCISION OF ASCENDING COLON, ENDO, DIAGN [id number] 01/04/18 PARTIAL REMOVAL OF COLON 81065 01/04/18 RESECTION OF RIGHT LARGE INTESTINE, OPEN APPROACH [id number] 01/04/18 Assessment/Plan - Problem List Patient Problems: All Active Problems Colonic mass (Acute) K63.9 - Assessment Assessment: Adenocarcinoma of colon Lung nodule most likely metastatic disease Chronic hyponatremia Acute on CKD ( creatinine rising 2.9) Chronic constipation HTN CAD UTI SEPTIC SHOCK - Plan Plan: IV fluids Full liquid diet Renal function little better Nephrology follow up Morphine prn Follow up on colon mass pathology Oncology consult Antibioitcs Encouraged ambulation SNIF DC plan discussed with family they agreed Nutritional Asmnt/Malnutr-PDOC - Dietary Evaluation Malnutrition Findings (Please click <Entered> for more info): Nutritional Asmnt/Malnutrition Start: 01/05/18 14: 24 Text: Status: Complete Freq: Document 01/05/18 14:24 KRISHAN (Rec: 01/05/18 14:55 [facility]) Nutritional Asmnt/Malnutrition Patient General Information Nutritional Screening High Risk Diagnosis dehydration, anemia, UTI, facial cellulitis Pertinent Medical Hx/Surgical Hx HTN, ESRD, thyroid disorder Subjective Information Pt seen lying in bed, awake and pleasant. Family at bedside feeding pt lunch. Family is able to speak little Naur[place], denied pt has chewing/swallowing problem, stated pt eating ok. Pt has teeth noted. Per EMR, pt consumed 100% of breakfast in the morning. Current Diet Order/ Nutrition Support regular Pertinent Medications D5-0.9%ns, synthorid, protonix Pertinent Labs 01/05 cl 112, BUN 32, Cr 1.3, Ca 8.5 Nutritional Hx/Data Height 1.52 m Height (Calculated Centimeters) 152.4 Current Weight (lbs) 58.06 kg Weight (Calculated Kilograms) 58.1 Weight (Calculated Grams) 28891.8 [place] Body Weight 100 Body Mass Index (BMI) 25.0 Weight Status Approriate GI Symptoms GI Symptoms None Last BM not indicated Difficult in: None Skin Integrity/Comment: face reddened Current %PO Good (75-100%) Estimated Nutritional Goals BEE in Kcals: Using Current wt Calories/Kcals/Kg 25-30 Kcals Calculated 2636-1013 Protein: Using Current wt Protein g/k monitor renal labs Protein Calculated 58 Fluid: ml 1450-1740ml (1ml/kcal) Nutritional Problem 1. Problem Problem altered nutrition related labs Etiology electrolytes imbalance and hx of ESRD Signs/Symptoms: cl 112, BUN 32, Cr 1.3, Ca 8.5 Malnutrition Alert Protein-Calorie Malnutrition N/A Is there a minimum of two criteria No selected? Query Text:Check all the applicable criteria. A minimum of two criteria are recommended for diagnosis of either severe or non-severe malnutrition. Intervention/Recommendation Comments 1. Continue with regular diet as ordered. Assist pt with meals as needed. 2. If BUN/Cr not improved, will consider renal diet. 2. Monitor PO intake, wt, labs and skin integrity 3. F/U as moderate risk in 3-5 days, 01/08-01/10 Expected Outcomes/Goals Expected Outcomes/Goals 1. PO intake to meet at least 75% of nutritional needs. 2. Wt stability, skin to remain intact, labs to approach WNL.
[2018-01-16] MEDS: Albuterol/Ipratropium Neb 3 ML AERS HHN SCH ×4 (00:25→18:42)
--- NOTE | 2018-01-16 00:56 | Progress Notes ---
DATE: 01/15/2018 PROBLEM LIST: 1. Pulmonary nodule. 2. Status post abdominal surgery with significant disability. SYMPTOMS: Nil according to her daughter. No specific new symptoms. ____. PHYSICAL EXAMINATION: VITAL SIGNS: T-max 98.4, blood pressure 94/56, saturation 96% on 2 liters. NECK: Veins not visualized. CHEST: Shows diminished air entry with occasional rhonchi. HEART: Regular. ABDOMEN: Soft, nontender. LABORATORY DATA: Creatinine is 2.1, BUN is 27, slightly higher than few days ago and sodium is 128. ASSESSMENT: The patient clinically respiratory burks stable, unchanged, appears to be cooperating well with mild degree of renal failure. PLANS AND SUGGESTIONS: We will go ahead and continue current treatment. Discussed with her daughter. Follow up the lab again tomorrow and go from there. JOB# [id number]
[2018-01-16 05:44] LABS: EOSINOPHILE ABSOLUTE 0.1 Th/cmm (0.1-0.4); HEMOGLOBIN 8.6 gm/dL (12-16); LYMPHOCYTE ABSOLUTE 0.4 Th/cmm (1.5-3.0); MEAN CELL VOLUME 82.5 fl (81-100); MEAN CORPUSCULAR HEMOGLOBIN 28.2 pg (27.0-31.0); MEAN CORPUSCULAR HGB CONC 34.2 pg (28.0-36.0); MEAN PLATELET VOLUME 7.2 fl; MONOCYTE ABSOLUTE 0.1 Th/cmm (0.3-1.0); NEUTROPHILE ABSOLUTE 7.4 Th/cmm (1.8-8.0); PLATELET COUNT 151 Th/cmm (150-400); RED BLOOD COUNT 3.03 Mil/cmm (3.80-5.20); RED CELL DISTRIBUTION WIDTH 15.9 % (11.5-20.0)
[2018-01-16 05:52] LABS: ANION GAP 12.2 (7.0-16.0); BUN - UREA NITROGEN 23 mg/dL (7-25); CALCIUM SERUM 7.4 mg/dL (8.6-10.3); CARBON DIOXIDE 14.1 mEq/L (21.0-31.0); CHLORIDE 103 mEq/L (98-107); CREATININE - SERUM 1.6 mg/dL (0.6-1.2); GLUCOSE 108 mg/dL (70-105); POTASSIUM SERUM 3.3 mEq/L (3.5-5.1); SODIUM SERUM 126 mEq/L (136-145)
[2018-01-16 05:54] LABS: % BASOPHILS 0.1 % (0.0-2.0); % EOSINOPHILS 1.3 % (0.0-5.0); % LYMPHOCYTES 5.3 % (20.0-50.0); % MONOCYTES 1.6 % (2.0-10.0); % NEUTROPHILS 91.7 % (40.0-80.0)
[2018-01-16] MEDS: Levothyroxine 0.025 Mg Tab PO SCH (06:56)
--- NOTE | 2018-01-16 08:01 | Diagnostic Imaging Report ---
Renal ultrasound HISTORY: Acute renal failure. COMPARISON: CT abdomen and pelvis performed on 01/05/2018 and 06/05/2016 Technique: Sonography of the kidneys and urinary bladder was performed in multiple planes. FINDINGS: Exam is limited due to body habitus and due to overlying abdominal dressing. The right kidney measures 10.6 x 5.5 cm. 2 foci of increased echogenicity of the superior pole are noted the largest area measuring 1.3 cm. No hydronephrosis. The left kidney measures 9.0 x 4.8 cm. The renal margins are not well-defined, however, No evidence of focal lesions or hydronephrosis. Incidentally noted is gallbladder sludge and probable small gallstones. There is borderline prominence of the gallbladder wall. The urinary bladder is underdistended and appears to contain a Parrish catheter, limiting its evaluation. IMPRESSION: Limited exam. No evidence of hydronephrosis. 2 echogenic foci within the right kidney which may represent renal fat when compared to previous CT examinations. Other less likely etiologies include small angiomyolipomas. Increased echogenicity of the kidneys which may be the underlying medical renal disease. Gallbladder sludge incidentally noted with probable small gallstones. Borderline prominent gallbladder wall is noted. Please correlate clinically. Consider further testing if indicated.
--- NOTE | 2018-01-16 08:58 | General Progress Note ---
Objective - Results Result Diagrams: 01/16/18 05:05 01/16/18 05:05 Recent Labs: Laboratory Last Values WBC 8.0 Th/cmm (4.8-10.8) 01/16/18 05:05 RBC 3.03 Mil/cmm (3.80-5.20) L 01/16/18 05:05 Hgb 8.6 gm/dL (12-16) L 01/16/18 05:05 Hct 25.0 % (41.0-60) L 01/16/18 05:05 MCV 82.5 fl (81-100) 01/16/18 05:05 MCH 28.2 pg (27.0-31.0) 01/16/18 05:05 MCHC Differential 34.2 pg (28.0-36.0) 01/16/18 05:05 RDW 15.9 % (11.5-20.0) 01/16/18 05:05 Plt Count 151 Th/cmm (150-400) 01/16/18 05:05 MPV 7.2 fl 01/16/18 05:05 Neutrophils % 91.7 % (40.0-80.0) H 01/16/18 05:05 Band Neutrophils % 1 % (0-10) 01/14/18 05:25 Lymphocytes % 5.3 % (20.0-50.0) L 01/16/18 05:05 Monocytes % 1.6 % (2.0-10.0) L 01/16/18 05:05 Eosinophils % 1.3 % (0.0-5.0) 01/16/18 05:05 Basophils % 0.1 % (0.0-2.0) 01/16/18 05:05 Neutrophils (Manual) 89 % (40-80) H 01/14/18 05:25 Lymphocytes 8 % (20-50) L 01/14/18 05:25 Monocytes 2 % (2-10) 01/14/18 05:25 Eosinophils 0 % (0-5) 01/14/18 05:25 Basophils 0 % (0-3) 01/14/18 05:25 Eos Smear Source URINE 01/06/18 05:25 Eos Smear Total Cells NONE SEEN (NONE SEEN) 01/06/18 05:25 PT 11.1 SECONDS (9.5-11.5) 01/09/18 04:54 INR 1.07 (0.5-1.4) 01/09/18 04:54 PTT (Actin FS) 25.1 SECONDS (26.0-38.0) L 01/09/18 04:54 Sodium 126 mEq/L (136-145) L 01/16/18 05:05 Potassium 3.3 mEq/L (3.5-5.1) L 01/16/18 05:05 Chloride 103 mEq/L (98-107) 01/16/18 05:05 Carbon Dioxide 14.1 mEq/L (21.0-31.0) L 01/16/18 05:05 Anion Gap 12.2 (7.0-16.0) 01/16/18 05:05 BUN 23 mg/dL (7-25) 01/16/18 05:05 Creatinine 1.6 mg/dL (0.6-1.2) H 01/16/18 05:05 Est GFR ( Amer) TNP 01/16/18 05:05 Est GFR (Non-Af Amer) TNP 01/16/18 05:05 BUN/Creatinine Ratio 14.4 01/16/18 05:05 Glucose 108 mg/dL (70-105) H 01/16/18 05:05 Plasma/Ser Osmolality 289 mOsmol/kg (280-301) 01/07/18 06:02 Whole Bld Lactic Acid 1.72 mmol/L (0.60-1.99) 01/04/18 20:35 Uric Acid 6.5 mg/dL (2.3-6.6) 01/06/18 06:01 Calcium 7.4 mg/dL (8.6-10.3) L 01/16/18 05:05 Phosphorus 4.1 mg/dL (2.5-5.0) 01/06/18 06:01 Magnesium 2.5 mg/dL (1.9-2.7) 01/07/18 06:02 Iron 43 ug/dL (27-139) 01/05/18 05:36 TIBC 254 ug/dL (250-450) 01/05/18 05:36 Iron Saturation 17 % (15-55) 01/05/18 05:36 Unsaturated IBC 211 ug/dL (118-369) 01/05/18 05:36 Ferritin 17 ng/mL (15-150) 01/05/18 05:36 Total Bilirubin 0.5 mg/dL (0.3-1.0) 01/14/18 05:25 AST 26 U/L (13-39) 01/14/18 05:25 ALT 28 U/L (7-52) 01/14/18 05:25 Alkaline Phosphatase 37 U/L (34-104) 01/14/18 05:25 Creatine Kinase 165 U/L (30-223) 01/04/18 20:35 Troponin I 0.02 ng/mL (0.01-0.05) 01/04/18 20:35 B-Natriuretic Peptide 197.0 pg/mL (5.0-100.0) H 01/04/18 20:35 Total Protein 4.6 gm/dL (6.0-8.3) L 01/14/18 05:25 Albumin 2.3 gm/dL (3.7-5.3) L 01/14/18 05:25 Globulin 2.3 gm/dL 01/14/18 05:25 Albumin/Globulin Ratio 1.0 (1.0-1.8) 01/14/18 05:25 Triglycerides 68 mg/dL (<150) 01/04/18 20:35 Cholesterol 115 mg/dL (<200) 01/04/18 20:35 LDL Cholesterol Direct 56 mg/dL (75-193) L 01/04/18 20:35 HDL Cholesterol 44 mg/dL (23-92) 01/04/18 20:35 Amylase 45 U/L (29-103) 01/06/18 06:01 Lipase 24 U/L (11-82) 01/06/18 06:01 Carcinoembryonic Ag 26.2 ng/mL (0.0-4.7) H 01/06/18 06:01 Vitamin B12 304 pg/mL (232-1245) 01/05/18 05:36 Folic Acid 14.5 ng/mL (>3.0) 01/05/18 05:36 TSH 4.28 uIU/ml (0.34-5.60) 01/05/18 05:36 Urine Source CLEAN C 01/04/18 20:20 Urine Color STRAW 01/04/18 20:20 Urine Clarity CLEAR (CLEAR) 01/04/18 20:20 Urine pH 5.5 (4.6 - 8.0) 01/04/18 20:20 Ur Specific [place] 1.015 (1.005-1.030) 01/04/18 20:20 Urine Protein NEGATIVE mg/dL (NEGATIVE) 01/04/18 20:20 Urine Glucose (UA) NEGATIVE mg/dL (NEGATIVE) 01/04/18 20:20 Urine Ketones NEGATIVE mg/dL (NEGATIVE) 01/04/18 20:20 Urine Blood NEGATIVE (NEGATIVE) 01/04/18 20:20 Urine Nitrate NEGATIVE (NEGATIVE) 01/04/18 20:20 Urine Bilirubin NEGATIVE (NEGATIVE) 01/04/18 20:20 Urine Urobilinogen 0.2 E.U./dL (0.2 - 1.0) 01/04/18 20:20 Ur Leukocyte Esterase TRACE (NEGATIVE) H 01/04/18 20:20 Urine RBC NONE SEEN /hpf (0-5) 01/04/18 20:20 Urine WBC 2-5 /hpf (0-5) 01/04/18 20:20 Ur Epithelial Cells NONE SEEN /lpf (FEW) 01/04/18 20:20 Urine Bacteria NONE SEEN /hpf (NONE SEEN) 01/04/18 20:20 Ur Random Sodium 99 mmol/L 01/06/18 05:25 Urine Creatinine 42.0 mg/dl (28.0-217.0) 01/06/18 05:25 Stool Occult Blood NEGATIVE (NEGATIVE) 01/07/18 17:25 Blood Type O POSITIVE 01/10/18 07:20 Antibody Screen POSITIVE 01/10/18 07:20 Antibody Identification Anti-C Anti-e 01/10/18 07:20 Antibody Identification Anti-C Anti-e 01/10/18 07:20 Crossmatch See Detail 01/10/18 07:20 - Physical Exam Vitals and I&O: Vital Signs Temp 98.3 F 01/16/18 00:00 Pulse 77 01/16/18 06:50 Resp 18 01/16/18 06:53 BP 116/59 01/16/18 00:00 Pulse Ox 99 01/16/18 06:50 Intake & Output 01/15/18 01/16/18 01/16/18 18:59 06:59 18:59 Intake Total 1800 1011.667 Output Total 315 Balance 1485 1011.667 Weight (lbs) 63.503 kg Intake: Intake, IV Amount 1100 1011.667 D5-0.45NS 1,000 ml @ 100 1000 961.667 mls/hr IV .Q10H [facility] Rx#: [id number] Piperacillin Sodium/ 100 50 Tazobact 3.375 gm In Dextrose 5% 50 ml @ 100 mls/hr IV Q8H [facility] Rx#: [id number] Oral 700 Output: Drainage 15 NAZIA DRAIN 15 Urine 300 Other: # Bowel Movements 1 Weight Source Bedscale Active Medications: Current Medications Albuterol/Ipratropium (Duoneb Neb) 3 ml HHN Q6HRT AN[facility] Stop: 03/08/18 18:59 Last Admin: 01/16/18 06:50 Dose: 3 ml Amlodipine Besylate (Norvasc) 5 mg PO DAILY AN[facility]ONY Stop: 03/06/18 08:59 Last Admin: 01/15/18 08:35 Dose: Not Given Benzocaine/Menthol (Cepacol) 1 cooper MM Q4HR PRN PRN Reason: Sore Throat Stop: 03/10/18 15:50 Piperacillin Sod/Tazobactam (Sod 3.375 gm/ Dextrose) 50 mls @ 100 mls/hr IV Q8H [facility] Stop: 03/13/18 09:14 Last Infusion: 01/16/18 00:49 Dose: Infused Dextrose/Sodium Chloride (D5-0.45ns) 1,000 mls @ 100 mls/hr IV .Q10H [facility] Stop: 03/14/18 17:35 Last Admin: 01/15/18 22:24 Dose: 100 mls/hr Levothyroxine Sodium (Synthroid) 0.025 mg PO QDAC ANTHONY Stop: 03/06/18 07:29 Last Admin: 01/16/18 06:56 Dose: 0.025 mg Losartan Potassium (Cozaar) 100 mg PO DAILY AN[facility] Stop: 03/07/18 10:59 Last Admin: 01/15/18 08:34 Dose: Not Given Metronidazole (Flagyl) 500 mg PO BID AN[facility] Stop: 01/17/18 16:59 Last Admin: 01/15/18 16:22 Dose: 500 mg Miscellaneous (Vte Chemical Prophylaxis Screen/ Admission) 1 ea MC PRN PRN PRN Reason: PROTOCOL Stop: 03/06/18 08:14 Miscellaneous (Clinical Monitoring) 1 ea MC DAILY PRN PRN Reason: RENAL Stop: 03/16/18 08:53 Morphine Sulfate (Morphine) 2 mg IVP Q4HR PRN PRN Reason: Abdominal Pain Stop: 03/12/18 08:37 Last Admin: 01/11/18 23:11 Dose: 2 mg Oxybutynin Chloride (Ditropan) 5 mg PO BID ANTHONY Stop: 03/06/18 16:59 Last Admin: 01/15/18 16:22 Dose: 5 mg Pantoprazole Sodium (Protonix) 40 mg IVP DAILY ANTHONY Stop: 03/06/18 08:59 Last Admin: 01/15/18 08:33 Dose: 40 mg Simethicone (Mylicon) 80 mg PO QID PRN PRN Reason: Gas Stop: 03/10/18 14:48 Last Admin: 01/14/18 05:15 Dose: 80 mg Sodium Bicarbonate (Sodium Bicarbonate) 650 mg PO TID ANTHONY PRN Reason: Protocol Stop: 03/07/18 15:14 Last Admin: 01/15/18 20:41 Dose: 650 mg Tramadol HCl (Ultram) 50 mg PO Q6HR PRN PRN Reason: Pain (Moderate) Stop: 03/10/18 15:51 Last Admin: 01/14/18 02:47 Dose: 50 mg Zolpidem Tartrate (Ambien) 5 mg PO HS PRN PRN Reason: Insomnia Stop: 03/07/18 21:11 Last Admin: 01/15/18 22:17 Dose: 5 mg General: Alert, No acute distress HEENT: Mucous membr. moist/pink Neck: Supple Cardiovascular: Regular rate Lungs: Clear to auscultation Abdomen: Bowel sounds, Soft, no Tender, no Distended Extremities: no Edema Neurological: Sensation intact Skin: no Rash Psych/Mental Status: Mood NL - Procedures Procedures: Procedures Procedure Code Date COLONOSCOPY AND BIOPSY 18982 01/04/18 EXCISION OF ASCENDING COLON, ENDO, DIAGN [id number] 01/04/18 PARTIAL REMOVAL OF COLON 05875 01/04/18 RESECTION OF RIGHT LARGE INTESTINE, OPEN APPROACH [id number] 01/04/18 Assessment/Plan - Problem List Patient Problems: All Active Problems Colonic mass (Acute) K63.9 Nutritional Asmnt/Malnutr-PDOC - Dietary Evaluation Malnutrition Findings (Please click <Entered> for more info): Nutritional Asmnt/Malnutrition Start: 01/05/18 14: 24 Text: Status: Complete Freq: Document 01/05/18 14:24 [facility] (Rec: 01/05/18 14:55 GEORGE [email or web address]) Nutritional Asmnt/Malnutrition Patient General Information Nutritional Screening High Risk Diagnosis dehydration, anemia, UTI, facial cellulitis Pertinent Medical Hx/Surgical Hx HTN, ESRD, thyroid disorder Subjective Information Pt seen lying in bed, awake and pleasant. Family at bedside feeding pt lunch. Family is able to speak little Frisian, denied pt has chewing/swallowing problem, stated pt eating ok. Pt has teeth noted. Per EMR, pt consumed 100% of breakfast in the morning. Current Diet Order/ Nutrition Support regular Pertinent Medications D5-0.9%ns, synthorid, protonix Pertinent Labs 01/05 cl 112, BUN 32, Cr 1.3, Ca 8.5 Nutritional Hx/Data Height 1.52 m Height (Calculated Centimeters) 152.4 Current Weight (lbs) 58.06 kg Weight (Calculated Kilograms) 58.1 Weight (Calculated Grams) 78152.8 [place] Body Weight 100 Body Mass Index (BMI) 25.0 Weight Status Approriate GI Symptoms GI Symptoms None Last BM not indicated Difficult in: None Skin Integrity/Comment: face reddened Current %PO Good (75-100%) Estimated Nutritional Goals BEE in Kcals: Using Current wt Calories/Kcals/Kg 25-30 Kcals Calculated 7301-0510 Protein: Using Current wt Protein g/k monitor renal labs Protein Calculated 58 Fluid: ml 1450-1740ml (1ml/kcal) Nutritional Problem 1. Problem Problem altered nutrition related labs Etiology electrolytes imbalance and hx of ESRD Signs/Symptoms: cl 112, BUN 32, Cr 1.3, Ca 8.5 Malnutrition Alert Protein-Calorie Malnutrition N/A Is there a minimum of two criteria No selected? Query Text:Check all the applicable criteria. A minimum of two criteria are recommended for diagnosis of either severe or non-severe malnutrition. Intervention/Recommendation Comments 1. Continue with regular diet as ordered. Assist pt with meals as needed. 2. If BUN/Cr not improved, will consider renal diet. 2. Monitor PO intake, wt, labs and skin integrity 3. F/U as moderate risk in 3-5 days, 01/08-01/10 Expected Outcomes/Goals Expected Outcomes/Goals 1. PO intake to meet at least 75% of nutritional needs. 2. Wt stability, skin to remain intact, labs to approach WNL.
--- NOTE | 2018-01-16 09:03 | General Progress Note ---
Subjective - Review of Systems Service Date: 01/16/18 Events since last encounter: labs ok some nausea, Zofran ordered abdomen is flat and soft, incision healing, no infection Objective - Results Result Diagrams: 01/16/18 05:05 01/16/18 05:05 Recent Labs: Laboratory Last Values WBC 8.0 Th/cmm (4.8-10.8) 01/16/18 05:05 RBC 3.03 Mil/cmm (3.80-5.20) L 01/16/18 05:05 Hgb 8.6 gm/dL (12-16) L 01/16/18 05:05 Hct 25.0 % (41.0-60) L 01/16/18 05:05 MCV 82.5 fl (81-100) 01/16/18 05:05 MCH 28.2 pg (27.0-31.0) 01/16/18 05:05 MCHC Differential 34.2 pg (28.0-36.0) 01/16/18 05:05 RDW 15.9 % (11.5-20.0) 01/16/18 05:05 Plt Count 151 Th/cmm (150-400) 01/16/18 05:05 MPV 7.2 fl 01/16/18 05:05 Neutrophils % 91.7 % (40.0-80.0) H 01/16/18 05:05 Band Neutrophils % 1 % (0-10) 01/14/18 05:25 Lymphocytes % 5.3 % (20.0-50.0) L 01/16/18 05:05 Monocytes % 1.6 % (2.0-10.0) L 01/16/18 05:05 Eosinophils % 1.3 % (0.0-5.0) 01/16/18 05:05 Basophils % 0.1 % (0.0-2.0) 01/16/18 05:05 Neutrophils (Manual) 89 % (40-80) H 01/14/18 05:25 Lymphocytes 8 % (20-50) L 01/14/18 05:25 Monocytes 2 % (2-10) 01/14/18 05:25 Eosinophils 0 % (0-5) 01/14/18 05:25 Basophils 0 % (0-3) 01/14/18 05:25 Eos Smear Source URINE 01/06/18 05:25 Eos Smear Total Cells NONE SEEN (NONE SEEN) 01/06/18 05:25 PT 11.1 SECONDS (9.5-11.5) 01/09/18 04:54 INR 1.07 (0.5-1.4) 01/09/18 04:54 PTT (Actin FS) 25.1 SECONDS (26.0-38.0) L 01/09/18 04:54 Sodium 126 mEq/L (136-145) L 01/16/18 05:05 Potassium 3.3 mEq/L (3.5-5.1) L 01/16/18 05:05 Chloride 103 mEq/L (98-107) 01/16/18 05:05 Carbon Dioxide 14.1 mEq/L (21.0-31.0) L 01/16/18 05:05 Anion Gap 12.2 (7.0-16.0) 01/16/18 05:05 BUN 23 mg/dL (7-25) 01/16/18 05:05 Creatinine 1.6 mg/dL (0.6-1.2) H 01/16/18 05:05 Est GFR ( Amer) TNP 01/16/18 05:05 Est GFR (Non-Af Amer) TNP 01/16/18 05:05 BUN/Creatinine Ratio 14.4 01/16/18 05:05 Glucose 108 mg/dL (70-105) H 01/16/18 05:05 Plasma/Ser Osmolality 289 mOsmol/kg (280-301) 01/07/18 06:02 Whole Bld Lactic Acid 1.72 mmol/L (0.60-1.99) 01/04/18 20:35 Uric Acid 6.5 mg/dL (2.3-6.6) 01/06/18 06:01 Calcium 7.4 mg/dL (8.6-10.3) L 01/16/18 05:05 Phosphorus 4.1 mg/dL (2.5-5.0) 01/06/18 06:01 Magnesium 2.5 mg/dL (1.9-2.7) 01/07/18 06:02 Iron 43 ug/dL (27-139) 01/05/18 05:36 TIBC 254 ug/dL (250-450) 01/05/18 05:36 Iron Saturation 17 % (15-55) 01/05/18 05:36 Unsaturated IBC 211 ug/dL (118-369) 01/05/18 05:36 Ferritin 17 ng/mL (15-150) 01/05/18 05:36 Total Bilirubin 0.5 mg/dL (0.3-1.0) 01/14/18 05:25 AST 26 U/L (13-39) 01/14/18 05:25 ALT 28 U/L (7-52) 01/14/18 05:25 Alkaline Phosphatase 37 U/L (34-104) 01/14/18 05:25 Creatine Kinase 165 U/L (30-223) 01/04/18 20:35 Troponin I 0.02 ng/mL (0.01-0.05) 01/04/18 20:35 B-Natriuretic Peptide 197.0 pg/mL (5.0-100.0) H 01/04/18 20:35 Total Protein 4.6 gm/dL (6.0-8.3) L 01/14/18 05:25 Albumin 2.3 gm/dL (3.7-5.3) L 01/14/18 05:25 Globulin 2.3 gm/dL 01/14/18 05:25 Albumin/Globulin Ratio 1.0 (1.0-1.8) 01/14/18 05:25 Triglycerides 68 mg/dL (<150) 01/04/18 20:35 Cholesterol 115 mg/dL (<200) 01/04/18 20:35 LDL Cholesterol Direct 56 mg/dL (75-193) L 01/04/18 20:35 HDL Cholesterol 44 mg/dL (23-92) 01/04/18 20:35 Amylase 45 U/L (29-103) 01/06/18 06:01 Lipase 24 U/L (11-82) 01/06/18 06:01 Carcinoembryonic Ag 26.2 ng/mL (0.0-4.7) H 01/06/18 06:01 Vitamin B12 304 pg/mL (232-1245) 01/05/18 05:36 Folic Acid 14.5 ng/mL (>3.0) 01/05/18 05:36 TSH 4.28 uIU/ml (0.34-5.60) 01/05/18 05:36 Urine Source CLEAN C 01/04/18 20:20 Urine Color STRAW 01/04/18 20:20 Urine Clarity CLEAR (CLEAR) 01/04/18 20:20 Urine pH 5.5 (4.6 - 8.0) 01/04/18 20:20 Ur Specific [place] 1.015 (1.005-1.030) 01/04/18 20:20 Urine Protein NEGATIVE mg/dL (NEGATIVE) 01/04/18 20:20 Urine Glucose (UA) NEGATIVE mg/dL (NEGATIVE) 01/04/18 20:20 Urine Ketones NEGATIVE mg/dL (NEGATIVE) 01/04/18 20:20 Urine Blood NEGATIVE (NEGATIVE) 01/04/18 20:20 Urine Nitrate NEGATIVE (NEGATIVE) 01/04/18 20:20 Urine Bilirubin NEGATIVE (NEGATIVE) 01/04/18 20:20 Urine Urobilinogen 0.2 E.U./dL (0.2 - 1.0) 01/04/18 20:20 Ur Leukocyte Esterase TRACE (NEGATIVE) H 01/04/18 20:20 Urine RBC NONE SEEN /hpf (0-5) 01/04/18 20:20 Urine WBC 2-5 /hpf (0-5) 01/04/18 20:20 Ur Epithelial Cells NONE SEEN /lpf (FEW) 01/04/18 20:20 Urine Bacteria NONE SEEN /hpf (NONE SEEN) 01/04/18 20:20 Ur Random Sodium 99 mmol/L 01/06/18 05:25 Urine Creatinine 42.0 mg/dl (28.0-217.0) 01/06/18 05:25 Stool Occult Blood NEGATIVE (NEGATIVE) 01/07/18 17:25 Blood Type O POSITIVE 01/10/18 07:20 Antibody Screen POSITIVE 01/10/18 07:20 Antibody Identification Anti-C Anti-e 01/10/18 07:20 Antibody Identification Anti-C Anti-e 01/10/18 07:20 Crossmatch See Detail 01/10/18 07:20 - Physical Exam Vitals and I&O: Vital Signs Temp 98.8 F 01/16/18 08:00 Pulse 123 01/16/18 08:00 Resp 18 01/16/18 08:00 BP 109/55 01/16/18 08:00 Pulse Ox 98 01/16/18 08:00 Intake & Output 01/15/18 01/16/18 01/16/18 18:59 06:59 18:59 Intake Total 1800 1011.667 Output Total 315 Balance 1485 1011.667 Weight (lbs) 63.503 kg Intake: Intake, IV Amount 1100 1011.667 D5-0.45NS 1,000 ml @ 100 1000 961.667 mls/hr IV .Q10H [facility] Rx#: [id number] Piperacillin Sodium/ 100 50 Tazobact 3.375 gm In Dextrose 5% 50 ml @ 100 mls/hr IV Q8H [facility] Rx#: [id number] Oral 700 Output: Drainage 15 NAZIA DRAIN 15 Urine 300 Other: # Bowel Movements 1 Weight Source Bedscale Active Medications: Current Medications Albuterol/Ipratropium (Duoneb Neb) 3 ml HHN Q6HRT [facility] Stop: 03/08/18 18:59 Last Admin: 01/16/18 06:50 Dose: 3 ml Amlodipine Besylate (Norvasc) 5 mg PO DAILY [facility] Stop: 03/06/18 08:59 Last Admin: 01/15/18 08:35 Dose: Not Given Benzocaine/Menthol (Cepacol) 1 cooper MM Q4HR PRN PRN Reason: Sore Throat Stop: 03/10/18 15:50 Piperacillin Sod/Tazobactam (Sod 3.375 gm/ Dextrose) 50 mls @ 100 mls/hr IV Q8H [facility] Stop: 03/13/18 09:14 Last Infusion: 01/16/18 00:49 Dose: Infused Dextrose/Sodium Chloride (D5-0.45ns) 1,000 mls @ 100 mls/hr IV .Q10H [facility] Stop: 03/14/18 17:35 Last Admin: 01/15/18 22:24 Dose: 100 mls/hr Levothyroxine Sodium (Synthroid) 0.025 mg PO QDAC AN[facility] Stop: 03/06/18 07:29 Last Admin: 01/16/18 06:56 Dose: 0.025 mg Losartan Potassium (Cozaar) 100 mg PO DAILY ANTHONY Stop: 03/07/18 10:59 Last Admin: 01/15/18 08:34 Dose: Not Given Metronidazole (Flagyl) 500 mg PO BID [facility] Stop: 01/17/18 16:59 Last Admin: 01/15/18 16:22 Dose: 500 mg Miscellaneous (Vte Chemical Prophylaxis Screen/ Admission) 1 ea MC PRN PRN PRN Reason: PROTOCOL Stop: 03/06/18 08:14 Miscellaneous (Clinical Monitoring) 1 ea MC DAILY PRN PRN Reason: RENAL Stop: 03/16/18 08:53 Morphine Sulfate (Morphine) 2 mg IVP Q4HR PRN PRN Reason: Abdominal Pain Stop: 03/12/18 08:37 Last Admin: 01/11/18 23:11 Dose: 2 mg Oxybutynin Chloride (Ditropan) 5 mg PO BID ANTHONY Stop: 03/06/18 16:59 Last Admin: 01/15/18 16:22 Dose: 5 mg Pantoprazole Sodium (Protonix) 40 mg IVP DAILY ANTHONY Stop: 03/06/18 08:59 Last Admin: 01/15/18 08:33 Dose: 40 mg Simethicone (Mylicon) 80 mg PO QID PRN PRN Reason: Gas Stop: 03/10/18 14:48 Last Admin: 01/14/18 05:15 Dose: 80 mg Sodium Bicarbonate (Sodium Bicarbonate) 650 mg PO TID ANTHONY PRN Reason: Protocol Stop: 03/07/18 15:14 Last Admin: 01/15/18 20:41 Dose: 650 mg Tramadol HCl (Ultram) 50 mg PO Q6HR PRN PRN Reason: Pain (Moderate) Stop: 03/10/18 15:51 Last Admin: 01/14/18 02:47 Dose: 50 mg Zolpidem Tartrate (Ambien) 5 mg PO HS PRN PRN Reason: Insomnia Stop: 03/07/18 21:11 Last Admin: 01/15/18 22:17 Dose: 5 mg General: Alert, No acute distress HEENT: Mucous membr. moist/pink Neck: Supple Cardiovascular: Regular rate Lungs: Clear to auscultation Abdomen: Bowel sounds, Soft, no Tender, no Distended Extremities: no Edema Neurological: Sensation intact Skin: no Rash Psych/Mental Status: Mood NL - Procedures Procedures: Procedures Procedure Code Date COLONOSCOPY AND BIOPSY 00072 01/04/18 EXCISION OF ASCENDING COLON, ENDO, DIAGN [id number] 01/04/18 PARTIAL REMOVAL OF COLON 40899 01/04/18 RESECTION OF RIGHT LARGE INTESTINE, OPEN APPROACH [id number] 01/04/18 Assessment/Plan - Problem List Patient Problems: All Active Problems Colonic mass (Acute) K63.9 Nutritional Asmnt/Malnutr-PDOC - Dietary Evaluation Malnutrition Findings (Please click <Entered> for more info): Nutritional Asmnt/Malnutrition Start: 01/05/18 14: 24 Text: Status: Complete Freq: Document 01/05/18 14:24 [facility] (Rec: 01/05/18 14:55 LCHENG [email or web address]) Nutritional Asmnt/Malnutrition Patient General Information Nutritional Screening High Risk Diagnosis dehydration, anemia, UTI, facial cellulitis Pertinent Medical Hx/Surgical Hx HTN, ESRD, thyroid disorder Subjective Information Pt seen lying in bed, awake and pleasant. Family at bedside feeding pt lunch. Family is able to speak little [place], denied pt has chewing/swallowing problem, stated pt eating ok. Pt has teeth noted. Per EMR, pt consumed 100% of breakfast in the morning. Current Diet Order/ Nutrition Support regular Pertinent Medications D5-0.9%ns, synthorid, protonix Pertinent Labs 01/05 cl 112, BUN 32, Cr 1.3, Ca 8.5 Nutritional Hx/Data Height 1.52 m Height (Calculated Centimeters) 152.4 Current Weight (lbs) 58.06 kg Weight (Calculated Kilograms) 58.1 Weight (Calculated Grams) 74259.8 [place] Body Weight 100 Body Mass Index (BMI) 25.0 Weight Status Approriate GI Symptoms GI Symptoms None Last BM not indicated Difficult in: None Skin Integrity/Comment: face reddened Current %PO Good (75-100%) Estimated Nutritional Goals BEE in Kcals: Using Current wt Calories/Kcals/Kg 25-30 Kcals Calculated 3985-7679 Protein: Using Current wt Protein g/k monitor renal labs Protein Calculated 58 Fluid: ml 1450-1740ml (1ml/kcal) Nutritional Problem 1. Problem Problem altered nutrition related labs Etiology electrolytes imbalance and hx of ESRD Signs/Symptoms: cl 112, BUN 32, Cr 1.3, Ca 8.5 Malnutrition Alert Protein-Calorie Malnutrition N/A Is there a minimum of two criteria No selected? Query Text:Check all the applicable criteria. A minimum of two criteria are recommended for diagnosis of either severe or non-severe malnutrition. Intervention/Recommendation Comments 1. Continue with regular diet as ordered. Assist pt with meals as needed. 2. If BUN/Cr not improved, will consider renal diet. 2. Monitor PO intake, wt, labs and skin integrity 3. F/U as moderate risk in 3-5 days, 01/08-01/10 Expected Outcomes/Goals Expected Outcomes/Goals 1. PO intake to meet at least 75% of nutritional needs. 2. Wt stability, skin to remain intact, labs to approach WNL.
--- NOTE | 2018-01-16 10:45 | Consultation ---
DATE OF CONSULTATION: 01/16/2018 HEMATOLOGY AND ONCOLOGY CONSULTATION REFERRING PHYSICIAN: Dr. Mann. REASON FOR CONSULTATION: Metastatic colon cancer. HISTORY OF PRESENT ILLNESS: The patient is an 82-year-old female who presented to the hospital on 01/05/2018 with abdominal pain. Further workup with CT scan of the chest, abdomen and pelvis showed right lower quadrant cecal mass and multiple pulmonary nodules. The patient underwent colonoscopy on 01/09/2018 and found to have proximal ascending colon mass and transverse colon polyps. The biopsies confirmed invasive adenocarcinoma from the ascending colon arising in villous adenoma background. The patient was taken to surgery for right hemicolectomy on 01/11/2018 and now she is recovering from surgery. The NAZIA drain was removed and she is able to tolerate oral diet as being advanced. PAST MEDICAL HISTORY: Hypertension, chronic kidney disease, and hypothyroidism. MEDICATIONS: Reviewed. SOCIAL HISTORY: No smoking or drinking. FAMILY HISTORY: No malignancy. PHYSICAL EXAMINATION: GENERAL: The patient is awake, alert, oriented, tolerating oral diet, nauseous. VITAL SIGNS: Stable. HEENT: Atraumatic. NECK: No lymphadenopathy. CHEST: Good air entry. ABDOMEN: Dressing in midline dry. No bleeding. Abdomen is soft. Bowel sounds are present. EXTREMITIES: No edema. Parrish catheter in place. LABORATORY AND DIAGNOSTIC DATA: CEA 26.2, creatinine 1.6. Hemoglobin 8.6, white count 8, platelets 151. CT scan of the chest from 01/05/2018 reported numerous bilateral pulmonary nodules, the largest is 2 cm in the left lung consistent with metastatic disease. ASSESSMENT: 1. Metastatic colon cancer to the lung. The patient will benefit from adjuvant chemotherapy that will be addressed to her age and performance status to improve the progression-free survival, quality of life and overall survival. The patient will need a MediPort placement for the treatment as an outpatient. 2. Chronic kidney disease. Renal functions are fluctuating. 3. Iron deficiency anemia. She will be started on iron supplementation. Her last ferritin was 17 during this hospitalization. She will be also started on heparin prophylaxis for DVT for high risk for thrombosis being postoperative and metastatic cancer . Thank you Dr. Mann for the opportunity to participate in the care of this interesting case for you. [facility]# [id number]
--- NOTE | 2018-01-16 13:05 | GI Progress Note ---
Subjective - Review of Systems Subjective: HAD SURGERY NO NEW EVENTS Objective - Results Result Diagrams: 01/16/18 05:05 01/16/18 05:05 Recent Labs: Laboratory Last Values WBC 8.0 Th/cmm (4.8-10.8) 01/16/18 05:05 RBC 3.03 Mil/cmm (3.80-5.20) L 01/16/18 05:05 Hgb 8.6 gm/dL (12-16) L 01/16/18 05:05 Hct 25.0 % (41.0-60) L 01/16/18 05:05 MCV 82.5 fl (81-100) 01/16/18 05:05 MCH 28.2 pg (27.0-31.0) 01/16/18 05:05 MCHC Differential 34.2 pg (28.0-36.0) 01/16/18 05:05 RDW 15.9 % (11.5-20.0) 01/16/18 05:05 Plt Count 151 Th/cmm (150-400) 01/16/18 05:05 MPV 7.2 fl 01/16/18 05:05 Neutrophils % 91.7 % (40.0-80.0) H 01/16/18 05:05 Band Neutrophils % 1 % (0-10) 01/14/18 05:25 Lymphocytes % 5.3 % (20.0-50.0) L 01/16/18 05:05 Monocytes % 1.6 % (2.0-10.0) L 01/16/18 05:05 Eosinophils % 1.3 % (0.0-5.0) 01/16/18 05:05 Basophils % 0.1 % (0.0-2.0) 01/16/18 05:05 Neutrophils (Manual) 89 % (40-80) H 01/14/18 05:25 Lymphocytes 8 % (20-50) L 01/14/18 05:25 Monocytes 2 % (2-10) 01/14/18 05:25 Eosinophils 0 % (0-5) 01/14/18 05:25 Basophils 0 % (0-3) 01/14/18 05:25 Eos Smear Source URINE 01/06/18 05:25 Eos Smear Total Cells NONE SEEN (NONE SEEN) 01/06/18 05:25 PT 11.1 SECONDS (9.5-11.5) 01/09/18 04:54 INR 1.07 (0.5-1.4) 01/09/18 04:54 PTT (Actin FS) 25.1 SECONDS (26.0-38.0) L 01/09/18 04:54 Sodium 126 mEq/L (136-145) L 01/16/18 05:05 Potassium 3.3 mEq/L (3.5-5.1) L 01/16/18 05:05 Chloride 103 mEq/L (98-107) 01/16/18 05:05 Carbon Dioxide 14.1 mEq/L (21.0-31.0) L 01/16/18 05:05 Anion Gap 12.2 (7.0-16.0) 01/16/18 05:05 BUN 23 mg/dL (7-25) 01/16/18 05:05 Creatinine 1.6 mg/dL (0.6-1.2) H 01/16/18 05:05 Est GFR ( Amer) TNP 01/16/18 05:05 Est GFR (Non-Af Amer) TNP 01/16/18 05:05 BUN/Creatinine Ratio 14.4 01/16/18 05:05 Glucose 108 mg/dL (70-105) H 01/16/18 05:05 Plasma/Ser Osmolality 289 mOsmol/kg (280-301) 01/07/18 06:02 Whole Bld Lactic Acid 1.72 mmol/L (0.60-1.99) 01/04/18 20:35 Uric Acid 6.5 mg/dL (2.3-6.6) 01/06/18 06:01 Calcium 7.4 mg/dL (8.6-10.3) L 01/16/18 05:05 Phosphorus 4.1 mg/dL (2.5-5.0) 01/06/18 06:01 Magnesium 2.5 mg/dL (1.9-2.7) 01/07/18 06:02 Iron 43 ug/dL (27-139) 01/05/18 05:36 TIBC 254 ug/dL (250-450) 01/05/18 05:36 Iron Saturation 17 % (15-55) 01/05/18 05:36 Unsaturated IBC 211 ug/dL (118-369) 01/05/18 05:36 Ferritin 17 ng/mL (15-150) 01/05/18 05:36 Total Bilirubin 0.5 mg/dL (0.3-1.0) 01/14/18 05:25 AST 26 U/L (13-39) 01/14/18 05:25 ALT 28 U/L (7-52) 01/14/18 05:25 Alkaline Phosphatase 37 U/L (34-104) 01/14/18 05:25 Creatine Kinase 165 U/L (30-223) 01/04/18 20:35 Troponin I 0.02 ng/mL (0.01-0.05) 01/04/18 20:35 B-Natriuretic Peptide 197.0 pg/mL (5.0-100.0) H 01/04/18 20:35 Total Protein 4.6 gm/dL (6.0-8.3) L 01/14/18 05:25 Albumin 2.3 gm/dL (3.7-5.3) L 01/14/18 05:25 Globulin 2.3 gm/dL 01/14/18 05:25 Albumin/Globulin Ratio 1.0 (1.0-1.8) 01/14/18 05:25 Triglycerides 68 mg/dL (<150) 01/04/18 20:35 Cholesterol 115 mg/dL (<200) 01/04/18 20:35 LDL Cholesterol Direct 56 mg/dL (75-193) L 01/04/18 20:35 HDL Cholesterol 44 mg/dL (23-92) 01/04/18 20:35 Amylase 45 U/L (29-103) 01/06/18 06:01 Lipase 24 U/L (11-82) 01/06/18 06:01 Carcinoembryonic Ag 26.2 ng/mL (0.0-4.7) H 01/06/18 06:01 Vitamin B12 304 pg/mL (232-1245) 01/05/18 05:36 Folic Acid 14.5 ng/mL (>3.0) 01/05/18 05:36 TSH 4.28 uIU/ml (0.34-5.60) 01/05/18 05:36 Urine Source CLEAN C 01/04/18 20:20 Urine Color STRAW 01/04/18 20:20 Urine Clarity CLEAR (CLEAR) 01/04/18 20:20 Urine pH 5.5 (4.6 - 8.0) 01/04/18 20:20 Ur Specific [place] 1.015 (1.005-1.030) 01/04/18 20:20 Urine Protein NEGATIVE mg/dL (NEGATIVE) 01/04/18 20:20 Urine Glucose (UA) NEGATIVE mg/dL (NEGATIVE) 01/04/18 20:20 Urine Ketones NEGATIVE mg/dL (NEGATIVE) 01/04/18 20:20 Urine Blood NEGATIVE (NEGATIVE) 01/04/18 20:20 Urine Nitrate NEGATIVE (NEGATIVE) 01/04/18 20:20 Urine Bilirubin NEGATIVE (NEGATIVE) 01/04/18 20:20 Urine Urobilinogen 0.2 E.U./dL (0.2 - 1.0) 01/04/18 20:20 Ur Leukocyte Esterase TRACE (NEGATIVE) H 01/04/18 20:20 Urine RBC NONE SEEN /hpf (0-5) 01/04/18 20:20 Urine WBC 2-5 /hpf (0-5) 01/04/18 20:20 Ur Epithelial Cells NONE SEEN /lpf (FEW) 01/04/18 20:20 Urine Bacteria NONE SEEN /hpf (NONE SEEN) 01/04/18 20:20 Ur Random Sodium 99 mmol/L 01/06/18 05:25 Urine Creatinine 42.0 mg/dl (28.0-217.0) 01/06/18 05:25 Stool Occult Blood NEGATIVE (NEGATIVE) 01/07/18 17:25 Blood Type O POSITIVE 01/10/18 07:20 Antibody Screen POSITIVE 01/10/18 07:20 Antibody Identification Anti-C Anti-e 01/10/18 07:20 Antibody Identification Anti-C Anti-e 01/10/18 07:20 Crossmatch See Detail 01/10/18 07:20 - Physical Exam Vitals and I&O: Vital Signs Temp 98.6 F 01/16/18 12:00 Pulse 107 01/16/18 12:00 Resp 18 01/16/18 12:00 BP 121/61 01/16/18 12:00 Pulse Ox 97 01/16/18 12:00 Intake & Output 01/15/18 01/16/18 01/16/18 18:59 06:59 18:59 Intake Total 1800 1011.667 Output Total 315 Balance 1485 1011.667 Weight (lbs) 63.503 kg Intake: Intake, IV Amount 1100 1011.667 D5-0.45NS 1,000 ml @ 100 1000 961.667 mls/hr IV .Q10H [facility] Rx#: [id number] Piperacillin Sodium/ 100 50 Tazobact 3.375 gm In Dextrose 5% 50 ml @ 100 mls/hr IV Q8H [facility] Rx#: [id number] Oral 700 Output: Drainage 15 NAZIA DRAIN 15 Urine 300 Other: # Bowel Movements 1 Weight Source Bedscale Active Medications: Current Medications Albuterol/Ipratropium (Duoneb Neb) 3 ml HHN Q6HRT [facility] Stop: 03/08/18 18:59 Last Admin: 01/16/18 06:50 Dose: 3 ml Amlodipine Besylate (Norvasc) 5 mg PO DAILY [facility] Stop: 03/06/18 08:59 Last Admin: 01/16/18 09:46 Dose: Not Given Benzocaine/Menthol (Cepacol) 1 cooper MM Q4HR PRN PRN Reason: Sore Throat Stop: 03/10/18 15:50 Ferrous Sulfate (Iron) 325 mg PO BID [facility] Stop: 03/17/18 10:14 Heparin Sodium (Porcine) (Heparin) 5,000 units SUBQ Q12HR [facility] Stop: 03/17/18 10:14 Piperacillin Sod/Tazobactam (Sod 3.375 gm/ Dextrose) 50 mls @ 100 mls/hr IV Q8H [facility] Stop: 03/13/18 09:14 Last Admin: 01/16/18 10:19 Dose: 100 mls/hr Dextrose/Sodium Chloride (D5-0.45ns) 1,000 mls @ 100 mls/hr IV .Q10H [facility] Stop: 03/14/18 17:35 Last Admin: 01/15/18 22:24 Dose: 100 mls/hr Levothyroxine Sodium (Synthroid) 0.025 mg PO QDAC [facility] Stop: 03/06/18 07:29 Last Admin: 01/16/18 06:56 Dose: 0.025 mg Losartan Potassium (Cozaar) 100 mg PO DAILY [facility] Stop: 03/07/18 10:59 Last Admin: 01/16/18 09:46 Dose: Not Given Metronidazole (Flagyl) 500 mg PO BID [facility] Stop: 01/17/18 16:59 Last Admin: 01/16/18 09:57 Dose: 500 mg Miscellaneous (Vte Chemical Prophylaxis Screen/ Admission) 1 ea MC PRN PRN PRN Reason: PROTOCOL Stop: 03/06/18 08:14 Miscellaneous (Clinical Monitoring) 1 ea MC DAILY PRN PRN Reason: RENAL Stop: 03/16/18 08:53 Morphine Sulfate (Morphine) 2 mg IVP Q4HR PRN PRN Reason: Abdominal Pain Stop: 03/12/18 08:37 Last Admin: 01/11/18 23:11 Dose: 2 mg Ondansetron HCl (Zofran) 4 mg IV Q6H PRN PRN Reason: Nausea / Vomiting Stop: 03/17/18 09:43 Last Admin: 01/16/18 09:57 Dose: 4 mg Oxybutynin Chloride (Ditropan) 5 mg PO BID [facility] Stop: 03/06/18 16:59 Last Admin: 01/16/18 09:57 Dose: 5 mg Pantoprazole Sodium (Protonix) 40 mg IVP DAILY [facility] Stop: 03/06/18 08:59 Last Admin: 01/16/18 09:57 Dose: 40 mg Simethicone (Mylicon) 80 mg PO QID PRN PRN Reason: Gas Stop: 03/10/18 14:48 Last Admin: 01/14/18 05:15 Dose: 80 mg Sodium Bicarbonate (Sodium Bicarbonate) 650 mg PO TID [facility] PRN Reason: Protocol Stop: 03/07/18 15:14 Last Admin: 01/16/18 09:57 Dose: 650 mg Tramadol HCl (Ultram) 50 mg PO Q6HR PRN PRN Reason: Pain (Moderate) Stop: 03/10/18 15:51 Last Admin: 01/14/18 02:47 Dose: 50 mg Zolpidem Tartrate (Ambien) 5 mg PO HS PRN PRN Reason: Insomnia Stop: 03/07/18 21:11 Last Admin: 01/15/18 22:17 Dose: 5 mg General: Alert, No acute distress HEENT: Mucous membr. moist/pink Neck: Supple Cardiovascular: Regular rate Lungs: Clear to auscultation Abdomen: Bowel sounds, Soft, no Tender, no Distended Extremities: no Edema Neurological: Sensation intact Skin: no Rash Psych/Mental Status: Mood NL - Procedures Procedures: Procedures Procedure Code Date COLONOSCOPY AND BIOPSY 86368 01/04/18 EXCISION OF ASCENDING COLON, ENDO, DIAGN [id number] 01/04/18 PARTIAL REMOVAL OF COLON 98990 01/04/18 RESECTION OF RIGHT LARGE INTESTINE, OPEN APPROACH [id number] 01/04/18 Assessment/Plan - Problem List Patient Problems: All Active Problems Colonic mass (Acute) K63.9 - Assessment Assessment: 82 YO FEMALE WITH COLON MASS FOUND DURING COLONOSCOPY WAS ADENOCARCINOMA S/P SURGERY 1.CONT POST OP CARE 2.WILL NEED HEME/ONC PER HOSPITALIST 3.CONSIDER REPEAT COLO IN 1 YR IF PERFORMANCE STATUS PERMITS 4.F/U PCP 5.WILL SEE NEEDED; CALL IF QUESTIONS
[2018-01-16] MEDS: Ferrous Sulfate 325 MG TAB PO SCH ×2 (14:02→16:53)
[2018-01-16] MEDS ORDERED: Potassium Chloride 20 mEq ER Tab PO ONE (16:28)
[2018-01-16] MEDS: Sodium Chloride 0.9% 1,000 ML IV SCH (16:53)
--- NOTE | 2018-01-16 20:37 | General Progress Note ---
Subjective - Review of Systems Service Date: 01/16/18 Subjective: patient seen and examined no new concern reported Objective - Results Result Diagrams: 01/16/18 05:05 01/16/18 05:05 Recent Labs: Laboratory Last Values WBC 8.0 Th/cmm (4.8-10.8) 01/16/18 05:05 RBC 3.03 Mil/cmm (3.80-5.20) L 01/16/18 05:05 Hgb 8.6 gm/dL (12-16) L 01/16/18 05:05 Hct 25.0 % (41.0-60) L 01/16/18 05:05 MCV 82.5 fl (81-100) 01/16/18 05:05 MCH 28.2 pg (27.0-31.0) 01/16/18 05:05 MCHC Differential 34.2 pg (28.0-36.0) 01/16/18 05:05 RDW 15.9 % (11.5-20.0) 01/16/18 05:05 Plt Count 151 Th/cmm (150-400) 01/16/18 05:05 MPV 7.2 fl 01/16/18 05:05 Neutrophils % 91.7 % (40.0-80.0) H 01/16/18 05:05 Band Neutrophils % 1 % (0-10) 01/14/18 05:25 Lymphocytes % 5.3 % (20.0-50.0) L 01/16/18 05:05 Monocytes % 1.6 % (2.0-10.0) L 01/16/18 05:05 Eosinophils % 1.3 % (0.0-5.0) 01/16/18 05:05 Basophils % 0.1 % (0.0-2.0) 01/16/18 05:05 Neutrophils (Manual) 89 % (40-80) H 01/14/18 05:25 Lymphocytes 8 % (20-50) L 01/14/18 05:25 Monocytes 2 % (2-10) 01/14/18 05:25 Eosinophils 0 % (0-5) 01/14/18 05:25 Basophils 0 % (0-3) 01/14/18 05:25 Eos Smear Source URINE 01/06/18 05:25 Eos Smear Total Cells NONE SEEN (NONE SEEN) 01/06/18 05:25 PT 11.1 SECONDS (9.5-11.5) 01/09/18 04:54 INR 1.07 (0.5-1.4) 01/09/18 04:54 PTT (Actin FS) 25.1 SECONDS (26.0-38.0) L 01/09/18 04:54 Sodium 126 mEq/L (136-145) L 01/16/18 05:05 Potassium 3.3 mEq/L (3.5-5.1) L 01/16/18 05:05 Chloride 103 mEq/L (98-107) 01/16/18 05:05 Carbon Dioxide 14.1 mEq/L (21.0-31.0) L 01/16/18 05:05 Anion Gap 12.2 (7.0-16.0) 01/16/18 05:05 BUN 23 mg/dL (7-25) 01/16/18 05:05 Creatinine 1.6 mg/dL (0.6-1.2) H 01/16/18 05:05 Est GFR ( Amer) TNP 01/16/18 05:05 Est GFR (Non-Af Amer) TNP 01/16/18 05:05 BUN/Creatinine Ratio 14.4 01/16/18 05:05 Glucose 108 mg/dL (70-105) H 01/16/18 05:05 Plasma/Ser Osmolality 289 mOsmol/kg (280-301) 01/07/18 06:02 Whole Bld Lactic Acid 1.72 mmol/L (0.60-1.99) 01/04/18 20:35 Uric Acid 6.5 mg/dL (2.3-6.6) 01/06/18 06:01 Calcium 7.4 mg/dL (8.6-10.3) L 01/16/18 05:05 Phosphorus 4.1 mg/dL (2.5-5.0) 01/06/18 06:01 Magnesium 2.5 mg/dL (1.9-2.7) 01/07/18 06:02 Iron 43 ug/dL (27-139) 01/05/18 05:36 TIBC 254 ug/dL (250-450) 01/05/18 05:36 Iron Saturation 17 % (15-55) 01/05/18 05:36 Unsaturated IBC 211 ug/dL (118-369) 01/05/18 05:36 Ferritin 17 ng/mL (15-150) 01/05/18 05:36 Total Bilirubin 0.5 mg/dL (0.3-1.0) 01/14/18 05:25 AST 26 U/L (13-39) 01/14/18 05:25 ALT 28 U/L (7-52) 01/14/18 05:25 Alkaline Phosphatase 37 U/L (34-104) 01/14/18 05:25 Creatine Kinase 165 U/L (30-223) 01/04/18 20:35 Troponin I 0.02 ng/mL (0.01-0.05) 01/04/18 20:35 B-Natriuretic Peptide 197.0 pg/mL (5.0-100.0) H 01/04/18 20:35 Total Protein 4.6 gm/dL (6.0-8.3) L 01/14/18 05:25 Albumin 2.3 gm/dL (3.7-5.3) L 01/14/18 05:25 Globulin 2.3 gm/dL 01/14/18 05:25 Albumin/Globulin Ratio 1.0 (1.0-1.8) 01/14/18 05:25 Triglycerides 68 mg/dL (<150) 01/04/18 20:35 Cholesterol 115 mg/dL (<200) 01/04/18 20:35 LDL Cholesterol Direct 56 mg/dL (75-193) L 01/04/18 20:35 HDL Cholesterol 44 mg/dL (23-92) 01/04/18 20:35 Amylase 45 U/L (29-103) 01/06/18 06:01 Lipase 24 U/L (11-82) 01/06/18 06:01 Carcinoembryonic Ag 26.2 ng/mL (0.0-4.7) H 01/06/18 06:01 Vitamin B12 304 pg/mL (232-1245) 01/05/18 05:36 Folic Acid 14.5 ng/mL (>3.0) 01/05/18 05:36 TSH 4.28 uIU/ml (0.34-5.60) 01/05/18 05:36 Urine Source CLEAN C 01/04/18 20:20 Urine Color STRAW 01/04/18 20:20 Urine Clarity CLEAR (CLEAR) 01/04/18 20:20 Urine pH 5.5 (4.6 - 8.0) 01/04/18 20:20 Ur Specific [place] 1.015 (1.005-1.030) 01/04/18 20:20 Urine Protein NEGATIVE mg/dL (NEGATIVE) 01/04/18 20:20 Urine Glucose (UA) NEGATIVE mg/dL (NEGATIVE) 01/04/18 20:20 Urine Ketones NEGATIVE mg/dL (NEGATIVE) 01/04/18 20:20 Urine Blood NEGATIVE (NEGATIVE) 01/04/18 20:20 Urine Nitrate NEGATIVE (NEGATIVE) 01/04/18 20:20 Urine Bilirubin NEGATIVE (NEGATIVE) 01/04/18 20:20 Urine Urobilinogen 0.2 E.U./dL (0.2 - 1.0) 01/04/18 20:20 Ur Leukocyte Esterase TRACE (NEGATIVE) H 01/04/18 20:20 Urine RBC NONE SEEN /hpf (0-5) 01/04/18 20:20 Urine WBC 2-5 /hpf (0-5) 01/04/18 20:20 Ur Epithelial Cells NONE SEEN /lpf (FEW) 01/04/18 20:20 Urine Bacteria NONE SEEN /hpf (NONE SEEN) 01/04/18 20:20 Ur Random Sodium 99 mmol/L 01/06/18 05:25 Urine Creatinine 42.0 mg/dl (28.0-217.0) 01/06/18 05:25 Stool Occult Blood NEGATIVE (NEGATIVE) 01/07/18 17:25 Blood Type O POSITIVE 01/10/18 07:20 Antibody Screen POSITIVE 01/10/18 07:20 Antibody Identification Anti-C Anti-e 01/10/18 07:20 Antibody Identification Anti-C Anti-e 01/10/18 07:20 Crossmatch See Detail 01/10/18 07:20 - Physical Exam Vitals and I&O: Vital Signs Temp 98.5 F 01/16/18 15:41 Pulse 90 01/16/18 18:43 Resp 18 01/16/18 18:43 BP 102/46 01/16/18 15:41 Pulse Ox 98 01/16/18 18:43 Intake & Output 01/16/18 01/16/1818 06:59 18:59 06:59 Intake Total 1011.667 600 Output Total 600 Balance 1011.667 0 Weight (lbs) 63.503 kg Intake: Intake, IV Amount 1011.667 100 D5-0.45NS 1,000 ml @ 100 961.667 mls/hr IV .Q10H [facility] Rx#: [id number] Piperacillin Sodium/ 50 100 Tazobact 3.375 gm In Dextrose 5% 50 ml @ 100 mls/hr IV Q8H [facility] Rx#: [id number] Oral 500 Output: Urine 600 Other: # Bowel Movements 0 Weight Source Bedscale Active Medications: Current Medications Albuterol/Ipratropium (Duoneb Neb) 3 ml HHN Q6HRT [facility] Stop: 03/08/18 18:59 Last Admin: 01/16/18 18:42 Dose: 3 ml Amlodipine Besylate (Norvasc) 5 mg PO DAILY [facility] Stop: 03/06/18 08:59 Last Admin: 01/16/18 09:46 Dose: Not Given Benzocaine/Menthol (Cepacol) 1 cooper MM Q4HR PRN PRN Reason: Sore Throat Stop: 03/10/18 15:50 Ferrous Sulfate (Iron) 325 mg PO BID [facility] Stop: 03/17/18 10:14 Last Admin: 01/16/18 16:53 Dose: 325 mg Heparin Sodium (Porcine) (Heparin) 5,000 units SUBQ Q12HR [facility] Stop: 03/17/18 10:14 Last Admin: 01/16/18 14:03 Dose: 5,000 units Piperacillin Sod/Tazobactam (Sod 3.375 gm/ Dextrose) 50 mls @ 100 mls/hr IV Q8H [facility] Stop: 03/13/18 09:14 Last Infusion: 01/16/18 17:25 Dose: Infused Sodium Chloride (Nacl 0.9%) 1,000 mls @ 70 mls/hr IV .[id number] [facility] Stop: 03/17/18 16:29 Last Admin: 01/16/18 16:53 Dose: 70 mls/hr Levothyroxine Sodium (Synthroid) 0.025 mg PO QDAC [facility] Stop: 03/06/18 07:29 Last Admin: 01/16/18 06:56 Dose: 0.025 mg Losartan Potassium (Cozaar) 100 mg PO DAILY [facility] Stop: 03/07/18 10:59 Last Admin: 01/16/18 09:46 Dose: Not Given Metronidazole (Flagyl) 500 mg PO BID [facility] Stop: 01/17/18 16:59 Last Admin: 01/16/18 16:54 Dose: 500 mg Miscellaneous (Vte Chemical Prophylaxis Screen/ Admission) 1 ea MC PRN PRN PRN Reason: PROTOCOL Stop: 03/06/18 08:14 Miscellaneous (Clinical Monitoring) 1 ea MC DAILY PRN PRN Reason: RENAL Stop: 03/16/18 08:53 Morphine Sulfate (Morphine) 2 mg IVP Q4HR PRN PRN Reason: Abdominal Pain Stop: 03/12/18 08:37 Last Admin: 01/11/18 23:11 Dose: 2 mg Ondansetron HCl (Zofran) 4 mg IV Q6H PRN PRN Reason: Nausea / Vomiting Stop: 03/17/18 09:43 Last Admin: 01/16/18 09:57 Dose: 4 mg Oxybutynin Chloride (Ditropan) 5 mg PO BID [facility] Stop: 03/06/18 16:59 Last Admin: 01/16/18 16:53 Dose: 5 mg Pantoprazole Sodium (Protonix) 40 mg IVP DAILY [facility] Stop: 03/06/18 08:59 Last Admin: 01/16/18 09:57 Dose: 40 mg Simethicone (Mylicon) 80 mg PO QID PRN PRN Reason: Gas Stop: 03/10/18 14:48 Last Admin: 01/14/18 05:15 Dose: 80 mg Sodium Bicarbonate (Sodium Bicarbonate) 650 mg PO TID [facility] PRN Reason: Protocol Stop: 03/07/18 15:14 Last Admin: 01/16/18 14:02 Dose: 650 mg Tramadol HCl (Ultram) 50 mg PO Q6HR PRN PRN Reason: Pain (Moderate) Stop: 03/10/18 15:51 Last Admin: 01/14/18 02:47 Dose: 50 mg Zolpidem Tartrate (Ambien) 5 mg PO HS PRN PRN Reason: Insomnia Stop: 03/07/18 21:11 Last Admin: 01/15/18 22:17 Dose: 5 mg General: No acute distress Cardiovascular: Regular rate Lungs: Clear to auscultation Extremities: Edema Neurological: Sensation intact Skin: no Rash Psych/Mental Status: Mood NL - Procedures Procedures: Procedures Procedure Code Date COLONOSCOPY AND BIOPSY 48835 01/04/18 EXCISION OF ASCENDING COLON, ENDO, DIAGN [id number] 01/04/18 PARTIAL REMOVAL OF COLON 62937 01/04/18 RESECTION OF RIGHT LARGE INTESTINE, OPEN APPROACH [id number] 01/04/18 Assessment/Plan - Problem List Patient Problems: All Active Problems Colonic mass (Acute) K63.9 - Assessment Assessment: Metastatic Adenocarcinoma of colon Chronic hyponatremia Acute on CKD better Chronic constipation HTN CAD UTI SEPTIC SHOCK - Plan Plan: IV fluids Full liquid diet Renal function little better Nephrology follow up Morphine prn Oncology input noted and appreciated Antibioitcs Encouraged ambulation Plan of care discussed with family they understood well SNIF DC plan. Family requested [facility]. will notify Nutritional Asmnt/Malnutr-PDOC - Dietary Evaluation Malnutrition Findings (Please click <Entered> for more info): Nutritional Asmnt/Malnutrition Start: 01/05/18 14: 24 Text: Status: Complete Freq: Document 01/05/18 14:24 HEN (Rec: 01/05/18 14:55 [place] [id number] Nutritional Asmnt/Malnutrition Patient General Information Nutritional Screening High Risk Diagnosis dehydration, anemia, UTI, facial cellulitis Pertinent Medical Hx/Surgical Hx HTN, ESRD, thyroid disorder Subjective Information Pt seen lying in bed, awake and pleasant. Family at bedside feeding pt lunch. Family is able to speak little Setswana, denied pt has chewing/swallowing problem, stated pt eating ok. Pt has teeth noted. Per EMR, pt consumed 100% of breakfast in the morning. Current Diet Order/ Nutrition Support regular Pertinent Medications D5-0.9%ns, synthorid, protonix Pertinent Labs 01/05 cl 112, BUN 32, Cr 1.3, Ca 8.5 Nutritional Hx/Data Height 1.52 m Height (Calculated Centimeters) 152.4 Current Weight (lbs) 58.06 kg Weight (Calculated Kilograms) 58.1 Weight (Calculated Grams) 25850.8 Molt Body Weight 100 Body Mass Index (BMI) 25.0 Weight Status Approriate GI Symptoms GI Symptoms None Last BM not indicated Difficult in: None Skin Integrity/Comment: face reddened Current %PO Good (75-100%) Estimated Nutritional Goals BEE in Kcals: Using Current wt Calories/Kcals/Kg 25-30 Kcals Calculated 6765-6211 Protein: Using Current wt Protein g/k monitor renal labs Protein Calculated 58 Fluid: ml 1450-1740ml (1ml/kcal) Nutritional Problem 1. Problem Problem altered nutrition related labs Etiology electrolytes imbalance and hx of ESRD Signs/Symptoms: cl 112, BUN 32, Cr 1.3, Ca 8.5 Malnutrition Alert Protein-Calorie Malnutrition N/A Is there a minimum of two criteria No selected? Query Text:Check all the applicable criteria. A minimum of two criteria are recommended for diagnosis of either severe or non-severe malnutrition. Intervention/Recommendation Comments 1. Continue with regular diet as ordered. Assist pt with meals as needed. 2. If BUN/Cr not improved, will consider renal diet. 2. Monitor PO intake, wt, labs and skin integrity 3. F/U as moderate risk in 3-5 days, 01/08-01/10 Expected Outcomes/Goals Expected Outcomes/Goals 1. PO intake to meet at least 75% of nutritional needs. 2. Wt stability, skin to remain intact, labs to approach WNL.
[2018-01-17] MEDS: Albuterol/Ipratropium Neb 3 ML AERS HHN SCH ×4 (00:18→18:50)
--- NOTE | 2018-01-17 01:18 | Progress Notes ---
DATE: 01/16/2018 PULMONARY PROGRESS NOTE PROBLEM LIST: 1. Abnormal chest x-ray. 2. Status post tumor removed from the colon. SYMPTOMS: Nil, feeling okay. Very minimal discomfort in the belly area, otherwise unremarkable. PHYSICAL EXAMINATION: VITAL SIGNS: T-max 98.5, blood pressure is 102/46, saturation is mid 90s on 2 liters. NECK: Veins not visualized. CHEST: Shows occasional rhonchi with diminished air entry. HEART: Regular. ABDOMEN: Soft, nontender awake tenderness on the surgical site. LABORATORY DATA: White count is 8000, hemoglobin 8.3. Sodium is 126, creatinine 1.6, improving. ASSESSMENT: The patient clinically unchanged, stable respiratory burks. Electrolytes are little better, still hyponatremic. PLANS AND SUGGESTIONS: We will continue current treatment. Follow for final path report. JOB# [id number]
[2018-01-17] MEDS: Levothyroxine 0.025 Mg Tab PO SCH (07:14)
[2018-01-17] MEDS ORDERED: Midazolam 1mg/ml 2 ml vial IV ONE ×3 (08:56)
[2018-01-17] MEDS: Sodium Chloride 0.9% 1,000 ML IV SCH (09:00)
[2018-01-17] MEDS: Ferrous Sulfate 325 MG TAB PO SCH ×2 (09:00→16:41)
--- NOTE | 2018-01-17 12:42 | Pathology Report ---
[id number] Collection date: 01/11/2018 Surgeon: Dr. Bere Ruiz Specimen Description: Right hemicolectomy Gross Description: Received in formalin is a right hemicolectomy specimen measuring 25 cm in length consisting of 4 cm of terminal ileum and 20 cm of colon. The diameter of the ileum measures 2 cm and the diameter of the colon averages 5 cm with a smooth glistening outer serosal surface covering most of the specimen. The area of the cecum shows some fibrous adhesions and is inked blue along the outer serosal surface. Opening the specimen reveals a 2.5 cm raised polypoid firm tumor mass located in the cecum. The appendix is not identified attached to the cecum. The proximal and distal mucosal margins are well cleared of the tumor. Sectioning the rumor shows invasion through the entire muscular wall and involving the outer serosal surface (inked blue). The pericolic adipose tissue shows multiple gaona firm lymph nodes measuring up to 1.2 cm in greatest dimension. A 1.5 cm nodule of gaona firm tumor is identified extending into the pericecal soft tissues immediately adjacent to the cecal tumor mass, but showing no obvious connection to the cecal tumor. Sectioning of the remaining specimen shows no other mass lesions. Community Outreach Manager sections are submitted in fourteen cassettes labeled A1 to A14. Cassette A1 shows the proximal mucosal margin, cassette A2 the distal mucosal margin, cassette A3 to A7 the cecal tumor, cassette A8 through A14 the pericolic lymph nodes. The 1.5 cm pericolic tumor nodule is submitted in cassettes A9 through A11. Microscopic Description: The histologic sections show a right hemicolectomy specimen with an infiltrating adenocarcinoma identified in the cecum. This tumor shows multiple villous finger like projections lined by highly atypical and dysplastic cells that have nuclear enlargement and pleomorphism. More than half of the tumor mass shows an invasive component that appears to be arising from this villous adenoma. The infiltrating tumor cells show moderately differentiated atypical glands that have irregular patterns including cribriform and back to back proliferation of glands. The invasive tumor component is seen surrounded by a fibroblastic stromal reaction with abundant mucinous material seen in focal areas consistent with mucinous adenocarcinoma. The tumor extends through all layers of the muscular wall and penetrates the outer serosal surface (inked blue). A 1.5 cm tumor nodule is identified extending into the pericolic soft tissues and shows a similar histologic appearance consistent with moderately differentiated adenocarcinoma. This additional tumor is seen invading perivascular soft tissue, but there is no definite intravascular tumor identified. There is no evidence for tumor in the 22 pericolic lymph nodes examined, and the proximal and distal mucosal margins are also negative for tumor involvement. Diagnosis: 1. 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 2. A separate tumor nodule is identified invading into the pericecal/ perivascular soft tissue. 3. There is no evidence for lymph node involvement (0 out of 22 lymph nodes examined). 4. There is no evidence for tumor at the proximal and distal mucosal margins. Comment: Invasive adenocarcinoma is identified in the cecum that appears to be arising within an atypical villous adenoma. The invasive component of the tumor extends through the muscular wall of the cecum, penetrates the serosal surface and measures approximately 2.5 cm in greatest dimension. A separate 1.5 cm. tumor nodule is seen invading the pericecal/perivascular soft tissue, also shows infiltrating moderately differentiated adenocarcinoma. Both tumors have a significant mucinous component consistent with mucinous adenocarcinina. Because there is no evidence of lymph node involvement, this tumor would be classified as T3, N0 using the TNM classification system. Evaluation for metastatic disease should be performed for definitive clinical staging. [facility]# [id number] FREDRICK
--- NOTE | 2018-01-17 15:51 | General Progress Note ---
Subjective - Review of Systems Service Date: 01/17/18 Subjective: eating, no vomiting Objective - Results Result Diagrams: 01/16/18 05:05 01/16/18 05:05 Recent Labs: Laboratory Last Values WBC 8.0 Th/cmm (4.8-10.8) 01/16/18 05:05 RBC 3.03 Mil/cmm (3.80-5.20) L 01/16/18 05:05 Hgb 8.6 gm/dL (12-16) L 01/16/18 05:05 Hct 25.0 % (41.0-60) L 01/16/18 05:05 MCV 82.5 fl (81-100) 01/16/18 05:05 MCH 28.2 pg (27.0-31.0) 01/16/18 05:05 MCHC Differential 34.2 pg (28.0-36.0) 01/16/18 05:05 RDW 15.9 % (11.5-20.0) 01/16/18 05:05 Plt Count 151 Th/cmm (150-400) 01/16/18 05:05 MPV 7.2 fl 01/16/18 05:05 Neutrophils % 91.7 % (40.0-80.0) H 01/16/18 05:05 Band Neutrophils % 1 % (0-10) 01/14/18 05:25 Lymphocytes % 5.3 % (20.0-50.0) L 01/16/18 05:05 Monocytes % 1.6 % (2.0-10.0) L 01/16/18 05:05 Eosinophils % 1.3 % (0.0-5.0) 01/16/18 05:05 Basophils % 0.1 % (0.0-2.0) 01/16/18 05:05 Neutrophils (Manual) 89 % (40-80) H 01/14/18 05:25 Lymphocytes 8 % (20-50) L 01/14/18 05:25 Monocytes 2 % (2-10) 01/14/18 05:25 Eosinophils 0 % (0-5) 01/14/18 05:25 Basophils 0 % (0-3) 01/14/18 05:25 Eos Smear Source URINE 01/06/18 05:25 Eos Smear Total Cells NONE SEEN (NONE SEEN) 01/06/18 05:25 PT 11.1 SECONDS (9.5-11.5) 01/09/18 04:54 INR 1.07 (0.5-1.4) 01/09/18 04:54 PTT (Actin FS) 25.1 SECONDS (26.0-38.0) L 01/09/18 04:54 Sodium 126 mEq/L (136-145) L 01/16/18 05:05 Potassium 3.3 mEq/L (3.5-5.1) L 01/16/18 05:05 Chloride 103 mEq/L (98-107) 01/16/18 05:05 Carbon Dioxide 14.1 mEq/L (21.0-31.0) L 01/16/18 05:05 Anion Gap 12.2 (7.0-16.0) 01/16/18 05:05 BUN 23 mg/dL (7-25) 01/16/18 05:05 Creatinine 1.6 mg/dL (0.6-1.2) H 01/16/18 05:05 Est GFR ( Amer) TNP 01/16/18 05:05 Est GFR (Non-Af Amer) TNP 01/16/18 05:05 BUN/Creatinine Ratio 14.4 01/16/18 05:05 Glucose 108 mg/dL (70-105) H 01/16/18 05:05 Plasma/Ser Osmolality 289 mOsmol/kg (280-301) 01/07/18 06:02 Whole Bld Lactic Acid 1.72 mmol/L (0.60-1.99) 01/04/18 20:35 Uric Acid 6.5 mg/dL (2.3-6.6) 01/06/18 06:01 Calcium 7.4 mg/dL (8.6-10.3) L 01/16/18 05:05 Phosphorus 4.1 mg/dL (2.5-5.0) 01/06/18 06:01 Magnesium 2.5 mg/dL (1.9-2.7) 01/07/18 06:02 Iron 43 ug/dL (27-139) 01/05/18 05:36 TIBC 254 ug/dL (250-450) 01/05/18 05:36 Iron Saturation 17 % (15-55) 01/05/18 05:36 Unsaturated IBC 211 ug/dL (118-369) 01/05/18 05:36 Ferritin 17 ng/mL (15-150) 01/05/18 05:36 Total Bilirubin 0.5 mg/dL (0.3-1.0) 01/14/18 05:25 AST 26 U/L (13-39) 01/14/18 05:25 ALT 28 U/L (7-52) 01/14/18 05:25 Alkaline Phosphatase 37 U/L (34-104) 01/14/18 05:25 Creatine Kinase 165 U/L (30-223) 01/04/18 20:35 Troponin I 0.02 ng/mL (0.01-0.05) 01/04/18 20:35 B-Natriuretic Peptide 197.0 pg/mL (5.0-100.0) H 01/04/18 20:35 Total Protein 4.6 gm/dL (6.0-8.3) L 01/14/18 05:25 Albumin 2.3 gm/dL (3.7-5.3) L 01/14/18 05:25 Globulin 2.3 gm/dL 01/14/18 05:25 Albumin/Globulin Ratio 1.0 (1.0-1.8) 01/14/18 05:25 Triglycerides 68 mg/dL (<150) 01/04/18 20:35 Cholesterol 115 mg/dL (<200) 01/04/18 20:35 LDL Cholesterol Direct 56 mg/dL (75-193) L 01/04/18 20:35 HDL Cholesterol 44 mg/dL (23-92) 01/04/18 20:35 Amylase 45 U/L (29-103) 01/06/18 06:01 Lipase 24 U/L (11-82) 01/06/18 06:01 Carcinoembryonic Ag 26.2 ng/mL (0.0-4.7) H 01/06/18 06:01 Vitamin B12 304 pg/mL (232-1245) 01/05/18 05:36 Folic Acid 14.5 ng/mL (>3.0) 01/05/18 05:36 TSH 4.28 uIU/ml (0.34-5.60) 01/05/18 05:36 Urine Source CLEAN C 01/04/18 20:20 Urine Color STRAW 01/04/18 20:20 Urine Clarity CLEAR (CLEAR) 01/04/18 20:20 Urine pH 5.5 (4.6 - 8.0) 01/04/18 20:20 Ur Specific [place] 1.015 (1.005-1.030) 01/04/18 20:20 Urine Protein NEGATIVE mg/dL (NEGATIVE) 01/04/18 20:20 Urine Glucose (UA) NEGATIVE mg/dL (NEGATIVE) 01/04/18 20:20 Urine Ketones NEGATIVE mg/dL (NEGATIVE) 01/04/18 20:20 Urine Blood NEGATIVE (NEGATIVE) 01/04/18 20:20 Urine Nitrate NEGATIVE (NEGATIVE) 01/04/18 20:20 Urine Bilirubin NEGATIVE (NEGATIVE) 01/04/18 20:20 Urine Urobilinogen 0.2 E.U./dL (0.2 - 1.0) 01/04/18 20:20 Ur Leukocyte Esterase TRACE (NEGATIVE) H 01/04/18 20:20 Urine RBC NONE SEEN /hpf (0-5) 01/04/18 20:20 Urine WBC 2-5 /hpf (0-5) 01/04/18 20:20 Ur Epithelial Cells NONE SEEN /lpf (FEW) 01/04/18 20:20 Urine Bacteria NONE SEEN /hpf (NONE SEEN) 01/04/18 20:20 Ur Random Sodium 99 mmol/L 01/06/18 05:25 Urine Creatinine 42.0 mg/dl (28.0-217.0) 01/06/18 05:25 Stool Occult Blood NEGATIVE (NEGATIVE) 01/07/18 17:25 Blood Type O POSITIVE 01/10/18 07:20 Antibody Screen POSITIVE 01/10/18 07:20 Antibody Identification Anti-C Anti-e 01/10/18 07:20 Antibody Identification Anti-C Anti-e 01/10/18 07:20 Crossmatch See Detail 01/10/18 07:20 - Physical Exam Vitals and I&O: Vital Signs Temp 97.7 F 01/17/18 06:59 Pulse 85 01/17/18 13:31 Resp 18 01/17/18 13:31 BP 118/70 01/17/18 06:59 Pulse Ox 95 01/17/18 13:31 Intake & Output 01/16/18 01/17/18 01/17/18 18:59 06:59 18:59 Intake Total 600 1098.333 201.667 Output Total 600 550 Balance 0 548.333 201.667 Weight (lbs) 63.503 kg 70.307 kg Intake: Intake, IV Amount 100 898.333 201.667 Piperacillin Sodium/ 100 100 Tazobact 3.375 gm In Dextrose 5% 50 ml @ 100 mls/hr IV Q8H [facility] Rx#: [id number] Sodium Chloride 0.9% 1, 898.333 101.667 000 ml @ 70 mls/hr IV . [id number] [facility] Rx#:[id number] Oral 500 200 Output: Urine 600 550 Other: # Bowel Movements 0 Weight Source Bedscale Bedscale Active Medications: Current Medications Albuterol/Ipratropium (Duoneb Neb) 3 ml HHN Q6HRT [facility] Stop: 03/08/18 18:59 Last Admin: 01/17/18 13:31 Dose: 3 ml Amlodipine Besylate (Norvasc) 5 mg PO DAILY [facility] Stop: 03/06/18 08:59 Last Admin: 01/17/18 09:28 Dose: Not Given Benzocaine/Menthol (Cepacol) 1 cooper MM Q4HR PRN PRN Reason: Sore Throat Stop: 03/10/18 15:50 Last Admin: 01/16/18 23:44 Dose: 1 cooper Ferrous Sulfate (Iron) 325 mg PO BID [facility] Stop: 03/17/18 10:14 Last Admin: 01/17/18 09:00 Dose: Not Given Heparin Sodium (Porcine) (Heparin) 5,000 units SUBQ Q12HR [facility] Stop: 03/17/18 10:14 Last Admin: 01/17/18 09:28 Dose: Not Given Piperacillin Sod/Tazobactam (Sod 3.375 gm/ Dextrose) 50 mls @ 100 mls/hr IV Q8H [facility] Stop: 03/13/18 09:14 Last Infusion: 01/17/18 09:20 Dose: Infused Sodium Chloride (Nacl 0.9%) 1,000 mls @ 70 mls/hr IV .[id number] [facility] Stop: 03/17/18 16:29 Last Admin: 01/17/18 09:00 Dose: 70 mls/hr Levothyroxine Sodium (Synthroid) 0.025 mg PO QDAC [facility] Stop: 03/06/18 07:29 Last Admin: 01/17/18 07:14 Dose: 0.025 mg Losartan Potassium (Cozaar) 100 mg PO DAILY [facility] Stop: 03/07/18 10:59 Last Admin: 01/17/18 09:28 Dose: Not Given Metronidazole (Flagyl) 500 mg PO BID [facility] Stop: 01/17/18 16:59 Last Admin: 01/17/18 09:28 Dose: Not Given Miscellaneous (Vte Chemical Prophylaxis Screen/ Admission) 1 ea MC PRN PRN PRN Reason: PROTOCOL Stop: 03/06/18 08:14 Miscellaneous (Clinical Monitoring) 1 ea MC DAILY PRN PRN Reason: RENAL Stop: 03/16/18 08:53 Morphine Sulfate (Morphine) 2 mg IVP Q4HR PRN PRN Reason: Abdominal Pain Stop: 03/12/18 08:37 Last Admin: 01/11/18 23:11 Dose: 2 mg Ondansetron HCl (Zofran) 4 mg IV Q6H PRN PRN Reason: Nausea / Vomiting Stop: 03/17/18 09:43 Last Admin: 01/16/18 09:57 Dose: 4 mg Oxybutynin Chloride (Ditropan) 5 mg PO BID [facility] Stop: 03/06/18 16:59 Last Admin: 01/17/18 09:28 Dose: Not Given Pantoprazole Sodium (Protonix) 40 mg IVP DAILY [facility] Stop: 03/06/18 08:59 Last Admin: 01/17/18 10:54 Dose: 40 mg Simethicone (Mylicon) 80 mg PO QID PRN PRN Reason: Gas Stop: 03/10/18 14:48 Last Admin: 01/14/18 05:15 Dose: 80 mg Sodium Bicarbonate (Sodium Bicarbonate) 650 mg PO TID ANTHONY PRN Reason: Protocol Stop: 03/07/18 15:14 Last Admin: 01/17/18 14:44 Dose: 650 mg Tramadol HCl (Ultram) 50 mg PO Q6HR PRN PRN Reason: Pain (Moderate) Stop: 03/10/18 15:51 Last Admin: 01/14/18 02:47 Dose: 50 mg Zolpidem Tartrate (Ambien) 5 mg PO HS PRN PRN Reason: Insomnia Stop: 03/07/18 21:11 Last Admin: 01/16/18 23:40 Dose: 5 mg General: No acute distress HEENT: Mucous membr. moist/pink Neck: Supple Cardiovascular: Regular rate Lungs: Clear to auscultation Abdomen: Bowel sounds, Soft, no Tender, no Distended Extremities: Edema Neurological: Sensation intact Skin: no Rash Psych/Mental Status: Mood NL - Procedures Procedures: Procedures Procedure Code Date COLONOSCOPY AND BIOPSY 16529 01/04/18 EXCISION OF ASCENDING COLON, ENDO, DIAGN [id number] 01/04/18 PARTIAL REMOVAL OF COLON 23944 01/04/18 RESECTION OF RIGHT LARGE INTESTINE, OPEN APPROACH [id number] 01/04/18 Assessment/Plan - Problem List Patient Problems: All Active Problems Colonic mass (Acute) K63.9 - Assessment Assessment: * 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 * ckd Follow KRAS, NRAS AND BRAF, MSI DW daughter Emelia Rendon for outpatient chemo when recovered Nutritional Asmnt/Malnutr-PDOC - Dietary Evaluation Malnutrition Findings (Please click <Entered> for more info): Nutritional Asmnt/Malnutrition Start: 01/05/18 14: 24 Text: Status: Complete Freq: Document 01/05/18 14:24 HEN (Rec: 01/05/18 14:55 [email or web address] Nutritional Asmnt/Malnutrition Patient General Information Nutritional Screening High Risk Diagnosis dehydration, anemia, UTI, facial cellulitis Pertinent Medical Hx/Surgical Hx HTN, ESRD, thyroid disorder Subjective Information Pt seen lying in bed, awake and pleasant. Family at bedside feeding pt lunch. Family is able to speak little Nauruan, denied pt has chewing/swallowing problem, stated pt eating ok. Pt has teeth noted. Per EMR, pt consumed 100% of breakfast in the morning. Current Diet Order/ Nutrition Support regular Pertinent Medications D5-0.9%ns, synthorid, protonix Pertinent Labs 01/05 cl 112, BUN 32, Cr 1.3, Ca 8.5 Nutritional Hx/Data Height 1.52 m Height (Calculated Centimeters) 152.4 Current Weight (lbs) 58.06 kg Weight (Calculated Kilograms) 58.1 Weight (Calculated Grams) 82950.8 [place] Body Weight 100 Body Mass Index (BMI) 25.0 Weight Status Approriate GI Symptoms GI Symptoms None Last BM not indicated Difficult in: None Skin Integrity/Comment: face reddened Current %PO Good (75-100%) Estimated Nutritional Goals BEE in Kcals: Using Current wt Calories/Kcals/Kg 25-30 Kcals Calculated [id number] Protein: Using Current wt Protein g/k monitor renal labs Protein Calculated 58 Fluid: ml 1450-1740ml (1ml/kcal) Nutritional Problem 1. Problem Problem altered nutrition related labs Etiology electrolytes imbalance and hx of ESRD Signs/Symptoms: cl 112, BUN 32, Cr 1.3, Ca 8.5 Malnutrition Alert Protein-Calorie Malnutrition N/A Is there a minimum of two criteria No selected? Query Text:Check all the applicable criteria. A minimum of two criteria are recommended for diagnosis of either severe or non-severe malnutrition. Intervention/Recommendation Comments 1. Continue with regular diet as ordered. Assist pt with meals as needed. 2. If BUN/Cr not improved, will consider renal diet. 2. Monitor PO intake, wt, labs and skin integrity 3. F/U as moderate risk in 3-5 days, 01/08-01/10 Expected Outcomes/Goals Expected Outcomes/Goals 1. PO intake to meet at least 75% of nutritional needs. 2. Wt stability, skin to remain intact, labs to approach WNL.
--- NOTE | 2018-01-17 16:25 | General Progress Note ---
Subjective - Review of Systems Service Date: 01/17/18 Subjective: patient seen and examined afebrile no new complaints family was at the bedside Objective - Results Result Diagrams: 01/16/18 05:05 01/16/18 05:05 Recent Labs: Laboratory Last Values WBC 8.0 Th/cmm (4.8-10.8) 01/16/18 05:05 RBC 3.03 Mil/cmm (3.80-5.20) L 01/16/18 05:05 Hgb 8.6 gm/dL (12-16) L 01/16/18 05:05 Hct 25.0 % (41.0-60) L 01/16/18 05:05 MCV 82.5 fl (81-100) 01/16/18 05:05 MCH 28.2 pg (27.0-31.0) 01/16/18 05:05 MCHC Differential 34.2 pg (28.0-36.0) 01/16/18 05:05 RDW 15.9 % (11.5-20.0) 01/16/18 05:05 Plt Count 151 Th/cmm (150-400) 01/16/18 05:05 MPV 7.2 fl 01/16/18 05:05 Neutrophils % 91.7 % (40.0-80.0) H 01/16/18 05:05 Band Neutrophils % 1 % (0-10) 01/14/18 05:25 Lymphocytes % 5.3 % (20.0-50.0) L 01/16/18 05:05 Monocytes % 1.6 % (2.0-10.0) L 01/16/18 05:05 Eosinophils % 1.3 % (0.0-5.0) 01/16/18 05:05 Basophils % 0.1 % (0.0-2.0) 01/16/18 05:05 Neutrophils (Manual) 89 % (40-80) H 01/14/18 05:25 Lymphocytes 8 % (20-50) L 01/14/18 05:25 Monocytes 2 % (2-10) 01/14/18 05:25 Eosinophils 0 % (0-5) 01/14/18 05:25 Basophils 0 % (0-3) 01/14/18 05:25 Eos Smear Source URINE 01/06/18 05:25 Eos Smear Total Cells NONE SEEN (NONE SEEN) 01/06/18 05:25 PT 11.1 SECONDS (9.5-11.5) 01/09/18 04:54 INR 1.07 (0.5-1.4) 01/09/18 04:54 PTT (Actin FS) 25.1 SECONDS (26.0-38.0) L 01/09/18 04:54 Sodium 126 mEq/L (136-145) L 01/16/18 05:05 Potassium 3.3 mEq/L (3.5-5.1) L 01/16/18 05:05 Chloride 103 mEq/L (98-107) 01/16/18 05:05 Carbon Dioxide 14.1 mEq/L (21.0-31.0) L 01/16/18 05:05 Anion Gap 12.2 (7.0-16.0) 01/16/18 05:05 BUN 23 mg/dL (7-25) 01/16/18 05:05 Creatinine 1.6 mg/dL (0.6-1.2) H 01/16/18 05:05 Est GFR ( Amer) TNP 01/16/18 05:05 Est GFR (Non-Af Amer) TNP 01/16/18 05:05 BUN/Creatinine Ratio 14.4 01/16/18 05:05 Glucose 108 mg/dL (70-105) H 01/16/18 05:05 Plasma/Ser Osmolality 289 mOsmol/kg (280-301) 01/07/18 06:02 Whole Bld Lactic Acid 1.72 mmol/L (0.60-1.99) 01/04/18 20:35 Uric Acid 6.5 mg/dL (2.3-6.6) 01/06/18 06:01 Calcium 7.4 mg/dL (8.6-10.3) L 01/16/18 05:05 Phosphorus 4.1 mg/dL (2.5-5.0) 01/06/18 06:01 Magnesium 2.5 mg/dL (1.9-2.7) 01/07/18 06:02 Iron 43 ug/dL (27-139) 01/05/18 05:36 TIBC 254 ug/dL (250-450) 01/05/18 05:36 Iron Saturation 17 % (15-55) 01/05/18 05:36 Unsaturated IBC 211 ug/dL (118-369) 01/05/18 05:36 Ferritin 17 ng/mL (15-150) 01/05/18 05:36 Total Bilirubin 0.5 mg/dL (0.3-1.0) 01/14/18 05:25 AST 26 U/L (13-39) 01/14/18 05:25 ALT 28 U/L (7-52) 01/14/18 05:25 Alkaline Phosphatase 37 U/L (34-104) 01/14/18 05:25 Creatine Kinase 165 U/L (30-223) 01/04/18 20:35 Troponin I 0.02 ng/mL (0.01-0.05) 01/04/18 20:35 B-Natriuretic Peptide 197.0 pg/mL (5.0-100.0) H 01/04/18 20:35 Total Protein 4.6 gm/dL (6.0-8.3) L 01/14/18 05:25 Albumin 2.3 gm/dL (3.7-5.3) L 01/14/18 05:25 Globulin 2.3 gm/dL 01/14/18 05:25 Albumin/Globulin Ratio 1.0 (1.0-1.8) 01/14/18 05:25 Triglycerides 68 mg/dL (<150) 01/04/18 20:35 Cholesterol 115 mg/dL (<200) 01/04/18 20:35 LDL Cholesterol Direct 56 mg/dL (75-193) L 01/04/18 20:35 HDL Cholesterol 44 mg/dL (23-92) 01/04/18 20:35 Amylase 45 U/L (29-103) 01/06/18 06:01 Lipase 24 U/L (11-82) 01/06/18 06:01 Carcinoembryonic Ag 26.2 ng/mL (0.0-4.7) H 01/06/18 06:01 Vitamin B12 304 pg/mL (232-1245) 01/05/18 05:36 Folic Acid 14.5 ng/mL (>3.0) 01/05/18 05:36 TSH 4.28 uIU/ml (0.34-5.60) 01/05/18 05:36 Urine Source CLEAN C 01/04/18 20:20 Urine Color STRAW 01/04/18 20:20 Urine Clarity CLEAR (CLEAR) 01/04/18 20:20 Urine pH 5.5 (4.6 - 8.0) 01/04/18 20:20 Ur Specific [place] 1.015 (1.005-1.030) 01/04/18 20:20 Urine Protein NEGATIVE mg/dL (NEGATIVE) 01/04/18 20:20 Urine Glucose (UA) NEGATIVE mg/dL (NEGATIVE) 01/04/18 20:20 Urine Ketones NEGATIVE mg/dL (NEGATIVE) 01/04/18 20:20 Urine Blood NEGATIVE (NEGATIVE) 01/04/18 20:20 Urine Nitrate NEGATIVE (NEGATIVE) 01/04/18 20:20 Urine Bilirubin NEGATIVE (NEGATIVE) 01/04/18 20:20 Urine Urobilinogen 0.2 E.U./dL (0.2 - 1.0) 01/04/18 20:20 Ur Leukocyte Esterase TRACE (NEGATIVE) H 01/04/18 20:20 Urine RBC NONE SEEN /hpf (0-5) 01/04/18 20:20 Urine WBC 2-5 /hpf (0-5) 01/04/18 20:20 Ur Epithelial Cells NONE SEEN /lpf (FEW) 01/04/18 20:20 Urine Bacteria NONE SEEN /hpf (NONE SEEN) 01/04/18 20:20 Ur Random Sodium 99 mmol/L 01/06/18 05:25 Urine Creatinine 42.0 mg/dl (28.0-217.0) 01/06/18 05:25 Stool Occult Blood NEGATIVE (NEGATIVE) 01/07/18 17:25 Blood Type O POSITIVE 01/10/18 07:20 Antibody Screen POSITIVE 01/10/18 07:20 Antibody Identification Anti-C Anti-e 01/10/18 07:20 Antibody Identification Anti-C Anti-e 01/10/18 07:20 Crossmatch See Detail 01/10/18 07:20 - Physical Exam Vitals and I&O: Vital Signs Temp 98.6 F 01/17/18 15:00 Pulse 106 01/17/18 15:00 Resp 20 01/17/18 16:00 BP 96/52 01/17/18 15:00 Pulse Ox 94 01/17/18 15:00 Intake & Output 01/16/18 01/17/18 01/17/18 18:59 06:59 18:59 Intake Total 600 1098.333 201.667 Output Total 600 550 Balance 0 548.333 201.667 Weight (lbs) 63.503 kg 70.307 kg Intake: Intake, IV Amount 100 898.333 201.667 Piperacillin Sodium/ 100 100 Tazobact 3.375 gm In Dextrose 5% 50 ml @ 100 mls/hr IV Q8H [facility] Rx#: [id number] Sodium Chloride 0.9% 1, 898.333 101.667 000 ml @ 70 mls/hr IV . [id number] [facility] Rx#:[id number] Oral 500 200 Output: Urine 600 550 Other: # Bowel Movements 0 Weight Source Bedscale Bedscale Active Medications: Current Medications Albuterol/Ipratropium (Duoneb Neb) 3 ml HHN Q6HRT [facility] Stop: 03/08/18 18:59 Last Admin: 01/17/18 13:31 Dose: 3 ml Amlodipine Besylate (Norvasc) 5 mg PO DAILY [facility] Stop: 03/06/18 08:59 Last Admin: 01/17/18 09:28 Dose: Not Given Benzocaine/Menthol (Cepacol) 1 cooper MM Q4HR PRN PRN Reason: Sore Throat Stop: 03/10/18 15:50 Last Admin: 01/16/18 23:44 Dose: 1 cooper Ferrous Sulfate (Iron) 325 mg PO BID [facility] Stop: 03/17/18 10:14 Last Admin: 01/17/18 09:00 Dose: Not Given Heparin Sodium (Porcine) (Heparin) 5,000 units SUBQ Q12HR [facility] Stop: 03/17/18 10:14 Last Admin: 01/17/18 09:28 Dose: Not Given Piperacillin Sod/Tazobactam (Sod 3.375 gm/ Dextrose) 50 mls @ 100 mls/hr IV Q8H [facility] Stop: 03/13/18 09:14 Last Infusion: 01/17/18 09:20 Dose: Infused Sodium Chloride (Nacl 0.9%) 1,000 mls @ 70 mls/hr IV .[id number] [facility] Stop: 03/17/18 16:29 Last Admin: 01/17/18 09:00 Dose: 70 mls/hr Levothyroxine Sodium (Synthroid) 0.025 mg PO QDAC [facility] Stop: 03/06/18 07:29 Last Admin: 01/17/18 07:14 Dose: 0.025 mg Losartan Potassium (Cozaar) 100 mg PO DAILY [facility] Stop: 03/07/18 10:59 Last Admin: 01/17/18 09:28 Dose: Not Given Metronidazole (Flagyl) 500 mg PO BID [facility] Stop: 01/17/18 16:59 Last Admin: 01/17/18 09:28 Dose: Not Given Miscellaneous (Vte Chemical Prophylaxis Screen/ Admission) 1 ea PRN PRN PRN Reason: PROTOCOL Stop: 03/06/18 08:14 Miscellaneous (Clinical Monitoring) 1 ea DAILY PRN PRN Reason: RENAL Stop: 03/16/18 08:53 Morphine Sulfate (Morphine) 2 mg IVP Q4HR PRN PRN Reason: Abdominal Pain Stop: 03/12/18 08:37 Last Admin: 01/11/18 23:11 Dose: 2 mg Ondansetron HCl (Zofran) 4 mg IV Q6H PRN PRN Reason: Nausea / Vomiting Stop: 03/17/18 09:43 Last Admin: 01/16/18 09:57 Dose: 4 mg Oxybutynin Chloride (Ditropan) 5 mg PO BID [facility] Stop: 03/06/18 16:59 Last Admin: 01/17/18 09:28 Dose: Not Given Pantoprazole Sodium (Protonix) 40 mg IVP DAILY [facility] Stop: 03/06/18 08:59 Last Admin: 01/17/18 10:54 Dose: 40 mg Simethicone (Mylicon) 80 mg PO QID PRN PRN Reason: Gas Stop: 03/10/18 14:48 Last Admin: 01/14/18 05:15 Dose: 80 mg Sodium Bicarbonate (Sodium Bicarbonate) 650 mg PO TID [facility]THONY PRN Reason: Protocol Stop: 03/07/18 15:14 Last Admin: 01/17/18 14:44 Dose: 650 mg Tramadol HCl (Ultram) 50 mg PO Q6HR PRN PRN Reason: Pain (Moderate) Stop: 03/10/18 15:51 Last Admin: 01/14/18 02:47 Dose: 50 mg Zolpidem Tartrate (Ambien) 5 mg PO HS PRN PRN Reason: Insomnia Stop: 03/07/18 21:11 Last Admin: 01/16/18 23:40 Dose: 5 mg General: No acute distress HEENT: Mucous membr. moist/pink Cardiovascular: Regular rate Lungs: Clear to auscultation Abdomen: Bowel sounds, Soft, no Tender, no Distended Extremities: Edema Neurological: Sensation intact Skin: no Rash Psych/Mental Status: Mood NL - Procedures Procedures: Procedures Procedure Code Date COLONOSCOPY AND BIOPSY 82263 01/04/18 EXCISION OF ASCENDING COLON, ENDO, DIAGN [id number] 01/04/18 PARTIAL REMOVAL OF COLON 32675 01/04/18 RESECTION OF RIGHT LARGE INTESTINE, OPEN APPROACH [id number] 01/04/18 Assessment/Plan - Problem List Patient Problems: All Active Problems Colonic mass (Acute) K63.9 - Assessment Assessment: Metastatic Adenocarcinoma of colon Chronic hyponatremia Acute on CKD better Chronic constipation HTN CAD UTI SEPTIC SHOCK - Plan Plan: IV fluids Full liquid diet Renal function little better Nephrology follow up Morphine prn Oncology input noted and appreciated Antibioitcs Encouraged ambulation Family still undecided about Medi port and chemo Rx Discussed with family re: plan of care Nutritional Asmnt/Malnutr-PDOC - Dietary Evaluation Malnutrition Findings (Please click <Entered> for more info): Nutritional Asmnt/Malnutrition Start: 01/05/18 14: 24 Text: Status: Complete Freq: Document 01/05/18 14:24 HEN (Rec: 01/05/18 14:55 [email or web address] Nutritional Asmnt/Malnutrition Patient General Information Nutritional Screening High Risk Diagnosis dehydration, anemia, UTI, facial cellulitis Pertinent Medical Hx/Surgical Hx HTN, ESRD, thyroid disorder Subjective Information Pt seen lying in bed, awake and pleasant. Family at bedside feeding pt lunch. Family is able to speak little [place], denied pt has chewing/swallowing problem, stated pt eating ok. Pt has teeth noted. Per EMR, pt consumed 100% of breakfast in the morning. Current Diet Order/ Nutrition Support regular Pertinent Medications D5-0.9%ns, synthorid, protonix Pertinent Labs 01/05 cl 112, BUN 32, Cr 1.3, Ca 8.5 Nutritional Hx/Data Height 1.52 m Height (Calculated Centimeters) 152.4 Current Weight (lbs) 58.06 kg Weight (Calculated Kilograms) 58.1 Weight (Calculated Grams) 84682.8 [place] Body Weight 100 Body Mass Index (BMI) 25.0 Weight Status Approriate GI Symptoms GI Symptoms None Last BM not indicated Difficult in: None Skin Integrity/Comment: face reddened Current %PO Good (75-100%) Estimated Nutritional Goals BEE in Kcals: Using Current wt Calories/Kcals/Kg 25-30 Kcals Calculated 3245-1936 Protein: Using Current wt Protein g/k monitor renal labs Protein Calculated 58 Fluid: ml 1450-1740ml (1ml/kcal) Nutritional Problem 1. Problem Problem altered nutrition related labs Etiology electrolytes imbalance and hx of ESRD Signs/Symptoms: cl 112, BUN 32, Cr 1.3, Ca 8.5 Malnutrition Alert Protein-Calorie Malnutrition N/A Is there a minimum of two criteria No selected? Query Text:Check all the applicable criteria. A minimum of two criteria are recommended for diagnosis of either severe or non-severe malnutrition. Intervention/Recommendation Comments 1. Continue with regular diet as ordered. Assist pt with meals as needed. 2. If BUN/Cr not improved, will consider renal diet. 2. Monitor PO intake, wt, labs and skin integrity 3. F/U as moderate risk in 3-5 days, 01/08-01/10 Expected Outcomes/Goals Expected Outcomes/Goals 1. PO intake to meet at least 75% of nutritional needs. 2. Wt stability, skin to remain intact, labs to approach WNL.
--- NOTE | 2018-01-17 16:36 | Progress Notes ---
DATE: 01/17/2018 PROBLEM LIST: 1. Pulmonary abnormality. 2. Questionable tracheobronchitis. 3. Status post abdominal surgery. SYMPTOMS: Nil, feeling okay, not too much pain, etc. No respiratory distress, etc. PHYSICAL EXAMINATION: VITAL SIGNS: The patient's recorded vitals afebrile, heart rate is in 80s and respiratory rate is in 20s, saturation is 95 on 2 liters per minute. NECK: Veins not visualized. CHEST: Shows diminished air entry with occasional rhonchi. HEART: Regular. ABDOMEN: Soft, nontender. ASSESSMENT: The patient clinically appears to be stable, improving post-surgery. PLAN: Continue current treatment. We will find the pathology report and then possibly as an outpatient PET scan and go from there. JOB# [id number]
[2018-01-17] MEDS: Morphine Sulfate 4 mg/mL 1mL Syr IVP PRN (20:29)
[2018-01-18] MEDS: Sodium Chloride 0.9% 1,000 ML IV SCH (00:37)
[2018-01-18] MEDS: Albuterol/Ipratropium Neb 3 ML AERS HHN SCH ×4 (01:09→21:13)
--- NOTE | 2018-01-18 10:09 | General Progress Note ---
Subjective - Review of Systems Service Date: 01/18/18 Subjective: eating, no vomiting, tolerating oral diet Objective - Results Result Diagrams: 01/16/18 05:05 01/16/18 05:05 Recent Labs: Laboratory Last Values WBC 8.0 Th/cmm (4.8-10.8) 01/16/18 05:05 RBC 3.03 Mil/cmm (3.80-5.20) L 01/16/18 05:05 Hgb 8.6 gm/dL (12-16) L 01/16/18 05:05 Hct 25.0 % (41.0-60) L 01/16/18 05:05 MCV 82.5 fl (81-100) 01/16/18 05:05 MCH 28.2 pg (27.0-31.0) 01/16/18 05:05 MCHC Differential 34.2 pg (28.0-36.0) 01/16/18 05:05 RDW 15.9 % (11.5-20.0) 01/16/18 05:05 Plt Count 151 Th/cmm (150-400) 01/16/18 05:05 MPV 7.2 fl 01/16/18 05:05 Neutrophils % 91.7 % (40.0-80.0) H 01/16/18 05:05 Band Neutrophils % 1 % (0-10) 01/14/18 05:25 Lymphocytes % 5.3 % (20.0-50.0) L 01/16/18 05:05 Monocytes % 1.6 % (2.0-10.0) L 01/16/18 05:05 Eosinophils % 1.3 % (0.0-5.0) 01/16/18 05:05 Basophils % 0.1 % (0.0-2.0) 01/16/18 05:05 Neutrophils (Manual) 89 % (40-80) H 01/14/18 05:25 Lymphocytes 8 % (20-50) L 01/14/18 05:25 Monocytes 2 % (2-10) 01/14/18 05:25 Eosinophils 0 % (0-5) 01/14/18 05:25 Basophils 0 % (0-3) 01/14/18 05:25 Eos Smear Source URINE 01/06/18 05:25 Eos Smear Total Cells NONE SEEN (NONE SEEN) 01/06/18 05:25 PT 11.1 SECONDS (9.5-11.5) 01/09/18 04:54 INR 1.07 (0.5-1.4) 01/09/18 04:54 PTT (Actin FS) 25.1 SECONDS (26.0-38.0) L 01/09/18 04:54 Sodium 126 mEq/L (136-145) L 01/16/18 05:05 Potassium 3.3 mEq/L (3.5-5.1) L 01/16/18 05:05 Chloride 103 mEq/L (98-107) 01/16/18 05:05 Carbon Dioxide 14.1 mEq/L (21.0-31.0) L 01/16/18 05:05 Anion Gap 12.2 (7.0-16.0) 01/16/18 05:05 BUN 23 mg/dL (7-25) 01/16/18 05:05 Creatinine 1.6 mg/dL (0.6-1.2) H 01/16/18 05:05 Est GFR ( Amer) TNP 01/16/18 05:05 Est GFR (Non-Af Amer) TNP 01/16/18 05:05 BUN/Creatinine Ratio 14.4 01/16/18 05:05 Glucose 108 mg/dL (70-105) H 01/16/18 05:05 Plasma/Ser Osmolality 289 mOsmol/kg (280-301) 01/07/18 06:02 Whole Bld Lactic Acid 1.72 mmol/L (0.60-1.99) 01/04/18 20:35 Uric Acid 6.5 mg/dL (2.3-6.6) 01/06/18 06:01 Calcium 7.4 mg/dL (8.6-10.3) L 01/16/18 05:05 Phosphorus 4.1 mg/dL (2.5-5.0) 01/06/18 06:01 Magnesium 2.5 mg/dL (1.9-2.7) 01/07/18 06:02 Iron 43 ug/dL (27-139) 01/05/18 05:36 TIBC 254 ug/dL (250-450) 01/05/18 05:36 Iron Saturation 17 % (15-55) 01/05/18 05:36 Unsaturated IBC 211 ug/dL (118-369) 01/05/18 05:36 Ferritin 17 ng/mL (15-150) 01/05/18 05:36 Total Bilirubin 0.5 mg/dL (0.3-1.0) 01/14/18 05:25 AST 26 U/L (13-39) 01/14/18 05:25 ALT 28 U/L (7-52) 01/14/18 05:25 Alkaline Phosphatase 37 U/L (34-104) 01/14/18 05:25 Creatine Kinase 165 U/L (30-223) 01/04/18 20:35 Troponin I 0.02 ng/mL (0.01-0.05) 01/04/18 20:35 B-Natriuretic Peptide 197.0 pg/mL (5.0-100.0) H 01/04/18 20:35 Total Protein 4.6 gm/dL (6.0-8.3) L 01/14/18 05:25 Albumin 2.3 gm/dL (3.7-5.3) L 01/14/18 05:25 Globulin 2.3 gm/dL 01/14/18 05:25 Albumin/Globulin Ratio 1.0 (1.0-1.8) 01/14/18 05:25 Triglycerides 68 mg/dL (<150) 01/04/18 20:35 Cholesterol 115 mg/dL (<200) 01/04/18 20:35 LDL Cholesterol Direct 56 mg/dL (75-193) L 01/04/18 20:35 HDL Cholesterol 44 mg/dL (23-92) 01/04/18 20:35 Amylase 45 U/L (29-103) 01/06/18 06:01 Lipase 24 U/L (11-82) 01/06/18 06:01 Carcinoembryonic Ag 26.2 ng/mL (0.0-4.7) H 01/06/18 06:01 Vitamin B12 304 pg/mL (232-1245) 01/05/18 05:36 Folic Acid 14.5 ng/mL (>3.0) 01/05/18 05:36 TSH 4.28 uIU/ml (0.34-5.60) 01/05/18 05:36 Urine Source CLEAN C 01/04/18 20:20 Urine Color STRAW 01/04/18 20:20 Urine Clarity CLEAR (CLEAR) 01/04/18 20:20 Urine pH 5.5 (4.6 - 8.0) 01/04/18 20:20 Ur Specific [place] 1.015 (1.005-1.030) 01/04/18 20:20 Urine Protein NEGATIVE mg/dL (NEGATIVE) 01/04/18 20:20 Urine Glucose (UA) NEGATIVE mg/dL (NEGATIVE) 01/04/18 20:20 Urine Ketones NEGATIVE mg/dL (NEGATIVE) 01/04/18 20:20 Urine Blood NEGATIVE (NEGATIVE) 01/04/18 20:20 Urine Nitrate NEGATIVE (NEGATIVE) 01/04/18 20:20 Urine Bilirubin NEGATIVE (NEGATIVE) 01/04/18 20:20 Urine Urobilinogen 0.2 E.U./dL (0.2 - 1.0) 01/04/18 20:20 Ur Leukocyte Esterase TRACE (NEGATIVE) H 01/04/18 20:20 Urine RBC NONE SEEN /hpf (0-5) 01/04/18 20:20 Urine WBC 2-5 /hpf (0-5) 01/04/18 20:20 Ur Epithelial Cells NONE SEEN /lpf (FEW) 01/04/18 20:20 Urine Bacteria NONE SEEN /hpf (NONE SEEN) 01/04/18 20:20 Ur Random Sodium 99 mmol/L 01/06/18 05:25 Urine Creatinine 42.0 mg/dl (28.0-217.0) 01/06/18 05:25 Stool Occult Blood NEGATIVE (NEGATIVE) 01/07/18 17:25 Blood Type O POSITIVE 01/10/18 07:20 Antibody Screen POSITIVE 01/10/18 07:20 Antibody Identification Anti-C Anti-e 01/10/18 07:20 Antibody Identification Anti-C Anti-e 01/10/18 07:20 Crossmatch See Detail 01/10/18 07:20 - Physical Exam Vitals and I&O: Vital Signs Temp 99.2 F 01/18/18 04:00 Pulse 116 01/18/18 07:31 Resp 20 01/18/18 07:31 BP 127/68 01/18/18 04:00 Pulse Ox 95 01/18/18 07:31 Intake & Output 01/17/18 01/18/1801/18/18 18:59 06:59 18:59 Intake Total 455.808 1753 Output Total 650 Balance 251.667 700 Weight (lbs) 70.307 kg Intake: Intake, IV Amount 233.495 4882 Piperacillin Sodium/ 150 50 Tazobact 3.375 gm In Dextrose 5% 50 ml @ 100 mls/hr IV Q8H [facility] Rx#: [id number] Sodium Chloride 0.9% 1, 411.742 6363 000 ml @ 70 mls/hr IV . [id number] [facility] Rx#:[id number] Oral 300 Output: Urine 650 Other: # Bowel Movements 0 Weight Source Bedscale Active Medications: Current Medications Albuterol/Ipratropium (Duoneb Neb) 3 ml HHN Q6HRT [facility] Stop: 03/08/18 18:59 Last Admin: 01/18/18 07:29 Dose: 3 ml Amlodipine Besylate (Norvasc) 5 mg PO DAILY [facility] Stop: 03/06/18 08:59 Last Admin: 01/17/18 09:28 Dose: Not Given Benzocaine/Menthol (Cepacol) 1 cooper MM Q4HR PRN PRN Reason: Sore Throat Stop: 03/10/18 15:50 Last Admin: 01/16/18 23:44 Dose: 1 cooper Ferrous Sulfate (Iron) 325 mg PO BID [facility] Stop: 03/17/18 10:14 Last Admin: 01/17/18 16:41 Dose: 325 mg Heparin Sodium (Porcine) (Heparin) 5,000 units SUBQ Q12HR [facility] Stop: 03/17/18 10:14 Last Admin: 01/17/18 20:27 Dose: 5,000 units Piperacillin Sod/Tazobactam (Sod 3.375 gm/ Dextrose) 50 mls @ 100 mls/hr IV Q8H [facility] Stop: 03/13/18 09:14 Last Infusion: 01/18/18 02:01 Dose: Infused Sodium Chloride (Nacl 0.9%) 1,000 mls @ 70 mls/hr IV .[id number] [facility] Stop: 03/17/18 16:29 Last Admin: 01/18/18 00:37 Dose: 70 mls/hr Levothyroxine Sodium (Synthroid) 0.025 mg PO QDAC [facility] Stop: 03/06/18 07:29 Last Admin: 01/17/18 07:14 Dose: 0.025 mg Losartan Potassium (Cozaar) 100 mg PO DAILY [facility] Stop: 03/07/18 10:59 Last Admin: 01/17/18 09:28 Dose: Not Given Miscellaneous (Vte Chemical Prophylaxis Screen/ Admission) 1 ea PRN PRN PRN Reason: PROTOCOL Stop: 03/06/18 08:14 Miscellaneous (Clinical Monitoring) 1 ea DAILY PRN PRN Reason: RENAL Stop: 03/16/18 08:53 Morphine Sulfate (Morphine) 2 mg IVP Q4HR PRN PRN Reason: Abdominal Pain Stop: 03/12/18 08:37 Last Admin: 01/17/18 20:29 Dose: 2 mg Ondansetron HCl (Zofran) 4 mg IV Q6H PRN PRN Reason: Nausea / Vomiting Stop: 03/17/18 09:43 Last Admin: 01/16/18 09:57 Dose: 4 mg Oxybutynin Chloride (Ditropan) 5 mg PO BID [facility] Stop: 03/06/18 16:59 Last Admin: 01/17/18 16:41 Dose: 5 mg Pantoprazole Sodium (Protonix) 40 mg IVP DAILY [facility] Stop: 03/06/18 08:59 Last Admin: 01/17/18 10:54 Dose: 40 mg Simethicone (Mylicon) 80 mg PO QID PRN PRN Reason: Gas Stop: 03/10/18 14:48 Last Admin: 01/14/18 05:15 Dose: 80 mg Sodium Bicarbonate (Sodium Bicarbonate) 650 mg PO TID [facility]THONY PRN Reason: Protocol Stop: 03/07/18 15:14 Last Admin: 01/17/18 20:29 Dose: 650 mg Tramadol HCl (Ultram) 50 mg PO Q6HR PRN PRN Reason: Pain (Moderate) Stop: 03/10/18 15:51 Last Admin: 01/14/18 02:47 Dose: 50 mg Zolpidem Tartrate (Ambien) 5 mg PO HS PRN PRN Reason: Insomnia Stop: 03/07/18 21:11 Last Admin: 01/18/18 00:50 Dose: 5 mg General: No acute distress HEENT: Mucous membr. moist/pink Neck: Supple Cardiovascular: Regular rate Lungs: Clear to auscultation Abdomen: Bowel sounds, Soft, no Tender, no Distended Extremities: Edema Neurological: Sensation intact Skin: no Rash Psych/Mental Status: Mood NL - Procedures Procedures: Procedures Procedure Code Date COLONOSCOPY AND BIOPSY 61148 01/04/18 EXCISION OF ASCENDING COLON, ENDO, DIAGN [id number] 01/04/18 PARTIAL REMOVAL OF COLON 91638 01/04/18 RESECTION OF RIGHT LARGE INTESTINE, OPEN APPROACH [id number] 01/04/18 Assessment/Plan - Problem List Patient Problems: All Active Problems Colonic mass (Acute) K63.9 - Assessment Assessment: * 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 Nutritional Asmnt/Malnutr-PDOC - Dietary Evaluation Malnutrition Findings (Please click <Entered> for more info): Nutritional Asmnt/Malnutrition Start: 01/05/18 14: 24 Text: Status: Complete Freq: Document 01/05/18 14:24 HEN (Rec: 01/05/18 14:55 LCHENG [email or web address]) Nutritional Asmnt/Malnutrition Patient General Information Nutritional Screening High Risk Diagnosis dehydration, anemia, UTI, facial cellulitis Pertinent Medical Hx/Surgical Hx HTN, ESRD, thyroid disorder Subjective Information Pt seen lying in bed, awake and pleasant. Family at bedside feeding pt lunch. Family is able to speak little Nepali, denied pt has chewing/swallowing problem, stated pt eating ok. Pt has teeth noted. Per EMR, pt consumed 100% of breakfast in the morning. Current Diet Order/ Nutrition Support regular Pertinent Medications D5-0.9%ns, synthorid, protonix Pertinent Labs 01/05 cl 112, BUN 32, Cr 1.3, Ca 8.5 Nutritional Hx/Data Height 1.52 m Height (Calculated Centimeters) 152.4 Current Weight (lbs) 58.06 kg Weight (Calculated Kilograms) 58.1 Weight (Calculated Grams) 03668.8 Ward Body Weight 100 Body Mass Index (BMI) 25.0 Weight Status Approriate GI Symptoms GI Symptoms None Last BM not indicated Difficult in: None Skin Integrity/Comment: face reddened Current %PO Good (75-100%) Estimated Nutritional Goals BEE in Kcals: Using Current wt Calories/Kcals/Kg 25-30 Kcals Calculated 3451-3841 Protein: Using Current wt Protein g/k monitor renal labs Protein Calculated 58 Fluid: ml 1450-1740ml (1ml/kcal) Nutritional Problem 1. Problem Problem altered nutrition related labs Etiology electrolytes imbalance and hx of ESRD Signs/Symptoms: cl 112, BUN 32, Cr 1.3, Ca 8.5 Malnutrition Alert Protein-Calorie Malnutrition N/A Is there a minimum of two criteria No selected? Query Text:Check all the applicable criteria. A minimum of two criteria are recommended for diagnosis of either severe or non-severe malnutrition. Intervention/Recommendation Comments 1. Continue with regular diet as ordered. Assist pt with meals as needed. 2. If BUN/Cr not improved, will consider renal diet. 2. Monitor PO intake, wt, labs and skin integrity 3. F/U as moderate risk in 3-5 days, 01/08-01/10 Expected Outcomes/Goals Expected Outcomes/Goals 1. PO intake to meet at least 75% of nutritional needs. 2. Wt stability, skin to remain intact, labs to approach WNL.
[2018-01-18] MEDS ORDERED: KCL 20mEq/100mL Premix 20 MEQ/100 ML PIGGYBACK IV ONE (10:10)
[2018-01-18] MEDS: Ferrous Sulfate 325 MG TAB PO SCH ×2 (10:40→17:31)
[2018-01-18] MEDS: Levothyroxine 0.025 Mg Tab PO SCH (10:48)
--- NOTE | 2018-01-18 13:29 | General Progress Note ---
Subjective - Review of Systems Service Date: 01/18/18 Subjective: patient seen and examined patient noted to have wheezing family was trying to feed her Objective - Results Result Diagrams: 01/18/18 13:54 01/18/18 13:54 Recent Labs: Laboratory Last Values WBC 8.0 Th/cmm (4.8-10.8) 01/16/18 05:05 RBC 3.03 Mil/cmm (3.80-5.20) L 01/16/18 05:05 Hgb 8.6 gm/dL (12-16) L 01/16/18 05:05 Hct 25.0 % (41.0-60) L 01/16/18 05:05 MCV 82.5 fl (81-100) 01/16/18 05:05 MCH 28.2 pg (27.0-31.0) 01/16/18 05:05 MCHC Differential 34.2 pg (28.0-36.0) 01/16/18 05:05 RDW 15.9 % (11.5-20.0) 01/16/18 05:05 Plt Count 151 Th/cmm (150-400) 01/16/18 05:05 MPV 7.2 fl 01/16/18 05:05 Neutrophils % 91.7 % (40.0-80.0) H 01/16/18 05:05 Band Neutrophils % 1 % (0-10) 01/14/18 05:25 Lymphocytes % 5.3 % (20.0-50.0) L 01/16/18 05:05 Monocytes % 1.6 % (2.0-10.0) L 01/16/18 05:05 Eosinophils % 1.3 % (0.0-5.0) 01/16/18 05:05 Basophils % 0.1 % (0.0-2.0) 01/16/18 05:05 Neutrophils (Manual) 89 % (40-80) H 01/14/18 05:25 Lymphocytes 8 % (20-50) L 01/14/18 05:25 Monocytes 2 % (2-10) 01/14/18 05:25 Eosinophils 0 % (0-5) 01/14/18 05:25 Basophils 0 % (0-3) 01/14/18 05:25 Eos Smear Source URINE 01/06/18 05:25 Eos Smear Total Cells NONE SEEN (NONE SEEN) 01/06/18 05:25 PT 11.1 SECONDS (9.5-11.5) 01/09/18 04:54 INR 1.07 (0.5-1.4) 01/09/18 04:54 PTT (Actin FS) 25.1 SECONDS (26.0-38.0) L 01/09/18 04:54 Sodium 126 mEq/L (136-145) L 01/16/18 05:05 Potassium 3.3 mEq/L (3.5-5.1) L 01/16/18 05:05 Chloride 103 mEq/L (98-107) 01/16/18 05:05 Carbon Dioxide 14.1 mEq/L (21.0-31.0) L 01/16/18 05:05 Anion Gap 12.2 (7.0-16.0) 01/16/18 05:05 BUN 23 mg/dL (7-25) 01/16/18 05:05 Creatinine 1.6 mg/dL (0.6-1.2) H 01/16/18 05:05 Est GFR ( Amer) TNP 01/16/18 05:05 Est GFR (Non-Af Amer) TNP 01/16/18 05:05 BUN/Creatinine Ratio 14.4 01/16/18 05:05 Glucose 108 mg/dL (70-105) H 01/16/18 05:05 Plasma/Ser Osmolality 289 mOsmol/kg (280-301) 01/07/18 06:02 Whole Bld Lactic Acid 1.72 mmol/L (0.60-1.99) 01/04/18 20:35 Uric Acid 6.5 mg/dL (2.3-6.6) 01/06/18 06:01 Calcium 7.4 mg/dL (8.6-10.3) L 01/16/18 05:05 Phosphorus 4.1 mg/dL (2.5-5.0) 01/06/18 06:01 Magnesium 2.5 mg/dL (1.9-2.7) 01/07/18 06:02 Iron 43 ug/dL (27-139) 01/05/18 05:36 TIBC 254 ug/dL (250-450) 01/05/18 05:36 Iron Saturation 17 % (15-55) 01/05/18 05:36 Unsaturated IBC 211 ug/dL (118-369) 01/05/18 05:36 Ferritin 17 ng/mL (15-150) 01/05/18 05:36 Total Bilirubin 0.5 mg/dL (0.3-1.0) 01/14/18 05:25 AST 26 U/L (13-39) 01/14/18 05:25 ALT 28 U/L (7-52) 01/14/18 05:25 Alkaline Phosphatase 37 U/L (34-104) 01/14/18 05:25 Creatine Kinase 165 U/L (30-223) 01/04/18 20:35 Troponin I 0.02 ng/mL (0.01-0.05) 01/04/18 20:35 B-Natriuretic Peptide 197.0 pg/mL (5.0-100.0) H 01/04/18 20:35 Total Protein 4.6 gm/dL (6.0-8.3) L 01/14/18 05:25 Albumin 2.3 gm/dL (3.7-5.3) L 01/14/18 05:25 Globulin 2.3 gm/dL 01/14/18 05:25 Albumin/Globulin Ratio 1.0 (1.0-1.8) 01/14/18 05:25 Triglycerides 68 mg/dL (<150) 01/04/18 20:35 Cholesterol 115 mg/dL (<200) 01/04/18 20:35 LDL Cholesterol Direct 56 mg/dL (75-193) L 01/04/18 20:35 HDL Cholesterol 44 mg/dL (23-92) 01/04/18 20:35 Amylase 45 U/L (29-103) 01/06/18 06:01 Lipase 24 U/L (11-82) 01/06/18 06:01 Carcinoembryonic Ag 26.2 ng/mL (0.0-4.7) H 01/06/18 06:01 Vitamin B12 304 pg/mL (232-1245) 01/05/18 05:36 Folic Acid 14.5 ng/mL (>3.0) 01/05/18 05:36 TSH 4.28 uIU/ml (0.34-5.60) 01/05/18 05:36 Urine Source CLEAN C 01/04/18 20:20 Urine Color STRAW 01/04/18 20:20 Urine Clarity CLEAR (CLEAR) 01/04/18 20:20 Urine pH 5.5 (4.6 - 8.0) 01/04/18 20:20 Ur Specific [place] 1.015 (1.005-1.030) 01/04/18 20:20 Urine Protein NEGATIVE mg/dL (NEGATIVE) 01/04/18 20:20 Urine Glucose (UA) NEGATIVE mg/dL (NEGATIVE) 01/04/18 20:20 Urine Ketones NEGATIVE mg/dL (NEGATIVE) 01/04/18 20:20 Urine Blood NEGATIVE (NEGATIVE) 01/04/18 20:20 Urine Nitrate NEGATIVE (NEGATIVE) 01/04/18 20:20 Urine Bilirubin NEGATIVE (NEGATIVE) 01/04/18 20:20 Urine Urobilinogen 0.2 E.U./dL (0.2 - 1.0) 01/04/18 20:20 Ur Leukocyte Esterase TRACE (NEGATIVE) H 01/04/18 20:20 Urine RBC NONE SEEN /hpf (0-5) 01/04/18 20:20 Urine WBC 2-5 /hpf (0-5) 01/04/18 20:20 Ur Epithelial Cells NONE SEEN /lpf (FEW) 01/04/18 20:20 Urine Bacteria NONE SEEN /hpf (NONE SEEN) 01/04/18 20:20 Ur Random Sodium 99 mmol/L 01/06/18 05:25 Urine Creatinine 42.0 mg/dl (28.0-217.0) 01/06/18 05:25 Stool Occult Blood NEGATIVE (NEGATIVE) 01/07/18 17:25 Blood Type O POSITIVE 01/10/18 07:20 Antibody Screen POSITIVE 01/10/18 07:20 Antibody Identification Anti-C Anti-e 01/10/18 07:20 Antibody Identification Anti-C Anti-e 01/10/18 07:20 Crossmatch See Detail 01/10/18 07:20 - Physical Exam Vitals and I&O: Vital Signs Temp 99.2 F 01/18/18 04:00 Pulse 100 01/18/18 10:49 Resp 20 01/18/18 07:31 BP 112/55 01/18/18 10:49 Pulse Ox 95 01/18/18 07:31 Intake & Output 01/17/18 01/18/18 01/18/18 18:59 06:59 18:59 Intake Total 075.167 7463 Output Total 650 Balance 251.667 700 Weight (lbs) 70.307 kg Intake: Intake, IV Amount 459.677 6385 Piperacillin Sodium/ 150 50 Tazobact 3.375 gm In Dextrose 5% 50 ml @ 100 mls/hr IV Q8H [facility] Rx#: [id number] Sodium Chloride 0.9% 1, 997.200 7090 000 ml @ 70 mls/hr IV . [id number] [facility] Rx#:[id number] Oral 300 Output: Urine 650 Other: # Bowel Movements 0 Weight Source Bedscale Active Medications: Current Medications Albuterol/Ipratropium (Duoneb Neb) 3 ml HHN Q6HRT [facility] Stop: 03/08/18 18:59 Last Admin: 01/18/18 07:29 Dose: 3 ml Amlodipine Besylate (Norvasc) 5 mg PO DAILY [facility] Stop: 03/06/18 08:59 Last Admin: 01/18/18 10:49 Dose: Not Given Benzocaine/Menthol (Cepacol) 1 cooper MM Q4HR PRN PRN Reason: Sore Throat Stop: 03/10/18 15:50 Last Admin: 01/16/18 23:44 Dose: 1 cooper Ferrous Sulfate (Iron) 325 mg PO BID [facility] Stop: 03/17/18 10:14 Last Admin: 01/18/18 10:40 Dose: 325 mg Heparin Sodium (Porcine) (Heparin) 5,000 units SUBQ Q12HR [facility] Stop: 03/17/18 10:14 Last Admin: 01/18/18 10:18 Dose: 5,000 units Piperacillin Sod/Tazobactam (Sod 3.375 gm/ Dextrose) 50 mls @ 100 mls/hr IV Q8H [facility] Stop: 03/13/18 09:14 Last Admin: 01/18/18 10:52 Dose: 100 mls/hr Sodium Chloride (Nacl 0.9%) 1,000 mls @ 70 mls/hr IV .[id number] [facility] Stop: 03/17/18 16:29 Last Admin: 01/18/18 00:37 Dose: 70 mls/hr Levothyroxine Sodium (Synthroid) 0.025 mg PO QDAC [facility] Stop: 03/06/18 07:29 Last Admin: 01/18/18 10:48 Dose: 0.025 mg Losartan Potassium (Cozaar) 100 mg PO DAILY [facility] Stop: 03/07/18 10:59 Last Admin: 01/18/18 10:47 Dose: Not Given Miscellaneous (Vte Chemical Prophylaxis Screen/ Admission) 1 ea MC PRN PRN PRN Reason: PROTOCOL Stop: 03/06/18 08:14 Miscellaneous (Clinical Monitoring) 1 ea MC DAILY PRN PRN Reason: RENAL Stop: 03/16/18 08:53 Morphine Sulfate (Morphine) 2 mg IVP Q4HR PRN PRN Reason: Abdominal Pain Stop: 03/12/18 08:37 Last Admin: 01/17/18 20:29 Dose: 2 mg Ondansetron HCl (Zofran) 4 mg IV Q6H PRN PRN Reason: Nausea / Vomiting Stop: 03/17/18 09:43 Last Admin: 01/16/18 09:57 Dose: 4 mg Oxybutynin Chloride (Ditropan) 5 mg PO BID [facility] Stop: 03/06/18 16:59 Last Admin: 01/18/18 10:47 Dose: 5 mg Pantoprazole Sodium (Protonix) 40 mg IVP DAILY [facility] Stop: 03/06/18 08:59 Last Admin: 01/18/18 10:48 Dose: 40 mg Simethicone (Mylicon) 80 mg PO QID PRN PRN Reason: Gas Stop: 03/10/18 14:48 Last Admin: 01/18/18 10:46 Dose: 80 mg Sodium Bicarbonate (Sodium Bicarbonate) 650 mg PO TID ANTHONY PRN Reason: Protocol Stop: 03/07/18 15:14 Last Admin: 01/18/18 10:00 Dose: 650 mg Tramadol HCl (Ultram) 50 mg PO Q6HR PRN PRN Reason: Pain (Moderate) Stop: 03/10/18 15:51 Last Admin: 01/14/18 02:47 Dose: 50 mg Zolpidem Tartrate (Ambien) 5 mg PO HS PRN PRN Reason: Insomnia Stop: 03/07/18 21:11 Last Admin: 01/18/18 00:50 Dose: 5 mg General: No acute distress Cardiovascular: Regular rate Lungs: Other (exp wheezing) Abdomen: Soft, no Tender, no Distended Skin: no Rash Psych/Mental Status: Mood NL - Procedures Procedures: Procedures Procedure Code Date COLONOSCOPY AND BIOPSY 17744 01/04/18 EXCISION OF ASCENDING COLON, ENDO, DIAGN [id number] 01/04/18 PARTIAL REMOVAL OF COLON 98798 01/04/18 RESECTION OF RIGHT LARGE INTESTINE, OPEN APPROACH [id number] 01/04/18 Assessment/Plan - Problem List Patient Problems: All Active Problems Colonic mass (Acute) K63.9 - Assessment Assessment: Metastatic Adenocarcinoma of colon Acute respiratory distress Chronic hyponatremia Acute on CKD better Chronic constipation HTN CAD UTI SEPTIC SHOCK - Plan Plan: STAT labs ordered STAT chest xray OFF IV fluids Bronchodilator on Zosyn Lasix dose ordered Family decided patient to be DC home with hospice once stable Hospice plan discussed with DCP Nutritional Asmnt/Malnutr-PDOC - Dietary Evaluation Malnutrition Findings (Please click <Entered> for more info): Nutritional Asmnt/Malnutrition Start: 01/05/18 14: 24 Text: Status: Complete Freq: Document 01/05/18 14:24 LCHENG (Rec: 01/05/18 14:55 LCHENG [email or web address]) Nutritional Asmnt/Malnutrition Patient General Information Nutritional Screening High Risk Diagnosis dehydration, anemia, UTI, facial cellulitis Pertinent Medical Hx/Surgical Hx HTN, ESRD, thyroid disorder Subjective Information Pt seen lying in bed, awake and pleasant. Family at bedside feeding pt lunch. Family is able to speak little Turkish, denied pt has chewing/swallowing problem, stated pt eating ok. Pt has teeth noted. Per EMR, pt consumed 100% of breakfast in the morning. Current Diet Order/ Nutrition Support regular Pertinent Medications D5-0.9%ns, synthorid, protonix Pertinent Labs 01/05 cl 112, BUN 32, Cr 1.3, Ca 8.5 Nutritional Hx/Data Height 1.52 m Height (Calculated Centimeters) 152.4 Current Weight (lbs) 58.06 kg Weight (Calculated Kilograms) 58.1 Weight (Calculated Grams) 89119.8 [place] Body Weight 100 Body Mass Index (BMI) 25.0 Weight Status Approriate GI Symptoms GI Symptoms None Last BM not indicated Difficult in: None Skin Integrity/Comment: face reddened Current %PO Good (75-100%) Estimated Nutritional Goals BEE in Kcals: Using Current wt Calories/Kcals/Kg 25-30 Kcals Calculated 9166-8570 Protein: Using Current wt Protein g/k monitor renal labs Protein Calculated 58 Fluid: ml 1450-1740ml (1ml/kcal) Nutritional Problem 1. Problem Problem altered nutrition related labs Etiology electrolytes imbalance and hx of ESRD Signs/Symptoms: cl 112, BUN 32, Cr 1.3, Ca 8.5 Malnutrition Alert Protein-Calorie Malnutrition N/A Is there a minimum of two criteria No selected? Query Text:Check all the applicable criteria. A minimum of two criteria are recommended for diagnosis of either severe or non-severe malnutrition. Intervention/Recommendation Comments 1. Continue with regular diet as ordered. Assist pt with meals as needed. 2. If BUN/Cr not improved, will consider renal diet. 2. Monitor PO intake, wt, labs and skin integrity 3. F/U as moderate risk in 3-5 days, 01/08-01/10 Expected Outcomes/Goals Expected Outcomes/Goals 1. PO intake to meet at least 75% of nutritional needs. 2. Wt stability, skin to remain intact, labs to approach WNL.
--- NOTE | 2018-01-18 14:03 | General Progress Note ---
Subjective - Review of Systems Service Date: 01/17/18 Events since last encounter: family has decided against chemotherapy Objective - Results Result Diagrams: 01/16/18 05:05 01/16/18 05:05 Recent Labs: Laboratory Last Values WBC 8.0 Th/cmm (4.8-10.8) 01/16/18 05:05 RBC 3.03 Mil/cmm (3.80-5.20) L 01/16/18 05:05 Hgb 8.6 gm/dL (12-16) L 01/16/18 05:05 Hct 25.0 % (41.0-60) L 01/16/18 05:05 MCV 82.5 fl (81-100) 01/16/18 05:05 MCH 28.2 pg (27.0-31.0) 01/16/18 05:05 MCHC Differential 34.2 pg (28.0-36.0) 01/16/18 05:05 RDW 15.9 % (11.5-20.0) 01/16/18 05:05 Plt Count 151 Th/cmm (150-400) 01/16/18 05:05 MPV 7.2 fl 01/16/18 05:05 Neutrophils % 91.7 % (40.0-80.0) H 01/16/18 05:05 Band Neutrophils % 1 % (0-10) 01/14/18 05:25 Lymphocytes % 5.3 % (20.0-50.0) L 01/16/18 05:05 Monocytes % 1.6 % (2.0-10.0) L 01/16/18 05:05 Eosinophils % 1.3 % (0.0-5.0) 01/16/18 05:05 Basophils % 0.1 % (0.0-2.0) 01/16/18 05:05 Neutrophils (Manual) 89 % (40-80) H 01/14/18 05:25 Lymphocytes 8 % (20-50) L 01/14/18 05:25 Monocytes 2 % (2-10) 01/14/18 05:25 Eosinophils 0 % (0-5) 01/14/18 05:25 Basophils 0 % (0-3) 01/14/18 05:25 Eos Smear Source URINE 01/06/18 05:25 Eos Smear Total Cells NONE SEEN (NONE SEEN) 01/06/18 05:25 PT 11.1 SECONDS (9.5-11.5) 01/09/18 04:54 INR 1.07 (0.5-1.4) 01/09/18 04:54 PTT (Actin FS) 25.1 SECONDS (26.0-38.0) L 01/09/18 04:54 Sodium 126 mEq/L (136-145) L 01/16/18 05:05 Potassium 3.3 mEq/L (3.5-5.1) L 01/16/18 05:05 Chloride 103 mEq/L (98-107) 01/16/18 05:05 Carbon Dioxide 14.1 mEq/L (21.0-31.0) L 01/16/18 05:05 Anion Gap 12.2 (7.0-16.0) 01/16/18 05:05 BUN 23 mg/dL (7-25) 01/16/18 05:05 Creatinine 1.6 mg/dL (0.6-1.2) H 01/16/18 05:05 Est GFR ( Amer) TNP 01/16/18 05:05 Est GFR (Non-Af Amer) TNP 01/16/18 05:05 BUN/Creatinine Ratio 14.4 01/16/18 05:05 Glucose 108 mg/dL (70-105) H 01/16/18 05:05 Plasma/Ser Osmolality 289 mOsmol/kg (280-301) 01/07/18 06:02 Whole Bld Lactic Acid 1.72 mmol/L (0.60-1.99) 01/04/18 20:35 Uric Acid 6.5 mg/dL (2.3-6.6) 01/06/18 06:01 Calcium 7.4 mg/dL (8.6-10.3) L 01/16/18 05:05 Phosphorus 4.1 mg/dL (2.5-5.0) 01/06/18 06:01 Magnesium 2.5 mg/dL (1.9-2.7) 01/07/18 06:02 Iron 43 ug/dL (27-139) 01/05/18 05:36 TIBC 254 ug/dL (250-450) 01/05/18 05:36 Iron Saturation 17 % (15-55) 01/05/18 05:36 Unsaturated IBC 211 ug/dL (118-369) 01/05/18 05:36 Ferritin 17 ng/mL (15-150) 01/05/18 05:36 Total Bilirubin 0.5 mg/dL (0.3-1.0) 01/14/18 05:25 AST 26 U/L (13-39) 01/14/18 05:25 ALT 28 U/L (7-52) 01/14/18 05:25 Alkaline Phosphatase 37 U/L (34-104) 01/14/18 05:25 Creatine Kinase 165 U/L (30-223) 01/04/18 20:35 Troponin I 0.02 ng/mL (0.01-0.05) 01/04/18 20:35 B-Natriuretic Peptide 197.0 pg/mL (5.0-100.0) H 01/04/18 20:35 Total Protein 4.6 gm/dL (6.0-8.3) L 01/14/18 05:25 Albumin 2.3 gm/dL (3.7-5.3) L 01/14/18 05:25 Globulin 2.3 gm/dL 01/14/18 05:25 Albumin/Globulin Ratio 1.0 (1.0-1.8) 01/14/18 05:25 Triglycerides 68 mg/dL (<150) 01/04/18 20:35 Cholesterol 115 mg/dL (<200) 01/04/18 20:35 LDL Cholesterol Direct 56 mg/dL (75-193) L 01/04/18 20:35 HDL Cholesterol 44 mg/dL (23-92) 01/04/18 20:35 Amylase 45 U/L (29-103) 01/06/18 06:01 Lipase 24 U/L (11-82) 01/06/18 06:01 Carcinoembryonic Ag 26.2 ng/mL (0.0-4.7) H 01/06/18 06:01 Vitamin B12 304 pg/mL (232-1245) 01/05/18 05:36 Folic Acid 14.5 ng/mL (>3.0) 01/05/18 05:36 TSH 4.28 uIU/ml (0.34-5.60) 01/05/18 05:36 Urine Source CLEAN C 01/04/18 20:20 Urine Color STRAW 01/04/18 20:20 Urine Clarity CLEAR (CLEAR) 01/04/18 20:20 Urine pH 5.5 (4.6 - 8.0) 01/04/18 20:20 Ur Specific [place] 1.015 (1.005-1.030) 01/04/18 20:20 Urine Protein NEGATIVE mg/dL (NEGATIVE) 01/04/18 20:20 Urine Glucose (UA) NEGATIVE mg/dL (NEGATIVE) 01/04/18 20:20 Urine Ketones NEGATIVE mg/dL (NEGATIVE) 01/04/18 20:20 Urine Blood NEGATIVE (NEGATIVE) 01/04/18 20:20 Urine Nitrate NEGATIVE (NEGATIVE) 01/04/18 20:20 Urine Bilirubin NEGATIVE (NEGATIVE) 01/04/18 20:20 Urine Urobilinogen 0.2 E.U./dL (0.2 - 1.0) 01/04/18 20:20 Ur Leukocyte Esterase TRACE (NEGATIVE) H 01/04/18 20:20 Urine RBC NONE SEEN /hpf (0-5) 01/04/18 20:20 Urine WBC 2-5 /hpf (0-5) 01/04/18 20:20 Ur Epithelial Cells NONE SEEN /lpf (FEW) 01/04/18 20:20 Urine Bacteria NONE SEEN /hpf (NONE SEEN) 01/04/18 20:20 Ur Random Sodium 99 mmol/L 01/06/18 05:25 Urine Creatinine 42.0 mg/dl (28.0-217.0) 01/06/18 05:25 Stool Occult Blood NEGATIVE (NEGATIVE) 01/07/18 17:25 Blood Type O POSITIVE 01/10/18 07:20 Antibody Screen POSITIVE 01/10/18 07:20 Antibody Identification Anti-C Anti-e 01/10/18 07:20 Antibody Identification Anti-C Anti-e 01/10/18 07:20 Crossmatch See Detail 01/10/18 07:20 - Physical Exam Vitals and I&O: Vital Signs Temp 99.2 F 01/18/18 04:00 Pulse 71 01/18/18 13:46 Resp 20 01/18/18 13:46 BP 112/55 01/18/18 10:49 Pulse Ox 96 01/18/18 13:46 Intake & Output 01/17/18 01/18/1818 18:59 06:59 18:59 Intake Total 402.460 0497 50 Output Total 650 Balance 251.667 700 50 Weight (lbs) 70.307 kg Intake: Intake, IV Amount 132.853 3154 50 Piperacillin Sodium/ 150 50 50 Tazobact 3.375 gm In Dextrose 5% 50 ml @ 100 mls/hr IV Q8H [facility] Rx#: [id number] Sodium Chloride 0.9% 1, 287.442 3472 000 ml @ 70 mls/hr IV . [id number] [facility] Rx#:[id number] Oral 300 Output: Urine 650 Other: # Bowel Movements 0 Weight Source Bedscale Active Medications: Current Medications Albuterol/Ipratropium (Duoneb Neb) 3 ml HHN Q6HRT [facility] Stop: 03/08/18 18:59 Last Admin: 01/18/18 13:42 Dose: 3 ml Amlodipine Besylate (Norvasc) 5 mg PO DAILY [facility] Stop: 03/06/18 08:59 Last Admin: 01/18/18 10:49 Dose: Not Given Benzocaine/Menthol (Cepacol) 1 cooper MM Q4HR PRN PRN Reason: Sore Throat Stop: 03/10/18 15:50 Last Admin: 01/16/18 23:44 Dose: 1 cooper Ferrous Sulfate (Iron) 325 mg PO BID [facility] Stop: 03/17/18 10:14 Last Admin: 01/18/18 10:40 Dose: 325 mg Heparin Sodium (Porcine) (Heparin) 5,000 units SUBQ Q12HR [facility] Stop: 03/17/18 10:14 Last Admin: 01/18/18 10:18 Dose: 5,000 units Piperacillin Sod/Tazobactam (Sod 3.375 gm/ Dextrose) 50 mls @ 100 mls/hr IV Q8H [facility] Stop: 03/13/18 09:14 Last Infusion: 01/18/18 13:30 Dose: Infused Sodium Chloride (Nacl 0.9%) 1,000 mls @ 70 mls/hr IV .[id number] [facility] Stop: 03/17/18 16:29 Last Admin: 01/18/18 00:37 Dose: 70 mls/hr Levothyroxine Sodium (Synthroid) 0.025 mg PO QDAC [facility] Stop: 03/06/18 07:29 Last Admin: 01/18/18 10:48 Dose: 0.025 mg Losartan Potassium (Cozaar) 100 mg PO DAILY [facility] Stop: 03/07/18 10:59 Last Admin: 01/18/18 10:47 Dose: Not Given Miscellaneous (Vte Chemical Prophylaxis Screen/ Admission) 1 ea MC PRN PRN PRN Reason: PROTOCOL Stop: 03/06/18 08:14 Miscellaneous (Clinical Monitoring) 1 ea MC DAILY PRN PRN Reason: RENAL Stop: 03/16/18 08:53 Morphine Sulfate (Morphine) 2 mg IVP Q4HR PRN PRN Reason: Abdominal Pain Stop: 03/12/18 08:37 Last Admin: 01/17/18 20:29 Dose: 2 mg Ondansetron HCl (Zofran) 4 mg IV Q6H PRN PRN Reason: Nausea / Vomiting Stop: 03/17/18 09:43 Last Admin: 01/16/18 09:57 Dose: 4 mg Oxybutynin Chloride (Ditropan) 5 mg PO BID [facility] Stop: 03/06/18 16:59 Last Admin: 01/18/18 10:47 Dose: 5 mg Pantoprazole Sodium (Protonix) 40 mg IVP DAILY [facility] Stop: 03/06/18 08:59 Last Admin: 01/18/18 10:48 Dose: 40 mg Simethicone (Mylicon) 80 mg PO QID PRN PRN Reason: Gas Stop: 03/10/18 14:48 Last Admin: 01/18/18 10:46 Dose: 80 mg Sodium Bicarbonate (Sodium Bicarbonate) 650 mg PO TID ANTHONY PRN Reason: Protocol Stop: 03/07/18 15:14 Last Admin: 01/18/18 10:00 Dose: 650 mg Tramadol HCl (Ultram) 50 mg PO Q6HR PRN PRN Reason: Pain (Moderate) Stop: 03/10/18 15:51 Last Admin: 01/14/18 02:47 Dose: 50 mg Zolpidem Tartrate (Ambien) 5 mg PO HS PRN PRN Reason: Insomnia Stop: 03/07/18 21:11 Last Admin: 01/18/18 00:50 Dose: 5 mg General: No acute distress HEENT: Mucous membr. moist/pink Neck: Supple Cardiovascular: Regular rate Lungs: Clear to auscultation Abdomen: Bowel sounds, Soft, no Tender, no Distended Extremities: Edema Neurological: Sensation intact Skin: no Rash Psych/Mental Status: Mood NL - Procedures Procedures: Procedures Procedure Code Date COLONOSCOPY AND BIOPSY 51494 01/04/18 EXCISION OF ASCENDING COLON, ENDO, DIAGN [id number] 01/04/18 PARTIAL REMOVAL OF COLON 58826 01/04/18 RESECTION OF RIGHT LARGE INTESTINE, OPEN APPROACH [id number] 01/04/18 Assessment/Plan - Problem List Patient Problems: All Active Problems Colonic mass (Acute) K63.9 Nutritional Asmnt/Malnutr-PDOC - Dietary Evaluation Malnutrition Findings (Please click <Entered> for more info): Nutritional Asmnt/Malnutrition Start: 01/05/18 14: 24 Text: Status: Complete Freq: Document 01/05/18 14:24 HEN (Rec: 01/05/18 14:55 LCHENG [email or web address]) Nutritional Asmnt/Malnutrition Patient General Information Nutritional Screening High Risk Diagnosis dehydration, anemia, UTI, facial cellulitis Pertinent Medical Hx/Surgical Hx HTN, ESRD, thyroid disorder Subjective Information Pt seen lying in bed, awake and pleasant. Family at bedside feeding pt lunch. Family is able to speak little Portuguese, denied pt has chewing/swallowing problem, stated pt eating ok. Pt has teeth noted. Per EMR, pt consumed 100% of breakfast in the morning. Current Diet Order/ Nutrition Support regular Pertinent Medications D5-0.9%ns, synthorid, protonix Pertinent Labs 01/05 cl 112, BUN 32, Cr 1.3, Ca 8.5 Nutritional Hx/Data Height 1.52 m Height (Calculated Centimeters) 152.4 Current Weight (lbs) 58.06 kg Weight (Calculated Kilograms) 58.1 Weight (Calculated Grams) 85944.8 [place] Body Weight 100 Body Mass Index (BMI) 25.0 Weight Status Approriate GI Symptoms GI Symptoms None Last BM not indicated Difficult in: None Skin Integrity/Comment: face reddened Current %PO Good (75-100%) Estimated Nutritional Goals BEE in Kcals: Using Current wt Calories/Kcals/Kg 25-30 Kcals Calculated 5320-9329 Protein: Using Current wt Protein g/k monitor renal labs Protein Calculated 58 Fluid: ml 1450-1740ml (1ml/kcal) Nutritional Problem 1. Problem Problem altered nutrition related labs Etiology electrolytes imbalance and hx of ESRD Signs/Symptoms: cl 112, BUN 32, Cr 1.3, Ca 8.5 Malnutrition Alert Protein-Calorie Malnutrition N/A Is there a minimum of two criteria No selected? Query Text:Check all the applicable criteria. A minimum of two criteria are recommended for diagnosis of either severe or non-severe malnutrition. Intervention/Recommendation Comments 1. Continue with regular diet as ordered. Assist pt with meals as needed. 2. If BUN/Cr not improved, will consider renal diet. 2. Monitor PO intake, wt, labs and skin integrity 3. F/U as moderate risk in 3-5 days, 01/08-01/10 Expected Outcomes/Goals Expected Outcomes/Goals 1. PO intake to meet at least 75% of nutritional needs. 2. Wt stability, skin to remain intact, labs to approach WNL.
[2018-01-18 14:04] LABS: HEMATOCRIT 26.4 % (41.0-60); LYMPHOCYTE ABSOLUTE 0.7 Th/cmm (1.5-3.0); MEAN CELL VOLUME 81.9 fl (81-100); MEAN CORPUSCULAR HGB CONC 34.2 pg (28.0-36.0); MEAN PLATELET VOLUME 6.6 fl; MONOCYTE ABSOLUTE 0.3 Th/cmm (0.3-1.0); NEUTROPHILE ABSOLUTE 10.7 Th/cmm (1.8-8.0); PLATELET COUNT 251 Th/cmm (150-400); RED BLOOD COUNT 3.22 Mil/cmm (3.80-5.20); RED CELL DISTRIBUTION WIDTH 16.3 % (11.5-20.0); WHITE BLOOD COUNT 11.7 Th/cmm (4.8-10.8)
[2018-01-18 14:05] LABS: % BASOPHILS 0.2 % (0.0-2.0); % EOSINOPHILS 0.4 % (0.0-5.0); % MONOCYTES 2.7 % (2.0-10.0); % NEUTROPHILS 90.7 % (40.0-80.0)
[2018-01-18 14:14] LABS: ALB/GLOB RATIO 0.9 (1.0-1.8); ALBUMIN 2.4 gm/dL (3.7-5.3); ALKALINE PHOSPHATASE 70 U/L (34-104); ANION GAP 10.8 (7.0-16.0); BILIRUBIN,TOTAL 0.4 mg/dL (0.3-1.0); BUN - UREA NITROGEN 18 mg/dL (7-25); CALCIUM SERUM 7.8 mg/dL (8.6-10.3); CHLORIDE 105 mEq/L (98-107); CREATININE - SERUM 1.1 mg/dL (0.6-1.2); GLUCOSE 139 mg/dL (70-105); POTASSIUM SERUM 3.8 mEq/L (3.5-5.1); SGOT 19 U/L (13-39); SGPT/ALT 16 U/L (7-52); SODIUM SERUM 128 mEq/L (136-145); TOTAL PROTEIN,SERUM 5.2 gm/dL (6.0-8.3)
--- NOTE | 2018-01-18 14:14 | Diagnostic Imaging Report ---
CHEST X-RAY: AP view INDICATION: Pneumonia COMPARISON: Chest x-ray 01/04/[address] chest on 01/05/2018 FINDINGS: Multiple pulmonary mass lesions are noted. All bilateral effusions are noted. Heart size is mildly prominent. Atherosclerosis is noted. IMPRESSION: Multiple pulmonary mass lesions most consistent with metastatic disease, correlate with clinical history. Superimposed pneumonia cannot be excluded. Cardiomegaly with atherosclerosis.
[2018-01-19] MEDS: Albuterol/Ipratropium Neb 3 ML AERS HHN SCH ×4 (02:00→19:30)
[2018-01-19 06:20] LABS: % BASOPHILS 0.3 % (0.0-2.0); % LYMPHOCYTES 10.4 % (20.0-50.0); % MONOCYTES 4.2 % (2.0-10.0); % NEUTROPHILS 84.1 % (40.0-80.0); EOSINOPHILE ABSOLUTE 0.1 Th/cmm (0.1-0.4); HEMATOCRIT 24.6 % (41.0-60); HEMOGLOBIN 8.4 gm/dL (12-16); LYMPHOCYTE ABSOLUTE 0.9 Th/cmm (1.5-3.0); MEAN CELL VOLUME 82.5 fl (81-100); MEAN CORPUSCULAR HEMOGLOBIN 28.1 pg (27.0-31.0); MEAN CORPUSCULAR HGB CONC 34.1 pg (28.0-36.0); MEAN PLATELET VOLUME 7.1 fl; MONOCYTE ABSOLUTE 0.4 Th/cmm (0.3-1.0); NEUTROPHILE ABSOLUTE 7.7 Th/cmm (1.8-8.0); PLATELET COUNT 269 Th/cmm (150-400); RED BLOOD COUNT 2.98 Mil/cmm (3.80-5.20); RED CELL DISTRIBUTION WIDTH 16.1 % (11.5-20.0)
[2018-01-19 06:21] LABS: WHITE BLOOD COUNT 9.1 Th/cmm (4.8-10.8)
[2018-01-19 06:30] LABS: ANION GAP 11.1 (7.0-16.0); BUN - UREA NITROGEN 19 mg/dL (7-25); CALCIUM SERUM 7.8 mg/dL (8.6-10.3); CARBON DIOXIDE 18.3 mEq/L (21.0-31.0); CHLORIDE 107 mEq/L (98-107); CREATININE - SERUM 1.2 mg/dL (0.6-1.2); GLUCOSE 108 mg/dL (70-105); MAGNESIUM 1.5 mg/dL (1.9-2.7); POTASSIUM SERUM 3.4 mEq/L (3.5-5.1); SODIUM SERUM 133 mEq/L (136-145)
[2018-01-19] MEDS: Levothyroxine 0.025 Mg Tab PO SCH (06:39)
[2018-01-19] MEDS: Ferrous Sulfate 325 MG TAB PO SCH ×2 (08:45→16:23)
--- NOTE | 2018-01-19 09:57 | General Progress Note ---
Subjective - Review of Systems Service Date: 01/19/18 Subjective: eating, no vomiting, tolerating oral diet. daughter bed side Objective - Results Result Diagrams: 01/19/18 05:54 01/19/18 05:54 Recent Labs: Laboratory Last Values WBC 9.1 Th/cmm (4.8-10.8) D 01/19/18 05:54 RBC 2.98 Mil/cmm (3.80-5.20) L 01/19/18 05:54 Hgb 8.4 gm/dL (12-16) L 01/19/18 05:54 Hct 24.6 % (41.0-60) L 01/19/18 05:54 MCV 82.5 fl (81-100) 01/19/18 05:54 MCH 28.1 pg (27.0-31.0) 01/19/18 05:54 MCHC Differential 34.1 pg (28.0-36.0) 01/19/18 05:54 RDW 16.1 % (11.5-20.0) 01/19/18 05:54 Plt Count 269 Th/cmm (150-400) 01/19/18 05:54 MPV 7.1 fl 01/19/18 05:54 Neutrophils % 84.1 % (40.0-80.0) H 01/19/18 05:54 Band Neutrophils % 1 % (0-10) 01/14/18 05:25 Lymphocytes % 10.4 % (20.0-50.0) L 01/19/18 05:54 Monocytes % 4.2 % (2.0-10.0) 01/19/18 05:54 Eosinophils % 1.0 % (0.0-5.0) 01/19/18 05:54 Basophils % 0.3 % (0.0-2.0) 01/19/18 05:54 Neutrophils (Manual) 89 % (40-80) H 01/14/18 05:25 Lymphocytes 8 % (20-50) L 01/14/18 05:25 Monocytes 2 % (2-10) 01/14/18 05:25 Eosinophils 0 % (0-5) 01/14/18 05:25 Basophils 0 % (0-3) 01/14/18 05:25 Eos Smear Source URINE 01/06/18 05:25 Eos Smear Total Cells NONE SEEN (NONE SEEN) 01/06/18 05:25 PT 11.1 SECONDS (9.5-11.5) 01/09/18 04:54 INR 1.07 (0.5-1.4) 01/09/18 04:54 PTT (Actin FS) 25.1 SECONDS (26.0-38.0) L 01/09/18 04:54 Sodium 133 mEq/L (136-145) L 01/19/18 05:54 Potassium 3.4 mEq/L (3.5-5.1) L 01/19/18 05:54 Chloride 107 mEq/L (98-107) 01/19/18 05:54 Carbon Dioxide 18.3 mEq/L (21.0-31.0) L 01/19/18 05:54 Anion Gap 11.1 (7.0-16.0) 01/19/18 05:54 BUN 19 mg/dL (7-25) 01/19/18 05:54 Creatinine 1.2 mg/dL (0.6-1.2) 01/19/18 05:54 Est GFR ( Amer) TNP 01/19/18 05:54 Est GFR (Non-Af Amer) TNP 01/19/18 05:54 BUN/Creatinine Ratio 15.8 01/19/18 05:54 Glucose 108 mg/dL (70-105) H 01/19/18 05:54 Plasma/Ser Osmolality 289 mOsmol/kg (280-301) 01/07/18 06:02 Whole Bld Lactic Acid 1.72 mmol/L (0.60-1.99) 01/04/18 20:35 Uric Acid 6.5 mg/dL (2.3-6.6) 01/06/18 06:01 Calcium 7.8 mg/dL (8.6-10.3) L 01/19/18 05:54 Phosphorus 4.1 mg/dL (2.5-5.0) 01/06/18 06:01 Magnesium 1.5 mg/dL (1.9-2.7) L 01/19/18 05:54 Iron 43 ug/dL (27-139) 01/05/18 05:36 TIBC 254 ug/dL (250-450) 01/05/18 05:36 Iron Saturation 17 % (15-55) 01/05/18 05:36 Unsaturated IBC 211 ug/dL (118-369) 01/05/18 05:36 Ferritin 17 ng/mL (15-150) 01/05/18 05:36 Total Bilirubin 0.4 mg/dL (0.3-1.0) 01/18/18 13:54 AST 19 U/L (13-39) 01/18/18 13:54 ALT 16 U/L (7-52) 01/18/18 13:54 Alkaline Phosphatase 70 U/L (34-104) 01/18/18 13:54 Creatine Kinase 165 U/L (30-223) 01/04/18 20:35 Troponin I 0.02 ng/mL (0.01-0.05) 01/04/18 20:35 B-Natriuretic Peptide 1280.0 pg/mL (5.0-100.0) H 01/19/18 05:54 Total Protein 5.2 gm/dL (6.0-8.3) L 01/18/18 13:54 Albumin 2.4 gm/dL (3.7-5.3) L 01/18/18 13:54 Globulin 2.8 gm/dL 01/18/18 13:54 Albumin/Globulin Ratio 0.9 (1.0-1.8) L 01/18/18 13:54 Triglycerides 68 mg/dL (<150) 01/04/18 20:35 Cholesterol 115 mg/dL (<200) 01/04/18 20:35 LDL Cholesterol Direct 56 mg/dL (75-193) L 01/04/18 20:35 HDL Cholesterol 44 mg/dL (23-92) 01/04/18 20:35 Amylase 45 U/L (29-103) 01/06/18 06:01 Lipase 24 U/L (11-82) 01/06/18 06:01 Carcinoembryonic Ag 26.2 ng/mL (0.0-4.7) H 01/06/18 06:01 Vitamin B12 304 pg/mL (232-1245) 01/05/18 05:36 Folic Acid 14.5 ng/mL (>3.0) 01/05/18 05:36 TSH 4.28 uIU/ml (0.34-5.60) 01/05/18 05:36 Urine Source CLEAN C 01/04/18 20:20 Urine Color STRAW 01/04/18 20:20 Urine Clarity CLEAR (CLEAR) 01/04/18 20:20 Urine pH 5.5 (4.6 - 8.0) 01/04/18 20:20 Ur Specific [place] 1.015 (1.005-1.030) 01/04/18 20:20 Urine Protein NEGATIVE mg/dL (NEGATIVE) 01/04/18 20:20 Urine Glucose (UA) NEGATIVE mg/dL (NEGATIVE) 01/04/18 20:20 Urine Ketones NEGATIVE mg/dL (NEGATIVE) 01/04/18 20:20 Urine Blood NEGATIVE (NEGATIVE) 01/04/18 20:20 Urine Nitrate NEGATIVE (NEGATIVE) 01/04/18 20:20 Urine Bilirubin NEGATIVE (NEGATIVE) 01/04/18 20:20 Urine Urobilinogen 0.2 E.U./dL (0.2 - 1.0) 01/04/18 20:20 Ur Leukocyte Esterase TRACE (NEGATIVE) H 01/04/18 20:20 Urine RBC NONE SEEN /hpf (0-5) 01/04/18 20:20 Urine WBC 2-5 /hpf (0-5) 01/04/18 20:20 Ur Epithelial Cells NONE SEEN /lpf (FEW) 01/04/18 20:20 Urine Bacteria NONE SEEN /hpf (NONE SEEN) 01/04/18 20:20 Ur Random Sodium 99 mmol/L 01/06/18 05:25 Urine Creatinine 42.0 mg/dl (28.0-217.0) 01/06/18 05:25 Stool Occult Blood NEGATIVE (NEGATIVE) 01/07/18 17:25 Blood Type O POSITIVE 01/10/18 07:20 Antibody Screen POSITIVE 01/10/18 07:20 Antibody Identification Anti-C Anti-e 01/10/18 07:20 Antibody Identification Anti-C Anti-e 01/10/18 07:20 Crossmatch See Detail 01/10/18 07:20 - Physical Exam Vitals and I&O: Vital Signs Temp 97.4 F 01/19/18 08:00 Pulse 81 01/19/18 08:46 Resp 17 01/19/18 08:00 BP 116/66 01/19/18 08:46 Pulse Ox 97 01/19/18 08:00 Intake & Output 01/18/18 01/19/18 01/19/18 18:59 06:59 18:59 Intake Total 50 650 Output Total 2600 Balance 50 -1950 Weight (lbs) 72.393 kg Intake: Intake, IV Amount 50 100 Piperacillin Sodium/ 50 100 Tazobact 3.375 gm In Dextrose 5% 50 ml @ 100 mls/hr IV Q8H [facility] Rx#: [id number] Oral 550 Output: Urine 2600 Other: # Bowel Movements 0 Weight Source Bedscale Active Medications: Current Medications Albuterol/Ipratropium (Duoneb Neb) 3 ml HHN Q6HRT [facility] Stop: 03/08/18 18:59 Last Admin: 01/19/18 07:29 Dose: 3 ml Amlodipine Besylate (Norvasc) 5 mg PO DAILY [facility] Stop: 03/06/18 08:59 Last Admin: 01/19/18 08:46 Dose: 5 mg Benzocaine/Menthol (Cepacol) 1 cooper MM Q4HR PRN PRN Reason: Sore Throat Stop: 03/10/18 15:50 Last Admin: 01/16/18 23:44 Dose: 1 cooper Ferrous Sulfate (Iron) 325 mg PO BID [facility] Stop: 03/17/18 10:14 Last Admin: 01/19/18 08:45 Dose: 325 mg Heparin Sodium (Porcine) (Heparin) 5,000 units SUBQ Q12HR [facility] Stop: 03/17/18 10:14 Last Admin: 01/19/18 08:46 Dose: 5,000 units Piperacillin Sod/Tazobactam (Sod 3.375 gm/ Dextrose) 50 mls @ 100 mls/hr IV Q8H [facility] Stop: 03/13/18 09:14 Last Admin: 01/19/18 09:24 Dose: 100 mls/hr Levothyroxine Sodium (Synthroid) 0.025 mg PO QDAC [facility] Stop: 03/06/18 07:29 Last Admin: 01/19/18 06:39 Dose: 0.025 mg Losartan Potassium (Cozaar) 100 mg PO DAILY [facility] Stop: 03/07/18 10:59 Last Admin: 01/19/18 08:45 Dose: 100 mg Miscellaneous (Vte Chemical Prophylaxis Screen/ Admission) 1 ea MC PRN PRN PRN Reason: PROTOCOL Stop: 03/06/18 08:14 Miscellaneous (Clinical Monitoring) 1 ea MC DAILY PRN PRN Reason: RENAL Stop: 03/16/18 08:53 Ondansetron HCl (Zofran) 4 mg IV Q6H PRN PRN Reason: Nausea / Vomiting Stop: 03/17/18 09:43 Last Admin: 01/16/18 09:57 Dose: 4 mg Oxybutynin Chloride (Ditropan) 5 mg PO BID [facility] Stop: 03/06/18 16:59 Last Admin: 01/19/18 08:46 Dose: 5 mg Pantoprazole Sodium (Protonix) 40 mg IVP DAILY [facility] Stop: 03/06/18 08:59 Last Admin: 01/19/18 08:45 Dose: 40 mg Simethicone (Mylicon) 80 mg PO QID PRN PRN Reason: Gas Stop: 03/10/18 14:48 Last Admin: 01/18/18 10:46 Dose: 80 mg Sodium Bicarbonate (Sodium Bicarbonate) 650 mg PO TID [facility] PRN Reason: Protocol Stop: 03/07/18 15:14 Last Admin: 01/19/18 08:45 Dose: 650 mg Tramadol HCl (Ultram) 50 mg PO Q6HR PRN PRN Reason: Pain (Moderate) Stop: 03/10/18 15:51 Last Admin: 01/14/18 02:47 Dose: 50 mg Zolpidem Tartrate (Ambien) 5 mg PO HS PRN PRN Reason: Insomnia Stop: 03/07/18 21:11 Last Admin: 01/19/18 00:41 Dose: 5 mg General: No acute distress HEENT: Mucous membr. 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 01/19: per daughter; home hospice. k better Nutritional Asmnt/Malnutr-PDOC - Dietary Evaluation Malnutrition Findings (Please click <Entered> for more info): Nutritional Asmnt/Malnutrition Start: 01/05/18 14: 24 Text: Status: Complete Freq: Document 01/05/18 14:24 [facility] (Rec: 01/05/18 14:55 HEN [email or web address]) Nutritional Asmnt/Malnutrition Patient General Information Nutritional Screening High Risk Diagnosis dehydration, anemia, UTI, facial cellulitis Pertinent Medical Hx/Surgical Hx HTN, ESRD, thyroid disorder Subjective Information Pt seen lying in bed, awake and pleasant. Family at bedside feeding pt lunch. Family is able to speak little Lao, denied pt has chewing/swallowing problem, stated pt eating ok. Pt has teeth noted. Per EMR, pt consumed 100% of breakfast in the morning. Current Diet Order/ Nutrition Support regular Pertinent Medications D5-0.9%ns, synthorid, protonix Pertinent Labs 01/05 cl 112, BUN 32, Cr 1.3, Ca 8.5 Nutritional Hx/Data Height 1.52 m Height (Calculated Centimeters) 152.4 Current Weight (lbs) 58.06 kg Weight (Calculated Kilograms) 58.1 Weight (Calculated Grams) 59568.8 [place] Body Weight 100 Body Mass Index (BMI) 25.0 Weight Status Approriate GI Symptoms GI Symptoms None Last BM not indicated Difficult in: None Skin Integrity/Comment: face reddened Current %PO Good (75-100%) Estimated Nutritional Goals BEE in Kcals: Using Current wt Calories/Kcals/Kg 25-30 Kcals Calculated 4484-0647 Protein: Using Current wt Protein g/k monitor renal labs Protein Calculated 58 Fluid: ml 1450-1740ml (1ml/kcal) Nutritional Problem 1. Problem Problem altered nutrition related labs Etiology electrolytes imbalance and hx of ESRD Signs/Symptoms: cl 112, BUN 32, Cr 1.3, Ca 8.5 Malnutrition Alert Protein-Calorie Malnutrition N/A Is there a minimum of two criteria No selected? Query Text:Check all the applicable criteria. A minimum of two criteria are recommended for diagnosis of either severe or non-severe malnutrition. Intervention/Recommendation Comments 1. Continue with regular diet as ordered. Assist pt with meals as needed. 2. If BUN/Cr not improved, will consider renal diet. 2. Monitor PO intake, wt, labs and skin integrity 3. F/U as moderate risk in 3-5 days, 01/08-01/10 Expected Outcomes/Goals Expected Outcomes/Goals 1. PO intake to meet at least 75% of nutritional needs. 2. Wt stability, skin to remain intact, labs to approach WNL.
[2018-01-19] MEDS ORDERED: KCL 20mEq/100mL Premix 20 MEQ/100 ML PIGGYBACK IV ONE (09:58)
--- NOTE | 2018-01-19 11:29 | General Progress Note ---
Subjective - Review of Systems Service Date: 01/19/18 Events since last encounter: path report noted no leukocytosis but incision is not healed with areas of ecchymosis and slight drainage Hospice being considered still on antibiotics Objective - Results Result Diagrams: 01/19/18 05:54 01/19/18 05:54 Recent Labs: Laboratory Last Values WBC 9.1 Th/cmm (4.8-10.8) D 01/19/18 05:54 RBC 2.98 Mil/cmm (3.80-5.20) L 01/19/18 05:54 Hgb 8.4 gm/dL (12-16) L 01/19/18 05:54 Hct 24.6 % (41.0-60) L 01/19/18 05:54 MCV 82.5 fl (81-100) 01/19/18 05:54 MCH 28.1 pg (27.0-31.0) 01/19/18 05:54 MCHC Differential 34.1 pg (28.0-36.0) 01/19/18 05:54 RDW 16.1 % (11.5-20.0) 01/19/18 05:54 Plt Count 269 Th/cmm (150-400) 01/19/18 05:54 MPV 7.1 fl 01/19/18 05:54 Neutrophils % 84.1 % (40.0-80.0) H 01/19/18 05:54 Band Neutrophils % 1 % (0-10) 01/14/18 05:25 Lymphocytes % 10.4 % (20.0-50.0) L 01/19/18 05:54 Monocytes % 4.2 % (2.0-10.0) 01/19/18 05:54 Eosinophils % 1.0 % (0.0-5.0) 01/19/18 05:54 Basophils % 0.3 % (0.0-2.0) 01/19/18 05:54 Neutrophils (Manual) 89 % (40-80) H 01/14/18 05:25 Lymphocytes 8 % (20-50) L 01/14/18 05:25 Monocytes 2 % (2-10) 01/14/18 05:25 Eosinophils 0 % (0-5) 01/14/18 05:25 Basophils 0 % (0-3) 01/14/18 05:25 Eos Smear Source URINE 01/06/18 05:25 Eos Smear Total Cells NONE SEEN (NONE SEEN) 01/06/18 05:25 PT 11.1 SECONDS (9.5-11.5) 01/09/18 04:54 INR 1.07 (0.5-1.4) 01/09/18 04:54 PTT (Actin FS) 25.1 SECONDS (26.0-38.0) L 01/09/18 04:54 Sodium 133 mEq/L (136-145) L 01/19/18 05:54 Potassium 3.4 mEq/L (3.5-5.1) L 01/19/18 05:54 Chloride 107 mEq/L (98-107) 01/19/18 05:54 Carbon Dioxide 18.3 mEq/L (21.0-31.0) L 01/19/18 05:54 Anion Gap 11.1 (7.0-16.0) 01/19/18 05:54 BUN 19 mg/dL (7-25) 01/19/18 05:54 Creatinine 1.2 mg/dL (0.6-1.2) 01/19/18 05:54 Est GFR ( Amer) TNP 01/19/18 05:54 Est GFR (Non-Af Amer) TNP 01/19/18 05:54 BUN/Creatinine Ratio 15.8 01/19/18 05:54 Glucose 108 mg/dL (70-105) H 01/19/18 05:54 Plasma/Ser Osmolality 289 mOsmol/kg (280-301) 01/07/18 06:02 Whole Bld Lactic Acid 1.72 mmol/L (0.60-1.99) 01/04/18 20:35 Uric Acid 6.5 mg/dL (2.3-6.6) 01/06/18 06:01 Calcium 7.8 mg/dL (8.6-10.3) L 01/19/18 05:54 Phosphorus 4.1 mg/dL (2.5-5.0) 01/06/18 06:01 Magnesium 1.5 mg/dL (1.9-2.7) L 01/19/18 05:54 Iron 43 ug/dL (27-139) 01/05/18 05:36 TIBC 254 ug/dL (250-450) 01/05/18 05:36 Iron Saturation 17 % (15-55) 01/05/18 05:36 Unsaturated IBC 211 ug/dL (118-369) 01/05/18 05:36 Ferritin 17 ng/mL (15-150) 01/05/18 05:36 Total Bilirubin 0.4 mg/dL (0.3-1.0) 01/18/18 13:54 AST 19 U/L (13-39) 01/18/18 13:54 ALT 16 U/L (7-52) 01/18/18 13:54 Alkaline Phosphatase 70 U/L (34-104) 01/18/18 13:54 Creatine Kinase 165 U/L (30-223) 01/04/18 20:35 Troponin I 0.02 ng/mL (0.01-0.05) 01/04/18 20:35 B-Natriuretic Peptide 1280.0 pg/mL (5.0-100.0) H 01/19/18 05:54 Total Protein 5.2 gm/dL (6.0-8.3) L 01/18/18 13:54 Albumin 2.4 gm/dL (3.7-5.3) L 01/18/18 13:54 Globulin 2.8 gm/dL 01/18/18 13:54 Albumin/Globulin Ratio 0.9 (1.0-1.8) L 01/18/18 13:54 Triglycerides 68 mg/dL (<150) 01/04/18 20:35 Cholesterol 115 mg/dL (<200) 01/04/18 20:35 LDL Cholesterol Direct 56 mg/dL (75-193) L 01/04/18 20:35 HDL Cholesterol 44 mg/dL (23-92) 01/04/18 20:35 Amylase 45 U/L (29-103) 01/06/18 06:01 Lipase 24 U/L (11-82) 01/06/18 06:01 Carcinoembryonic Ag 26.2 ng/mL (0.0-4.7) H 01/06/18 06:01 Vitamin B12 304 pg/mL (232-1245) 01/05/18 05:36 Folic Acid 14.5 ng/mL (>3.0) 01/05/18 05:36 TSH 4.28 uIU/ml (0.34-5.60) 01/05/18 05:36 Urine Source CLEAN C 01/04/18 20:20 Urine Color STRAW 01/04/18 20:20 Urine Clarity CLEAR (CLEAR) 01/04/18 20:20 Urine pH 5.5 (4.6 - 8.0) 01/04/18 20:20 Ur Specific [place] 1.015 (1.005-1.030) 01/04/18 20:20 Urine Protein NEGATIVE mg/dL (NEGATIVE) 01/04/18 20:20 Urine Glucose (UA) NEGATIVE mg/dL (NEGATIVE) 01/04/18 20:20 Urine Ketones NEGATIVE mg/dL (NEGATIVE) 01/04/18 20:20 Urine Blood NEGATIVE (NEGATIVE) 01/04/18 20:20 Urine Nitrate NEGATIVE (NEGATIVE) 01/04/18 20:20 Urine Bilirubin NEGATIVE (NEGATIVE) 01/04/18 20:20 Urine Urobilinogen 0.2 E.U./dL (0.2 - 1.0) 01/04/18 20:20 Ur Leukocyte Esterase TRACE (NEGATIVE) H 01/04/18 20:20 Urine RBC NONE SEEN /hpf (0-5) 01/04/18 20:20 Urine WBC 2-5 /hpf (0-5) 01/04/18 20:20 Ur Epithelial Cells NONE SEEN /lpf (FEW) 01/04/18 20:20 Urine Bacteria NONE SEEN /hpf (NONE SEEN) 01/04/18 20:20 Ur Random Sodium 99 mmol/L 01/06/18 05:25 Urine Creatinine 42.0 mg/dl (28.0-217.0) 01/06/18 05:25 Stool Occult Blood NEGATIVE (NEGATIVE) 01/07/18 17:25 Blood Type O POSITIVE 01/10/18 07:20 Antibody Screen POSITIVE 01/10/18 07:20 Antibody Identification Anti-C Anti-e 01/10/18 07:20 Antibody Identification Anti-C Anti-e 01/10/18 07:20 Crossmatch See Detail 01/10/18 07:20 - Physical Exam Vitals and I&O: Vital Signs Temp 97.4 F 01/19/18 08:00 Pulse 81 01/19/18 08:46 Resp 20 01/19/18 08:00 BP 116/66 01/19/18 08:46 Pulse Ox 97 05/10/18 08:00 Intake & Output 01/18/18 01/19/18 01/19/18 18:59 06:59 18:59 Intake Total 50 650 50 Output Total 2600 Balance 50 -1950 50 Weight (lbs) 72.393 kg Intake: Intake, IV Amount 50 100 50 Piperacillin Sodium/ 50 100 50 Tazobact 3.375 gm In Dextrose 5% 50 ml @ 100 mls/hr IV Q8H [facility] Rx#: [id number] Oral 550 Output: Urine 2600 Other: # Bowel Movements 0 Weight Source Bedscale Active Medications: Current Medications Albuterol/Ipratropium (Duoneb Neb) 3 ml HHN Q6HRT [facility] Stop: 03/08/18 18:59 Last Admin: 01/19/18 07:29 Dose: 3 ml Amlodipine Besylate (Norvasc) 5 mg PO DAILY [facility] Stop: 03/06/18 08:59 Last Admin: 01/19/18 08:46 Dose: 5 mg Benzocaine/Menthol (Cepacol) 1 cooper MM Q4HR PRN PRN Reason: Sore Throat Stop: 03/10/18 15:50 Last Admin: 01/16/18 23:44 Dose: 1 cooper Ferrous Sulfate (Iron) 325 mg PO BID [facility] Stop: 03/17/18 10:14 Last Admin: 01/19/18 08:45 Dose: 325 mg Heparin Sodium (Porcine) (Heparin) 5,000 units SUBQ Q12HR [facility] Stop: 03/17/18 10:14 Last Admin: 01/19/18 08:46 Dose: 5,000 units Piperacillin Sod/Tazobactam (Sod 3.375 gm/ Dextrose) 50 mls @ 100 mls/hr IV Q8H [facility] Stop: 03/13/18 09:14 Last Infusion: 01/19/18 09:54 Dose: Infused Potassium Chloride (Potassium Chloride) 20 meq in 100 mls @ 50 mls/hr IV X1 ONE Stop: 01/19/18 11:57 Last Admin: 01/19/18 10:51 Dose: 50 mls/hr Levothyroxine Sodium (Synthroid) 0.025 mg PO QDAC [facility] Stop: 03/06/18 07:29 Last Admin: 01/19/18 06:39 Dose: 0.025 mg Losartan Potassium (Cozaar) 100 mg PO DAILY [facility] Stop: 03/07/18 10:59 Last Admin: 01/19/18 08:45 Dose: 100 mg Miscellaneous (Vte Chemical Prophylaxis Screen/ Admission) 1 ea MC PRN PRN PRN Reason: PROTOCOL Stop: 03/06/18 08:14 Miscellaneous (Clinical Monitoring) 1 ea MC DAILY PRN PRN Reason: RENAL Stop: 03/16/18 08:53 Ondansetron HCl (Zofran) 4 mg IV Q6H PRN PRN Reason: Nausea / Vomiting Stop: 03/17/18 09:43 Last Admin: 01/16/18 09:57 Dose: 4 mg Oxybutynin Chloride (Ditropan) 5 mg PO BID [facility] Stop: 03/06/18 16:59 Last Admin: 01/19/18 08:46 Dose: 5 mg Pantoprazole Sodium (Protonix) 40 mg IVP DAILY [facility] Stop: 03/06/18 08:59 Last Admin: 01/19/18 08:45 Dose: 40 mg Simethicone (Mylicon) 80 mg PO QID PRN PRN Reason: Gas Stop: 03/10/18 14:48 Last Admin: 01/18/18 10:46 Dose: 80 mg Sodium Bicarbonate (Sodium Bicarbonate) 650 mg PO TID [facility] PRN Reason: Protocol Stop: 03/07/18 15:14 Last Admin: 01/19/18 08:45 Dose: 650 mg Tramadol HCl (Ultram) 50 mg PO Q6HR PRN PRN Reason: Pain (Moderate) Stop: 03/10/18 15:51 Last Admin: 01/14/18 02:47 Dose: 50 mg Zolpidem Tartrate (Ambien) 5 mg PO HS PRN PRN Reason: Insomnia Stop: 03/07/18 21:11 Last Admin: 01/19/18 00:41 Dose: 5 mg General: No acute distress HEENT: Mucous membr. moist/pink Neck: Supple Cardiovascular: Regular rate Lungs: Other (exp wheezing) Abdomen: Soft, no Tender, no Distended Extremities: Edema Neurological: Sensation intact Skin: no Rash Psych/Mental Status: Mood NL - Procedures Procedures: Procedures Procedure Code Date COLONOSCOPY AND BIOPSY 34102 01/04/18 EXCISION OF ASCENDING COLON, ENDO, DIAGN [id number] 01/04/18 PARTIAL REMOVAL OF COLON 32117 01/04/18 RESECTION OF RIGHT LARGE INTESTINE, OPEN APPROACH [id number] 01/04/18 Assessment/Plan - Problem List Patient Problems: All Active Problems Colonic mass (Acute) K63.9 Nutritional Asmnt/Malnutr-PDOC - Dietary Evaluation Malnutrition Findings (Please click <Entered> for more info): Nutritional Asmnt/Malnutrition Start: 01/05/18 14: 24 Text: Status: Complete Freq: Document 01/05/18 14:24 H[facility] (Rec: 01/05/18 14:55 LCHENG [email or web address]) Nutritional Asmnt/Malnutrition Patient General Information Nutritional Screening High Risk Diagnosis dehydration, anemia, UTI, facial cellulitis Pertinent Medical Hx/Surgical Hx HTN, ESRD, thyroid disorder Subjective Information Pt seen lying in bed, awake and pleasant. Family at bedside feeding pt lunch. Family is able to speak little [place]olan, denied pt has chewing/swallowing problem, stated pt eating ok. Pt has teeth noted. Per EMR, pt consumed 100% of breakfast in the morning. Current Diet Order/ Nutrition Support regular Pertinent Medications D5-0.9%ns, synthorid, protonix Pertinent Labs 01/05 cl 112, BUN 32, Cr 1.3, Ca 8.5 Nutritional Hx/Data Height 1.52 m Height (Calculated Centimeters) 152.4 Current Weight (lbs) 58.06 kg Weight (Calculated Kilograms) 58.1 Weight (Calculated Grams) 10506.8 [place] Body Weight 100 Body Mass Index (BMI) 25.0 Weight Status Approriate GI Symptoms GI Symptoms None Last BM not indicated Difficult in: None Skin Integrity/Comment: face reddened Current %PO Good (75-100%) Estimated Nutritional Goals BEE in Kcals: Using Current wt Calories/Kcals/Kg 25-30 Kcals Calculated 6096-7207 Protein: Using Current wt Protein g/k monitor renal labs Protein Calculated 58 Fluid: ml 1450-1740ml (1ml/kcal) Nutritional Problem 1. Problem Problem altered nutrition related labs Etiology electrolytes imbalance and hx of ESRD Signs/Symptoms: cl 112, BUN 32, Cr 1.3, Ca 8.5 Malnutrition Alert Protein-Calorie Malnutrition N/A Is there a minimum of two criteria No selected? Query Text:Check all the applicable criteria. A minimum of two criteria are recommended for diagnosis of either severe or non-severe malnutrition. Intervention/Recommendation Comments 1. Continue with regular diet as ordered. Assist pt with meals as needed. 2. If BUN/Cr not improved, will consider renal diet. 2. Monitor PO intake, wt, labs and skin integrity 3. F/U as moderate risk in 3-5 days, 01/08-01/10 Expected Outcomes/Goals Expected Outcomes/Goals 1. PO intake to meet at least 75% of nutritional needs. 2. Wt stability, skin to remain intact, labs to approach WNL.
--- NOTE | 2018-01-19 20:38 | General Progress Note ---
Subjective - Review of Systems Service Date: 01/19/18 Subjective: patient seen and examined patient feels better family was at the bedside Objective - Results Result Diagrams: 01/19/18 05:54 01/19/18 05:54 Recent Labs: Laboratory Last Values WBC 9.1 Th/cmm (4.8-10.8) D 01/19/18 05:54 RBC 2.98 Mil/cmm (3.80-5.20) L 01/19/18 05:54 Hgb 8.4 gm/dL (12-16) L 01/19/18 05:54 Hct 24.6 % (41.0-60) L 01/19/18 05:54 MCV 82.5 fl (81-100) 01/19/18 05:54 MCH 28.1 pg (27.0-31.0) 01/19/18 05:54 MCHC Differential 34.1 pg (28.0-36.0) 01/19/18 05:54 RDW 16.1 % (11.5-20.0) 01/19/18 05:54 Plt Count 269 Th/cmm (150-400) 01/19/18 05:54 MPV 7.1 fl 01/19/18 05:54 Neutrophils % 84.1 % (40.0-80.0) H 01/19/18 05:54 Band Neutrophils % 1 % (0-10) 01/14/18 05:25 Lymphocytes % 10.4 % (20.0-50.0) L 01/19/18 05:54 Monocytes % 4.2 % (2.0-10.0) 01/19/18 05:54 Eosinophils % 1.0 % (0.0-5.0) 01/19/18 05:54 Basophils % 0.3 % (0.0-2.0) 01/19/18 05:54 Neutrophils (Manual) 89 % (40-80) H 01/14/18 05:25 Lymphocytes 8 % (20-50) L 01/14/18 05:25 Monocytes 2 % (2-10) 01/14/18 05:25 Eosinophils 0 % (0-5) 01/14/18 05:25 Basophils 0 % (0-3) 01/14/18 05:25 Eos Smear Source URINE 01/06/18 05:25 Eos Smear Total Cells NONE SEEN (NONE SEEN) 01/06/18 05:25 PT 11.1 SECONDS (9.5-11.5) 01/09/18 04:54 INR 1.07 (0.5-1.4) 01/09/18 04:54 PTT (Actin FS) 25.1 SECONDS (26.0-38.0) L 01/09/18 04:54 Sodium 133 mEq/L (136-145) L 01/19/18 05:54 Potassium 3.4 mEq/L (3.5-5.1) L 01/19/18 05:54 Chloride 107 mEq/L (98-107) 01/19/18 05:54 Carbon Dioxide 18.3 mEq/L (21.0-31.0) L 01/19/18 05:54 Anion Gap 11.1 (7.0-16.0) 01/19/18 05:54 BUN 19 mg/dL (7-25) 01/19/18 05:54 Creatinine 1.2 mg/dL (0.6-1.2) 01/19/18 05:54 Est GFR ( Amer) TNP 01/19/18 05:54 Est GFR (Non-Af Amer) TNP 01/19/18 05:54 BUN/Creatinine Ratio 15.8 01/19/18 05:54 Glucose 108 mg/dL (70-105) H 01/19/18 05:54 Plasma/Ser Osmolality 289 mOsmol/kg (280-301) 01/07/18 06:02 Whole Bld Lactic Acid 1.72 mmol/L (0.60-1.99) 01/04/18 20:35 Uric Acid 6.5 mg/dL (2.3-6.6) 01/06/18 06:01 Calcium 7.8 mg/dL (8.6-10.3) L 01/19/18 05:54 Phosphorus 4.1 mg/dL (2.5-5.0) 01/06/18 06:01 Magnesium 1.5 mg/dL (1.9-2.7) L 01/19/18 05:54 Iron 43 ug/dL (27-139) 01/05/18 05:36 TIBC 254 ug/dL (250-450) 01/05/18 05:36 Iron Saturation 17 % (15-55) 01/05/18 05:36 Unsaturated IBC 211 ug/dL (118-369) 01/05/18 05:36 Ferritin 17 ng/mL (15-150) 01/05/18 05:36 Total Bilirubin 0.4 mg/dL (0.3-1.0) 01/18/18 13:54 AST 19 U/L (13-39) 01/18/18 13:54 ALT 16 U/L (7-52) 01/18/18 13:54 Alkaline Phosphatase 70 U/L (34-104) 01/18/18 13:54 Creatine Kinase 165 U/L (30-223) 01/04/18 20:35 Troponin I 0.02 ng/mL (0.01-0.05) 01/04/18 20:35 B-Natriuretic Peptide 1280.0 pg/mL (5.0-100.0) H 01/19/18 05:54 Total Protein 5.2 gm/dL (6.0-8.3) L 01/18/18 13:54 Albumin 2.4 gm/dL (3.7-5.3) L 01/18/18 13:54 Globulin 2.8 gm/dL 01/18/18 13:54 Albumin/Globulin Ratio 0.9 (1.0-1.8) L 01/18/18 13:54 Triglycerides 68 mg/dL (<150) 01/04/18 20:35 Cholesterol 115 mg/dL (<200) 01/04/18 20:35 LDL Cholesterol Direct 56 mg/dL (75-193) L 01/04/18 20:35 HDL Cholesterol 44 mg/dL (23-92) 01/04/18 20:35 Amylase 45 U/L (29-103) 01/06/18 06:01 Lipase 24 U/L (11-82) 01/06/18 06:01 Carcinoembryonic Ag 26.2 ng/mL (0.0-4.7) H 01/06/18 06:01 Vitamin B12 304 pg/mL (232-1245) 01/05/18 05:36 Folic Acid 14.5 ng/mL (>3.0) 01/05/18 05:36 TSH 4.28 uIU/ml (0.34-5.60) 01/05/18 05:36 Urine Source CLEAN C 01/04/18 20:20 Urine Color STRAW 01/04/18 20:20 Urine Clarity CLEAR (CLEAR) 01/04/18 20:20 Urine pH 5.5 (4.6 - 8.0) 01/04/18 20:20 Ur Specific [place] 1.015 (1.005-1.030) 01/04/18 20:20 Urine Protein NEGATIVE mg/dL (NEGATIVE) 01/04/18 20:20 Urine Glucose (UA) NEGATIVE mg/dL (NEGATIVE) 01/04/18 20:20 Urine Ketones NEGATIVE mg/dL (NEGATIVE) 01/04/18 20:20 Urine Blood NEGATIVE (NEGATIVE) 01/04/18 20:20 Urine Nitrate NEGATIVE (NEGATIVE) 01/04/18 20:20 Urine Bilirubin NEGATIVE (NEGATIVE) 01/04/18 20:20 Urine Urobilinogen 0.2 E.U./dL (0.2 - 1.0) 01/04/18 20:20 Ur Leukocyte Esterase TRACE (NEGATIVE) H 01/04/18 20:20 Urine RBC NONE SEEN /hpf (0-5) 01/04/18 20:20 Urine WBC 2-5 /hpf (0-5) 01/04/18 20:20 Ur Epithelial Cells NONE SEEN /lpf (FEW) 01/04/18 20:20 Urine Bacteria NONE SEEN /hpf (NONE SEEN) 01/04/18 20:20 Ur Random Sodium 99 mmol/L 01/06/18 05:25 Urine Creatinine 42.0 mg/dl (28.0-217.0) 01/06/18 05:25 Stool Occult Blood NEGATIVE (NEGATIVE) 01/07/18 17:25 Blood Type O POSITIVE 01/10/18 07:20 Antibody Screen POSITIVE 01/10/18 07:20 Antibody Identification Anti-C Anti-e 01/10/18 07:20 Antibody Identification Anti-C Anti-e 01/10/18 07:20 Crossmatch See Detail 01/10/18 07:20 - Physical Exam Vitals and I&O: Vital Signs Temp 98.6 F 01/19/18 16:00 Pulse 117 01/19/18 19:31 Resp 18 01/19/18 19:31 BP 127/48 01/19/18 16:00 Pulse Ox 97 01/19/18 19:31 Intake & Output 01/19/18 01/19/18 01/20/18 06:59 18:59 06:59 Intake Total 650 100 Output Total 2600 Balance -1950 100 Weight (lbs) 72.393 kg Intake: Intake, IV Amount 100 100 Piperacillin Sodium/ 100 100 Tazobact 3.375 gm In Dextrose 5% 50 ml @ 100 mls/hr IV Q8H [facility] Rx#: [id number] Oral 550 Output: Urine 2600 Other: # Bowel Movements 0 Weight Source Bedscale Active Medications: Current Medications Albuterol/Ipratropium (Duoneb Neb) 3 ml HHN Q6HRT [facility] Stop: 03/08/18 18:59 Last Admin: 01/19/18 19:30 Dose: 3 ml Amlodipine Besylate (Norvasc) 5 mg PO DAILY [facility] Stop: 03/06/18 08:59 Last Admin: 01/19/18 08:46 Dose: 5 mg Benzocaine/Menthol (Cepacol) 1 cooper MM Q4HR PRN PRN Reason: Sore Throat Stop: 03/10/18 15:50 Last Admin: 01/16/18 23:44 Dose: 1 cooper Ferrous Sulfate (Iron) 325 mg PO BID [facility] Stop: 03/17/18 10:14 Last Admin: 01/19/18 16:23 Dose: 325 mg Heparin Sodium (Porcine) (Heparin) 5,000 units SUBQ Q12HR [facility] Stop: 03/17/18 10:14 Last Admin: 01/19/18 20:26 Dose: 5,000 units Piperacillin Sod/Tazobactam (Sod 3.375 gm/ Dextrose) 50 mls @ 100 mls/hr IV Q8H [facility] Stop: 03/13/18 09:14 Last Infusion: 01/19/18 16:51 Dose: Infused Levothyroxine Sodium (Synthroid) 0.025 mg PO QDAC [facility] Stop: 03/06/18 07:29 Last Admin: 01/19/18 06:39 Dose: 0.025 mg Losartan Potassium (Cozaar) 100 mg PO DAILY [facility] Stop: 03/07/18 10:59 Last Admin: 01/19/18 08:45 Dose: 100 mg Miscellaneous (Vte Chemical Prophylaxis Screen/ Admission) 1 ea MC PRN PRN PRN Reason: PROTOCOL Stop: 03/06/18 08:14 Miscellaneous (Clinical Monitoring) 1 ea MC DAILY PRN PRN Reason: RENAL Stop: 03/16/18 08:53 Ondansetron HCl (Zofran) 4 mg IV Q6H PRN PRN Reason: Nausea / Vomiting Stop: 03/17/18 09:43 Last Admin: 01/16/18 09:57 Dose: 4 mg Oxybutynin Chloride (Ditropan) 5 mg PO BID [facility] Stop: 03/06/18 16:59 Last Admin: 01/19/18 16:23 Dose: 5 mg Pantoprazole Sodium (Protonix) 40 mg IVP DAILY [facility] Stop: 03/06/18 08:59 Last Admin: 01/19/18 08:45 Dose: 40 mg Simethicone (Mylicon) 80 mg PO QID PRN PRN Reason: Gas Stop: 03/10/18 14:48 Last Admin: 01/18/18 10:46 Dose: 80 mg Sodium Bicarbonate (Sodium Bicarbonate) 650 mg PO TID ANTHONY PRN Reason: Protocol Stop: 03/07/18 15:14 Last Admin: 01/19/18 20:25 Dose: 650 mg Tramadol HCl (Ultram) 50 mg PO Q6HR PRN PRN Reason: Pain (Moderate) Stop: 03/10/18 15:51 Last Admin: 01/14/18 02:47 Dose: 50 mg Zolpidem Tartrate (Ambien) 5 mg PO HS PRN PRN Reason: Insomnia Stop: 03/07/18 21:11 Last Admin: 01/19/18 00:41 Dose: 5 mg General: No acute distress Cardiovascular: Regular rate Lungs: Clear to auscultation Abdomen: Soft, no Tender, no Distended Extremities: Edema Neurological: Sensation intact Skin: no Rash Psych/Mental Status: Mood NL - Procedures Procedures: Procedures Procedure Code Date COLONOSCOPY AND BIOPSY 36185 01/04/18 EXCISION OF ASCENDING COLON, ENDO, DIAGN [id number] 01/04/18 PARTIAL REMOVAL OF COLON 86008 01/04/18 RESECTION OF RIGHT LARGE INTESTINE, OPEN APPROACH [id number] 01/04/18 Assessment/Plan - Problem List Patient Problems: All Active Problems Colonic mass (Acute) K63.9 - Assessment Assessment: Metastatic Adenocarcinoma of colon Acute respiratory distress Chronic hyponatremia Acute on CKD better Chronic constipation HTN CAD UTI SEPTIC SHOCK - Plan Plan: Patient doing better Patient stated she wants to go to Rehab. Daughter wanted home with home hospice Will dw CM re: SNIF Discharge Bronchodilator on Zosyn PT OT Pain control Nutritional Asmnt/Malnutr-PDOC - Dietary Evaluation Malnutrition Findings (Please click <Entered> for more info): Nutritional Asmnt/Malnutrition Start: 01/05/18 14: 24 Text: Status: Complete Freq: Document 01/05/18 14:24 HEN (Rec: 01/05/18 14:55 LCHENG [email or web address]) Nutritional Asmnt/Malnutrition Patient General Information Nutritional Screening High Risk Diagnosis dehydration, anemia, UTI, facial cellulitis Pertinent Medical Hx/Surgical Hx HTN, ESRD, thyroid disorder Subjective Information Pt seen lying in bed, awake and pleasant. Family at bedside feeding pt lunch. Family is able to speak little Panamanian, denied pt has chewing/swallowing problem, stated pt eating ok. Pt has teeth noted. Per EMR, pt consumed 100% of breakfast in the morning. Current Diet Order/ Nutrition Support regular Pertinent Medications D5-0.9%ns, synthorid, protonix Pertinent Labs 01/05 cl 112, BUN 32, Cr 1.3, Ca 8.5 Nutritional Hx/Data Height 1.52 m Height (Calculated Centimeters) 152.4 Current Weight (lbs) 58.06 kg Weight (Calculated Kilograms) 58.1 Weight (Calculated Grams) 37280.8 [place] Body Weight 100 Body Mass Index (BMI) 25.0 Weight Status Approriate GI Symptoms GI Symptoms None Last BM not indicated Difficult in: None Skin Integrity/Comment: face reddened Current %PO Good (75-100%) Estimated Nutritional Goals BEE in Kcals: Using Current wt Calories/Kcals/Kg 25-30 Kcals Calculated 6912-8634 Protein: Using Current wt Protein g/k monitor renal labs Protein Calculated 58 Fluid: ml 1450-1740ml (1ml/kcal) Nutritional Problem 1. Problem Problem altered nutrition related labs Etiology electrolytes imbalance and hx of ESRD Signs/Symptoms: cl 112, BUN 32, Cr 1.3, Ca 8.5 Malnutrition Alert Protein-Calorie Malnutrition N/A Is there a minimum of two criteria No selected? Query Text:Check all the applicable criteria. A minimum of two criteria are recommended for diagnosis of either severe or non-severe malnutrition. Intervention/Recommendation Comments 1. Continue with regular diet as ordered. Assist pt with meals as needed. 2. If BUN/Cr not improved, will consider renal diet. 2. Monitor PO intake, wt, labs and skin integrity 3. F/U as moderate risk in 3-5 days, 01/08-01/10 Expected Outcomes/Goals Expected Outcomes/Goals 1. PO intake to meet at least 75% of nutritional needs. 2. Wt stability, skin to remain intact, labs to approach WNL.
--- NOTE | 2018-01-19 22:31 | Progress Notes ---
DATE: 01/19/2018 PULMONARY PROGRESS NOTE PROBLEM LIST: 1. Asthmatic bronchitis. 2. Pulmonary nodule. SYMPTOMS: Nil, feeling okay, offers no specific new symptoms. PHYSICAL EXAMINATION: VITAL SIGNS: Recorded, pulse is 80, respirations 20, saturation 97 on 2 liters of oxygen. NECK: Veins not visualized. CHEST: Shows diminished air entry with occasional rhonchi. HEART: Regular. ABDOMEN: Soft, nontender. LABORATORY DATA: White count is 9.1 and hemoglobin 8.4. Electrolytes are getting better with ____ renal function. ASSESSMENT: The patient clinically appears to be stable, improving from my standpoint of view. Continue current treatment and go from there. JOB# [id number]
[2018-01-20] MEDS: Albuterol/Ipratropium Neb 3 ML AERS HHN SCH ×4 (01:28→19:18)
[2018-01-20] MEDS: Levothyroxine 0.025 Mg Tab PO SCH (06:51)
[2018-01-20 07:20] LABS: ANION GAP 10.5 (7.0-16.0); BUN - UREA NITROGEN 17 mg/dL (7-25); CALCIUM SERUM 7.8 mg/dL (8.6-10.3); CARBON DIOXIDE 20.7 mEq/L (21.0-31.0); CHLORIDE 108 mEq/L (98-107); GLUCOSE 85 mg/dL (70-105); POTASSIUM SERUM 3.2 mEq/L (3.5-5.1); SODIUM SERUM 136 mEq/L (136-145)
[2018-01-20] MEDS: Ferrous Sulfate 325 MG TAB PO SCH ×2 (09:44→18:00)
[2018-01-20] MEDS ORDERED: Probiotic Screen MC PRN (13:28)
--- NOTE | 2018-01-20 16:11 | General Progress Note ---
Subjective - Review of Systems Service Date: 01/20/18 Subjective: eating, no vomiting, tolerating oral diet. daughter bed side Objective - Results Result Diagrams: 01/19/18 05:54 01/20/18 06:30 Recent Labs: Laboratory Last Values WBC 9.1 Th/cmm (4.8-10.8) D 01/19/18 05:54 RBC 2.98 Mil/cmm (3.80-5.20) L 01/19/18 05:54 Hgb 8.4 gm/dL (12-16) L 01/19/18 05:54 Hct 24.6 % (41.0-60) L 01/19/18 05:54 MCV 82.5 fl (81-100) 01/19/18 05:54 MCH 28.1 pg (27.0-31.0) 01/19/18 05:54 MCHC Differential 34.1 pg (28.0-36.0) 01/19/18 05:54 RDW 16.1 % (11.5-20.0) 01/19/18 05:54 Plt Count 269 Th/cmm (150-400) 01/19/18 05:54 MPV 7.1 fl 01/19/18 05:54 Neutrophils % 84.1 % (40.0-80.0) H 01/19/18 05:54 Band Neutrophils % 1 % (0-10) 01/14/18 05:25 Lymphocytes % 10.4 % (20.0-50.0) L 01/19/18 05:54 Monocytes % 4.2 % (2.0-10.0) 01/19/18 05:54 Eosinophils % 1.0 % (0.0-5.0) 01/19/18 05:54 Basophils % 0.3 % (0.0-2.0) 01/19/18 05:54 Neutrophils (Manual) 89 % (40-80) H 01/14/18 05:25 Lymphocytes 8 % (20-50) L 01/14/18 05:25 Monocytes 2 % (2-10) 01/14/18 05:25 Eosinophils 0 % (0-5) 01/14/18 05:25 Basophils 0 % (0-3) 01/14/18 05:25 Eos Smear Source URINE 01/06/18 05:25 Eos Smear Total Cells NONE SEEN (NONE SEEN) 01/06/18 05:25 PT 11.1 SECONDS (9.5-11.5) 01/09/18 04:54 INR 1.07 (0.5-1.4) 01/09/18 04:54 PTT (Actin FS) 25.1 SECONDS (26.0-38.0) L 01/09/18 04:54 Sodium 136 mEq/L (136-145) 01/20/18 06:30 Potassium 3.2 mEq/L (3.5-5.1) L 01/20/18 06:30 Chloride 108 mEq/L (98-107) H 01/20/18 06:30 Carbon Dioxide 20.7 mEq/L (21.0-31.0) L 01/20/18 06:30 Anion Gap 10.5 (7.0-16.0) 01/20/18 06:30 BUN 17 mg/dL (7-25) 01/20/18 06:30 Creatinine 1.0 mg/dL (0.6-1.2) 01/20/18 06:30 Est GFR ( Amer) TNP 01/20/18 06:30 Est GFR (Non-Af Amer) TNP 01/20/18 06:30 BUN/Creatinine Ratio 17.0 01/20/18 06:30 Glucose 85 mg/dL (70-105) 01/20/18 06:30 Plasma/Ser Osmolality 289 mOsmol/kg (280-301) 01/07/18 06:02 Whole Bld Lactic Acid 1.72 mmol/L (0.60-1.99) 01/04/18 20:35 Uric Acid 6.5 mg/dL (2.3-6.6) 01/06/18 06:01 Calcium 7.8 mg/dL (8.6-10.3) L 01/20/18 06:30 Phosphorus 4.1 mg/dL (2.5-5.0) 01/06/18 06:01 Magnesium 1.5 mg/dL (1.9-2.7) L 01/19/18 05:54 Iron 43 ug/dL (27-139) 01/05/18 05:36 TIBC 254 ug/dL (250-450) 01/05/18 05:36 Iron Saturation 17 % (15-55) 01/05/18 05:36 Unsaturated IBC 211 ug/dL (118-369) 01/05/18 05:36 Ferritin 17 ng/mL (15-150) 01/05/18 05:36 Total Bilirubin 0.4 mg/dL (0.3-1.0) 01/18/18 13:54 AST 19 U/L (13-39) 01/18/18 13:54 ALT 16 U/L (7-52) 01/18/18 13:54 Alkaline Phosphatase 70 U/L (34-104) 01/18/18 13:54 Creatine Kinase 165 U/L (30-223) 01/04/18 20:35 Troponin I 0.02 ng/mL (0.01-0.05) 01/04/18 20:35 B-Natriuretic Peptide 1280.0 pg/mL (5.0-100.0) H 01/19/18 05:54 Total Protein 5.2 gm/dL (6.0-8.3) L 01/18/18 13:54 Albumin 2.4 gm/dL (3.7-5.3) L 01/18/18 13:54 Globulin 2.8 gm/dL 01/18/18 13:54 Albumin/Globulin Ratio 0.9 (1.0-1.8) L 01/18/18 13:54 Triglycerides 68 mg/dL (<150) 01/04/18 20:35 Cholesterol 115 mg/dL (<200) 01/04/18 20:35 LDL Cholesterol Direct 56 mg/dL (75-193) L 01/04/18 20:35 HDL Cholesterol 44 mg/dL (23-92) 01/04/18 20:35 Amylase 45 U/L (29-103) 01/06/18 06:01 Lipase 24 U/L (11-82) 01/06/18 06:01 Carcinoembryonic Ag 26.2 ng/mL (0.0-4.7) H 01/06/18 06:01 Vitamin B12 304 pg/mL (232-1245) 01/05/18 05:36 Folic Acid 14.5 ng/mL (>3.0) 01/05/18 05:36 TSH 4.28 uIU/ml (0.34-5.60) 01/05/18 05:36 Urine Source CLEAN C 01/04/18 20:20 Urine Color STRAW 01/04/18 20:20 Urine Clarity CLEAR (CLEAR) 01/04/18 20:20 Urine pH 5.5 (4.6 - 8.0) 01/04/18 20:20 Ur Specific [place] 1.015 (1.005-1.030) 01/04/18 20:20 Urine Protein NEGATIVE mg/dL (NEGATIVE) 01/04/18 20:20 Urine Glucose (UA) NEGATIVE mg/dL (NEGATIVE) 01/04/18 20:20 Urine Ketones NEGATIVE mg/dL (NEGATIVE) 01/04/18 20:20 Urine Blood NEGATIVE (NEGATIVE) 01/04/18 20:20 Urine Nitrate NEGATIVE (NEGATIVE) 01/04/18 20:20 Urine Bilirubin NEGATIVE (NEGATIVE) 01/04/18 20:20 Urine Urobilinogen 0.2 E.U./dL (0.2 - 1.0) 01/04/18 20:20 Ur Leukocyte Esterase TRACE (NEGATIVE) H 01/04/18 20:20 Urine RBC NONE SEEN /hpf (0-5) 01/04/18 20:20 Urine WBC 2-5 /hpf (0-5) 01/04/18 20:20 Ur Epithelial Cells NONE SEEN /lpf (FEW) 01/04/18 20:20 Urine Bacteria NONE SEEN /hpf (NONE SEEN) 01/04/18 20:20 Ur Random Sodium 99 mmol/L 01/06/18 05:25 Urine Creatinine 42.0 mg/dl (28.0-217.0) 01/06/18 05:25 Stool Occult Blood NEGATIVE (NEGATIVE) 01/07/18 17:25 Blood Type O POSITIVE 01/10/18 07:20 Antibody Screen POSITIVE 01/10/18 07:20 Antibody Identification Anti-C Anti-e 01/10/18 07:20 Antibody Identification Anti-C Anti-e 01/10/18 07:20 Crossmatch See Detail 01/10/18 07:20 - Physical Exam Vitals and I&O: Vital Signs Temp 98.3 F 01/19/18 20:00 Pulse 107 01/20/18 12:36 Resp 18 01/20/18 12:36 BP 128/76 01/20/18 14:08 Pulse Ox 98 01/20/18 12:36 Intake & Output 01/19/18 01/20/18 01/20/18 18:59 06:59 18:59 Intake Total 100 50 Balance 100 50 Intake: Intake, IV Amount 100 50 Piperacillin Sodium/ 100 50 Tazobact 3.375 gm In Dextrose 5% 50 ml @ 100 mls/hr IV Q8H [facility] Rx#: [id number] Active Medications: Current Medications Albuterol/Ipratropium (Duoneb Neb) 3 ml HHN Q6HRT [facility] Stop: 03/08/18 18:59 Last Admin: 01/20/18 12:36 Dose: 3 ml Amlodipine Besylate (Norvasc) 5 mg PO DAILY [facility] Stop: 03/06/18 08:59 Last Admin: 01/20/18 09:43 Dose: 5 mg Benzocaine/Menthol (Cepacol) 1 cooper MM Q4HR PRN PRN Reason: Sore Throat Stop: 03/10/18 15:50 Last Admin: 01/16/18 23:44 Dose: 1 cooper Ferrous Sulfate (Iron) 325 mg PO BID [facility] Stop: 03/17/18 10:14 Last Admin: 01/20/18 09:44 Dose: 325 mg Heparin Sodium (Porcine) (Heparin) 5,000 units SUBQ Q12HR [facility] Stop: 03/17/18 10:14 Last Admin: 01/20/18 09:43 Dose: 5,000 units Piperacillin Sod/Tazobactam (Sod 3.375 gm/ Dextrose) 50 mls @ 100 mls/hr IV Q8H [facility] Stop: 03/13/18 09:14 Last Admin: 01/20/18 09:30 Dose: 100 mls/hr Lactobacillus Rhamnosus (Culturelle 15b) 1 each PO DAILY [facility] Stop: 03/22/18 08:59 Levothyroxine Sodium (Synthroid) 0.025 mg PO QDAC [facility] Stop: 03/06/18 07:29 Last Admin: 01/20/18 06:51 Dose: 0.025 mg Losartan Potassium (Cozaar) 100 mg PO DAILY [facility] Stop: 03/07/18 10:59 Last Admin: 01/20/18 09:42 Dose: 100 mg Miscellaneous (Vte Chemical Prophylaxis Screen/ Admission) 1 alfie COOLEY PRN PRN PRN Reason: PROTOCOL Stop: 03/06/18 08:14 Miscellaneous (Clinical Monitoring) 1 ea MC DAILY PRN PRN Reason: RENAL Stop: 03/16/18 08:53 Miscellaneous (Probiotic Screen) 1 ea MC PRN PRN PRN Reason: PROTOCOL Stop: 03/21/18 13:27 Ondansetron HCl (Zofran) 4 mg IV Q6H PRN PRN Reason: Nausea / Vomiting Stop: 03/17/18 09:43 Last Admin: 01/16/18 09:57 Dose: 4 mg Oxybutynin Chloride (Ditropan) 5 mg PO BID [facility] Stop: 03/06/18 16:59 Last Admin: 01/20/18 09:43 Dose: 5 mg Pantoprazole Sodium (Protonix) 40 mg IVP DAILY [facility] Stop: 03/06/18 08:59 Last Admin: 01/20/18 09:44 Dose: 40 mg Simethicone (Mylicon) 80 mg PO QID PRN PRN Reason: Gas Stop: 03/10/18 14:48 Last Admin: 01/18/18 10:46 Dose: 80 mg Sodium Bicarbonate (Sodium Bicarbonate) 650 mg PO TID [facility]Y PRN Reason: Protocol Stop: 03/07/18 15:14 Last Admin: 01/20/18 14:08 Dose: 650 mg Tramadol HCl (Ultram) 50 mg PO Q6HR PRN PRN Reason: Pain (Moderate) Stop: 03/10/18 15:51 Last Admin: 01/19/18 20:15 Dose: 50 mg Zolpidem Tartrate (Ambien) 5 mg PO HS PRN PRN Reason: Insomnia Stop: 03/07/18 21:11 Last Admin: 01/19/18 21:40 Dose: 5 mg General: No acute distress HEENT: Mucous membr. 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 01/19: per daughter; home hospice. k better 01/20: low k and mg, correct and follow; palliative care only Nutritional Asmnt/Malnutr-PDOC - Dietary Evaluation Malnutrition Findings (Please click <Entered> for more info): Nutritional Asmnt/Malnutrition Start: 01/05/18 14: 24 Text: Status: Complete Freq: Document 01/05/18 14:[address] [facility] (Rec: 01/05/18 14:55 HEN [email or web address]) Nutritional Asmnt/Malnutrition Patient General Information Nutritional Screening High Risk Diagnosis dehydration, anemia, UTI, facial cellulitis Pertinent Medical Hx/Surgical Hx HTN, ESRD, thyroid disorder Subjective Information Pt seen lying in bed, awake and pleasant. Family at bedside feeding pt lunch. Family is able to speak little Danish, denied pt has chewing/swallowing problem, stated pt eating ok. Pt has teeth noted. Per EMR, pt consumed 100% of breakfast in the morning. Current Diet Order/ Nutrition Support regular Pertinent Medications D5-0.9%ns, synthorid, protonix Pertinent Labs 01/05 cl 112, BUN 32, Cr 1.3, Ca 8.5 Nutritional Hx/Data Height 1.52 m Height (Calculated Centimeters) 152.4 Current Weight (lbs) 58.06 kg Weight (Calculated Kilograms) 58.1 Weight (Calculated Grams) 90462.8 [place] Body Weight 100 Body Mass Index (BMI) 25.0 Weight Status Approriate GI Symptoms GI Symptoms None Last BM not indicated Difficult in: None Skin Integrity/Comment: face reddened Current %PO Good (75-100%) Estimated Nutritional Goals BEE in Kcals: Using Current wt Calories/Kcals/Kg 25-30 Kcals Calculated 3398-3499 Protein: Using Current wt Protein g/k monitor renal labs Protein Calculated 58 Fluid: ml 1450-1740ml (1ml/kcal) Nutritional Problem 1. Problem Problem altered nutrition related labs Etiology electrolytes imbalance and hx of ESRD Signs/Symptoms: cl 112, BUN 32, Cr 1.3, Ca 8.5 Malnutrition Alert Protein-Calorie Malnutrition N/A Is there a minimum of two criteria No selected? Query Text:Check all the applicable criteria. A minimum of two criteria are recommended for diagnosis of either severe or non-severe malnutrition. Intervention/Recommendation Comments 1. Continue with regular diet as ordered. Assist pt with meals as needed. 2. If BUN/Cr not improved, will consider renal diet. 2. Monitor PO intake, wt, labs and skin integrity 3. F/U as moderate risk in 3-5 days, 01/08-01/10 Expected Outcomes/Goals Expected Outcomes/Goals 1. PO intake to meet at least 75% of nutritional needs. 2. Wt stability, skin to remain intact, labs to approach WNL.
[2018-01-20] MEDS ORDERED: Mag Sulfate 2gm/50mL Premix 2 GM/50 ML BAG IV ONE (16:12)
[2018-01-20] MEDS ORDERED: KCL 20mEq/100mL Premix 20 MEQ/100 ML PIGGYBACK IV ONE (16:45)
--- NOTE | 2018-01-20 22:38 | General Progress Note ---
Subjective - Review of Systems Service Date: 01/20/18 Subjective: patient seen and examined noticed to have some sob family was at the bedside Objective - Results Result Diagrams: 01/19/18 05:54 01/20/18 06:30 Recent Labs: Laboratory Last Values WBC 9.1 Th/cmm (4.8-10.8) D 01/19/18 05:54 RBC 2.98 Mil/cmm (3.80-5.20) L 01/19/18 05:54 Hgb 8.4 gm/dL (12-16) L 01/19/18 05:54 Hct 24.6 % (41.0-60) L 01/19/18 05:54 MCV 82.5 fl (81-100) 01/19/18 05:54 MCH 28.1 pg (27.0-31.0) 01/19/18 05:54 MCHC Differential 34.1 pg (28.0-36.0) 01/19/18 05:54 RDW 16.1 % (11.5-20.0) 01/19/18 05:54 Plt Count 269 Th/cmm (150-400) 01/19/18 05:54 MPV 7.1 fl 01/19/18 05:54 Neutrophils % 84.1 % (40.0-80.0) H 01/19/18 05:54 Band Neutrophils % 1 % (0-10) 01/14/18 05:25 Lymphocytes % 10.4 % (20.0-50.0) L 01/19/18 05:54 Monocytes % 4.2 % (2.0-10.0) 01/19/18 05:54 Eosinophils % 1.0 % (0.0-5.0) 01/19/18 05:54 Basophils % 0.3 % (0.0-2.0) 01/19/18 05:54 Neutrophils (Manual) 89 % (40-80) H 01/14/18 05:25 Lymphocytes 8 % (20-50) L 01/14/18 05:25 Monocytes 2 % (2-10) 01/14/18 05:25 Eosinophils 0 % (0-5) 01/14/18 05:25 Basophils 0 % (0-3) 01/14/18 05:25 Eos Smear Source URINE 01/06/18 05:25 Eos Smear Total Cells NONE SEEN (NONE SEEN) 01/06/18 05:25 PT 11.1 SECONDS (9.5-11.5) 01/09/18 04:54 INR 1.07 (0.5-1.4) 01/09/18 04:54 PTT (Actin FS) 25.1 SECONDS (26.0-38.0) L 01/09/18 04:54 Sodium 136 mEq/L (136-145) 01/20/18 06:30 Potassium 3.2 mEq/L (3.5-5.1) L 01/20/18 06:30 Chloride 108 mEq/L (98-107) H 01/20/18 06:30 Carbon Dioxide 20.7 mEq/L (21.0-31.0) L 01/20/18 06:30 Anion Gap 10.5 (7.0-16.0) 01/20/18 06:30 BUN 17 mg/dL (7-25) 01/20/18 06:30 Creatinine 1.0 mg/dL (0.6-1.2) 01/20/18 06:30 Est GFR ( Amer) TNP 01/20/18 06:30 Est GFR (Non-Af Amer) TNP 01/20/18 06:30 BUN/Creatinine Ratio 17.0 01/20/18 06:30 Glucose 85 mg/dL (70-105) 01/20/18 06:30 Plasma/Ser Osmolality 289 mOsmol/kg (280-301) 01/07/18 06:02 Whole Bld Lactic Acid 1.72 mmol/L (0.60-1.99) 01/04/18 20:35 Uric Acid 6.5 mg/dL (2.3-6.6) 01/06/18 06:01 Calcium 7.8 mg/dL (8.6-10.3) L 01/20/18 06:30 Phosphorus 4.1 mg/dL (2.5-5.0) 01/06/18 06:01 Magnesium 1.5 mg/dL (1.9-2.7) L 01/19/18 05:54 Iron 43 ug/dL (27-139) 01/05/18 05:36 TIBC 254 ug/dL (250-450) 01/05/18 05:36 Iron Saturation 17 % (15-55) 01/05/18 05:36 Unsaturated IBC 211 ug/dL (118-369) 01/05/18 05:36 Ferritin 17 ng/mL (15-150) 01/05/18 05:36 Total Bilirubin 0.4 mg/dL (0.3-1.0) 01/18/18 13:54 AST 19 U/L (13-39) 01/18/18 13:54 ALT 16 U/L (7-52) 01/18/18 13:54 Alkaline Phosphatase 70 U/L (34-104) 01/18/18 13:54 Creatine Kinase 165 U/L (30-223) 01/04/18 20:35 Troponin I 0.02 ng/mL (0.01-0.05) 01/04/18 20:35 B-Natriuretic Peptide 1280.0 pg/mL (5.0-100.0) H 01/19/18 05:54 Total Protein 5.2 gm/dL (6.0-8.3) L 01/18/18 13:54 Albumin 2.4 gm/dL (3.7-5.3) L 01/18/18 13:54 Globulin 2.8 gm/dL 01/18/18 13:54 Albumin/Globulin Ratio 0.9 (1.0-1.8) L 01/18/18 13:54 Triglycerides 68 mg/dL (<150) 01/04/18 20:35 Cholesterol 115 mg/dL (<200) 01/04/18 20:35 LDL Cholesterol Direct 56 mg/dL (75-193) L 01/04/18 20:35 HDL Cholesterol 44 mg/dL (23-92) 01/04/18 20:35 Amylase 45 U/L (29-103) 01/06/18 06:01 Lipase 24 U/L (11-82) 01/06/18 06:01 Carcinoembryonic Ag 26.2 ng/mL (0.0-4.7) H 01/06/18 06:01 Vitamin B12 304 pg/mL (232-1245) 01/05/18 05:36 Folic Acid 14.5 ng/mL (>3.0) 01/05/18 05:36 TSH 4.28 uIU/ml (0.34-5.60) 01/05/18 05:36 Urine Source CLEAN C 01/04/18 20:20 Urine Color STRAW 01/04/18 20:20 Urine Clarity CLEAR (CLEAR) 01/04/18 20:20 Urine pH 5.5 (4.6 - 8.0) 01/04/18 20:20 Ur Specific [place] 1.015 (1.005-1.030) 01/04/18 20:20 Urine Protein NEGATIVE mg/dL (NEGATIVE) 01/04/18 20:20 Urine Glucose (UA) NEGATIVE mg/dL (NEGATIVE) 01/04/18 20:20 Urine Ketones NEGATIVE mg/dL (NEGATIVE) 01/04/18 20:20 Urine Blood NEGATIVE (NEGATIVE) 01/04/18 20:20 Urine Nitrate NEGATIVE (NEGATIVE) 01/04/18 20:20 Urine Bilirubin NEGATIVE (NEGATIVE) 01/04/18 20:20 Urine Urobilinogen 0.2 E.U./dL (0.2 - 1.0) 01/04/18 20:20 Ur Leukocyte Esterase TRACE (NEGATIVE) H 01/04/18 20:20 Urine RBC NONE SEEN /hpf (0-5) 01/04/18 20:20 Urine WBC 2-5 /hpf (0-5) 01/04/18 20:20 Ur Epithelial Cells NONE SEEN /lpf (FEW) 01/04/18 20:20 Urine Bacteria NONE SEEN /hpf (NONE SEEN) 01/04/18 20:20 Ur Random Sodium 99 mmol/L 01/06/18 05:25 Urine Creatinine 42.0 mg/dl (28.0-217.0) 01/06/18 05:25 Stool Occult Blood NEGATIVE (NEGATIVE) 01/07/18 17:25 Blood Type O POSITIVE 01/10/18 07:20 Antibody Screen POSITIVE 01/10/18 07:20 Antibody Identification Anti-C Anti-e 01/10/18 07:20 Antibody Identification Anti-C Anti-e 01/10/18 07:20 Crossmatch See Detail 01/10/18 07:20 - Physical Exam Vitals and I&O: Vital Signs Temp 98.7 F 01/20/18 20:00 Pulse 97 01/20/18 20:00 Resp 18 01/20/18 20:00 BP 106/67 01/20/18 20:00 Pulse Ox 97 01/20/18 20:00 Intake & Output 01/20/18 01/20/18 01/21/18 06:59 18:59 06:59 Intake Total 50 450 Output Total 2850 Balance 50 -2400 Weight (lbs) 72.121 kg Intake: Intake, IV Amount 50 50 Piperacillin Sodium/ 50 50 Tazobact 3.375 gm In Dextrose 5% 50 ml @ 100 mls/hr IV Q8H [facility] Rx#: [id number] Oral 400 Output: Urine 2850 Other: Weight Source Bedscale Active Medications: Current Medications Albuterol/Ipratropium (Duoneb Neb) 3 ml HHN Q6HRT [facility] Stop: 03/08/18 18:59 Last Admin: 01/20/18 19:18 Dose: 3 ml Amlodipine Besylate (Norvasc) 5 mg PO DAILY [facility] Stop: 03/06/18 08:59 Last Admin: 01/20/18 09:43 Dose: 5 mg Benzocaine/Menthol (Cepacol) 1 cooper MM Q4HR PRN PRN Reason: Sore Throat Stop: 03/10/18 15:50 Last Admin: 01/16/18 23:44 Dose: 1 cooper Ferrous Sulfate (Iron) 325 mg PO BID [facility] Stop: 03/17/18 10:14 Last Admin: 01/20/18 18:00 Dose: 325 mg Heparin Sodium (Porcine) (Heparin) 5,000 units SUBQ Q12HR [facility] Stop: 03/17/18 10:14 Last Admin: 01/20/18 20:57 Dose: 5,000 units Piperacillin Sod/Tazobactam (Sod 3.375 gm/ Dextrose) 50 mls @ 100 mls/hr IV Q8H [facility] Stop: 03/13/18 09:14 Last Admin: 01/20/18 18:00 Dose: 100 mls/hr Lactobacillus Rhamnosus (Culturelle 15b) 1 each PO DAILY [facility] Stop: 03/22/18 08:59 Levothyroxine Sodium (Synthroid) 0.025 mg PO QDAC [facility] Stop: 03/06/18 07:29 Last Admin: 01/20/18 06:51 Dose: 0.025 mg Losartan Potassium (Cozaar) 100 mg PO DAILY [facility] Stop: 03/07/18 10:59 Last Admin: 01/20/18 09:42 Dose: 100 mg Miscellaneous (Vte Chemical Prophylaxis Screen/ Admission) 1 ea [facility] PRN PRN PRN Reason: PROTOCOL Stop: 03/06/18 08:14 Miscellaneous (Clinical Monitoring) 1 ea [facility] DAILY PRN PRN Reason: RENAL Stop: 03/16/18 08:53 Miscellaneous (Probiotic Screen) 1 ea [facility] PRN PRN PRN Reason: PROTOCOL Stop: 03/21/18 13:27 Ondansetron HCl (Zofran) 4 mg IV Q6H PRN PRN Reason: Nausea / Vomiting Stop: 03/17/18 09:43 Last Admin: 01/16/18 09:57 Dose: 4 mg Oxybutynin Chloride (Ditropan) 5 mg PO BID [facility] Stop: 03/06/18 16:59 Last Admin: 01/20/18 18:00 Dose: 5 mg Pantoprazole Sodium (Protonix) 40 mg IVP DAILY [facility] Stop: 03/06/18 08:59 Last Admin: 01/20/18 09:44 Dose: 40 mg Simethicone (Mylicon) 80 mg PO QID PRN PRN Reason: Gas Stop: 03/10/18 14:48 Last Admin: 01/20/18 22:02 Dose: 80 mg Sodium Bicarbonate (Sodium Bicarbonate) 650 mg PO TID [facility] PRN Reason: Protocol Stop: 03/07/18 15:14 Last Admin: 01/20/18 20:57 Dose: 650 mg Tramadol HCl (Ultram) 50 mg PO Q6HR PRN PRN Reason: Pain (Moderate) Stop: 03/10/18 15:51 Last Admin: 01/19/18 20:15 Dose: 50 mg Zolpidem Tartrate (Ambien) 5 mg PO HS PRN PRN Reason: Insomnia Stop: 03/07/18 21:11 Last Admin: 01/20/18 21:51 Dose: 5 mg General: No acute distress Cardiovascular: Regular rate Lungs: Other (rales) Abdomen: Soft, no Tender, no Distended Extremities: Edema Neurological: Sensation intact Skin: no Rash Psych/Mental Status: Mood NL - Procedures Procedures: Procedures Procedure Code Date COLONOSCOPY AND BIOPSY 21193 01/04/18 EXCISION OF ASCENDING COLON, ENDO, DIAGN [id number] 01/04/18 PARTIAL REMOVAL OF COLON 77252 01/04/18 RESECTION OF RIGHT LARGE INTESTINE, OPEN APPROACH [id number] 01/04/18 Assessment/Plan - Problem List Patient Problems: All Active Problems Colonic mass (Acute) K63.9 - Assessment Assessment: Metastatic Adenocarcinoma of colon Acute respiratory distress Chronic hyponatremia Acute on CKD better Chronic constipation HTN CAD UTI SEPTIC SHOCK - Plan Plan: Lasix dose ordered DC plan for home with Hospice per daughter and patient Daughter had meeting with HOSPICE nurse . Daughter is agreeable for home hospice Continue current treatment Nutritional Asmnt/Malnutr-PDOC - Dietary Evaluation Malnutrition Findings (Please click <Entered> for more info): Nutritional Asmnt/Malnutrition Start: 01/05/18 14: 24 Text: Status: Complete Freq: Document 01/05/18 14:24 LCHENG (Rec: 01/05/18 14:55 LCHENG [email or web address]) Nutritional Asmnt/Malnutrition Patient General Information Nutritional Screening High Risk Diagnosis dehydration, anemia, UTI, facial cellulitis Pertinent Medical Hx/Surgical Hx HTN, ESRD, thyroid disorder Subjective Information Pt seen lying in bed, awake and pleasant. Family at bedside feeding pt lunch. Family is able to speak little Tajik, denied pt has chewing/swallowing problem, stated pt eating ok. Pt has teeth noted. Per EMR, pt consumed 100% of breakfast in the morning. Current Diet Order/ Nutrition Support regular Pertinent Medications D5-0.9%ns, synthorid, protonix Pertinent Labs 01/05 cl 112, BUN 32, Cr 1.3, Ca 8.5 Nutritional Hx/Data Height 1.52 m Height (Calculated Centimeters) 152.4 Current Weight (lbs) 58.06 kg Weight (Calculated Kilograms) 58.1 Weight (Calculated Grams) 82749.8 [place] Body Weight 100 Body Mass Index (BMI) 25.0 Weight Status Approriate GI Symptoms GI Symptoms None Last BM not indicated Difficult in: None Skin Integrity/Comment: face reddened Current %PO Good (75-100%) Estimated Nutritional Goals BEE in Kcals: Using Current wt Calories/Kcals/Kg 25-30 Kcals Calculated 8949-8623 Protein: Using Current wt Protein g/k monitor renal labs Protein Calculated 58 Fluid: ml 1450-1740ml (1ml/kcal) Nutritional Problem 1. Problem Problem altered nutrition related labs Etiology electrolytes imbalance and hx of ESRD Signs/Symptoms: cl 112, BUN 32, Cr 1.3, Ca 8.5 Malnutrition Alert Protein-Calorie Malnutrition N/A Is there a minimum of two criteria No selected? Query Text:Check all the applicable criteria. A minimum of two criteria are recommended for diagnosis of either severe or non-severe malnutrition. Intervention/Recommendation Comments 1. Continue with regular diet as ordered. Assist pt with meals as needed. 2. If BUN/Cr not improved, will consider renal diet. 2. Monitor PO intake, wt, labs and skin integrity 3. F/U as moderate risk in 3-5 days, 01/08-01/10 Expected Outcomes/Goals Expected Outcomes/Goals 1. PO intake to meet at least 75% of nutritional needs. 2. Wt stability, skin to remain intact, labs to approach WNL.
[2018-01-21] MEDS: Albuterol/Ipratropium Neb 3 ML AERS HHN SCH ×4 (01:22→19:43)
[2018-01-21 06:32] LABS: ANION GAP 10.8 (7.0-16.0); BUN - UREA NITROGEN 15 mg/dL (7-25); CALCIUM SERUM 7.8 mg/dL (8.6-10.3); CARBON DIOXIDE 24.3 mEq/L (21.0-31.0); CHLORIDE 103 mEq/L (98-107); CREATININE - SERUM 0.9 mg/dL (0.6-1.2); GLUCOSE 83 mg/dL (70-105); MAGNESIUM 1.7 mg/dL (1.9-2.7); POTASSIUM SERUM 3.1 mEq/L (3.5-5.1); SODIUM SERUM 135 mEq/L (136-145)
[2018-01-21] MEDS: Levothyroxine 0.025 Mg Tab PO SCH (07:06)
[2018-01-21] MEDS: Lactobacillus Rhamnosus GG 15 Billion CFU CAP.SPRINK PO SCH (08:24)
[2018-01-21] MEDS: Ferrous Sulfate 325 MG TAB PO SCH ×2 (08:24→16:39)
--- NOTE | 2018-01-21 10:51 | General Progress Note ---
Subjective - Review of Systems Service Date: 01/21/18 Events since last encounter: incision not healing well with drainage at incision and skin necrosis on left side of incision, away from inicision will need dressing change as needed, antibiotics post DC on Hospice, family has decided on taking patient home Objective - Results Result Diagrams: 01/19/18 05:54 01/21/18 05:35 Recent Labs: Laboratory Last Values WBC 9.1 Th/cmm (4.8-10.8) D 01/19/18 05:54 RBC 2.98 Mil/cmm (3.80-5.20) L 01/19/18 05:54 Hgb 8.4 gm/dL (12-16) L 01/19/18 05:54 Hct 24.6 % (41.0-60) L 01/19/18 05:54 MCV 82.5 fl (81-100) 01/19/18 05:54 MCH 28.1 pg (27.0-31.0) 01/19/18 05:54 MCHC Differential 34.1 pg (28.0-36.0) 01/19/18 05:54 RDW 16.1 % (11.5-20.0) 01/19/18 05:54 Plt Count 269 Th/cmm (150-400) 01/19/18 05:54 MPV 7.1 fl 01/19/18 05:54 Neutrophils % 84.1 % (40.0-80.0) H 01/19/18 05:54 Band Neutrophils % 1 % (0-10) 01/14/18 05:25 Lymphocytes % 10.4 % (20.0-50.0) L 01/19/18 05:54 Monocytes % 4.2 % (2.0-10.0) 01/19/18 05:54 Eosinophils % 1.0 % (0.0-5.0) 01/19/18 05:54 Basophils % 0.3 % (0.0-2.0) 01/19/18 05:54 Neutrophils (Manual) 89 % (40-80) H 01/14/18 05:25 Lymphocytes 8 % (20-50) L 01/14/18 05:25 Monocytes 2 % (2-10) 01/14/18 05:25 Eosinophils 0 % (0-5) 01/14/18 05:25 Basophils 0 % (0-3) 01/14/18 05:25 Eos Smear Source URINE 01/06/18 05:25 Eos Smear Total Cells NONE SEEN (NONE SEEN) 01/06/18 05:25 PT 11.1 SECONDS (9.5-11.5) 01/09/18 04:54 INR 1.07 (0.5-1.4) 01/09/18 04:54 PTT (Actin FS) 25.1 SECONDS (26.0-38.0) L 01/09/18 04:54 Sodium 135 mEq/L (136-145) L 01/21/18 05:35 Potassium 3.1 mEq/L (3.5-5.1) L 01/21/18 05:35 Chloride 103 mEq/L (98-107) 01/21/18 05:35 Carbon Dioxide 24.3 mEq/L (21.0-31.0) 01/21/18 05:35 Anion Gap 10.8 (7.0-16.0) 01/21/18 05:35 BUN 15 mg/dL (7-25) 01/21/18 05:35 Creatinine 0.9 mg/dL (0.6-1.2) 01/21/18 05:35 Est GFR ( Amer) TNP 01/21/18 05:35 Est GFR (Non-Af Amer) TNP 01/21/18 05:35 BUN/Creatinine Ratio 16.7 01/21/18 05:35 Glucose 83 mg/dL (70-105) 01/21/18 05:35 Plasma/Ser Osmolality 289 mOsmol/kg (280-301) 01/07/18 06:02 Whole Bld Lactic Acid 1.72 mmol/L (0.60-1.99) 01/04/18 20:35 Uric Acid 6.5 mg/dL (2.3-6.6) 01/06/18 06:01 Calcium 7.8 mg/dL (8.6-10.3) L 01/21/18 05:35 Phosphorus 4.1 mg/dL (2.5-5.0) 01/06/18 06:01 Magnesium 1.7 mg/dL (1.9-2.7) L 01/21/18 05:35 Iron 43 ug/dL (27-139) 01/05/18 05:36 TIBC 254 ug/dL (250-450) 01/05/18 05:36 Iron Saturation 17 % (15-55) 01/05/18 05:36 Unsaturated IBC 211 ug/dL (118-369) 01/05/18 05:36 Ferritin 17 ng/mL (15-150) 01/05/18 05:36 Total Bilirubin 0.4 mg/dL (0.3-1.0) 01/18/18 13:54 AST 19 U/L (13-39) 01/18/18 13:54 ALT 16 U/L (7-52) 01/18/18 13:54 Alkaline Phosphatase 70 U/L (34-104) 01/18/18 13:54 Creatine Kinase 165 U/L (30-223) 01/04/18 20:35 Troponin I 0.02 ng/mL (0.01-0.05) 01/04/18 20:35 B-Natriuretic Peptide 1280.0 pg/mL (5.0-100.0) H 01/19/18 05:54 Total Protein 5.2 gm/dL (6.0-8.3) L 01/18/18 13:54 Albumin 2.4 gm/dL (3.7-5.3) L 01/18/18 13:54 Globulin 2.8 gm/dL 01/18/18 13:54 Albumin/Globulin Ratio 0.9 (1.0-1.8) L 01/18/18 13:54 Triglycerides 68 mg/dL (<150) 01/04/18 20:35 Cholesterol 115 mg/dL (<200) 01/04/18 20:35 LDL Cholesterol Direct 56 mg/dL (75-193) L 01/04/18 20:35 HDL Cholesterol 44 mg/dL (23-92) 01/04/18 20:35 Amylase 45 U/L (29-103) 01/06/18 06:01 Lipase 24 U/L (11-82) 01/06/18 06:01 Carcinoembryonic Ag 26.2 ng/mL (0.0-4.7) H 01/06/18 06:01 Vitamin B12 304 pg/mL (232-1245) 01/05/18 05:36 Folic Acid 14.5 ng/mL (>3.0) 01/05/18 05:36 TSH 4.28 uIU/ml (0.34-5.60) 01/05/18 05:36 Urine Source CLEAN C 01/04/18 20:20 Urine Color STRAW 01/04/18 20:20 Urine Clarity CLEAR (CLEAR) 01/04/18 20:20 Urine pH 5.5 (4.6 - 8.0) 01/04/18 20:20 Ur Specific [place] 1.015 (1.005-1.030) 01/04/18 20:20 Urine Protein NEGATIVE mg/dL (NEGATIVE) 01/04/18 20:20 Urine Glucose (UA) NEGATIVE mg/dL (NEGATIVE) 01/04/18 20:20 Urine Ketones NEGATIVE mg/dL (NEGATIVE) 01/04/18 20:20 Urine Blood NEGATIVE (NEGATIVE) 01/04/18 20:20 Urine Nitrate NEGATIVE (NEGATIVE) 01/04/18 20:20 Urine Bilirubin NEGATIVE (NEGATIVE) 01/04/18 20:20 Urine Urobilinogen 0.2 E.U./dL (0.2 - 1.0) 01/04/18 20:20 Ur Leukocyte Esterase TRACE (NEGATIVE) H 01/04/18 20:20 Urine RBC NONE SEEN /hpf (0-5) 01/04/18 20:20 Urine WBC 2-5 /hpf (0-5) 01/04/18 20:20 Ur Epithelial Cells NONE SEEN /lpf (FEW) 01/04/18 20:20 Urine Bacteria NONE SEEN /hpf (NONE SEEN) 01/04/18 20:20 Ur Random Sodium 99 mmol/L 01/06/18 05:25 Urine Creatinine 42.0 mg/dl (28.0-217.0) 01/06/18 05:25 Stool Occult Blood NEGATIVE (NEGATIVE) 01/07/18 17:25 Blood Type O POSITIVE 01/10/18 07:20 Antibody Screen POSITIVE 01/10/18 07:20 Antibody Identification Anti-C Anti-e 01/10/18 07:20 Antibody Identification Anti-C Anti-e 01/10/18 07:20 Crossmatch See Detail 01/10/18 07:20 - Physical Exam Vitals and I&O: Vital Signs Temp 98.1 F 01/21/18 08:15 Pulse 65 01/21/18 08:15 Resp 18 01/21/18 08:15 BP 114/70 01/21/18 08:15 Pulse Ox 97 01/21/18 08:15 Intake & Output 01/20/18 01/21/18 01/21/18 18:59 06:59 18:59 Intake Total 500 300 Output Total 2850 1300 Balance -2350 -1000 Weight (lbs) 72.121 kg 71.214 kg Intake: Intake, IV Amount 100 200 KCL 20mEq/100mL Premix 20 100 meq In 100 ml @ 50 mls/ hr IV ONCE ONE Rx#: [id number] Mag Sulfate 2gm/50mL 50 Premix 2 gm In 50 ml @ 25 mls/hr IV X1 [facility] Rx#: [id number] Piperacillin Sodium/ 100 50 Tazobact 3.375 gm In Dextrose 5% 50 ml @ 100 mls/hr IV Q8H [facility] Rx#: [id number] Oral 400 100 Output: Urine 2850 1300 Other: # Voids 2 Weight Source Bedscale Bedscale Active Medications: Current Medications Albuterol/Ipratropium (Duoneb Neb) 3 ml HHN Q6HRT [facility] Stop: 03/08/18 18:59 Last Admin: 01/21/18 07:31 Dose: 3 ml Amlodipine Besylate (Norvasc) 5 mg PO DAILY [facility] Stop: 03/06/18 08:59 Last Admin: 01/21/18 08:15 Dose: Not Given Benzocaine/Menthol (Cepacol) 1 cooper MM Q4HR PRN PRN Reason: Sore Throat Stop: 03/10/18 15:50 Last Admin: 01/16/18 23:44 Dose: 1 cooper Ferrous Sulfate (Iron) 325 mg PO BID [facility] Stop: 03/17/18 10:14 Last Admin: 01/21/18 08:24 Dose: 325 mg Heparin Sodium (Porcine) (Heparin) 5,000 units SUBQ Q12HR [facility] Stop: 03/17/18 10:14 Last Admin: 01/21/18 08:24 Dose: 5,000 units Piperacillin Sod/Tazobactam (Sod 3.375 gm/ Dextrose) 50 mls @ 100 mls/hr IV Q8H [facility] Stop: 03/13/18 09:14 Last Admin: 01/21/18 08:24 Dose: 100 mls/hr Lactobacillus Rhamnosus (Culturelle 15b) 1 each PO DAILY [facility] Stop: 03/22/18 08:59 Last Admin: 01/21/18 08:24 Dose: 1 each Levothyroxine Sodium (Synthroid) 0.025 mg PO QDAC [facility] Stop: 03/06/18 07:29 Last Admin: 01/21/18 07:06 Dose: 0.025 mg Losartan Potassium (Cozaar) 100 mg PO DAILY [facility] Stop: 03/07/18 10:59 Last Admin: 01/21/18 08:15 Dose: Not Given Miscellaneous (Vte Chemical Prophylaxis Screen/ Admission) 1 ea PRN PRN PRN Reason: PROTOCOL Stop: 03/06/18 08:14 Miscellaneous (Clinical Monitoring) 1 ea DAILY PRN PRN Reason: RENAL Stop: 03/16/18 08:53 Miscellaneous (Probiotic Screen) 1 [facility] PRN PRN PRN Reason: PROTOCOL Stop: 03/21/18 13:27 Ondansetron HCl (Zofran) 4 mg IV Q6H PRN PRN Reason: Nausea / Vomiting Stop: 03/17/18 09:43 Last Admin: 01/16/18 09:57 Dose: 4 mg Oxybutynin Chloride (Ditropan) 5 mg PO BID [facility] Stop: 03/06/18 16:59 Last Admin: 01/21/18 08:24 Dose: 5 mg Pantoprazole Sodium (Protonix) 40 mg IVP DAILY [facility] Stop: 03/06/18 08:59 Last Admin: 01/21/18 08:24 Dose: 40 mg Potassium Chloride (Klor-Con) 40 meq PO X1 [facility] Stop: 01/21/18 11:01 Simethicone (Mylicon) 80 mg PO QID PRN PRN Reason: Gas Stop: 03/10/18 14:48 Last Admin: 01/20/18 22:02 Dose: 80 mg Sodium Bicarbonate (Sodium Bicarbonate) 650 mg PO TID [facility] PRN Reason: Protocol Stop: 03/07/18 15:14 Last Admin: 01/21/18 08:24 Dose: 650 mg Tramadol HCl (Ultram) 50 mg PO Q6HR PRN PRN Reason: Pain (Moderate) Stop: 03/10/18 15:51 Last Admin: 01/19/18 20:15 Dose: 50 mg Zolpidem Tartrate (Ambien) 5 mg PO HS PRN PRN Reason: Insomnia Stop: 03/07/18 21:11 Last Admin: 01/20/18 21:51 Dose: 5 mg General: No acute distress HEENT: Mucous membr. moist/pink Neck: Supple Cardiovascular: Regular rate Lungs: Other (rales) Abdomen: Soft, no Tender, no Distended Extremities: Edema Neurological: Sensation intact Skin: no Rash Psych/Mental Status: Mood NL - Procedures Procedures: Procedures Procedure Code Date COLONOSCOPY AND BIOPSY 58588 01/04/18 EXCISION OF ASCENDING COLON, ENDO, DIAGN [id number] 01/04/18 PARTIAL REMOVAL OF COLON 36944 01/04/18 RESECTION OF RIGHT LARGE INTESTINE, OPEN APPROACH [id number] 01/04/18 Assessment/Plan - Problem List Patient Problems: All Active Problems Colonic mass (Acute) K63.9 Nutritional Asmnt/Malnutr-PDOC - Dietary Evaluation Malnutrition Findings (Please click <Entered> for more info): Nutritional Asmnt/Malnutrition Start: 01/05/18 14: 24 Text: Status: Complete Freq: Document 01/05/18 14:24 LCHENG (Rec: 01/05/18 14:55 LCHENG [email or web address]) Nutritional Asmnt/Malnutrition Patient General Information Nutritional Screening High Risk Diagnosis dehydration, anemia, UTI, facial cellulitis Pertinent Medical Hx/Surgical Hx HTN, ESRD, thyroid disorder Subjective Information Pt seen lying in bed, awake and pleasant. Family at bedside feeding pt lunch. Family is able to speak little [place]iny[place], denied pt has chewing/swallowing problem, stated pt eating ok. Pt has teeth noted. Per EMR, pt consumed 100% of breakfast in the morning. Current Diet Order/ Nutrition Support regular Pertinent Medications D5-0.9%ns, synthorid, protonix Pertinent Labs 01/05 cl 112, BUN 32, Cr 1.3, Ca 8.5 Nutritional Hx/Data Height 1.52 m Height (Calculated Centimeters) 152.4 Current Weight (lbs) 58.06 kg Weight (Calculated Kilograms) 58.1 Weight (Calculated Grams) 69271.8 [place] Body Weight 100 Body Mass Index (BMI) 25.0 Weight Status Approriate GI Symptoms GI Symptoms None Last BM not indicated Difficult in: None Skin Integrity/Comment: face reddened Current %PO Good (75-100%) Estimated Nutritional Goals BEE in Kcals: Using Current wt Calories/Kcals/Kg 25-30 Kcals Calculated 9485-8646 Protein: Using Current wt Protein g/k monitor renal labs Protein Calculated 58 Fluid: ml 1450-1740ml (1ml/kcal) Nutritional Problem 1. Problem Problem altered nutrition related labs Etiology electrolytes imbalance and hx of ESRD Signs/Symptoms: cl 112, BUN 32, Cr 1.3, Ca 8.5 Malnutrition Alert Protein-Calorie Malnutrition N/A Is there a minimum of two criteria No selected? Query Text:Check all the applicable criteria. A minimum of two criteria are recommended for diagnosis of either severe or non-severe malnutrition. Intervention/Recommendation Comments 1. Continue with regular diet as ordered. Assist pt with meals as needed. 2. If BUN/Cr not improved, will consider renal diet. 2. Monitor PO intake, wt, labs and skin integrity 3. F/U as moderate risk in 3-5 days, 01/08-01/10 Expected Outcomes/Goals Expected Outcomes/Goals 1. PO intake to meet at least 75% of nutritional needs. 2. Wt stability, skin to remain intact, labs to approach WNL.
[2018-01-21] MEDS ORDERED: Potassium Chloride 20 mEq ER Tab PO ONE (11:00)
[2018-01-21] MEDS ORDERED: Potassium Chloride 40 MEQ, Lidocaine 1% 20mL Vial 25 MG in Sodium Chloride 0.9% 250 ML IV ONE (13:23)
--- NOTE | 2018-01-21 13:26 | General Progress Note ---
Subjective - Review of Systems Service Date: 01/21/18 Subjective: eating, no vomiting, tolerating oral diet. daughter bed side Objective - Results Result Diagrams: 01/19/18 05:54 01/21/18 05:35 Recent Labs: Laboratory Last Values WBC 9.1 Th/cmm (4.8-10.8) D 01/19/18 05:54 RBC 2.98 Mil/cmm (3.80-5.20) L 01/19/18 05:54 Hgb 8.4 gm/dL (12-16) L 01/19/18 05:54 Hct 24.6 % (41.0-60) L 01/19/18 05:54 MCV 82.5 fl (81-100) 01/19/18 05:54 MCH 28.1 pg (27.0-31.0) 01/19/18 05:54 MCHC Differential 34.1 pg (28.0-36.0) 01/19/18 05:54 RDW 16.1 % (11.5-20.0) 01/19/18 05:54 Plt Count 269 Th/cmm (150-400) 01/19/18 05:54 MPV 7.1 fl 01/19/18 05:54 Neutrophils % 84.1 % (40.0-80.0) H 01/19/18 05:54 Band Neutrophils % 1 % (0-10) 01/14/18 05:25 Lymphocytes % 10.4 % (20.0-50.0) L 01/19/18 05:54 Monocytes % 4.2 % (2.0-10.0) 01/19/18 05:54 Eosinophils % 1.0 % (0.0-5.0) 01/19/18 05:54 Basophils % 0.3 % (0.0-2.0) 01/19/18 05:54 Neutrophils (Manual) 89 % (40-80) H 01/14/18 05:25 Lymphocytes 8 % (20-50) L 01/14/18 05:25 Monocytes 2 % (2-10) 01/14/18 05:25 Eosinophils 0 % (0-5) 01/14/18 05:25 Basophils 0 % (0-3) 01/14/18 05:25 Eos Smear Source URINE 01/06/18 05:25 Eos Smear Total Cells NONE SEEN (NONE SEEN) 01/06/18 05:25 PT 11.1 SECONDS (9.5-11.5) 01/09/18 04:54 INR 1.07 (0.5-1.4) 01/09/18 04:54 PTT (Actin FS) 25.1 SECONDS (26.0-38.0) L 01/09/18 04:54 Sodium 135 mEq/L (136-145) L 01/21/18 05:35 Potassium 3.1 mEq/L (3.5-5.1) L 01/21/18 05:35 Chloride 103 mEq/L (98-107) 01/21/18 05:35 Carbon Dioxide 24.3 mEq/L (21.0-31.0) 01/21/18 05:35 Anion Gap 10.8 (7.0-16.0) 01/21/18 05:35 BUN 15 mg/dL (7-25) 01/21/18 05:35 Creatinine 0.9 mg/dL (0.6-1.2) 01/21/18 05:35 Est GFR ( Amer) TNP 01/21/18 05:35 Est GFR (Non-Af Amer) TNP 01/21/18 05:35 BUN/Creatinine Ratio 16.7 01/21/18 05:35 Glucose 83 mg/dL (70-105) 01/21/18 05:35 Plasma/Ser Osmolality 289 mOsmol/kg (280-301) 01/07/18 06:02 Whole Bld Lactic Acid 1.72 mmol/L (0.60-1.99) 01/04/18 20:35 Uric Acid 6.5 mg/dL (2.3-6.6) 01/06/18 06:01 Calcium 7.8 mg/dL (8.6-10.3) L 01/21/18 05:35 Phosphorus 4.1 mg/dL (2.5-5.0) 01/06/18 06:01 Magnesium 1.7 mg/dL (1.9-2.7) L 01/21/18 05:35 Iron 43 ug/dL (27-139) 01/05/18 05:36 TIBC 254 ug/dL (250-450) 01/05/18 05:36 Iron Saturation 17 % (15-55) 01/05/18 05:36 Unsaturated IBC 211 ug/dL (118-369) 01/05/18 05:36 Ferritin 17 ng/mL (15-150) 01/05/18 05:36 Total Bilirubin 0.4 mg/dL (0.3-1.0) 01/18/18 13:54 AST 19 U/L (13-39) 01/18/18 13:54 ALT 16 U/L (7-52) 01/18/18 13:54 Alkaline Phosphatase 70 U/L (34-104) 01/18/18 13:54 Creatine Kinase 165 U/L (30-223) 01/04/18 20:35 Troponin I 0.02 ng/mL (0.01-0.05) 01/04/18 20:35 B-Natriuretic Peptide 1280.0 pg/mL (5.0-100.0) H 01/19/18 05:54 Total Protein 5.2 gm/dL (6.0-8.3) L 01/18/18 13:54 Albumin 2.4 gm/dL (3.7-5.3) L 01/18/18 13:54 Globulin 2.8 gm/dL 01/18/18 13:54 Albumin/Globulin Ratio 0.9 (1.0-1.8) L 01/18/18 13:54 Triglycerides 68 mg/dL (<150) 01/04/18 20:35 Cholesterol 115 mg/dL (<200) 01/04/18 20:35 LDL Cholesterol Direct 56 mg/dL (75-193) L 01/04/18 20:35 HDL Cholesterol 44 mg/dL (23-92) 01/04/18 20:35 Amylase 45 U/L (29-103) 01/06/18 06:01 Lipase 24 U/L (11-82) 01/06/18 06:01 Carcinoembryonic Ag 26.2 ng/mL (0.0-4.7) H 01/06/18 06:01 Vitamin B12 304 pg/mL (232-1245) 01/05/18 05:36 Folic Acid 14.5 ng/mL (>3.0) 01/05/18 05:36 TSH 4.28 uIU/ml (0.34-5.60) 01/05/18 05:36 Urine Source CLEAN C 01/04/18 20:20 Urine Color STRAW 01/04/18 20:20 Urine Clarity CLEAR (CLEAR) 01/04/18 20:20 Urine pH 5.5 (4.6 - 8.0) 01/04/18 20:20 Ur Specific [place] 1.015 (1.005-1.030) 01/04/18 20:20 Urine Protein NEGATIVE mg/dL (NEGATIVE) 01/04/18 20:20 Urine Glucose (UA) NEGATIVE mg/dL (NEGATIVE) 01/04/18 20:20 Urine Ketones NEGATIVE mg/dL (NEGATIVE) 01/04/18 20:20 Urine Blood NEGATIVE (NEGATIVE) 01/04/18 20:20 Urine Nitrate NEGATIVE (NEGATIVE) 01/04/18 20:20 Urine Bilirubin NEGATIVE (NEGATIVE) 01/04/18 20:20 Urine Urobilinogen 0.2 E.U./dL (0.2 - 1.0) 01/04/18 20:20 Ur Leukocyte Esterase TRACE (NEGATIVE) H 01/04/18 20:20 Urine RBC NONE SEEN /hpf (0-5) 01/04/18 20:20 Urine WBC 2-5 /hpf (0-5) 01/04/18 20:20 Ur Epithelial Cells NONE SEEN /lpf (FEW) 01/04/18 20:20 Urine Bacteria NONE SEEN /hpf (NONE SEEN) 01/04/18 20:20 Ur Random Sodium 99 mmol/L 01/06/18 05:25 Urine Creatinine 42.0 mg/dl (28.0-217.0) 01/06/18 05:25 Stool Occult Blood NEGATIVE (NEGATIVE) 01/07/18 17:25 Blood Type O POSITIVE 01/10/18 07:20 Antibody Screen POSITIVE 01/10/18 07:20 Antibody Identification Anti-C Anti-e 01/10/18 07:20 Antibody Identification Anti-C Anti-e 01/10/18 07:20 Crossmatch See Detail 01/10/18 07:20 - Physical Exam Vitals and I&O: Vital Signs Temp 98.1 F 01/21/18 08:15 Pulse 107 01/21/18 12:44 Resp 16 01/21/18 12:44 BP 114/70 01/21/18 08:15 Pulse Ox 98 01/21/18 12:44 Intake & Output 01/20/1818 01/21/18 18:59 06:59 18:59 Intake Total 500 300 Output Total 2850 1300 Balance -2350 -1000 Weight (lbs) 72.121 kg 71.214 kg Intake: Intake, IV Amount 100 200 KCL 20mEq/100mL Premix 20 100 meq In 100 ml @ 50 mls/ hr IV ONCE ONE Rx#: [id number] Mag Sulfate 2gm/50mL 50 Premix 2 gm In 50 ml @ 25 mls/hr IV X1 ONE Rx#: [id number] Piperacillin Sodium/ 100 50 Tazobact 3.375 gm In Dextrose 5% 50 ml @ 100 mls/hr IV Q8H [facility] Rx#: [id number] Oral 400 100 Output: Urine 2850 1300 Other: # Voids 2 Weight Source Bedscale Bedscale Active Medications: Current Medications Albuterol/Ipratropium (Duoneb Neb) 3 ml HHN Q6HRT [facility] Stop: 03/08/18 18:59 Last Admin: 01/21/18 12:42 Dose: 3 ml Amlodipine Besylate (Norvasc) 5 mg PO DAILY ANTHONY Stop: 03/06/18 08:59 Last Admin: 01/21/18 08:15 Dose: Not Given Benzocaine/Menthol (Cepacol) 1 cooper MM Q4HR PRN PRN Reason: Sore Throat Stop: 03/10/18 15:50 Last Admin: 01/16/18 23:44 Dose: 1 cooper Ferrous Sulfate (Iron) 325 mg PO BID ANTHONY Stop: 03/17/18 10:14 Last Admin: 01/21/18 08:24 Dose: 325 mg Heparin Sodium (Porcine) (Heparin) 5,000 units SUBQ Q12HR ANTHONY Stop: 03/17/18 10:14 Last Admin: 01/21/18 08:24 Dose: 5,000 units Piperacillin Sod/Tazobactam (Sod 3.375 gm/ Dextrose) 50 mls @ 100 mls/hr IV Q8H ANTHONY Stop: 03/13/18 09:14 Last Admin: 01/21/18 08:24 Dose: 100 mls/hr Potassium Chloride 40 meq/Lidocaine HCl 25 mg/ Sodium Chloride 272.5 mls @ 68 mls/hr IV X1 ONE Stop: 01/21/18 17:23 Magnesium Sulfate (Magnesium Sulfate Premix) 2 gm in 50 mls @ 25 mls/hr IV X1 ONE Stop: 01/21/18 15:21 Lactobacillus Rhamnosus (Culturelle 15b) 1 each PO DAILY ANTHONY Stop: 03/22/18 08:59 Last Admin: 01/21/18 08:24 Dose: 1 each Levothyroxine Sodium (Synthroid) 0.025 mg PO QDAC ANTHONY Stop: 03/06/18 07:29 Last Admin: 01/21/18 07:06 Dose: 0.025 mg Losartan Potassium (Cozaar) 100 mg PO DAILY ANTHONY Stop: 03/07/18 10:59 Last Admin: 01/21/18 08:15 Dose: Not Given Miscellaneous (Vte Chemical Prophylaxis Screen/ Admission) 1 ea PRN PRN PRN Reason: PROTOCOL Stop: 03/06/18 08:14 Miscellaneous (Clinical Monitoring) 1 ea MC DAILY PRN PRN Reason: RENAL Stop: 03/16/18 08:53 Miscellaneous (Probiotic Screen) 1 [facility] PRN PRN PRN Reason: PROTOCOL Stop: 03/21/18 13:27 Ondansetron HCl (Zofran) 4 mg IV Q6H PRN PRN Reason: Nausea / Vomiting Stop: 03/17/18 09:43 Last Admin: 01/16/18 09:57 Dose: 4 mg Oxybutynin Chloride (Ditropan) 5 mg PO BID ANTHONY Stop: 03/06/18 16:59 Last Admin: 01/21/18 08:24 Dose: 5 mg Pantoprazole Sodium (Protonix) 40 mg IVP DAILY ANTHONY Stop: 03/06/18 08:59 Last Admin: 01/21/18 08:24 Dose: 40 mg Simethicone (Mylicon) 80 mg PO QID PRN PRN Reason: Gas Stop: 03/10/18 14:48 Last Admin: 01/20/18 22:02 Dose: 80 mg Sodium Bicarbonate (Sodium Bicarbonate) 650 mg PO TID ANTHONY PRN Reason: Protocol Stop: 03/07/18 15:14 Last Admin: 01/21/18 08:24 Dose: 650 mg Tramadol HCl (Ultram) 50 mg PO Q6HR PRN PRN Reason: Pain (Moderate) Stop: 03/10/18 15:51 Last Admin: 01/21/18 11:22 Dose: 50 mg General: No acute distress HEENT: Mucous membr. 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 01/19: per daughter; home hospice. k better 01/20: low k and mg, correct and follow; palliative care only 01/21: still low mag and k; replace electrolytes; palliative care only Nutritional Asmnt/Malnutr-PDOC - Dietary Evaluation Malnutrition Findings (Please click <Entered> for more info): Nutritional Asmnt/Malnutrition Start: 01/05/18 14: 24 Text: Status: Complete Freq: Document 01/05/18 14:24 KRISHAN (Rec: 01/05/18 14:55 [id number] Nutritional Asmnt/Malnutrition Patient General Information Nutritional Screening High Risk Diagnosis dehydration, anemia, UTI, facial cellulitis Pertinent Medical Hx/Surgical Hx HTN, ESRD, thyroid disorder Subjective Information Pt seen lying in bed, awake and pleasant. Family at bedside feeding pt lunch. Family is able to speak little Sinhala, denied pt has chewing/swallowing problem, stated pt eating ok. Pt has teeth noted. Per EMR, pt consumed 100% of breakfast in the morning. Current Diet Order/ Nutrition Support regular Pertinent Medications D5-0.9%ns, synthorid, protonix Pertinent Labs 01/05 cl 112, BUN 32, Cr 1.3, Ca 8.5 Nutritional Hx/Data Height 1.52 m Height (Calculated Centimeters) 152.4 Current Weight (lbs) 58.06 kg Weight (Calculated Kilograms) 58.1 Weight (Calculated Grams) 46613.8 [place] Body Weight 100 Body Mass Index (BMI) 25.0 Weight Status Approriate GI Symptoms GI Symptoms None Last BM not indicated Difficult in: None Skin Integrity/Comment: face reddened Current %PO Good (75-100%) Estimated Nutritional Goals BEE in Kcals: Using Current wt Calories/Kcals/Kg 25-30 Kcals Calculated 7165-2793 Protein: Using Current wt Protein g/k monitor renal labs Protein Calculated 58 Fluid: ml 1450-1740ml (1ml/kcal) Nutritional Problem 1. Problem Problem altered nutrition related labs Etiology electrolytes imbalance and hx of ESRD Signs/Symptoms: cl 112, BUN 32, Cr 1.3, Ca 8.5 Malnutrition Alert Protein-Calorie Malnutrition N/A Is there a minimum of two criteria No selected? Query Text:Check all the applicable criteria. A minimum of two criteria are recommended for diagnosis of either severe or non-severe malnutrition. Intervention/Recommendation Comments 1. Continue with regular diet as ordered. Assist pt with meals as needed. 2. If BUN/Cr not improved, will consider renal diet. 2. Monitor PO intake, wt, labs and skin integrity 3. F/U as moderate risk in 3-5 days, 01/08-01/10 Expected Outcomes/Goals Expected Outcomes/Goals 1. PO intake to meet at least 75% of nutritional needs. 2. Wt stability, skin to remain intact, labs to approach WNL.
[2018-01-21] MEDS ORDERED: Mag Sulfate 2gm/50mL Premix 2 GM/50 ML BAG IV ONE (14:00)
[2018-01-21] MEDS ORDERED: KCL 20mEq/100mL Premix Bag IV SCH (14:00)
--- NOTE | 2018-01-21 23:56 | Progress Notes ---
DATE: PATIENT'S IDENTIFICATION: An 82-year-old female. The patient seen and examined. The patient is lying in the bed. The patient has a temperature of 98.1, pulse is 165, respiratory rate is 18, and blood pressure 114/70. The patient has been referred to hospice care. Families are debating about putting the patient under hospice. The patient has been followed by oncologist as well as the surgeon as well. The patient has intermittent shortness of breath. PHYSICAL EXAMINATION: VITAL SIGNS: Temperature 97.7, pulse 97, respiratory rate is 18, and blood pressure 106/67. HEENT: No facial asymmetry. NECK: Supple. No JVD. HEART: Regular. LUNGS: Has expiratory wheezing. ABDOMEN: Soft and not distended. Bowel sounds present. EXTREMITIES: No edema. CLINICAL IMPRESSION: 1. Metastatic colon cancer. 2. Respiratory insufficiency. 3. Chronic hyponatremia secondary to malignancy. 4. Acute on chronic kidney disease. 5. Hypertension. 6. Coronary artery disease. 7. Urinary tract infection. PLAN: Continue current medication as prescribed. Discharge plan to hospice once family agree at this time. Care plan reviewed and discussed with staff. JOB# [id number]
--- NOTE | 2018-01-22 00:23 | Progress Notes ---
DATE: 01/21/2018 PULMONARY PROGRESS NOTE PROBLEM LIST: 1. Pulmonary nodule with mild degree asthmatic bronchitis. 2. Status post abdominal surgery with tumor removed and also status post TPN. SYMPTOMS: Nil. The patient offers no specific new symptomatology. No other new findings. PHYSICAL EXAMINATION: VITAL SIGNS: Temperature is 97.4 and blood pressure 120/53. NECK: Veins not visualized. CHEST: Shows diminished air entry. No other adventitious breath sounds. LABORATORY DATA: Electrolytes are looking better. Potassium is 3.1. ASSESSMENT: The patient is clinically stable, improving. PLANS: We will continue current respiratory care, inhalation treatment, etc., and go from there. JOB# [id number]
[2018-01-22] MEDS: Albuterol/Ipratropium Neb 3 ML AERS HHN SCH ×4 (01:41→18:38)
[2018-01-22 07:09] LABS: ANION GAP 9.4 (7.0-16.0); BUN - UREA NITROGEN 14 mg/dL (7-25); CALCIUM SERUM 7.7 mg/dL (8.6-10.3); CARBON DIOXIDE 25.3 mEq/L (21.0-31.0); CHLORIDE 102 mEq/L (98-107); CREATININE - SERUM 0.9 mg/dL (0.6-1.2); GLUCOSE 95 mg/dL (70-105); POTASSIUM SERUM 3.7 mEq/L (3.5-5.1); SODIUM SERUM 133 mEq/L (136-145)
[2018-01-22] MEDS: Lactobacillus Rhamnosus GG 15 Billion CFU CAP.SPRINK PO SCH (08:37)
[2018-01-22] MEDS: Levothyroxine 0.025 Mg Tab PO SCH (08:37)
[2018-01-22] MEDS: Ferrous Sulfate 325 MG TAB PO SCH ×2 (08:37→16:37)
--- NOTE | 2018-01-23 04:48 | Progress Notes ---
DATE: 01/22/2018 IDENTIFICATION: An 82-year-old female. SUBJECTIVE: The patient is seen and examined. The patient is lying in the bed. No new event. The patient will be discharged to hospice care as well. PHYSICAL EXAMINATION: VITAL SIGNS: Temperature 98, pulse is 64, respiratory rate 18, blood pressure 130/80. HEENT: No facial asymmetry. NECK: Supple, no JVD. HEART: Regular. LUNGS: Expiratory wheezing. ABDOMEN: Soft. EXTREMITIES: No edema. CLINICAL IMPRESSION: 1. Metastatic colon cancer. 2. Hyponatremia. 3. Acute on chronic kidney disease. 4. Hypertension. 5. Coronary artery disease. 6. Urinary tract infection. PLAN: Discharge to hospice care with a comfort care. JOB# [id number]
[2018-01-23] MEDS: Albuterol/Ipratropium Neb 3 ML AERS HHN SCH ×2 (07:54→14:18)
[2018-01-23] MEDS: Ferrous Sulfate 325 MG TAB PO SCH (08:48)
[2018-01-23] MEDS: Lactobacillus Rhamnosus GG 15 Billion CFU CAP.SPRINK PO SCH (08:48)
[2018-01-23] MEDS: Levothyroxine 0.025 Mg Tab PO SCH (08:49)
--- NOTE | 2018-01-23 10:07 | General Progress Note ---
Subjective - Review of Systems Service Date: 01/23/18 Subjective: eating, no vomiting, tolerating oral diet. Objective - Results Result Diagrams: 01/19/18 05:54 01/22/18 06:03 Recent Labs: Laboratory Last Values WBC 9.1 Th/cmm (4.8-10.8) D 01/19/18 05:54 RBC 2.98 Mil/cmm (3.80-5.20) L 01/19/18 05:54 Hgb 8.4 gm/dL (12-16) L 01/19/18 05:54 Hct 24.6 % (41.0-60) L 01/19/18 05:54 MCV 82.5 fl (81-100) 01/19/18 05:54 MCH 28.1 pg (27.0-31.0) 01/19/18 05:54 MCHC Differential 34.1 pg (28.0-36.0) 01/19/18 05:54 RDW 16.1 % (11.5-20.0) 01/19/18 05:54 Plt Count 269 Th/cmm (150-400) 01/19/18 05:54 MPV 7.1 fl 01/19/18 05:54 Neutrophils % 84.1 % (40.0-80.0) H 01/19/18 05:54 Band Neutrophils % 1 % (0-10) 01/14/18 05:25 Lymphocytes % 10.4 % (20.0-50.0) L 01/19/18 05:54 Monocytes % 4.2 % (2.0-10.0) 01/19/18 05:54 Eosinophils % 1.0 % (0.0-5.0) 01/19/18 05:54 Basophils % 0.3 % (0.0-2.0) 01/19/18 05:54 Neutrophils (Manual) 89 % (40-80) H 01/14/18 05:25 Lymphocytes 8 % (20-50) L 01/14/18 05:25 Monocytes 2 % (2-10) 01/14/18 05:25 Eosinophils 0 % (0-5) 01/14/18 05:25 Basophils 0 % (0-3) 01/14/18 05:25 Eos Smear Source URINE 01/06/18 05:25 Eos Smear Total Cells NONE SEEN (NONE SEEN) 01/06/18 05:25 PT 11.1 SECONDS (9.5-11.5) 01/09/18 04:54 INR 1.07 (0.5-1.4) 01/09/18 04:54 PTT (Actin FS) 25.1 SECONDS (26.0-38.0) L 01/09/18 04:54 Sodium 133 mEq/L (136-145) L 01/22/18 06:03 Potassium 3.7 mEq/L (3.5-5.1) 01/22/18 06:03 Chloride 102 mEq/L (98-107) 01/22/18 06:03 Carbon Dioxide 25.3 mEq/L (21.0-31.0) 01/22/18 06:03 Anion Gap 9.4 (7.0-16.0) 01/22/18 06:03 BUN 14 mg/dL (7-25) 01/22/18 06:03 Creatinine 0.9 mg/dL (0.6-1.2) 01/22/18 06:03 Est GFR ( Amer) TNP 01/22/18 06:03 Est GFR (Non-Af Amer) TNP 01/22/18 06:03 BUN/Creatinine Ratio 15.6 01/22/18 06:03 Glucose 95 mg/dL (70-105) 01/22/18 06:03 Plasma/Ser Osmolality 289 mOsmol/kg (280-301) 01/07/18 06:02 Whole Bld Lactic Acid 1.72 mmol/L (0.60-1.99) 01/04/18 20:35 Uric Acid 6.5 mg/dL (2.3-6.6) 01/06/18 06:01 Calcium 7.7 mg/dL (8.6-10.3) L 01/22/18 06:03 Phosphorus 4.1 mg/dL (2.5-5.0) 01/06/18 06:01 Magnesium 1.7 mg/dL (1.9-2.7) L 01/21/18 05:35 Iron 43 ug/dL (27-139) 01/05/18 05:36 TIBC 254 ug/dL (250-450) 01/05/18 05:36 Iron Saturation 17 % (15-55) 01/05/18 05:36 Unsaturated IBC 211 ug/dL (118-369) 01/05/18 05:36 Ferritin 17 ng/mL (15-150) 01/05/18 05:36 Total Bilirubin 0.4 mg/dL (0.3-1.0) 01/18/18 13:54 AST 19 U/L (13-39) 01/18/18 13:54 ALT 16 U/L (7-52) 01/18/18 13:54 Alkaline Phosphatase 70 U/L (34-104) 01/18/18 13:54 Creatine Kinase 165 U/L (30-223) 01/04/18 20:35 Troponin I 0.02 ng/mL (0.01-0.05) 01/04/18 20:35 B-Natriuretic Peptide 1280.0 pg/mL (5.0-100.0) H 01/19/18 05:54 Total Protein 5.2 gm/dL (6.0-8.3) L 01/18/18 13:54 Albumin 2.4 gm/dL (3.7-5.3) L 01/18/18 13:54 Globulin 2.8 gm/dL 01/18/18 13:54 Albumin/Globulin Ratio 0.9 (1.0-1.8) L 01/18/18 13:54 Triglycerides 68 mg/dL (<150) 01/04/18 20:35 Cholesterol 115 mg/dL (<200) 01/04/18 20:35 LDL Cholesterol Direct 56 mg/dL (75-193) L 01/04/18 20:35 HDL Cholesterol 44 mg/dL (23-92) 01/04/18 20:35 Amylase 45 U/L (29-103) 01/06/18 06:01 Lipase 24 U/L (11-82) 01/06/18 06:01 Carcinoembryonic Ag 26.2 ng/mL (0.0-4.7) H 01/06/18 06:01 Vitamin B12 304 pg/mL (232-1245) 01/05/18 05:36 Folic Acid 14.5 ng/mL (>3.0) 01/05/18 05:36 TSH 4.28 uIU/ml (0.34-5.60) 01/05/18 05:36 Urine Source CLEAN C 01/04/18 20:20 Urine Color STRAW 01/04/18 20:20 Urine Clarity CLEAR (CLEAR) 01/04/18 20:20 Urine pH 5.5 (4.6 - 8.0) 01/04/18 20:20 Ur Specific [place] 1.015 (1.005-1.030) 01/04/18 20:20 Urine Protein NEGATIVE mg/dL (NEGATIVE) 01/04/18 20:20 Urine Glucose (UA) NEGATIVE mg/dL (NEGATIVE) 01/04/18 20:20 Urine Ketones NEGATIVE mg/dL (NEGATIVE) 01/04/18 20:20 Urine Blood NEGATIVE (NEGATIVE) 01/04/18 20:20 Urine Nitrate NEGATIVE (NEGATIVE) 01/04/18 20:20 Urine Bilirubin NEGATIVE (NEGATIVE) 01/04/18 20:20 Urine Urobilinogen 0.2 E.U./dL (0.2 - 1.0) 01/04/18 20:20 Ur Leukocyte Esterase TRACE (NEGATIVE) H 01/04/18 20:20 Urine RBC NONE SEEN /hpf (0-5) 01/04/18 20:20 Urine WBC 2-5 /hpf (0-5) 01/04/18 20:20 Ur Epithelial Cells NONE SEEN /lpf (FEW) 01/04/18 20:20 Urine Bacteria NONE SEEN /hpf (NONE SEEN) 01/04/18 20:20 Ur Random Sodium 99 mmol/L 01/06/18 05:25 Urine Creatinine 42.0 mg/dl (28.0-217.0) 01/06/18 05:25 Stool Occult Blood NEGATIVE (NEGATIVE) 01/07/18 17:25 Blood Type O POSITIVE 01/10/18 07:20 Antibody Screen POSITIVE 01/10/18 07:20 Antibody Identification Anti-C Anti-e 01/10/18 07:20 Antibody Identification Anti-C Anti-e 01/10/18 07:20 Crossmatch See Detail 01/10/18 07:20 - Physical Exam Vitals and I&O: Vital Signs Temp 98.2 F 01/23/18 09:18 Pulse 107 01/23/18 09:18 Resp 18 01/23/18 09:18 BP 126/66 01/23/18 09:18 Pulse Ox 96 01/23/18 09:18 Intake & Output 01/22/18 01/23/1801/23/18 18:59 06:59 18:59 Intake Total 550 300 Output Total 325 Balance 225 300 Weight (lbs) 68.719 kg 68.492 kg Intake: Intake, IV Amount 100 Piperacillin Sodium/ 100 Tazobact 3.375 gm In Dextrose 5% 50 ml @ 100 mls/hr IV Q8H [facility] Rx#: [id number] Oral 450 300 Output: Urine 325 Stool 0 Other: # Voids 2 Weight Source Bedscale Bedscale Active Medications: Current Medications Albuterol/Ipratropium (Duoneb Neb) 3 ml HHN Q6HRT [facility] Stop: 03/08/18 18:59 Last Admin: 01/23/18 07:54 Dose: 3 ml Amlodipine Besylate (Norvasc) 5 mg PO DAILY [facility] Stop: 03/06/18 08:59 Last Admin: 01/23/18 08:48 Dose: 5 mg Benzocaine/Menthol (Cepacol) 1 cooper MM Q4HR PRN PRN Reason: Sore Throat Stop: 03/10/18 15:50 Last Admin: 01/16/18 23:44 Dose: 1 cooper Ferrous Sulfate (Iron) 325 mg PO BID [facility] Stop: 03/17/18 10:14 Last Admin: 01/23/18 08:48 Dose: 325 mg Heparin Sodium (Porcine) (Heparin) 5,000 units SUBQ Q12HR [facility] Stop: 03/17/18 10:14 Last Admin: 01/23/18 08:49 Dose: 5,000 units Piperacillin Sod/Tazobactam (Sod 3.375 gm/ Dextrose) 50 mls @ 100 mls/hr IV Q8H [facility] Stop: 03/13/18 09:14 Last Admin: 01/23/18 06:37 Dose: 100 mls/hr Lactobacillus Rhamnosus (Culturelle 15b) 1 each PO DAILY [facility] Stop: 03/22/18 08:59 Last Admin: 01/23/18 08:48 Dose: 1 each Levothyroxine Sodium (Synthroid) 0.025 mg PO QDAC [facility] Stop: 03/06/18 07:29 Last Admin: 01/23/18 08:49 Dose: 0.025 mg Losartan Potassium (Cozaar) 100 mg PO DAILY [facility] Stop: 03/07/18 10:59 Last Admin: 01/23/18 08:48 Dose: 100 mg Miscellaneous (Vte Chemical Prophylaxis Screen/ Admission) 1 ea [facility] PRN PRN PRN Reason: PROTOCOL Stop: 03/06/18 08:14 Miscellaneous (Clinical Monitoring) 1 ea MC DAILY PRN PRN Reason: RENAL Stop: 03/16/18 08:53 Miscellaneous (Probiotic Screen) 1 ea MC PRN PRN PRN Reason: PROTOCOL Stop: 03/21/18 13:27 Ondansetron HCl (Zofran) 4 mg IV Q6H PRN PRN Reason: Nausea / Vomiting Stop: 03/17/18 09:43 Last Admin: 01/16/18 09:57 Dose: 4 mg Oxybutynin Chloride (Ditropan) 5 mg PO BID [facility] Stop: 03/06/18 16:59 Last Admin: 01/23/18 08:48 Dose: 5 mg Pantoprazole Sodium (Protonix) 40 mg IVP DAILY [facility] Stop: 03/06/18 08:59 Last Admin: 01/22/18 08:36 Dose: 40 mg Simethicone (Mylicon) 80 mg PO QID PRN PRN Reason: Gas Stop: 03/10/18 14:48 Last Admin: 01/20/18 22:02 Dose: 80 mg Sodium Bicarbonate (Sodium Bicarbonate) 650 mg PO TID [facility] PRN Reason: Protocol Stop: 03/07/18 15:14 Last Admin: 01/23/18 08:48 Dose: 650 mg Tramadol HCl (Ultram) 50 mg PO Q6HR PRN PRN Reason: Pain (Moderate) Stop: 03/10/18 15:51 Last Admin: 01/22/18 16:37 Dose: 50 mg Zolpidem Tartrate (Ambien) 5 mg PO HS PRN PRN Reason: Insomnia Stop: 03/23/18 21:58 Last Admin: 01/22/18 22:16 Dose: 5 mg General: No acute distress HEENT: Mucous membr. 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 01/19: per daughter; home hospice. k better 01/20: low k and mg, correct and follow; palliative care only 01/21: still low mag and k; replace electrolytes; palliative care only 01/23: awake getting PT. k better. palliative care/hospice Nutritional Asmnt/Malnutr-PDOC - Dietary Evaluation Malnutrition Findings (Please click <Entered> for more info): Nutritional Asmnt/Malnutrition Start: 01/05/18 14: 24 Text: Status: Complete Freq: Document 01/05/18 14:24 KRISHAN (Rec: 01/05/18 14:55 [facility] Nutritional Asmnt/Malnutrition Patient General Information Nutritional Screening High Risk Diagnosis dehydration, anemia, UTI, facial cellulitis Pertinent Medical Hx/Surgical Hx HTN, ESRD, thyroid disorder Subjective Information Pt seen lying in bed, awake and pleasant. Family at bedside feeding pt lunch. Family is able to speak little Upper Sorbian, denied pt has chewing/swallowing problem, stated pt eating ok. Pt has teeth noted. Per EMR, pt consumed 100% of breakfast in the morning. Current Diet Order/ Nutrition Support regular Pertinent Medications D5-0.9%ns, synthorid, protonix Pertinent Labs 01/05 cl 112, BUN 32, Cr 1.3, Ca 8.5 Nutritional Hx/Data Height 1.52 m Height (Calculated Centimeters) 152.4 Current Weight (lbs) 58.06 kg Weight (Calculated Kilograms) 58.1 Weight (Calculated Grams) 32051.8 [place] Body Weight 100 Body Mass Index (BMI) 25.0 Weight Status Approriate GI Symptoms GI Symptoms None Last BM not indicated Difficult in: None Skin Integrity/Comment: face reddened Current %PO Good (75-100%) Estimated Nutritional Goals BEE in Kcals: Using Current wt Calories/Kcals/Kg 25-30 Kcals Calculated 2015-1605 Protein: Using Current wt Protein g/k monitor renal labs Protein Calculated 58 Fluid: ml 1450-1740ml (1ml/kcal) Nutritional Problem 1. Problem Problem altered nutrition related labs Etiology electrolytes imbalance and hx of ESRD Signs/Symptoms: cl 112, BUN 32, Cr 1.3, Ca 8.5 Malnutrition Alert Protein-Calorie Malnutrition N/A Is there a minimum of two criteria No selected? Query Text:Check all the applicable criteria. A minimum of two criteria are recommended for diagnosis of either severe or non-severe malnutrition. Intervention/Recommendation Comments 1. Continue with regular diet as ordered. Assist pt with meals as needed. 2. If BUN/Cr not improved, will consider renal diet. 2. Monitor PO intake, wt, labs and skin integrity 3. F/U as moderate risk in 3-5 days, 01/08-01/10 Expected Outcomes/Goals Expected Outcomes/Goals 1. PO intake to meet at least 75% of nutritional needs. 2. Wt stability, skin to remain intact, labs to approach WNL.
== END 2018-01-23 14:54 | disposition hospice, home (50) | DRG 329 ==
LOC: ER 20:06 → MSI 21:50 → TELE 01-11 10:41
PROVIDERS: ADMIT Family Medicine; ATTEND Family Medicine
PROC: 0DBK8ZX Excision of Ascending Colon, Via Natural or Artificial Opening Endoscopic, Diagnostic (ICD-10-PCS; principal; 2018-01-09)
PROC: 0DBL8ZZ Excision of Transverse Colon, Via Natural or Artificial Opening Endoscopic (ICD-10-PCS; 2018-01-09)
PROC: 30233N1 Transfusion of Nonautologous Red Blood Cells into Peripheral Vein, Percutaneous Approach (ICD-10-PCS; 2018-01-10)
PROC: 0DTF0ZZ Resection of Right Large Intestine, Open Approach (ICD-10-PCS; 2018-01-11)
DX: C18.0 Malignant neoplasm of cecum (principal); J18.9 Pneumonia, unspecified organism; N18.6 End stage renal disease; A41.9 Sepsis, unspecified organism; R65.21 Severe sepsis with septic shock; L03.211 Cellulitis of face; N39.0 Urinary tract infection, site not specified; N17.9 Acute kidney failure, unspecified; E87.2 Acidosis; E22.2 Syndrome of inappropriate secretion of antidiuretic hormone; I12.0 Hypertensive chronic kidney disease with stage 5 chronic kidney disease or end stage renal disease; C78.02 Secondary malignant neoplasm of left lung; C78.01 Secondary malignant neoplasm of right lung; C18.2 Malignant neoplasm of ascending colon; K64.8 Other hemorrhoids; D63.1 Anemia in chronic kidney disease; K59.09 Other constipation; M19.90 Unspecified osteoarthritis, unspecified site; E87.8 Other disorders of electrolyte and fluid balance, not elsewhere classified; Z60.2 Problems related to living alone; E86.0 Dehydration; E03.9 Hypothyroidism, unspecified; I25.10 Atherosclerotic heart disease of native coronary artery without angina pectoris; K63.5 Polyp of colon; D50.0 Iron deficiency anemia secondary to blood loss (chronic); Z79.899 Other long term (current) drug therapy; Z82.49 Family history of ischemic heart disease and other diseases of the circulatory system
CPT/HCPCS: 36415-UA; 71045-TC; 71260-TC; 76770-TC; 80048-TC; 80053-TC; 80061-TC; 81001-TC; 81015-TC; 82150-TC; 82270-TC; 82378-90; 82550-TC; 82570-TC; 82607-90; 82728-90; 82746-90; 83540-90; 83550-90; 83605; 83690-TC; 83735-TC; 83880-TC; 83930-90; 84100-TC; 84300-TC; 84443-TC; 84484-TC; 84550-TC; 85007-TC; 85014-TC; 85018-TC; 85025-TC; 85027-TC; 85610-TC; 85730-TC; 86850-TC; 86860-90; 86870-90; 86870-TC; 86900-TC; 86901-TC; 86902; 86902-90; 86922-TC; 86971-90; 87086-90; 88305-90; 88307-TC; 90799; 93005; 94640; 94760; 96372; 96375; 97530; C9113; J0696; J1170; J1644; J1885; J1940; J2001; J2250; J2405; J2543; J2704; J2710; J3475; J3480; J7030; J7040; J7042; P9016; Q9967; X3904; X5716; X6258; X6494; Z7506; Z7610